=== PATIENT | female | born 1935 | race Caucasian/White ===

== ENCOUNTER 2018-10-10 16:25 | Observation (INO) | payer MEDICARE ==
[~2018-10-10] VITALS: Ht 162.6 cm; Wt 61.7 kg
[~2018-10-10 16:25] MED LIST: ASCO-262 PO; CALC-97 PO; CHLO25TA22 PO; CHOL200035 PO; CITA10TA7 PO; DILT240C PO; DIVA125T2 PO; DONE10TA12 PO; HYDR-3583 PO; LORA-404 PO; LOVA40TA2 PO; MAGN400C PO; MELA1TAB8 PO; OLIV30OI MC; OMG1KC PO; SENN-145 PO; SIMV40TA4 PO; TRAM50TA2 PO; TRAZ-189 PO; VITA1CAP59 PO; VITA200T7 PO
--- OUTSIDE RECORDS SUMMARY | 2018-10-10 16:52 | XMS REPORT | Continuity of Care Document ---
Author Author [facility] Organization [facility] Address Unknown Phone Unavailable Allergies Active Description Code Type Severity Reaction Onset Reported/Identified Relationship to Patient Clinical Status Yes NO KNOWN DRUG ALLERGIES UNKNOWN NO KNOWN DRUG ALLERG Yes No Known Drug Allergies [id number] Drug Allergy Unknown N/A 06/12/2012 Medications Medication Packaging Start Date Stop Date Route Dosage Sig ACETAMINOPHEN ORAL TABLET 325mg(Tylenol) MG 03/15/2017 03/22/2017 PRN EVERY 6 Hour LORAZEPAM TAB 0.5 MG (ATIVAN) MG 04/13/2017 Daily&1400 ALUM/MAG/SIMETH 30CC LIQ (MYLANTA PLUS) cc 03/15/2017 03/25/2017 PRN Q4H ACETAMINOPHEN ORAL TABLET 325mg(Tylenol) MG 03/15/2017 03/22/2017 PRN EVERY 6 Hour POLYETHYLENE GLYCOL POWDER UD PWD (MIRALAX 17GM UNIT DOSE PAKS) gm 03/15/2017 03/25/2017 PRN Q3H CALMOSEPTINE OINT TUBE (RISAMINE OINT) radha 03/15/2017 03/22/2017 PRN QID LOPERAMIDE CAP 2 MG (IMMODIUM) MG 03/15/2017 03/22/2017 PRN QID DIVALPROEX SPRINKLE CAP 125 MG (DEPAKOTE SPRINKLE) MG 03/15/2017 04/14/2017 PRN Q6H ALUM/MAG/SIMETH 30CC LIQ (MYLANTA PLUS) cc 03/15/2017 03/25/2017 PRN Q4H DIVALPROEX SPRINKLE CAP 125 MG (DEPAKOTE SPRINKLE) MG 03/15/2017 04/14/2017 BID&0800,1999 POTASSIUM CHLORIDE TAB 10 MEQ (K-DUR) MEQ 03/15/2017 04/14/2017 BID&0800,2000 SIMVASTATIN TAB 40 MG (ZOCOR) MG 04/13/2017 QPM&2000 LACTULOSE SYRUP LIQ 20 GM/30CC (CHRONULAC SYRUP) GM 03/15/2017 03/25/2017 BID&0800,1999 SENNA CONC/DOCUSATE TAB (SENOKOT S) TAB 03/15/2017 04/14/2017 BID&0800,1999 MILK OF MAGNESIA LIQ ml 03/15/2017 03/22/2017 PRN BID LORAZEPAM TAB 0.5 MG (ATIVAN) MG 04/13/2017 QHS&2100 MELATONIN TAB 3 MG (MELATONIN) MG 03/15/2017 04/13/2017 QHS&2100 TRAZODONE TAB 50 MG (DESYREL) MG 04/14/2017 PRN QHS IPRATROPIUM/ALBUTEROL INH SOLN (DUO-NEB INH SOLN) MLS 03/16/2017 03/25/2017 TID&0600,1400,2200 DIVALPROEX SPRINKLE CAP 125 MG (DEPAKOTE SPRINKLE) MG 03/16/2017 04/14/2017 BID&0800,1999 Diltiazem 240mg XR cap (CARDIZEM) MG 03/16/2017 04/14/2017 QAM&0800 POTASSIUM CHLORIDE TAB 10 MEQ (K-DUR) MEQ 03/16/2017 04/14/2017 QAM&0800 DONEPEZIL TAB 10 MG (ARICEPT) MG 04/14/2017 QAM&0800 CITALOPRAM TAB 10 MG (CELEXA) MG 04/14/2017 QAM&0800 LORAZEPAM TAB 0.5 MG (ATIVAN) MG 04/14/2017 Daily&0900 PHENAZOPYRIDINE TAB 100 MG (PYRIDIUM) MG 03/16/2017 03/23/2017 PRN TID HYDROCHLOROTHIAZIDE CAP 12.5 MG (HYDRODIURIL) MG 03/16/2017 04/14/2017 Daily&0900 CITALOPRAM TAB 10 MG (CELEXA) MG 04/14/2017 Daily&0900 VITAMIN D-3 TAB 1000 UNITS (VITAMIN D-3) UNITS 03/16/2017 04/14/2017 Daily&0900 BISACODYL SUPPOS SUP 10 MG (DULCOLAX SUPPOS) MG 03/16/2017 03/23/2017 PRN Daily Memantine oral tablet 5mg (NAMENDA) MG 03/16/2017 03/16/2017 ONCE&1245 Rivastigmine TD Patch 24 hour 4.6mg (EXELON) MG 03/16/2017 03/16/2017 ONCE&1245 LORAZEPAM TAB 0.5 MG (ATIVAN) MG 04/14/2017 QHS&2100 Memantine oral tablet 5mg (NAMENDA) MG 03/17/2017 03/20/2017 Daily&0900 Rivastigmine TD Patch 24 hour 4.6mg (EXELON) MG 03/17/2017 03/26/2017 Daily&0900 Memantine oral tablet 5mg (NAMENDA) MG 03/21/2017 03/30/2017 BID&0800,1999 PHENAZOPYRIDINE TAB 100 MG (PYRIDIUM) MG 03/26/2017 04/02/2017 PRN TID TRAZODONE TAB 50 MG (DESYREL) MG 04/24/2017 QHS&2100 CITALOPRAM TAB 20 MG (CELEXA) MG 04/25/2017 Daily&0900 Rivastigmine TD Patch 24 hour 4.6mg (EXELON) MG 03/27/2017 04/05/2017 Daily&0900 CHLORTHALIDONE 25 MG TABLET (chlorthalidone) oral tablet TAB 03/29/2017 03/29/2017 ONCE&0800 SIMVASTATIN TAB 40 MG (ZOCOR) MG 10/16/2017 QPM&1999 PHENAZOPYRIDINE TAB 100 MG (PYRIDIUM) MG 09/17/2017 10/17/2017 PRN TID SENNA CONC/DOCUSATE TAB (SENOKOT S) TAB 09/17/2017 10/17/2017 BID&0800,1999 DIVALPROEX SPRINKLE CAP 125 MG (DEPAKOTE SPRINKLE) MG 09/17/2017 09/17/2017 ONCE&2126 Memantine oral tablet 10mg (NAMENDA) MG 09/17/2017 09/17/2017 ONCE&2126 MELATONIN TAB 3 MG (MELATONIN) MG 09/17/2017 09/17/2017 ONCE&2126 LORAZEPAM TAB 0.5 MG (ATIVAN) MG 09/17/2017 PRN ONCE TRAZODONE TAB 50 MG (DESYREL) MG 09/17/2017 PRN ONCE DIVALPROEX SPRINKLE CAP 125 MG (DEPAKOTE SPRINKLE) MG 09/18/2017 10/17/2017 TID&0800,1400,2000 Diltiazem 240mg XR cap (CARDIZEM) MG 09/18/2017 10/17/2017 QAM&0800 Memantine oral tablet 5mg (NAMENDA) MG 09/18/2017 10/17/2017 BID&0800,2000 DONEPEZIL TAB 10 MG (ARICEPT) MG 10/17/2017 QAM&0800 CITALOPRAM TAB 20 MG (CELEXA) MG 10/17/2017 Daily&0900 VITAMIN D-3 TAB 1000 UNITS (VITAMIN D-3) UNITS 09/18/2017 10/17/2017 Daily&0900 Haloperidol 0.25mg (Haldol) oral tablet MG 09/18/2017 09/28/2017 PRN Q6H HALOPERIDOL TAB 0.5 MG (HALDOL) MG 09/18/2017 10/18/2017 PRN Q6H LORAZEPAM TAB 0.5 MG (ATIVAN) MG 10/17/2017 QHS&2100 MELATONIN TAB 3 MG (MELATONIN) MG 09/18/2017 10/17/2017 QHS&2100 TRAZODONE TAB 50 MG (DESYREL) MG 10/17/2017 QHS&2100 DIVALPROEX SPRINKLE CAP 125 MG (DEPAKOTE SPRINKLE) MG 09/19/2017 10/19/2017 TID&0800,1400,2000 CITALOPRAM TAB 20 MG (CELEXA) MG 10/19/2017 Daily&0900 LORAZEPAM TAB 0.5 MG (ATIVAN) MG 10/19/2017 QHS&2100 MELATONIN TAB 3 MG (MELATONIN) MG 09/20/2017 10/20/2017 PRN QHS LORAZEPAM TAB 0.5 MG (ATIVAN) MG 09/22/2017 QHS&2100 DIVALPROEX SPRINKLE CAP 125 MG (DEPAKOTE SPRINKLE) MG 09/23/2017 10/22/2017 QHS&2100 DIVALPROEX SPRINKLE CAP 125 MG (DEPAKOTE SPRINKLE) MG 09/24/2017 10/23/2017 QAM&0800 IPRATROPIUM/ALBUTEROL INH SOLN (DUO-NEB INH SOLN) MLS 09/24/2017 10/08/2017 BID&0800,2000 LORATADINE TAB 10 MG (CLARITIN) MG 09/25/2017 09/25/2017 ONCE&0946 LORATADINE TAB 10 MG (CLARITIN) MG 09/26/2017 10/25/2017 Daily&0900 DIVALPROEX SPRINKLE CAP 125 MG (DEPAKOTE SPRINKLE) MG 09/27/2017 10/27/2017 BID&0800,2000 HYDROXYZINE TAB 25 MG (ATARAX) MG 09/28/2017 09/28/2017 PRN ONCE PHENAZOPYRIDINE TAB 100 MG (PYRIDIUM) MG 09/28/2017 10/05/2017 BID&0800,2000 HYDROXYZINE TAB 25 MG (ATARAX) MG 10/01/2017 10/01/2017 ONCE&1024 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 02/04/2016 Ot V72.63 PRE- PROCEDURAL LABORATORY EXAMINATION 02/04/2016 Ot V72.81 EXAM-PRE- OPERATIVE CARDIOVASCULAR 02/04/2016 Ot V74.8 SCREEN- BACTERIAL DIS NEC 02/04/2016 FAUSTINO GUTIERREZP Ot 272.2 MIXED HYPERLIPIDEMIA 02/04/2016 FAUSTINO GUTIERREZP Ot 401.1 BENIGN HYPERTENSION 02/04/2016 FAUSTINO GUTIERREZP Ot 414.00 CORON ATHEROSCLER NOS TYPE VESSEL, NATIV 02/04/2016 DIAN STEWART MD Ot 305.1 TOBACCO USE DISORDER 02/04/2016 DIAN STEWART MD Ot 397.0 TRICUSPID VALVE DISEASE 02/04/2016 DIAN STEWART MD Ot 401.9 HYPERTENSION NOS 02/04/2016 DIAN STEWART MD Ot 424.0 MITRAL VALVE DISORDER 02/04/2016 DIAN STEWART MD Ot 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-ISCHEM HEART DIS 02/09/2016 KERWIN TRUJILLO, EL Crook Ot C44.722 SQUAMOUS CELL CARCINOMA SKIN/ RIGHT LOWE 02/09/2016 KERWIN TRUJILLO, EL Crook Ot E78.5 HYPERLIPIDEMIA, UNSPECIFIED 02/09/2016 KERWIN TRUJILLO, EL Crook Ot F17.210 NICOTINE DEPENDENCE, CIGARETTES, UNCOMPL 02/09/2016 KERWIN TRUJILLO, EL Crook Ot I10 ESSENTIAL (PRIMARY) HYPERTENSION 02/09/2016 KERWIN TRUJILLO, EL Crook Ot C44.722 SQUAMOUS CELL CARCINOMA SKIN/ RIGHT LOWE 02/09/2016 EL SURESH MD Ot Z01.818 ENCOUNTER FOR OTHER PREPROCEDURAL EXAMIN 02/09/2016 EL SURESH MD Ot Z11.2 ENCOUNTER FOR SCREENING FOR OTHER BACTER 02/11/2016 KERWIN TRUJILLO, EL Crook Ot C44.722 SQUAMOUS CELL CARCINOMA SKIN/ RIGHT LOWE 02/11/2016 EL SURESH MD Ot E78.5 HYPERLIPIDEMIA, UNSPECIFIED 02/11/2016 KERWIN TRUJILLO, EL Crook Ot F17.210 NICOTINE DEPENDENCE, CIGARETTES, UNCOMPL 02/11/2016 KERWIN TRUJILLO, EL Crook Ot I10 ESSENTIAL (PRIMARY) HYPERTENSION 07/17/2016 Ot 496 CHR AIRWAY OBSTRUCT NEC 07/17/2016 Ot 401.9 HYPERTENSION NOS 07/17/2016 Ot 518.81 ACUTE RESPIRATORY FAILURE 07/17/2016 Ot 577.0 ACUTE PANCREATITIS 07/17/2016 Ot 782.3 EDEMA 07/17/2016 Ot 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 07/17/2016 Ot V72.63 PRE- PROCEDURAL LABORATORY EXAMINATION 07/17/2016 Ot V72.81 EXAM-PRE- OPERATIVE CARDIOVASCULAR 07/17/2016 Ot V74.8 SCREEN- BACTERIAL DIS NEC 07/17/2016 FAUSTINO GUTIERREZP Ot 272.2 MIXED HYPERLIPIDEMIA 07/17/2016 FAUSTINO GUTIERREZP Ot 401.1 BENIGN HYPERTENSION 07/17/2016 FAUSTINO GUTIERREZP Ot 414.00 CORON ATHEROSCLER NOS TYPE VESSEL, NATIV 07/17/2016 PAT TRUJILLO, DIAN [place]ar[place] Ot 305.1 TOBACCO USE DISORDER 07/17/2016 DIAN STEWART MD Ot 397.0 TRICUSPID VALVE DISEASE 07/17/2016 DIAN STEWART MD Ot 401.9 HYPERTENSION NOS 07/17/2016 DIAN STEWART MD Ot 424.0 MITRAL VALVE DISORDER 07/17/2016 DIAN STEWART MD Ot 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-ISCHEM HEART DIS 07/17/2016 KERWIN TRUJILLO, EL Crook Ot C44.722 SQUAMOUS CELL CARCINOMA SKIN/ RIGHT LOWE 07/17/2016 KERWIN TRUJILLO, EL Crook Ot Z01.818 ENCOUNTER FOR OTHER PREPROCEDURAL EXAMIN 07/17/2016 EL SURESH MD Ot Z11.2 ENCOUNTER FOR SCREENING FOR OTHER BACTER 07/18/2016 BAILEY ALLISON INTERVENTION NURSE Ot R05 COUGH 08/08/2016 BAILEY ALLISON INTERVENTION NURSE Ot R05 COUGH 08/17/2016 BAILEY ALLISON INTERVENTION NURSE Ot R05 COUGH 03/15/2017 PAOLA CRUZ 297.1 DELUSIONAL DISORDER 03/15/2017 PAOLA CRUZ F22 DELUSIONAL DISORDERS 03/29/2017 PAOLA CRUZ 253.6 03/29/2017 PAOLA CRUZ 272.4 OTHER AND UNSPECIFIED HYPERLIPIDEMIA 03/29/2017 PAOLA CRUZ 276.8 03/29/2017 PAOLA CRUZ 290.41 03/29/2017 PAOLA CRUZ 331.2 03/29/2017 PAOLA CRUZ 368.16 03/29/2017 PAOLA CRUZ 401.0 03/29/2017 PAOLA CRUZ 424.0 03/29/2017 PAOLA CRUZ 491.20 OBSTRUCTIVE CHRONIC BRONCHITIS, WITHOUT EXACERBATION 03/29/2017 PAOLA CRUZ 564.00 CONSTIPATION, UNSPECIFIED 03/29/2017 PAOLA CRUZ 780.1 03/29/2017 PAOLA CRUZ 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 03/29/2017 PAOLA CRUZ E78.5 HYPERLIPIDEMIA, UNSPECIFIED 03/29/2017 PAOLA CRUZ E87.6 HYPOKALEMIA 03/29/2017 PAOLA CRUZ F01.51 03/29/2017 PAOLA CRUZ G31.1 03/29/2017 PAOLA CRUZ I10 ESSENTIAL (PRIMARY) HYPERTENSION 03/29/2017 PAOLA CRUZ I34.1 NONRHEUMATIC MITRAL (VALVE) PROLAPSE 03/29/2017 PAOLA CRUZ J44.9 CHRONIC OBSTRUCTIVE PULMONARY DISEASE, UNSPECIFIED 03/29/2017 PAOLA CRUZ W K59.09 OTHER CONSTIPATION 03/29/2017 PAOLA CRUZ R44.0 03/29/2017 PAOLA CRUZ R44.1 VISUAL HALLUCINATIONS 09/17/2017 Kenneth, Tyler W 290.41 VASCULAR DEMENTIA, WITH DELIRIUM 09/17/2017 Kenneth, Tyler W 297.0 PARANOID STATE, SIMPLE 09/17/2017 Kenneth, Tyler W 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 09/17/2017 Kenneth, Tyler W 401.9 UNSPECIFIED ESSENTIAL HYPERTENSION 09/17/2017 Kenneth, Tyler W F01.51 VASCULAR DEMENTIA WITH BEHAVIORAL DISTURBANCE 09/17/2017 Kenneth, Tyler W F22 DELUSIONAL DISORDERS 09/17/2017 Kenneth, Tyler W 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, NOT ELSEWHERE CLASSIFIED 09/17/2017 Kenneth, Tyler W I10 ESSENTIAL (PRIMARY) HYPERTENSION 09/17/2017 Kenneth, Tyler W 290.41 VASCULAR DEMENTIA, WITH DELIRIUM 09/17/2017 Kenneth, Tyler W 297.0 PARANOID STATE, SIMPLE 09/17/2017 Kenneth, Tyler W 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 09/17/2017 Kenneth, Tyler W 401.9 UNSPECIFIED ESSENTIAL HYPERTENSION 09/17/2017 Kenneth, Tyler W F01.51 VASCULAR DEMENTIA WITH BEHAVIORAL DISTURBANCE 09/17/2017 Kenneth, Tyler W F22 DELUSIONAL DISORDERS 09/17/2017 Kenneth, Tyler W 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, NOT ELSEWHERE CLASSIFIED 09/17/2017 Kenneth, Tyler W I10 ESSENTIAL (PRIMARY) HYPERTENSION 09/26/2017 Kenneth, Tyler W 290.41 VASCULAR DEMENTIA, WITH DELIRIUM 09/26/2017 Kenneth, Tyler W 297.0 PARANOID STATE, SIMPLE 09/26/2017 Kenneth, Tyler W 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 09/26/2017 Kenneth, Tyler W 401.9 UNSPECIFIED ESSENTIAL HYPERTENSION 09/26/2017 Kenneth, Tyler W F01.51 VASCULAR DEMENTIA WITH BEHAVIORAL DISTURBANCE 09/26/2017 Kenneth, Tyler W F22 DELUSIONAL DISORDERS 09/26/2017 Kenneth, Tyler W 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, NOT ELSEWHERE CLASSIFIED 09/26/2017 Kenneth, Tyler W I10 ESSENTIAL (PRIMARY) HYPERTENSION 10/01/2017 Kenneth, Tyler W 290.41 VASCULAR DEMENTIA, WITH DELIRIUM 10/01/2017 Kenneth, Tyler W 297.0 PARANOID STATE, SIMPLE 10/01/2017 Kenneth, Tyler W 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 10/01/2017 Kenneth, Tyler W 401.9 UNSPECIFIED ESSENTIAL HYPERTENSION 10/01/2017 Kenneth, Tyler W F01.51 VASCULAR DEMENTIA WITH BEHAVIORAL DISTURBANCE 10/01/2017 Kenneth, Tyler W F22 DELUSIONAL DISORDERS 10/01/2017 Kenneth, Tyler W 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, NOT ELSEWHERE CLASSIFIED 10/01/2017 Kenneth, Tyler W I10 ESSENTIAL (PRIMARY) HYPERTENSION 10/01/2017 Kenneth, Tyler W 268.9 10/01/2017 Kenneth, Tyler A 272.4 10/01/2017 Kenneth, Tyler W 290.41 VASCULAR DEMENTIA, WITH DELIRIUM 10/01/2017 Kenneth, Tyler W 297.0 PARANOID STATE, SIMPLE 10/01/2017 Kenneth, Tyler W 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 10/01/2017 Kenneth, Tyler W 401.9 UNSPECIFIED ESSENTIAL HYPERTENSION 10/01/2017 Kenneth, Tyler W 424.0 10/01/2017 Kenneth, Tyler W 491.20 10/01/2017 Kenneth, Tyler W 562.12 10/01/2017 Kenneth, Tyler W 564.00 10/01/2017 Kenneth, Tyler W E55.9 VITAMIN D DEFICIENCY, UNSPECIFIED 10/01/2017 Kenneth, Tyler A E78.5 10/01/2017 Kenneth, Tyler W F01.51 VASCULAR DEMENTIA WITH BEHAVIORAL DISTURBANCE 10/01/2017 Sathya Cooperb W F22 DELUSIONAL DISORDERS 10/01/2017 Sathya Cooperb W 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 Results Test Result Range Vitamin D, 25 OH - 03/15/17 11:54 Vitamin D, 25 OH 21.70 ng/mL 25.00-100.00 MRSA Screen - 03/15/17 11:54 FINAL CULTURE RESULTS MRSA Negative Nasal Culture MEDIA PLATED Setup at 12:09 on 03/15/2017 Urine Culture - 03/15/17 11:54 PRELIM CULTURE RESULTS 10,000-20,000 Gram Positive Mixed Kelly Probable Skin Contaminant FINAL CULTURE RESULTS 50,000-100,000 Gram Positive Mixed Kelly Probable Skin Contaminant No Further Workup done MEDIA PLATED Setup at 12:24 on 03/15/2017 CULTURE SOURCE [id number]\ Lipid Panel - 03/16/17 05:00 C/HDL 2.8 3.7-6.7 Cholesterol 122 mg/dL 100-240 HDL 44 mg/dL 30-85 LDL-Calculated 61 mg/dL 0-100 Trig 85 mg/dL 35-160 VLDL 17 mg/dL 0-42 Comprehensive Metabolic Panel - 03/21/17 11:04 Albumin 4.3 g/dL 3.6-5.1 ALP 54 U/L 35-130 ALT 20 U/L 6-45 Anion Gap 15 6-14 AST 24 U/L 2-40 BUN 23 mg/dL 5-25 Calcium 9.6 mg/dL 8.3-10.4 Chloride 86 mmol/L 95-114 CO2 27 mEq/L 22-33 Creat 0.76 mg/dL 0.50-1.50 eGFR 73 mL/min/1.73m2 >59 Globulin 2.5 g/dL 2.3-3.5 Glucose 110 mg/dL 70-110 Osmo 261 280-295 Potassium 4.3 mmol/L 3.5-5.3 Sodium 124 mmol/L 134-148 TBil 0.5 mg/dL 0.2-1.2 TP 6.8 g/dL 6.0-8.3 Urinalysis - 03/21/17 11:04 Icotest N/A Negative Urine Volume Urine Volume Sufficient (10mL) Urine Yeast No Yeast present Urine-Appearance Clear Clear Urine-Bacteria 3+ Urine-Bilirubin Negative Negative Urine-Blood Negative Negative Urine-Color Yellow Colorless-Lt. Yellow Urine-Epithelial Cells 5-10/HPF Urine-Glucose 1+ Negative Urine-Ketones 1+ Negative Urine-Leukocytes Trace Negative Urine-Nitrite Positive Negative Urine-Other Culture to follow Urine-pH 7.5 5-8.5 Urine-Protein Trace Negative Urine-RBC Negative Urine-Specific Platina 1.015 1.000-1.030 Urine-WBC 2-5/HPF Urobilinogen 1.0 E.U./dL 0.2-1.0 Urine Culture - 03/21/17 11:26 PRELIM CULTURE RESULTS <10,000 Gram Negative FINAL CULTURE RESULTS Probable Skin Contaminant No Further Workup done MEDIA PLATED Setup at 11:46 on 03/21/2017 CULTURE SOURCE [id number]\ Hemoglobin A1C - 03/21/17 11:36 % A1C 5.50 % 5.40-6.60 AvGlu 118 mg/dL 70-110 Electrolytes - 03/23/17 05:15 Anion Gap 11 6-14 Chloride 91 mmol/L 95-114 CO2 28 mEq/L 22-33 Potassium 4.3 mmol/L 3.5-5.3 Sodium 126 mmol/L 134-148 BMP - 03/25/17 05:00 Anion Gap 15 6-14 BUN 13 mg/dL 5-25 Calcium 9.2 mg/dL 8.3-10.4 Chloride 97 mmol/L 95-114 CO2 25 mEq/L 22-33 Creat 0.78 mg/dL 0.50-1.50 eGFR 71 mL/min/1.73m2 >59 Glucose 95 mg/dL 70-110 Osmo 275 280-295 Potassium 4.0 mmol/L 3.5-5.3 Sodium 133 mmol/L 134-148 BMP - 03/27/17 05:20 Anion Gap 11 6-14 BUN 17 mg/dL 5-25 Calcium 8.7 mg/dL 8.3-10.4 Chloride 98 mmol/L 95-114 CO2 27 mEq/L 22-33 Creat 0.79 mg/dL 0.50-1.50 eGFR 70 mL/min/1.73m2 >59 Glucose 87 mg/dL 70-110 Osmo 274 280-295 Potassium 4.1 mmol/L 3.5-5.3 Sodium 132 mmol/L 134-148 Sed Rate - 09/17/17 18:04 Sed Rate 3 mm/hr 9-15 MRSA Screen - 09/17/17 18:04 FINAL CULTURE RESULTS MRSA Negative Nasal Culture MEDIA PLATED Setup at 18:49 on 09/17/2017 Urinalysis - 09/17/17 22:40 Icotest N/A Negative Urine Volume Urine Volume Sufficient (10mL) Urine Yeast No Yeast present Urine-Appearance Slightly Cloudy Clear Urine-Bacteria Trace Urine-Bilirubin Negative Negative Urine-Blood Negative Negative Urine-Color Yellow Colorless-Lt. Yellow Urine-Epithelial Cells 10-20/HPF Urine-Glucose Negative Negative Urine-Ketones Negative Negative Urine-Leukocytes 1+ Negative Urine-Nitrite Negative Negative Urine-Other Urine Saved if Culture Needed (48hrs from time of collection) Urine-pH 7.0 5-8.5 Urine-Protein Negative Negative Urine-RBC 0-2/HPF Urine-Specific Platina 1.020 1.000-1.030 Urine-WBC 5-10/HPF Urobilinogen 0.2 0.2-1.0 Lipid Panel - 09/18/17 05:00 C/HDL 3.1 3.7-6.7 Cholesterol 106 mg/dL 100-240 HDL 34 mg/dL 30-85 LDL-Calculated 54 mg/dL 0-100 Trig 88 mg/dL 35-160 VLDL 18 mg/dL 0-42 Valproic Acid - 09/18/17 05:00 Valproic Acid 47.7 ug/mL 55.0-105.0 Valproic Acid - 09/23/17 05:30 Valproic Acid 28.5 ug/mL 55.0-105.0 Valproic Acid - 09/29/17 05:45 Valproic Acid 23.2 ug/mL 55.0-105.0 Encounters ACCT No. Visit Date/Time Discharge Status Pt. Type Provider Facility Loc./Unit Complaint [id number] 07/17/2016 11:22:00 07/17/2016 23:59:59 CLS Outpatient BAILEY ALLISON INTERVENTION NURSE [facility] RAD COUGH [id number] 02/09/2016 08:40:00 02/09/2016 11:45:00 DIS Outpatient EL SURESH MD [facility] SDC SCC RIGHT THIGH [id number] 02/04/2016 10:24:00 02/04/2016 23:59:59 CLS Outpatient EL SURESH MD [facility] PREOP SCC RIGHT THIGH [id number] 05/15/2014 10:26:00 05/15/2014 23:59:59 CLS Outpatient PAT TRUJILLO, DIAN [place] [facility] CARD HTN MR FAMILY HX OF CAD [id number] 07/14/2013 14:01:00 07/14/2013 23:59:59 CLS Outpatient FAUSTINO GUTIERREZ COUPON CLERK [facility] LAB HLP,HTN,CAD, [id number] 10/10/2018 16:26:00 ACT Emergency EDELMIRA TRUJILLO, NOLVIA Hatch [facility] ER HEARING THINGS,HARMFUL THOUGHTS [id number] 06/18/2012 05:55:00 Document Registration [id number] 06/12/2012 11:51:00 Document Registration [id number] 10/20/2011 14:19:00 Document Registration [id number] 10/12/2011 10:15:00 Document Registration [id number] 09/17/2017 15:45:00 10/01/2017 10:37:00 DIS Inpatient Tyler Cooper [facility] PRASANTH [id number] 03/15/2017 11:21:00 03/29/2017 10:40:00 DIS Inpatient NANCY PAOLA [facility] PRASANTH [id number] 03/15/2017 11:39:10 Document Registration
--- NOTE | 2018-10-10 17:20 | NUR ---
PT SON REPORTS CONCERN DUE TO PT CONVERSATING WITH SELF IN SEVERAL DIFFERENCE VOICES. SON REPORTS VOICES WILL PROMPT HIS MOTHER TO PREFORM TASKS SUCH FLEEING SCENE OR STEAL ITEMS. SON REPORTS THROUGHOUT THE EVENING INTO THE EARLY NIGHT OF 10/09/18 PT CONVERSATED WITH SELF FOR APPROX X6 HOURS. PT SON STATES, "I FEEL LIKE IM LIVING IN A HORROR MOVIE THAT NEVER ENDS."
[2018-10-10] MEDS ORDERED: LORazepam INJ 2 MG/ML (ATIVAN) VIAL ONE (17:33)
[2018-10-10] MEDS ORDERED: HALOPERIDOL 5 MG/ML (HALDOL) AMP ONE (17:33)
--- NOTE | 2018-10-10 17:35 | NUR ---
ASSISTED PT TO BEDSIDE COMMODE. WHILE URINATING, DELUSIONS AND AUDIBLE HALLUCINATIONS NOTED. PT SPEAKS IN THREE SEPERATE VOICES AND CARRIES ON CONVERSATION WITH EACH. PT EASILY REDIRECTED.
[2018-10-10 17:52] LABS: BASOPHILS % (AUTO) 0 % (0-10); EOSINOPHILS # (AUTO) 0.2 10^3/uL (0.0-0.3); EOSINOPHILS % (AUTO) 2 % (0-10); HEMATOCRIT 44 % (35-52); HEMOGLOBIN 14.4 G/DL (11.5-16.0); LYMPHOCYTES # (AUTO) 2.9 X 10^3 (1.0-4.0); LYMPHOCYTES % (AUTO) 33 % (12-44); MEAN CORPUSCULAR HEMOGLOBIN 30 PG (25-34); MEAN CORPUSCULAR HGB CONC 33 G/DL (32-36); MEAN CORPUSCULAR VOLUME 93 FL (80-99); MEAN PLATELET VOLUME 9.6 FL (7.4-10.4); MONOCYTES # (AUTO) 0.9 X 10^3 (0.0-1.0); MONOCYTES % (AUTO) 10 % (0-12); NEUTROPHILS # (AUTO) 4.7 X 10^3 (1.8-7.8); NEUTROPHILS % (AUTO) 54 % (42-75); PLATELET COUNT 290 10^3/uL (130-400); RED CELL DISTRIBUTION WIDTH 14.3 % (10.0-14.5); WHITE BLOOD COUNT 8.6 10^3/uL (4.3-11.0)
[2018-10-10 17:54] LABS: BILIRUBIN,URINE NEGATIVE (NEGATIVE); CLARITY,URINE CLEAR; COLOR,URINE YELLOW; GLUCOSE, URINE (UA) NEGATIVE (NEGATIVE); KETONES,URINE NEGATIVE (NEGATIVE); LEUKOCYTE ESTERASE ,URINE 3+ (NEGATIVE); NITRITE,URINE NEGATIVE (NEGATIVE); PH,URINE 6 (5-9); PROTEIN,URINE 1+ (NEGATIVE); UROBILINOGEN,URINE NORMAL (NORMAL)
[2018-10-10 18:00] LABS: BACTERIA,URINE LARGE /HPF; WBC,URINE 25-50 /HPF
[2018-10-10 18:01] LABS: SQUAMOUS EPITHELIAL CELL,UR 25-50 /HPF
[2018-10-10 18:04] LABS: AMPHETAMINE SCREEN, URINE NEGATIVE (NEGATIVE); BARBITURATE SCREEN URINE NEGATIVE (NEGATIVE); BENZODIAZEPINES SCREEN URINE NEGATIVE (NEGATIVE); CANNABINOID SCREEN, URINE NEGATIVE (NEGATIVE); COCAINE SCREEN URINE NEGATIVE (NEGATIVE); METHADONE STAT NEGATIVE (NEGATIVE); METHAMPHETAMINE SCREEN URINE S NEGATIVE (NEGATIVE); OPIATE SCREEN URINE NEGATIVE (NEGATIVE); OXYCODONE STAT NEGATIVE (NEGATIVE); PROPOXYPHENE STAT NEGATIVE (NEGATIVE); TRICYCLIC ANTIDEPRESSANTS SCRE NEGATIVE (NEGATIVE)
[2018-10-10 18:11] LABS: ALBUMIN 4.1 GM/DL (3.2-4.5); BILIRUBIN,TOTAL 0.3 MG/DL (0.1-1.0); CALCIUM 9.8 MG/DL (8.5-10.1); CREATININE SERUM 1.02 MG/DL (0.60-1.30); POTASSIUM 3.9 MMOL/L (3.6-5.0); TOTAL PROTEIN 7.2 GM/DL (6.4-8.2)
--- NOTE | 2018-10-10 18:13 | ED Psychosocial ---
General Chief Complaint: Psych/Social Disorder Stated Complaint: HEARING THINGS,HARMFUL THOUGHTS Nursing Triage Note: PT AMB TO ROOM #7 W/O DIFFICULTY. ALERT TO PERSON. UPON ARRIVAL PT NOTED TO BE ANXIOUS, SUSPICIOUS, AND RESTLESS. PT CONTINUES TO REPEAT STATEMENTS AND QUESTIONS. PT FOLLOWS COMMANDS AFTER SEVERAL PROMPTINGS. CAREGIVER @ SIDE REPORTS PT HAS DEVELOPED CROUPY COUGH AND WAS SEEN @ DR. VANEGAS OFFICE 10/09/18. THIS NURSE ASKS CAREGIVER ABOUT CHIEF C/O REGARDING HARMFUL THOUGHTS AND CAREGIVER DECLINES TO COMMENT STATING, "PLEASE TALK TO ROBI ABOUT THIS." PT NOTED TO BE FLIGHT RISK. PT DENIES PAIN OR DISCOMFORT. Source: patient Exam Limitations: no limitations History of Present Illness Date Seen by Provider: Oct 10, 2018 Time Seen by Provider: 18:10 Initial Comments To ER by family with reports of bizarre behavior. This is apparently been ongoing for a couple of months but significantly worse over the past week. She was at a [facility] in [place], removed from there 2 days ago. She spent last night with her son named Robi. She went to bed at about 9:30 PM and stated in her room arguing with herself in a variety of 4 different voices until 2:30 AM. Patient has been admitted to the senior behavioral health unit at [facility] 3 times in the past and family states that she seems to be worse when she lays there. She does have dementia. Son, Robi, does have power of assistant attorney general. Timing/Duration: constant Severity: moderate Associated Symptoms: anxiety, impaired concentration Allergies and Home Medications Allergies Coded Allergies: No Known Drug Allergies (Unverified , 06/12/12) Home Medications Chlorthalidone 25 Mg Tablet, 12.5 MG PO DAILY, (Reported) Citalopram Hydrobromide 10 Mg Tablet, 10 MG PO DAILY, (Reported) Diltiazem Hcl 240 Mg Cap.sr.24h, 1 EACH PO DAILY, (Reported) Divalproex Sodium 125 Mg Tablet.dr, 125 MG PO BID, (Reported) Donepezil HCl 10 Mg Tablet, 10 MG PO DAILY, (Reported) Lorazepam 0.5 Mg Tablet, 0.5 MG PO DAILY, (Reported) Melatonin 1 Mg Tablet, 1 MG PO HS, (Reported) [place]elford Oil 30 Ml Oil, 30 ML MC WED AND SAT, (Reported) Sennosides/Docusate Sodium 1 Each Tablet, 1 EACH PO BID, (Reported) Simvastatin 40 Mg Tablet, 40 MG PO HS, (Reported) Tramadol HCl 50 Mg Tablet, 50 MG PO Q12H PRN for PAIN Prescribed by: EL SURESH on 02/09/16 1021 Trazodone HCl 50 Mg Tablet, 75 MG PO HS, (Reported) Patient Home Medication List Home Medication List Reviewed: Yes Review of Systems Constitutional: see HPI EENTM: see HPI Respiratory: no symptoms reported Cardiovascular: no symptoms reported Genitourinary: no symptoms reported Musculoskeletal: no symptoms reported Skin: no symptoms reported Psychiatric/Neurological: See HPI, Emotional Problems Past Dhoximv-Dvxveo-Zwckru Hx Patient Social History Former Smoker, Quit: Feb 08, 2015 Recent Foreign Travel: No Contact w/Someone Who Travel: No Recent Infectious Disease Expo: No Physical Abuse: No Sexual Abuse: No Immunizations Up To Date Date of Pneumonia Vaccine: Feb 08, 2014 Past Medical History Reproductive Disorders: No Sexually Transmitted Disease: No HIV/AIDS: No Diverticulosis Loss of Vision: Bilateral Hearing Impairment: Denies Adverse Reaction/Blood Tranf: No Physical Exam Vital Signs - First Documented 10/10/18 17:05 Temp 97.1 Pulse 82 Resp 18 B/P (MAP) 135/76 (95) Pulse Ox 94 O2 Delivery Room Air Capillary Refill : Less Than 3 Seconds Height, Weight, BMI Height: 5'4.00" Weight: 137lbs. 6.0oz. 62.618573da; 24.79 BMI Method:Stated General Appearance: WD/WN, no apparent distress, other (alert upright walking and talking, repetitively asking "are you a nurse?" To anyone in the room and will not allow any intervention unless that person states that they are nurse. She states that she needs to hurry up and get home. She was given 2.5 mg of haloperidol into the left deltoid and 1 mg of IV lorazepam upon arrival. At this time she is resting.) HEENT: PERRL/EOMI, normal ENT inspection Neck: non-tender, full range of motion Respiratory: normal breath sounds, no respiratory distress, no accessory muscle use Cardiovascular: regular rate, rhythm, no murmur Gastrointestinal: normal bowel sounds, non tender, soft Neurologic/Psychiatric: alert, disoriented x 3 Appearance/Memory: denies illness, disheveled, impaired insight, impaired recent memory, impaired remote memory Behavior/Eye Contact: belligerent, uncooperative Thoughts/Hallucinations: auditory hallucinations (apparent auditory hallucinations by history), delusions Skin: normal color, warm/dry Progress/Results/Core Measures Results/Orders Lab Results Laboratory Tests Test 10/10/18 17:35 10/10/18 17:40 Range/Units Urine Color YELLOW Urine Clarity CLEAR Urine pH 6 5-9 Urine Specific [place] 1.020 1.016-1.022 Urine Protein 1+ H NEGATIVE Urine Glucose (UA) NEGATIVE NEGATIVE Urine Ketones NEGATIVE NEGATIVE Urine Nitrite NEGATIVE NEGATIVE Urine Bilirubin NEGATIVE NEGATIVE Urine Urobilinogen NORMAL NORMAL MG/DL Urine Leukocyte Esterase 3+ H NEGATIVE Urine RBC (Auto) NEGATIVE NEGATIVE Urine RBC NONE /HPF Urine WBC 25-50 H /HPF Urine Squamous Epithelial Cells 25-50 H /HPF Urine Crystals NONE /LPF Urine Bacteria LARGE H /HPF Urine Casts NONE /LPF Urine Mucus NEGATIVE /LPF Urine Culture Indicated YES Urine Opiates Screen NEGATIVE NEGATIVE Urine Oxycodone Screen NEGATIVE NEGATIVE Urine Methadone Screen NEGATIVE NEGATIVE Urine Propoxyphene Screen NEGATIVE NEGATIVE Urine Barbiturates Screen NEGATIVE NEGATIVE Ur Tricyclic Antidepressants Screen NEGATIVE NEGATIVE Urine Phencyclidine Screen NEGATIVE NEGATIVE Urine Amphetamines Screen NEGATIVE NEGATIVE Urine Methamphetamines Screen NEGATIVE NEGATIVE Urine Benzodiazepines Screen NEGATIVE NEGATIVE Urine Cocaine Screen NEGATIVE NEGATIVE Urine Cannabinoids Screen NEGATIVE NEGATIVE White Blood Count 8.6 4.3-11.0 10^3/uL Red Blood Count 4.77 4.35-5.85 10^6/uL Hemoglobin 14.4 11.5-16.0 G/DL Hematocrit 44 35-52 % Mean Corpuscular Volume 93 80-99 FL Mean Corpuscular Hemoglobin 30 25-34 PG Mean Corpuscular Hemoglobin Concent 33 32-36 G/DL Red Cell Distribution Width 14.3 10.0-14.5 % Platelet Count 290 130-400 10^3/uL Mean Platelet Volume 9.6 7.4-10.4 FL Neutrophils (%) (Auto) 54 42-75 % Lymphocytes (%) (Auto) 33 12-44 % Monocytes (%) (Auto) 10 0-12 % Eosinophils (%) (Auto) 2 0-10 % Basophils (%) (Auto) 0 0-10 % Neutrophils # (Auto) 4.7 1.8-7.8 X 10^3 Lymphocytes # (Auto) 2.9 1.0-4.0 X 10^3 Monocytes # (Auto) 0.9 0.0-1.0 X 10^3 Eosinophils # (Auto) 0.2 0.0-0.3 10^3/uL Basophils # (Auto) 0.0 0.0-0.1 10^3/uL Sodium Level 140 135-145 MMOL/L Potassium Level 3.9 3.6-5.0 MMOL/L Chloride Level 104 98-107 MMOL/L Carbon Dioxide Level 26 21-32 MMOL/L Anion Gap 10 5-14 MMOL/L Blood Urea Nitrogen 22 H 7-18 MG/DL Creatinine 1.02 0.60-1.30 MG/DL Estimat Glomerular Filtration Rate 52 BUN/Creatinine Ratio 22 Glucose Level 101 70-105 MG/DL Calcium Level 9.8 8.5-10.1 MG/DL Corrected Calcium 9.7 8.5-10.1 MG/DL Total Bilirubin 0.3 0.1-1.0 MG/DL Aspartate Amino Transf (AST/SGOT) 20 5-34 U/L Alanine Aminotransferase (ALT/SGPT) 15 0-55 U/L Alkaline Phosphatase 76 40-136 U/L Total Protein 7.2 6.4-8.2 GM/DL Albumin 4.1 3.2-4.5 GM/DL Thyroid Stimulating Hormone (TSH) 4.75 0.35-4.94 UIU/ML My Orders Orders - MARLENI FOSTER CHARGER OPERATOR Cbc With Automated Diff (10/10/18 16:54) Comprehensive Metabolic Panel (10/10/18 16:54) Ua Culture If Indicated (10/10/18 16:54) Iv Heplock-Insert (Order) (10/10/18 16:54) Thyroid Stimulating Hormone (10/10/18 16:54) Drug Screen Stat (Urine) (10/10/18 16:54) Ct Head Wo (10/10/18 16:54) Haloperidol Injection (Haldol Injectio (10/10/18 17:33) Lorazepam Injection (Ativan Injection) (10/10/18 17:33) Urine Culture (10/10/18 17:35) Ceftriaxone For Iv Use (Rocephin For I (10/10/18 18:15) Haloperidol Injection (Haldol Injectio (10/10/18 18:15) Lorazepam Injection (Ativan Injection) (10/10/18 18:15) Ekg Tracing (10/10/18 18:09) Medications Given in ED Current Medications Medications Dose Ordered Sig/Maxx Route Start Time Stop Time Status Last Admin Dose Admin Ceftriaxone Sodium 1000 mg/ Sodium Chloride 50 ml @ 100 mls/hr ONCE ONCE IV 10/10/18 18:15 10/10/18 18:44 DC 10/10/18 18:40 100 MLS/HR Haloperidol Lactate 2.5 mg ONCE ONCE IM 10/10/18 18:15 10/10/18 18:16 DC 10/10/18 17:43 2.5 MG Lorazepam 1 mg ONCE PRN IVP 10/10/18 18:15 10/10/18 17:40 1 MG Vital Signs/I&O 10/10/18 17:05 Temp 97.1 Pulse 82 Resp 18 B/P (MAP) 135/76 (95) Pulse Ox 94 O2 Delivery Room Air Blood Pressure Mean: 95 Diagnostic Imaging Diagonstic Imaging: CT Comments NAME: SENAIT BEATTY [facility] REC#: [id number] PT STATUS: REG ER : 1935 PHYSICIAN: MARLENI FOSTER APRN ADMIT DATE: 10/10/18/ER Draft Date of Exam:10/10/18 CT HEAD WO PROCEDURE: CT head without contrast. TECHNIQUE: Multiple contiguous axial images were obtained through the brain without the use of intravenous contrast. INDICATION: Altered mental status. FINDINGS: There is a large area of encephalomalacia in the left posterior cerebral artery vascular territory consistent with old vascular injury. There is decreased density in the periventricular white matter of both cerebral hemispheres. There is generalized atrophy. There are no masses or hemorrhages. There is no CT evidence of an acute infarct. 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 No acute abnormality is seen. Dictated on workstation # [id number] Dict: 10/10/181819 Trans: 10/10/181824 PJ [id number] Interpreted by: JAZLYN RODRIGUEZ MD Electronically signed by: Departure Communication (Admissions) Time/Spoke to Admitting Phy: 20:12 1831-I discussed with [facility] in [place], they do not have any available geriatric beds. I spoke with generations at [facility] in [facility]. They will review information and call me back. 2008-[facility] in [facility] has called back to report that the patient is not appropriate at this time and they would prefer she go back to [facility]. I then called [facility] and they do have an [facility] bed but because of staffing they are unable to fill it tonight. They should have discharges tomorrow and anticipate possible placement tomorrow. I then spoke with Dr. Hunt who graciously agrees to accept the patient for observation status as the son is apprehensive about taking the patient home with him. At this point she is sleeping in bed. Impression Primary Impression: Paranoid delusion Additional Impression: Dementia Qualified Codes: F03.91 - Unspecified dementia with behavioral disturbance Disposition: ADMITTED INPATIENT Condition: Stable Admissions Decision to Admit Reason: Admit from ER (General) Decision to Admit/Date: Oct 10, 2018 Time/Decision to Admit Time: 20:09 Departure-Patient Inst. Referrals: AMARILYS HUNT MD (PCP/Family) Primary Care Physician MARLENI FOSTER APRN Oct 10, 2018 18:13
[2018-10-10] MEDS ORDERED: LORazepam INJ 2 MG/ML (ATIVAN) VIAL IVP PRN (18:15)
[2018-10-10] MEDS ORDERED: HALOPERIDOL 5 MG/ML (HALDOL) AMP IM ONE (18:15)
[2018-10-10] MEDS ORDERED: cefTRIAXone FOR IV USE 1,000 MG in NS (IVPB) 50 ML IV ONE (18:15)
--- NOTE | 2018-10-10 18:25 | Diagnostic Imaging Report ---
PROCEDURE: CT head without contrast. TECHNIQUE: Multiple contiguous axial images were obtained through the brain without the use of intravenous contrast. INDICATION: Altered mental status. FINDINGS: There is a large area of encephalomalacia in the left posterior cerebral artery vascular territory consistent with old vascular injury. There is decreased density in the periventricular white matter of both cerebral hemispheres. There is generalized atrophy. There are no masses or hemorrhages. There is no CT evidence of an acute infarct. 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 No acute abnormality is seen. Dictated by: Dictated on workstation # [id number]
--- NOTE | 2018-10-10 21:30 | NUR ---
SENAIT BEATTY admitted to room 428-1, with an admitting diagnosis of UTI, DEMENTIA WITH BEHAVIORAL DISTURBANCE, on 10/10/18 from ED via CART, accompanied by STAFF. SENAIT BEATTY introduced to surroundings, call light, bed controls, phone, TV, temperature control, lights, meal times, smoking policy, visitor policy, side rail policy, bathrooms and showers. Patient Rights given to patient in the handbook.SENAIT BEATTY verbalizes understanding that [facility] is not responsible for the loss or damage to any personal effects or valuables that are kept in the patients posession during their hospitalization.
[2018-10-10 21:43] VITALS: BP 132/72
[2018-10-10] MEDS ORDERED: LORazepam INJ 2 MG/ML (ATIVAN) VIAL IV PRN (21:45)
[2018-10-10] MEDS: NS IV 1000 ML 1,000 ML IV SCH (21:52)
[2018-10-10] MEDS: CATHETER FLUSH 10 ML SYR IV SCH (21:53)
[2018-10-10] MEDS ORDERED: CATHETER FLUSH 10 ML SYR IV PRN (22:00)
[2018-10-10] MEDS ORDERED: HALOPERIDOL 5 MG/ML (HALDOL) AMP IM PRN (22:00)
--- NOTE | 2018-10-10 22:30 | NUR ---
TOOK OVER CARE OF PATIENT FROM PREVIOUS NURSE. AGREE WITH PREVIOUS ASSESSMENT.
[2018-10-11 01:00] VITALS: BP 101/67
[2018-10-11 04:59] VITALS: BP 121/57
[2018-10-11] MEDS: CATHETER FLUSH 10 ML SYR IV SCH ×3 (06:07→20:16)
[2018-10-11 08:00] VITALS: BP 134/77
[2018-10-11] MEDS: NS IV 1000 ML 1,000 ML IV SCH ×2 (09:30→18:58)
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
--- NOTE | 2018-10-11 11:19 | NUR ---
UNABLE TO SPEAK WITH THE PATIENT AT THIS TIME REGARDING MEDICATIONS. I [place] [facility] [place] AND ASKED THEM TO FAX OVER THE MED LIST THE PATIENT WAS TAKING WHEN SHE WAS DISCHARGED FROM THEIR FACILITY RECENTLY. THE NUMBER WE HAD ON FILE FOR THE PATIENTS SON WALKER IS NOT WORKING. I LEFT A MESSAGE WITH THE GRANDSON MAJO AND ASKED THAT HE RETURN MY CALL. [facility] [place] DIFFERENT PHONE NUMBER LISTED FOR WALKER, , HOWEVER WHEN I CALL IT THE CALL RINGS BUT THEN DISCONNECTS STATING USER IS BUSY. I WILL UPDATE THE MED REC WITH THE LIST OF MEDICATIONS FROM [facility] [place]CE THE CHART IS AVAILABLE FOR UPDATE. THE RECORD HAS BEEN LOCKED SINCE 1014. Addendum: 10/11/18 at 1254 by MODESTO WATKINS [facility] UPDATED MED REC WITH MAR AT THIS TIME. STILL NO CALL BACK FROM PATIENTS FAMILY.
[2018-10-11 12:00] VITALS: BP 119/58
[2018-10-11] MEDS ORDERED: DIVA125C10 PO (12:45)
[2018-10-11] MEDS ORDERED: IPRA3AMP31 NEB (12:45)
[2018-10-11] MEDS ORDERED: CHOL10007 PO (12:45)
[2018-10-11] MEDS ORDERED: MIRT15TA6 PO (12:45)
[2018-10-11] MEDS ORDERED: CITA20TA12 PO (12:45)
[2018-10-11] MEDS ORDERED: DILT240C97 PO (12:45)
[2018-10-11] MEDS ORDERED: LORA10TA7 PO (12:45)
[2018-10-11] MEDS ORDERED: RT-ALBUTEROL/IPRATROPIUM 3 ML (DUONEB) VIAL INH PRN (13:45)
--- NOTE | 2018-10-11 14:17 | NUR ---
CM/SS, respond to consult for complex psychosocial situation and equally complex discharge. PLAN: Physician stated that patient is NOT to be discharged into care of her family. Director Nursing Service continues to explore a safe discharge on her behalf. Much time spent on exploring all facets of this case today. Reviewed EMR. Discussions with patient, [facility]/Eugene Sanders, son Robi Garcia, [facility]/Diamante Ballard, DCF/APS Pamela Joiner and Hesham King, Dr. Bowen. Compiling information in summary: Patient has resided at [facility] since October 01, 2017. She has history of dementia and also history of admission(s) at [facility]. Her son Robi Garcia is the current Legal Guardian and Conservator through [facility], Case #[id number] P. [facility] Security And Compliance Analyst office staff indicate Robi has not fulfilled the duties of his appointment and has not responded to their attempts to contact him. They have submitted documentation to the [employer] for termination of appointment; once this is signed they will send a regular-mail letter to Robi to notify him. At this time, he remains legally active, but termination is anticipate within 5 working days. Robi has not paid [facility] since May 2018. He would not respond to their calls or attempts to negotiate, they sent him a letter September 08, 2018 to notify patient would have to discharge for non-payment. Their deadline was 09/21/18 but he did not reply timely. He came to get patient for a Dr. Bowen office appointment 10/09/18 and he then took patient to his home. Robi went to [facility] and picked up her Rx but left her personal possessions there. She was at Robi' home one night and he presented her to ED next day describing psychiatric issues. Progress notes reflect that ED attempted to find a senior behavioral health bed but could not, and left pending status with [facility] for today. EMR reflects dementia with behavioral disturbance. [facility]/Eugenemamie Sanders came this a.m. for the referral and indicated she was not eligible for admission. He had assessed patient at [facility] 10/08/18 and determined that she met no criteria for admission and that she was stable. That referral was in response to multiple contacts from Robi that patient was "combative" and a flight risk and generally psychotic. He has reportedly been contacting both [facility] and [facility] with this concern and, although Diamante at indicates no such behavior, she did ask for Eugene to complete an assessment as noted above. Additionally, Diamante indicates that Robi came to see patient rarely, that he had not been there since when he came in, dropped off a card, and asked staff to give it to his mom. There is an open DCF/APS case assigned Kevil Chintan/Pamela Joiner. She understands that patient does not meet criteria for psychiatric or medical hospitalization. Director Nursing Service updated her about the Court decision and that Robi will soon be removed from appointment, that he is not considered a safe haven for patient to discharge with. Director Nursing Service proposed that patient return to [facility] and Diamante will accept her back if there is a payor source. Patient will be private pay no matter where she goes, she is in observation status and no Medicare benefits to access for SNF. Director Nursing Service talked at length with Robi asking what his plan was when he took patient home with him. He stated he was exploring things, that he had contacted [facility]. When asked if he was prepared to pay privately for her to admit there, he said he was working on that with them. However, he has patient in arrears at [facility] 4 months, and it could be safely assumed he has no money to pay a new facility. He indicated to [facility] staff he was going to contact a ride assembly supervisor because 'they' (the bank?) would not give him any more money. Checks were reportedly from [facility] [facility]; DCF updated. Robi took patient to his home without any firm plan in place and he does not appear able to provide for her health, mental health, well-being. DCF/APS Pamela Joiner and Hesham King have been updated fully. Director Nursing Service has requested a new temporary guardian be appointed for patient kaylah. They will have to do this through [place] [employer], promptness not anticipated. Review Sunday.
[2018-10-11 16:09] VITALS: BP 125/69
[2018-10-11] MEDS ORDERED: cefTRIAXone 1 GM/NS 50 ML IVPB IV SCH ×2 (18:00)
[2018-10-11 19:52] VITALS: BP 133/79
[2018-10-11] MEDS: DIVALPROX SPRINKLE 125 MG (DEPAKOTE) CAP PO SCH (20:15)
[2018-10-11] MEDS: MIRTAZAPINE 15 MG (REMERON) TAB PO SCH (20:15)
[2018-10-11] MEDS: SENNA W/DOCUSATE (SENOKOT S) TABLET PO SCH (20:15)
[2018-10-11] MEDS: DONEPEZIL 10 MG (ARICEPT) TAB PO SCH (20:15)
[2018-10-11] MEDS: SIMvastatin 40 MG (ZOCOR) TAB PO SCH (20:16)
--- NOTE | 2018-10-11 20:38 | NUR ---
Dr. Pk Leong is notified that patient refused all of her PM PO meds.
[2018-10-12] VITALS: BP 125/71
[2018-10-12 04:00] VITALS: BP 118/68
[2018-10-12] MEDS: NS IV 1000 ML 1,000 ML IV SCH (05:49)
[2018-10-12] MEDS: SENNA W/DOCUSATE (SENOKOT S) TABLET PO SCH ×2 (08:18→21:26)
[2018-10-12] MEDS: CATHETER FLUSH 10 ML SYR IV SCH (08:18)
[2018-10-12] MEDS: VITAMIN D3 1,000 UNITS (CHOLECALCIFEROL) TABLET PO SCH (08:19)
[2018-10-12] MEDS: DIVALPROX SPRINKLE 125 MG (DEPAKOTE) CAP PO SCH ×2 (08:19→21:26)
[2018-10-12] MEDS: LORATADINE (CLARITIN) 10 MG TAB PO SCH (08:19)
[2018-10-12] MEDS: DILTIAZEM 240 MG (CARDIZEM CD) CAP PO SCH (08:19)
[2018-10-12 08:35] VITALS: BP 146/86
--- NOTE | 2018-10-12 11:11 | Progress Note-Hospitalist ---
Subjective HPI/CC On Admission Date Seen by Provider: Oct 12, 2018 Time Seen by Provider: 11:30 Subjective/Events-last exam Patient pulled IV out and noted UCx contaminant so will DC abx anyway Changed meds to IM Telesitter in place Patient difficulty to redirect Fall risk Review of Systems Neurological: Confusion Objective Exam Vital Signs Vital Signs Date Time Temp Pulse Resp B/P (MAP) Pulse Ox O2 Delivery O2 Flow Rate FiO2 10/12/18 12:20 98.4 82 20 109/59 (76) 93 Room Air 10/12/18 08:35 2.00 Capillary Refill : Less Than 3 Seconds General Appearance: No Apparent Distress, WD/WN, Chronically ill Respiratory: Chest Non Tender, Lungs Clear, Normal Breath Sounds, No Accessory Muscle Use, No Respiratory Distress Cardiovascular: Regular Rate, Rhythm, No Edema, No Gallop, No JVD, No Murmur, Normal Peripheral Pulses Neurologic/Psychiatric: Alert, No Motor/Sensory Deficits, Normal Mood/Affect, Disoriented Results/Procedures Lab Patient resulted labs reviewed. Assessment/Plan Assessment and Plan Assess & Plan/Chief Complaint Assessment: Abnormal UA placed on Rocephin UCx no growth to date so DC IV since she removed it herself Severe dementia Delusional behavior Plan: Supportive care Diagnosis/Problems Diagnosis/Problems (1) Paranoid delusion Status: Acute (2) Abnormal urinalysis Status: Acute (3) Dementia Status: Acute Qualifiers: Dementia type: unspecified type Dementia behavioral disturbance: with behavioral disturbance Qualified Codes: F03.91 - Unspecified dementia with behavioral disturbance Clinical Quality Measures DVT/VTE Risk/Contraindication: Risk Factor Score Per Nursin RFS Level Per Nursing on Admit: 3=High CONSTANZA LOPES DO Oct 12, 2018 11:11
[2018-10-12 12:20] VITALS: BP 109/59
--- NOTE | 2018-10-12 14:19 | NUR ---
DR LOPES ON FLOOR. NEW ORDER RECEIVED TO DC TELEMETRY
--- NOTE | 2018-10-12 14:34 | NUR ---
THIS RN CALLED [facility] IN REGARDS TO PT FLU VACCINE STATUS. LUZ AT THE FACILITY REQUESTED THAT THE RN IN CHARGE OF PT CARE ON SUNDAY CALL BACK AND SPEAK WITH SHARRI BROWNING OF THE FACILITY, FOR MORE INFORMATION. THIS RN WILL PASS INFORMATION TO NEXT SHIFT.
[2018-10-12 15:35] VITALS: BP 112/59
--- NOTE | 2018-10-12 16:30 | NUR ---
PT SON, WALKER ON FLOOR ASKED TO SPEAK TO THIS RN. THIS RN UPDATED WALKER ON HIS MOTHERS STATUS. WALKER INFORMED THIS RN THAT HIS MOTHER SPEAKS IN 4 DIFFERENT VOICES AT HOME AND WONDERED IF SHE HAD DONE THIS WHILE ADMITTED. HE STATED THAT HE FEELS THOUGH HIS MOTHER IS "TROUBLE BY THINGS FROM THE PAST", BUT WOULD NOT ELABORATE ON IT. THIS RN HAS NOT WITNESSED ANY OF THIS BEHAVIOR. WALKER SETUP A PASSWORD AT THIS TIME SO HE COULD CALL FOR UPDATES ON HIS MOTHER. THIS RN WILL PASS THIS INFORMATION TO NEXT SHIFT.
[2018-10-12] MEDS: LORazepam INJ 2 MG/ML (ATIVAN) VIAL IM PRN (17:25)
[2018-10-12] MEDS: SIMvastatin 40 MG (ZOCOR) TAB PO SCH (21:26)
[2018-10-12] MEDS: MIRTAZAPINE 15 MG (REMERON) TAB PO SCH (21:26)
[2018-10-12] MEDS: DONEPEZIL 10 MG (ARICEPT) TAB PO SCH (21:26)
[2018-10-13] VITALS: BP 108/62
[2018-10-13 08:00] VITALS: BP 127/65
[2018-10-13] MEDS: DILTIAZEM 240 MG (CARDIZEM CD) CAP PO SCH (08:21)
[2018-10-13] MEDS: VITAMIN D3 1,000 UNITS (CHOLECALCIFEROL) TABLET PO SCH (08:21)
[2018-10-13] MEDS: DIVALPROX SPRINKLE 125 MG (DEPAKOTE) CAP PO SCH ×2 (08:21→20:49)
[2018-10-13] MEDS: SENNA W/DOCUSATE (SENOKOT S) TABLET PO SCH ×2 (08:21→20:49)
[2018-10-13] MEDS: LORATADINE (CLARITIN) 10 MG TAB PO SCH (08:21)
--- NOTE | 2018-10-13 12:01 | Progress Note-Hospitalist ---
Subjective HPI/CC On Admission Date Seen by Provider: Oct 13, 2018 Time Seen by Provider: 11:00 Subjective/Events-last exam Patient doing about the same No pain is reported Telesitter is maintained Review of Systems Neurological: Confusion Objective Exam Vital Signs Vital Signs Date Time Temp Pulse Resp B/P (MAP) Pulse Ox O2 Delivery O2 Flow Rate FiO2 10/13/18 08:00 98.9 66 16 127/65 (85) 31 Room Air 10/12/18 08:35 2.00 Capillary Refill : Less Than 3 Seconds General Appearance: No Apparent Distress, WD/WN, Chronically ill Respiratory: Chest Non Tender, Lungs Clear, Normal Breath Sounds, No Accessory Muscle Use, No Respiratory Distress Cardiovascular: Regular Rate, Rhythm, No Edema, No Gallop, No JVD, No Murmur, Normal Peripheral Pulses Neurologic/Psychiatric: Alert, No Motor/Sensory Deficits, Normal Mood/Affect, Disoriented Results/Procedures Lab Patient resulted labs reviewed. Assessment/Plan Assessment and Plan Assess & Plan/Chief Complaint Assessment: Abnormal UA placed on Rocephin UCx no growth to date so DC IV since she removed it herself Severe dementia Delusional behavior Plan: Supportive care Clinical Quality Measures DVT/VTE Risk/Contraindication: Risk Factor Score Per Nursin RFS Level Per Nursing on Admit: 3=High CONSTANZA LOPES DO Oct 13, 2018 12:01
[2018-10-13 15:07] VITALS: BP 121/84
[2018-10-13] MEDS: SIMvastatin 40 MG (ZOCOR) TAB PO SCH (20:49)
[2018-10-13] MEDS: MIRTAZAPINE 15 MG (REMERON) TAB PO SCH (20:49)
[2018-10-13] MEDS: DONEPEZIL 10 MG (ARICEPT) TAB PO SCH (20:49)
[2018-10-13 23:09] VITALS: BP 123/58
[2018-10-14] MEDS: VITAMIN D3 1,000 UNITS (CHOLECALCIFEROL) TABLET PO SCH (06:05)
[2018-10-14 07:56] VITALS: BP 148/82
[2018-10-14] MEDS: DILTIAZEM 240 MG (CARDIZEM CD) CAP PO SCH (08:06)
[2018-10-14] MEDS: SENNA W/DOCUSATE (SENOKOT S) TABLET PO SCH ×2 (08:06→23:16)
[2018-10-14] MEDS: DIVALPROX SPRINKLE 125 MG (DEPAKOTE) CAP PO SCH ×2 (08:06→23:15)
[2018-10-14] MEDS: LORATADINE (CLARITIN) 10 MG TAB PO SCH (08:06)
--- NOTE | 2018-10-14 09:36 | Progress Note ---
Subjective Date Seen by a Provider: Oct 14, 2018 Time Seen by a Provider: 09:20 Subjective/Events-last exam pt reports that she is just fine, staff reports some irregular speech patterns - talking to people not in the room, but she has been pleasant, cooperative, noncombative Review of Systems General: No Fatigue HEENT: No Head Aches Pulmonary: No Dyspnea, No Cough Cardiovascular: No: Chest Pain, Palpitations Gastrointestinal: No: Nausea, Abdominal Pain Genitourinary: No Dysuria Neurological: Weakness, Confusion Objective Exam Last Set of Vital Signs Vital Signs Date Time Temp Pulse Resp B/P (MAP) Pulse Ox O2 Delivery O2 Flow Rate FiO2 10/14/18 07:56 97.0 71 18 148/82 (104) 93 Room Air 10/12/18 08:35 2.00 Capillary Refill : Less Than 3 Seconds I&O Intake and Output 10/14/18 00:00 Intake Total 1170 ml Output Total 0 ml Balance 1170 ml Intake Oral 1170 ml Output Urine Total 0 ml # Voids 9 # Bowel Movements 1 General: Alert, Other (oriented to person, not place or time) HEENT: Atraumatic Neck: Supple Lungs: Clear to Auscultation, Normal Air Movement Heart: Regular Rate Abdomen: Normal Bowel Sounds, Soft, No Tenderness Skin: No Rashes Neuro: Normal Speech Psych/Mental Status: Mood NL Results Lab Microbiology 10/10/18 Urine Culture - Final, Complete See Comments Assessment/Plan Assessment/Plan Assess & Plan/Chief Complaint URINARY TRACT INFECTION DEMENTIA BEHAVIOR DISORDER DIFFICULT SOCIAL SITUATION HYPERTENSION DEPRESSION URINARY TRACT INFECTION - PT TO CONTINUE WITH IV ANTIBIOTIC FOR NOW - WAIT ON CULTURE REPORT. SHE IS ON OBSERVATION. DEMENTIA WITH BEHAVIOR DISORDER - AND DIFFICULT SOCIAL SITUATION - DISCUSSED WITH NURSING STAFF AND SYSTEMS TEST ENGINEER - WE HAVE A TOUGH SITUATION HERE SHE WAS IN THE [place] - THE STAFF REPORTS THAT HER SON HAS NOT BEEN PAYING HER FEES FOR THE FACILITY. HE TOOK HER OUT OF THE FACILITY DESPITE OUR RECOMMENDATIONS. HE HAD HER AT HOME FOR 1 NIGHT AND THEN TOOK HER TO THE ER HE COULD NOT HANDLE HER AT HOME. RESUME HOME REGIMEN AND PATIENT IS TO HAVE LABS DRAWN TO SEE IF HER SON WAS GIVING HER THE APPROPRIATE MEDICATIONS AT HOME. SYSTEMS TEST ENGINEER HAS A CALL OUT TO SEE WHERE HER GUARDIANSHIP STATUS LIES. HYPERTENSION - RESUME HOME REGIMEN DEPRESSION - RESUME CITALOPRAM Clinical Quality Measures Admission Status Admission Dx URINARY TRACT INFECTION DEMENTIA BEHAVIOR DISORDER DIFFICULT SOCIAL SITUATION HYPERTENSION DEPRESSION DVT/VTE Risk/Contraindication: Risk Factor Score Per Nursin RFS Level Per Nursing on Admit: 3=High AMARILYS HUNT MD Oct 14, 2018 09:36
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
[2018-10-14] MEDS: MIRTAZAPINE 15 MG (REMERON) TAB PO SCH (23:15)
[2018-10-14] MEDS: DONEPEZIL 10 MG (ARICEPT) TAB PO SCH (23:15)
[2018-10-14] MEDS: SIMvastatin 40 MG (ZOCOR) TAB PO SCH (23:16)
[2018-10-15] VITALS: BP 134/68
[2018-10-15 04:00] VITALS: BP 134/70
[2018-10-15] MEDS ORDERED: FLU QUADRIvalent (5+ YOA) 2018-2019 (AFLURIA) 0.5 ML IM ONE (07:00)
[2018-10-15 08:43] VITALS: BP 120/67
[2018-10-15] MEDS: DILTIAZEM 240 MG (CARDIZEM CD) CAP PO SCH (09:09)
[2018-10-15] MEDS: LORATADINE (CLARITIN) 10 MG TAB PO SCH (09:09)
[2018-10-15] MEDS: SENNA W/DOCUSATE (SENOKOT S) TABLET PO SCH ×2 (09:09→21:06)
[2018-10-15] MEDS: VITAMIN D3 1,000 UNITS (CHOLECALCIFEROL) TABLET PO SCH (09:09)
[2018-10-15] MEDS: DIVALPROX SPRINKLE 125 MG (DEPAKOTE) CAP PO SCH ×4 (09:09→21:04)
--- NOTE | 2018-10-15 09:47 | Progress Note ---
Subjective Date Seen by a Provider: Oct 15, 2018 Time Seen by a Provider: 09:40 Subjective/Events-last exam PT DENIES ANY COMPLAINTS TODAY - NO CHEST PAIN, NO SHORTNESS OF BREATH, NO DIZZINESS, STAFF REPORTS NO ACUTE CONCERNS TODAY. Review of Systems General: No Fatigue, No Malaise HEENT: No Head Aches Pulmonary: No Dyspnea, No Cough Cardiovascular: No: Chest Pain Gastrointestinal: No: Nausea, Abdominal Pain Neurological: Confusion; No: Weakness Objective Exam Last Set of Vital Signs Vital Signs Date Time Temp Pulse Resp B/P (MAP) Pulse Ox O2 Delivery O2 Flow Rate FiO2 10/15/18 08:43 97.9 66 18 120/67 (84) 93 Room Air 10/12/18 08:35 2.00 Capillary Refill : Less Than 3 Seconds I&O Intake and Output 10/15/18 00:00 Intake Total 1993 ml Balance 1993 ml Intake Oral 1993 ml # Voids 16 # Bowel Movements 1 General: Alert, Other (ORIENTED TO PERSON, NOT PLACE OR TIME) HEENT: Atraumatic, PERRLA Neck: Supple Lungs: Clear to Auscultation Heart: Regular Rate Abdomen: Normal Bowel Sounds, Soft, No Tenderness Skin: No Rashes Neuro: Normal Speech Psych/Mental Status: Other (CONFUSED, PLEASANT) Results Lab Microbiology 10/10/18 Urine Culture - Final, Complete See Comments Assessment/Plan Assessment/Plan Assess & Plan/Chief Complaint URINARY TRACT INFECTION DEMENTIA BEHAVIOR DISORDER DIFFICULT SOCIAL SITUATION HYPERTENSION DEPRESSION URINARY TRACT INFECTION - PT TO CONTINUE WITH IV ANTIBIOTIC FOR NOW DEMENTIA WITH BEHAVIOR DISORDER - AND DIFFICULT SOCIAL SITUATION - DISCUSSED WITH NURSING STAFF AND DRUG REGULATORY AFFAIRS SPECIALIST - WE HAVE A TOUGH SITUATION HERE SHE WAS IN THE JAIL IN [place] - THE STAFF REPORTS THAT HER SON HAS NOT BEEN PAYING HER FEES FOR THE FACILITY. HE TOOK HER OUT OF THE FACILITY DESPITE OUR RECOMMENDATIONS. HE HAD HER AT HOME FOR 1 NIGHT AND THEN TOOK HER TO THE ER HE COULD NOT HANDLE HER AT HOME. INCREASE DEPAKOTE TO TID GUARDIANSHIP HAS BEEN REMOVED FROM HER SON BY THE STATE/DEPUTY JAILER - LETTER HAS BEEN SENT AND PT WAS CALLED BY THE COURT. WE ARE STILL WAITING ON PLACEMENT - WE HAVE CONTACTED VIA [facility] FOR PLACEMENT. HYPERTENSION - RESUMED HOME REGIMEN DEPRESSION - RESUMED CITALOPRAM Clinical Quality Measures Admission Status Admission Dx URINARY TRACT INFECTION DEMENTIA BEHAVIOR DISORDER DIFFICULT SOCIAL SITUATION HYPERTENSION DEPRESSION DVT/VTE Risk/Contraindication: Risk Factor Score Per Nursin RFS Level Per Nursing on Admit: 3=High AMARILYS HUNT MD Oct 15, 2018 09:47
[2018-10-15] MEDS: LORazepam INJ 2 MG/ML (ATIVAN) VIAL IM PRN (10:14)
--- NOTE | 2018-10-15 13:10 | NUR ---
CM/SS. Continued discharge planning and exploration of options. Rigging Loft Repairer Meliton did sign suspension/termination of son's Letters of Guardianship/Conservatorship. He will be notified by regular mail unless DCF has law enforcement deliver in person. Director Case and Dir of Case Management/Paula contacted [facility] this a.m. and spoke to Herminia about considering acceptance of patient without current payor source. Followup call from [facility] Admission Coord/Maria Ines that [facility] will review clinical and psychosocial issues in consideration of possible audrey placement. Referral faxed, await confirmation of decision.
--- NOTE | 2018-10-15 15:21 | NUR ---
Pastoral care visit. pt resting.
[2018-10-15 15:31] VITALS: BP 121/74
--- NOTE | 2018-10-15 15:33 | NUR ---
CM/SS. Provided copy of suspension of Letters to DCF/Pamela and Hesham. Requested Pamela get a copy to patient's bank, done. Requested that DCF have law enforcement deliver copy to Robi, awaiting confirmation. [facility]/Maria Ines came to meet patient and gather additional information, they are still considering taking patient for placement. It could be anticipated that patient would be a permanent placement and that this would be advisable due to dementia and age.
[2018-10-15] MEDS: MIRTAZAPINE 15 MG (REMERON) TAB PO SCH (21:04)
[2018-10-15] MEDS: SIMvastatin 40 MG (ZOCOR) TAB PO SCH (21:04)
[2018-10-15] MEDS: DONEPEZIL 10 MG (ARICEPT) TAB PO SCH (21:04)
[2018-10-16] VITALS: BP 131/61
[2018-10-16] MEDS: DILTIAZEM 240 MG (CARDIZEM CD) CAP PO SCH (08:25)
[2018-10-16] MEDS: SENNA W/DOCUSATE (SENOKOT S) TABLET PO SCH ×2 (08:26→20:27)
[2018-10-16] MEDS: LORATADINE (CLARITIN) 10 MG TAB PO SCH (08:26)
[2018-10-16] MEDS: DIVALPROX SPRINKLE 125 MG (DEPAKOTE) CAP PO SCH ×3 (08:26→20:27)
[2018-10-16] MEDS: VITAMIN D3 1,000 UNITS (CHOLECALCIFEROL) TABLET PO SCH (08:26)
--- NOTE | 2018-10-16 15:11 | NUR ---
CM/SS, updates. [facility] has not yet confirmed acceptance/denial. They indicate they are still reviewing clinical and financial situation. Feedlot Manager has provided all requested information thus far, including that the anticipated time to secure temporary or replacement guardian/conservator is estimated 2 weeks to 2 months. Additionally, confirmed with MICAH/Hesham King that their legal transcriber would manage the Court process and that [facility] would not have any financial responsibility re same. MICAH/Hesham King stated he informed Robi of the suspension of his Court assignment by phone and that Robi was going to talk to his rural electrification engineer about the matter. LYNDA/Pamela Saye indicates the [employer] has been informed regarding protection of accounts. Call from Diamante Ballard at [facility], Robi and Darcy have moved all of patient's possessions out of the facility and vacated the room. Call from Rony Palmer with [employer]: [phone] They are in the process of a condemnation action on a piece of patient's land and she needed to provide the documentation to the responsibility libertarian. She was already aware of Robi' Court removal of authority and reached out to magazine writer to inquire about next steps. Feedlot Manager provided Felisha's information to MICAH/Hesham King, await update. Felisha indicated timeline to be approx 1 week for Petition to Condemn to be filed in [facility], 3 weeks for hearing on Petition, late December for Financial Coach's hearing regarding estimation of value and offer to purchase. Will update [facility] when they respond. Attempted to contact son Robi just to update about the referral to [facility] and status of that. No answer, no message option.
[2018-10-16 17:07] VITALS: BP 124/71
[2018-10-16] MEDS: DONEPEZIL 10 MG (ARICEPT) TAB PO SCH (20:27)
[2018-10-16] MEDS: MIRTAZAPINE 15 MG (REMERON) TAB PO SCH (20:27)
[2018-10-16] MEDS: SIMvastatin 40 MG (ZOCOR) TAB PO SCH (20:27)
[2018-10-16 23:30] VITALS: BP 131/63
[2018-10-17] MEDS: VITAMIN D3 1,000 UNITS (CHOLECALCIFEROL) TABLET PO SCH (07:08)
[2018-10-17 08:00] VITALS: BP 121/72
[2018-10-17] MEDS: DIVALPROX SPRINKLE 125 MG (DEPAKOTE) CAP PO SCH ×3 (09:51→21:02)
[2018-10-17] MEDS: DILTIAZEM 240 MG (CARDIZEM CD) CAP PO SCH (09:51)
[2018-10-17] MEDS: SENNA W/DOCUSATE (SENOKOT S) TABLET PO SCH ×2 (09:51→21:02)
[2018-10-17] MEDS: LORATADINE (CLARITIN) 10 MG TAB PO SCH (09:51)
--- NOTE | 2018-10-17 14:43 | NUR ---
JEWELL/STORM. ADONAY/Maria Ines and [facility] continue to try to do what is necessary to accept patient. Need to be determined who can sign patient into placement there, DCF can do an emergent placement, fiction and nonfiction writer prose will explore if physician can do same. DCF closed today due to weather, unable to followup with them. Otherwise, [facility]
--- NOTE | 2018-10-17 19:33 | Progress Note ---
Subjective Date Seen by a Provider: Oct 17, 2018 Time Seen by a Provider: 19:00 Subjective/Events-last exam PT DENIES CONCERNS, STAFF REPORTS NO ISSUES OVER THE DAY OR EVENING Review of Systems General: Fatigue HEENT: No Head Aches Pulmonary: No Dyspnea, No Cough Cardiovascular: No: Chest Pain Neurological: Confusion; No: Weakness Objective Exam Last Set of Vital Signs Vital Signs Date Time Temp Pulse Resp B/P (MAP) Pulse Ox O2 Delivery O2 Flow Rate FiO2 10/17/18 08:20 Room Air 10/17/18 08:00 96.3 71 20 121/72 (88) 95 10/12/18 08:35 2.00 Capillary Refill : Less Than 3 Seconds I&O Intake and Output 10/17/18 00:00 Intake Total 1780 ml Balance 1780 ml Intake Oral 1780 ml # Voids 14 # Bowel Movements 1 General: Alert, Other (ORIENTED ONLY TO SELF) HEENT: Atraumatic Lungs: Clear to Auscultation Heart: Regular Rate Abdomen: Normal Bowel Sounds, Soft Extremities: No Clubbing, No Cyanosis Skin: No Rashes Neuro: Normal Speech Psych/Mental Status: Other (CONFUSED, FLAT AFFECT, MULTIPLE QUESTIONS ABOUT SAME ISSUE OVER AN GENI) Results Lab Microbiology 10/10/18 Urine Culture - Final, Complete See Comments Assessment/Plan Assessment/Plan Assess & Plan/Chief Complaint URINARY TRACT INFECTION DEMENTIA BEHAVIOR DISORDER DIFFICULT SOCIAL SITUATION HYPERTENSION DEPRESSION URINARY TRACT INFECTION - PT TO CONTINUE WITH IV ANTIBIOTIC FOR NOW DEMENTIA WITH BEHAVIOR DISORDER - AND DIFFICULT SOCIAL SITUATION - DISCUSSED WITH NURSING STAFF AND DAIRY EQUIPMENT SPECIALIST - WE HAVE A TOUGH SITUATION HERE SHE WAS IN THE FDC IN [place] - THE STAFF REPORTS THAT HER SON HAS NOT BEEN PAYING HER FEES FOR THE FACILITY. HE TOOK HER OUT OF THE FACILITY DESPITE OUR RECOMMENDATIONS. HE HAD HER AT HOME FOR 1 NIGHT AND THEN TOOK HER TO THE ER HE COULD NOT HANDLE HER AT HOME. INCREASED DEPAKOTE TO TID GUARDIANSHIP HAS BEEN REMOVED FROM HER SON BY THE STATE/WEB MANAGER - LETTER HAS BEEN SENT AND PT WAS CALLED BY THE COURT. WE ARE STILL WAITING ON PLACEMENT - WE HAVE CONTACTED [facility]IA [facility] FOR PLACEMENT. HYPERTENSION - RESUMED HOME REGIMEN DEPRESSION - RESUMED CITALOPRAM Clinical Quality Measures Admission Status Admission Dx URINARY TRACT INFECTION DEMENTIA BEHAVIOR DISORDER DIFFICULT SOCIAL SITUATION HYPERTENSION DEPRESSION DVT/VTE Risk/Contraindication: Risk Factor Score Per Nursin RFS Level Per Nursing on Admit: 3=High MARILEE,AMARILYS A MD Oct 17, 2018 19:33
[2018-10-17 20:30] VITALS: BP 136/82
[2018-10-17] MEDS: SIMvastatin 40 MG (ZOCOR) TAB PO SCH (21:01)
[2018-10-17] MEDS: DONEPEZIL 10 MG (ARICEPT) TAB PO SCH (21:02)
[2018-10-17] MEDS: MIRTAZAPINE 15 MG (REMERON) TAB PO SCH (21:02)
[2018-10-17 23:24] VITALS: BP 113/69
[2018-10-18] MEDS: VITAMIN D3 1,000 UNITS (CHOLECALCIFEROL) TABLET PO SCH (06:25)
[2018-10-18 08:19] VITALS: BP 142/78
[2018-10-18] MEDS: DILTIAZEM 240 MG (CARDIZEM CD) CAP PO SCH (08:40)
[2018-10-18] MEDS: SENNA W/DOCUSATE (SENOKOT S) TABLET PO SCH (08:40)
[2018-10-18] MEDS: DIVALPROX SPRINKLE 125 MG (DEPAKOTE) CAP PO SCH ×2 (08:40→12:16)
[2018-10-18] MEDS: LORATADINE (CLARITIN) 10 MG TAB PO SCH (08:40)
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
[2018-10-18] MEDS ORDERED: DIVA125C PO (10:50)
--- NOTE | 2018-10-18 10:57 | Discharge Inst-Skilled Nursing ---
Discharge Inst-Skilled NF Patient Instructions Patient Problems: URINARY TRACT INFECTION DEMENTIA BEHAVIOR DISORDER DIFFICULT SOCIAL SITUATION HYPERTENSION DEPRESSION Consult/Follow Up/Orders Follow Up Appt.: 1 wk [facility] Skilled NF Admit to: [facility] Certification (SNF) I certify that SNF services are required to be given on an inpatient basis because of the above named patient's need for alf care on a continuing basis for the conditions(s) for which he/she was receiving inpatient hospital services prior to his/her transfer to the SNF. [facility] Facility Order: Nursing Services, Speech Language-Evaluate & Treat (dementia) Oxygen Delivery Method: Room Air New & Resume Previous Orders New & Resume Previous Orders depakote level in 2 weeks cmp in 2 weeks Amarilys Bowen Oct 18, 2018 10:54 AMARILYS BOWEN MD Oct 18, 2018 10:57
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
--- NOTE | 2018-10-18 11:45 | NUR ---
Attempted to call report to EVANGELISTA Robles at [facility]. She is with a patient at this time. Will try again later.
--- NOTE | 2018-10-18 12:20 | NUR ---
Report given to EVANGELISTA Robles at [facility].
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
== END 2018-10-18 10:51 ==
LOC: EDUNIT# 16:25 → ER 16:26 → 4TH 20:09 → UNDOADMOB 20:09 → 4TH 21:35 → EDPENDDISTM 10-18 11:00
PROVIDERS: ADMIT Family Medicine; ATTEND Family Medicine
DX: N39.0 Urinary tract infection, site not specified (principal); F03.91 Unspecified dementia, unspecified severity, with behavioral disturbance; I10 Essential (primary) hypertension; F32.9 Major depressive disorder, single episode, unspecified; F41.9 Anxiety disorder, unspecified; Z66 Do not resuscitate; Z79.899 Other long term (current) drug therapy; Z87.891 Personal history of nicotine dependence; Z87.19 Personal history of other diseases of the digestive system; Z60.8 Other problems related to social environment
CPT/HCPCS: 36415; 70450; 80053; 80164; 80299; 80306; 80332; 81000; 84443; 85025; 87088; 93005; 94760; 96365; 96372; 96375; G0378

== ENCOUNTER → 2019-02-10 | Outpatient (CLI) | payer MEDICARE ==
[~2019-02-10] MED LIST changes: +CHOL10007 PO; +CITA20TA12 PO; +DILT240C97 PO; +DIVA125C PO; +DIVA125C10 PO; +IPRA3AMP31 NEB; +LORA10TA7 PO; +MIRT15TA6 PO; -TRAZ-189 PO; +TRAZ-222 PO
[2019-02-11 11:46] LABS: BILIRUBIN,URINE NEGATIVE (NEGATIVE); CLARITY,URINE SLIGHTLY CLOUDY; GLUCOSE, URINE (UA) NEGATIVE (NEGATIVE); KETONES,URINE 1+ (NEGATIVE); LEUKOCYTE ESTERASE ,URINE 3+ (NEGATIVE); NITRITE,URINE NEGATIVE (NEGATIVE); PH,URINE 6.5 (5-9); PROTEIN,URINE 1+ (NEGATIVE); UROBILINOGEN,URINE NORMAL (NORMAL)
[2019-02-11 12:09] LABS: BACTERIA,URINE FEW /HPF; COLOR,URINE YELLOW; RBC,URINE RARE /HPF
== END ==
LOC: LABNPT 22:30
PROVIDERS: ATTEND Family Medicine
DX: R82.90 Unspecified abnormal findings in urine (principal)
CPT/HCPCS: 81000; 87088

== ENCOUNTER 2019-02-22 08:16 | Emergency (ER) | payer MEDICARE ==
[~2019-02-22] VITALS: Ht 162.6 cm; Wt 61.7 kg
--- OUTSIDE RECORDS SUMMARY | 2019-02-22 08:23 | XMS REPORT | CCD ---
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 Name Role Phone PP Unavailable CCM Unavailable Summary Purpose Interface Exchange Insurance Providers Payer name Policy type / Coverage type Covered green party ID Effective Begin Date Effective End Date WPS Medicare Part B Medicare Part B [id number] Unknown Unknown [facility] Medicare Part B [id number] Unknown Unknown Family history Runs in the family Diagnosis Age At Onset Dementia Unknown Social History Social History Element Codes Description Effective Dates Living arrangements Unknown House 02/08/2015 Allergies, Adverse Reactions, Alerts Allergies, Adverse Reactions, Alerts data not found Past Medical History Illness Codes Condition Status Onset Date Resolved Date Cough ICD-9: 786.2 ICD-10: R05 Active 07/16/2016 Unknown Essential (primary) hypertension ICD-9: 401.9 ICD-10: I10 Active 07/16/2016 Unknown Hypoxemia ICD-9: 799.02 ICD-10: R09.02 Active 01/11/2017 Unknown Other Alzheimer's disease ICD-9: 294.11 ICD-10: G30.8 Active 04/23/2016 Unknown Dysuria ICD-9: 788.1 ICD-10: R30.0 Active 10/13/2016 Unknown Other hypertrophic disorders of the skin ICD-9: 701.9 ICD-10: L91.8 Active 01/13/2016 Unknown Other secondary hypertension ICD-9: 401.9 ICD-10: I15.8 Active 12/17/2014 Unknown Constipation - functional ICD-9: 564.09 Active 02/02/2015 Unknown ESSENTIAL HYPERTENSION ICD-9: 401.9 Active 12/17/2014 Unknown Anxiety, generalized ICD- 9: 300.02 Active 12/30/2014 Unknown DEMENTIA W BEHAVIOR DIST ICD-9: 294.11 Active 12/30/2014 Unknown Depression Unknown Active 12/17/2014 Unknown Diabetes Unknown Active 12/17/2014 Unknown Hyperlipidemia Unknown Active 12/17/2014 Unknown Hypertension Unknown Active 12/17/2014 Unknown DEPRESSIVE DISORDER NEC ICD-9: 311 Active 12/17/2014 Unknown EDEMA ICD-9: 782.3 Active 12/17/2014 Unknown HYPERLIPIDEMIA ICD-9: 272.4 Active 12/17/2014 Unknown Problems Condition Codes Effective Dates Condition Status Cough ICD-9: 786.2 ICD-10: R05 07/16/2016 Active Essential (primary) hypertension ICD-9: 401.9 ICD-10: I10 07/16/2016 Active Hypoxemia ICD-9: 799.02 ICD-10: R09.02 01/11/2017 Active Other Alzheimer's disease ICD-9: 294.11 ICD-10: G30.8 04/23/2016 Active Dysuria ICD-9: 788.1 ICD-10: R30.0 10/13/2016 Active Other hypertrophic disorders of the skin ICD-9: 701.9 ICD-10: L91.8 01/13/2016 Active Other secondary hypertension ICD-9: 401.9 ICD-10: I15.8 12/17/2014 Active Constipation - functional ICD-9: 564.09 02/02/2015 Active ESSENTIAL HYPERTENSION ICD-9: 401.9 12/17/2014 Active Anxiety, generalized ICD- 9: 300.02 12/30/2014 Active DEMENTIA W BEHAVIOR DIST ICD-9: 294.11 12/30/2014 Active Depression Unknown 12/17/2014 Active Diabetes Unknown 12/17/2014 Active Hyperlipidemia Unknown 12/17/2014 Active Hypertension Unknown 12/17/2014 Active DEPRESSIVE DISORDER NEC ICD-9: 311 12/17/2014 Active EDEMA ICD-9: 782.3 12/17/2014 Active HYPERLIPIDEMIA ICD-9: 272.4 12/17/2014 Active Medications Medication Codes Instructions Start Date Stop Date Status Fill Instructions Aricept 10 mg tablet RxNorm: 604199 1 Tablet(s) PO daily 02/12/2017 07/11/2017 Active Depakote 250 mg tablet,delayed release RxNorm: 3498449 1 Tablet(s) PO BID 02/08/2017 08/06/2017 Active potassium chloride ER 10 mEq tablet,extended release RxNorm: 409071 1 Tablet(s) PO daily 01/24/2017 04/23/2017 Active Depakote 250 mg tablet,delayed release RxNorm: 5668221 1 Tablet(s) PO BID 01/11/2017 02/07/2017 Inactive Ativan 0.5 mg tablet RxNorm: 732773 1 Tablet(s) PO daily and as needed for anxiety 01/09/2017 05/08/2017 Active simvastatin 40 mg tablet RxNorm: 216612 Tablet(s) TAKE 1 TABLET BY MOUTH DAILY AT BEDTIME 01/09/2017 07/07/2017 Active melatonin 3 mg tablet RxNorm: 778577 1 Tablet(s) PO QHS 01/08/2017 01/02/2018 Active chlorthalidone 25 mg tablet RxNorm: 813329 1/2 Tablet(s) PO daily 11/29/2016 03/28/2017 Active [SAVINGS FOR NON-COVERED DRUGS -- BIN:[id number], PCN: ASPROD1, Group: XXXXX, ID# XXXXXXX, Questions: . THIS IS NOT INSURANCE.] Miralax 17 gram oral powder packet RxNorm: 403514 1 Capsule(s) PO daily as needed 11/23/2016 03/22/2017 Active trazodone 50 mg tablet RxNorm: 731360 Tablet(s) TAKE 1 & 1/2 TABLETS (75 MG) BY MOUTH DAILY AT BEDTIME 11/23/2016 03/22/2017 Active Generic For:DESYREL 50 MG TABLET N O T I C E PRESCRIPTION PREVIOUSLY AUTHORIZED BY DOCTOR:CATHY MAZA potassium chloride ER 10 mEq tablet,extended release RxNorm: 747037 1 Tablet(s) PO daily 11/23/2016 01/21/2017 Inactive Depakote 125 mg tablet,delayed release RxNorm: 0468451 1 Tablet(s) PO BID 11/08/2016 01/10/2017 Inactive Aricept 10 mg tablet RxNorm: 675624 1 Tablet(s) PO daily 10/13/2016 02/11/2017 Inactive Namzaric 03/23/21 mg-10 mg capsule,sprinkle,ER 24hr,dose pack RxNorm: 5104108 1 Capsule(s) PO daily 10/12/2016 10/12/2016 Inactive diltiazem CD 240 mg capsule,extended release 24 hr RxNorm: 971685 Capsule(s) TAKE 1 CAPSULE BY MOUTH DAILY 09/18/2016 04/15/2017 Active Generic For:CARDIZEM CD 240 MG CAP SA N O T I C E PRESCRIPTION PREVIOUSLY AUTHORIZED BY DOCTOR:CATHY MAZA Ativan 0.5 mg tablet RxNorm: 226829 1 Tablet(s) PO daily and as needed for anxiety 09/05/2016 01/02/2017 Inactive KCL 10 meq RxNorm: 1 Tablet(s) PO daily 08/21/2016 09/19/2016 Inactive potassium chloride ER 10 mEq tablet,extended release RxNorm: 009326 1 Tablet(s) PO daily 07/17/2016 07/30/2016 Inactive potassium chloride ER 10 mEq tablet,extended release RxNorm: 636606 1 Tablet(s) PO BID x1 week then daily thereafter repeat lab in 3 weeks. 06/23/2016 07/06/2016 Inactive potassium chloride ER 10 mEq tablet,extended release RxNorm: 901663 1 Tablet(s) PO BID x1 week then daily thereafter repeat lab in 3 weeks. 06/23/2016 06/22/2016 Inactive Aricept 10 mg tablet RxNorm: 360703 1/2 Tablet(s) PO daily x 7 days, then Aricept 10mg po daily thereafter 05/22/2016 10/11/2016 Inactive trazodone 50 mg tablet RxNorm: 247547 Tablet(s) TAKE 1 & 1/2 TABLETS (75 MG) BY MOUTH DAILY AT BEDTIME 05/22/2016 09/18/2016 Inactive Generic For:DESYREL 50 MG TABLET N O T I C E PRESCRIPTION PREVIOUSLY AUTHORIZED BY DOCTOR:CATHY MAZA Depakote 125 mg tablet,delayed release RxNorm: 8406600 1 Tablet(s) PO BID 05/17/2016 11/07/2016 Inactive melatonin 3 mg tablet RxNorm: 344087 1 Tablet(s) PO QHS 05/17/2016 11/12/2016 Inactive Ativan 0.5 mg tablet RxNorm: 407470 1 Tablet(s) PO daily and as needed for anxiety 05/08/2016 09/04/2016 Inactive simvastatin 40 mg tablet RxNorm: 951189 Tablet(s) TAKE 1 TABLET BY MOUTH DAILY AT BEDTIME 04/18/2016 10/14/2016 Inactive citalopram 10 mg tablet RxNorm: 714756 TAKE 1 TABLET BY MOUTH DAILY 03/21/2016 04/14/2017 Active Generic For:CELEXA 10 MG TABLET HALF-WAY RE-ORDER N O T I C E PRESCRIPTION PREVIOUSLY AUTHORIZED BY DOCTOR:CATHY MAZA trazodone 50 mg tablet RxNorm: 939665 Tablet(s) TAKE 1 & 1/2 TABLETS (75 MG) BY MOUTH DAILY AT BEDTIME 01/24/2016 05/21/2016 Inactive Generic For:DESYREL 50 MG TABLET N O T I C E PRESCRIPTION PREVIOUSLY AUTHORIZED BY DOCTOR:CATHY MAZA [phone] diltiazem CD 240 mg capsule,extended release 24 hr RxNorm: 141171 Capsule(s) TAKE 1 CAPSULE BY MOUTH DAILY 12/20/2015 07/16/2016 Inactive Generic For:CARDIZEM CD 240 MG CAP SA N O T I C E PRESCRIPTION PREVIOUSLY AUTHORIZED BY DOCTOR:CATHY MAZA Depakote 125 mg tablet,delayed release RxNorm: 9628978 1 Tablet(s) PO BID 12/13/2015 04/10/2016 Inactive [SAVINGS FOR NON-COVERED DRUGS -- BIN:[id number], PCN: ASPROD1, Group: XXXXX, ID# [id number], Questions: . THIS IS NOT INSURANCE.] Ativan 0.5 mg tablet RxNorm: 770663 1 Tablet(s) PO daily and as needed for anxiety 12/13/2015 04/10/2016 Inactive Senokot-S 8.6 mg-50 mg tablet RxNorm: 9123865 1 Tablet(s) PO BID 12/06/2015 11/29/2016 Inactive Senokot-S 8.6 mg-50 mg tablet RxNorm: 5830869 1 Tablet(s) PO BID 12/06/2015 12/05/2015 Inactive chlorthalidone 25 mg tablet RxNorm: 922249 1/2 Tablet(s) PO daily 12/06/2015 04/03/2016 Inactive [SAVINGS FOR NON-COVERED DRUGS -- BIN:981181, PCN: ASPROD1, Group: XXXXX, ID# XXXXXXX, Questions: . THIS IS NOT INSURANCE.] simvastatin 40 mg tablet RxNorm: 812028 Tablet(s) TAKE 1 TABLET BY MOUTH DAILY AT BEDTIME 11/16/2015 02/13/2016 Inactive Generic For:*ZOCOR 40 MG TABLET N O T I C E PRESCRIPTION PREVIOUSLY AUTHORIZED BY DOCTOR:CATHY MAZA Aricept 10 mg tablet RxNorm: 013786 1/2 Tablet(s) PO daily x 7 days, then Aricept 10mg po daily thereafter 09/20/2015 05/21/2016 Inactive melatonin 3 mg tablet RxNorm: 852211 1 Tablet(s) PO QHS 08/06/2015 03/02/2016 Inactive [SAVINGS FOR NON-COVERED DRUGS -- BIN:[id number], PCN: ASPROD1, Group: XXXXX, ID# XXXXXXX, Questions: . THIS IS NOT INSURANCE.] melatonin 3 mg tablet RxNorm: 517499 1 Tablet(s) PO QHS 08/04/2015 08/05/2015 Inactive [SAVINGS FOR NON-COVERED DRUGS -- BIN:837992, PCN: ASPROD1, Group: XXXXX, ID# [id number], Questions: . THIS IS NOT INSURANCE.] chlorthalidone 25 mg tablet RxNorm: 928539 1/2 Tablet(s) PO QA 07/20/2015 12/05/2015 Inactive [SAVINGS FOR NON-COVERED DRUGS -- BIN:199403, PCN: ASPROD1, Group: XXXXX, ID# XXXXXXX, Questions: . THIS IS NOT INSURANCE.] Ativan 0.5 mg tablet RxNorm: 405536 1 Tablet(s) PO daily and as needed for anxiety 07/08/2015 11/04/2015 Inactive trazodone 50 mg tablet RxNorm: 359465 TAKE 1 & 1/2 TABLETS (75 MG) BY MOUTH DAILY AT BEDTIME 05/25/2015 09/21/2015 Inactive Generic For:DESYREL 50 MG TABLET N O T I C E PRESCRIPTION PREVIOUSLY AUTHORIZED BY DOCTOR:CATHY MAZA diltiazem CD 240 mg capsule,extended release 24 hr RxNorm: 434749 TAKE 1 CAPSULE BY MOUTH DAILY 05/18/2015 10/14/2015 Inactive Generic For:CARDIZEM CD 240 MG CAP SA N O T I C E PRESCRIPTION PREVIOUSLY AUTHORIZED BY DOCTOR:CATHY MAZA trazodone 50 mg tablet RxNorm: 659162 TAKE 1 & 1/2 TABLETS (75 MG) BY MOUTH DAILY AT BEDTIME 04/27/2015 05/24/2015 Inactive Generic For:DESYREL 50 MG TABLET N O T I C E PRESCRIPTION PREVIOUSLY AUTHORIZED BY DOCTOR:CATHY MAZA simvastatin 40 mg tablet RxNorm: 280395 Tablet(s) TAKE 1 TABLET BY MOUTH DAILY AT BEDTIME 04/20/2015 07/18/2015 Inactive Generic For:*ZOCOR 40 MG TABLET N O T I C E PRESCRIPTION PREVIOUSLY AUTHORIZED BY DOCTOR:CATHY MAZA citalopram 10 mg tablet RxNorm: 579517 TAKE 1 TABLET BY MOUTH DAILY 03/15/2015 03/08/2016 Inactive Generic For:CELEXA 10 MG TABLET HALF-WAY RE-ORDER N O T I C E PRESCRIPTION PREVIOUSLY AUTHORIZED BY DOCTOR:CATHY MAZA trazodone 50 mg tablet RxNorm: 997887 1 1/2=75mg Tablet(s) PO QHS 01/25/2015 04/24/2015 Inactive [SAVINGS FOR NON-COVERED DRUGS -- BIN:[id number], PCN: ASPROD1, Group: XXXXX, ID# XXXXXXX, Questions: . THIS IS NOT INSURANCE.] nicotine 14 mg/24 hr daily transdermal patch RxNorm: 766927 APPLY 1 PATCH DAILY AND REMOVE OLD PATCH 01/25/2015 02/28/2015 Inactive Generic For:NICODERM CQ 14 MG/24HR PATCH N O T I C E PRESCRIPTION PREVIOUSLY AUTHORIZED BY DOCTOR:CATHY MAZA chlorthalidone 25 mg tablet RxNorm: 320978 1/2 Tablet(s) PO QAM 12/31/2014 07/19/2015 Inactive [SAVINGS FOR NON-COVERED DRUGS -- BIN:210104, PCN: ASPROD1, Group: XXXXX, ID# XXXXXXX, Questions: . THIS IS NOT INSURANCE.] Aricept 10 mg tablet RxNorm: 487519 1/2 Tablet(s) PO daily x 7 days, then Aricept 10mg po daily thereafter 12/29/2014 09/19/2015 Inactive Depakote 125 mg tablet,delayed release RxNorm: 1483389 1 Tablet(s) PO BID 12/28/2014 04/26/2015 Inactive [SAVINGS FOR NON-COVERED DRUGS -- BIN:147348, PCN: ASPROD1, Group: XXXXX, ID# XXXXXXX, Questions: . THIS IS NOT INSURANCE.] diltiazem CD 240 mg capsule,extended release 24 hr RxNorm: 762413 TAKE 1 CAPSULE BY MOUTH DAILY 12/22/2014 04/20/2015 Inactive Generic For:CARDIZEM CD 240 MG CAP SA N O T I C E PRESCRIPTION PREVIOUSLY AUTHORIZED BY DOCTOR:CATHY MAZA nicotine 14 mg/24 hr daily transdermal patch RxNorm: 390067 APPLY 1 PATCH DAILY AND REMOVE OLD PATCH 12/22/2014 01/18/2015 Inactive Generic For:NICODERM CQ 14 MG/24HR PATCH N O T I C E PRESCRIPTION PREVIOUSLY AUTHORIZED BY DOCTOR:CATHY MAZA simvastatin 40 mg tablet RxNorm: 123767 TAKE 1 TABLET BY MOUTH DAILY AT BEDTIME 12/22/2014 03/21/2015 Inactive Generic For:*ZOCOR 40 MG TABLET N O T I C E PRESCRIPTION PREVIOUSLY AUTHORIZED BY DOCTOR:CATHY MAZA melatonin 3 mg tablet RxNorm: 871227 1 Tablet(s) PO QHS 12/22/2014 07/19/2015 Inactive [SAVINGS FOR NON-COVERED DRUGS -- BIN:600338, PCN: ASPROD1, Group: XXXXX, ID# XXXXXXX, Questions: . THIS IS NOT INSURANCE.] Ativan 0.5 mg tablet RxNorm: 611940 1 Tablet(s) PO at 1400 and once daily prn 12/17/2014 06/14/2015 Inactive [SAVINGS FOR NON-COVERED DRUGS -- BIN:106541, PCN: ASPROD1, Group: XXXXX, ID# XXXXXXX, Questions: . THIS IS NOT INSURANCE.] Ativan 0.5 mg tablet RxNorm: 528746 1 Tablet(s) PO daily as needed 12/17/2014 06/14/2015 Inactive trazodone 75 mg RxNorm: 1 Tablet(s) PO QHS No Start Date Active T.E.D. Anti-Embolism Stocking RxNorm: miscellaneous No Start Date Active Sweet Oil with Dropper RxNorm: Miscellaneous BIW on Sun and Sun No Start Date Active trazodone 75 mg RxNorm: 143365 1 Tablet(s) PO QHS No Start Date 01/24/2015 Inactive Exelon Patch 4.6 mg/24 hr transdermal RxNorm: 779158 1 TD daily No Start Date 12/28/2014 Inactive melatonin 3 mg tablet RxNorm: 124401 1 Tablet(s) PO QHS No Start Date 12/21/2014 Inactive Miralax 17 gram oral powder packet RxNorm: 377963 1 Capsule(s) PO daily as needed No Start Date 11/22/2016 Inactive Depakote 125 mg tablet,delayed release RxNorm: 7109537 1 Tablet(s) PO BID No Start Date 12/27/2014 Inactive nicotine 14 mg/24 hr daily transdermal patch RxNorm: 582547 1 TD daily No Start Date 12/21/2014 Inactive Ativan 0.5 mg tablet RxNorm: 594753 1 Tablet(s) PO at 1400 No Start Date 12/16/2014 Inactive simvastatin 40 mg tablet RxNorm: 848917 1 Tablet(s) PO QHS No Start Date 12/21/2014 Inactive diltiazem CD 240 mg capsule,extended release 24 hr RxNorm: 485563 1 Capsule(s) PO daily No Start Date 12/21/2014 Inactive citalopram 10 mg tablet RxNorm: 456941 1 Tablet(s) PO daily No Start Date 03/14/2015 Inactive Medication Administered No Medication Administered data Immunizations Vaccine Codes Date Status Influenza CVX: 141 06/22/2015 completed Assessments Condition Codes Effective Dates Hypoxemia ICD-10: R09.02 ICD-9: 799.02 01/11/2017 Other Alzheimer's disease ICD-10: G30.8 ICD-9: 294.11 01/11/2017 Essential (primary) hypertension ICD-10: I10 ICD-9: 401.9 01/11/2017 Cough ICD-10: R05 ICD-9: 786.2 01/11/2017 Dysuria ICD-10: R30.0 ICD-9: 788.1 10/13/2016 Other hypertrophic disorders of the skin ICD-10: L91.8 ICD-9: 701.9 01/14/2016 Other secondary hypertension ICD-10: I15.8 ICD-9: 401.9 07/07/2015 DEMENTIA W BEHAVIOR DIST ICD-9: 294.11 04/07/2015 ESSENTIAL HYPERTENSION ICD-9: 401.9 04/07/2015 EDEMA ICD-9: 782.3 04/07/2015 Constipation - functional ICD-9: 564.09 02/03/2015 Chronic depression ICD-9: 311 12/31/2014 HYPERLIPIDEMIA ICD-9: 272.4 12/31/2014 Anxiety, generalized ICD-9: 300.02 12/31/2014 Reason For Visit Reason For Visit Effective Dates Notes blood pressure followup 01/11/2017 blood pressure followup 10/12/2016 cough 07/17/2016 blood pressure followup 04/24/2016 new lesion 01/14/2016 blood pressure followup 12/20/2015 blood pressure followup 10/06/2015 blood pressure followup 07/07/2015 edema 04/07/2015 edema 02/03/2015 edema 12/31/2014 edema 12/17/2014 Results Observation Observation Code Item Item Code Result Date Valproic Acid Ttc325 VALPROIC 57.0 ug/ml 02/08/2017 Valproic Acid Kcv602 VALPROIC 28.0 ug/ml 01/11/2017 Urinalysis Ord28 U-Color Yellow 01/11/2017 Urinalysis Ord28 U-Clarity Clear 01/11/2017 Urinalysis Ord28 U-Gluc Negative 01/11/2017 Urinalysis Ord28 U-Bili Negative 01/11/2017 Urinalysis Ord28 U-Ketone Negative 01/11/2017 Urinalysis Ord28 U-SG 1.015 01/11/2017 Urinalysis Ord28 U-Blood Negative 01/11/2017 Urinalysis Ord28 U-pH 8.5 01/11/2017 Urinalysis Ord28 U-Protein Negative 01/11/2017 Urinalysis Ord28 U-Urobilin 0.2 E.U./dL E.U./dL 01/11/2017 Urinalysis Ord28 U-Nitrites Negative 01/11/2017 Urinalysis Ord28 U-Leuk Trace 01/11/2017 Urinalysis Ord28 U-Bact TRACE 01/11/2017 Urinalysis Ord28 U-Squamous Epi 0-5 per/HPF 01/11/2017 Urinalysis Ord28 U-Crystal None per/HPF 01/11/2017 Urinalysis Ord28 U-Mucus None 01/11/2017 Urinalysis Ord28 U-Renal tubular epi None 01/11/2017 Urinalysis Ord28 U-RBC None per/HPF 01/11/2017 Urinalysis Ord28 U-Transitional epi None per/HPF 01/11/2017 Urinalysis Ord28 U-WBC None per/HPF 01/11/2017 Urinalysis Ord28 U-Cast None per/HPF 01/11/2017 Urinalysis Ord28 U-VOL VOLUME SUFFICIENT (10mL) 01/11/2017 Urinalysis Ord28 U-Yeast NEGATIVE 01/11/2017 Urinalysis Ord28 U-Com Urine saved if culture needed (specimen acceptable for 48 hours from collection if refrigerated) 01/11/2017 Comp Metabolic Yjt000 NA 133 mEq/L 10/17/2016 Comp Metabolic Nou215 K 3.5 mEq/L 10/17/2016 Comp Metabolic Wfg369 CL 96 mEq/L 10/17/2016 Comp Metabolic Hwq918 CO2 28.0 mEq/L 10/17/2016 Comp Metabolic Fka665 ANION GAP 13 10/17/2016 Comp Metabolic Hme147 GLUCOSE 106 mg/dL 10/17/2016 Comp Metabolic Tsn143 Creat 0.8 mg/dL 10/17/2016 Comp Metabolic Fzt919 eGFR 70 ml/min/1.73m2 10/17/2016 Comp Metabolic Exo801 BUN 16 mg/dL 10/17/2016 Comp Metabolic Nph899 B/C Ratio 19.3 Ratio 10/17/2016 Comp Metabolic Ren088 CALCIUM 9.5 mg/dL 10/17/2016 Comp Metabolic Jpz757 ALK PHOS 74 U/L 10/17/2016 Comp Metabolic Obi909 AST(SGOT) 19 U/L 10/17/2016 Comp Metabolic Lni776 ALT(SGPT) 14 U/L 10/17/2016 Comp Metabolic Eqn184 BILI T 0.5 mg/dL 10/17/2016 Comp Metabolic Mwq646 ALBUMIN 4.2 g/dL 10/17/2016 Comp Metabolic Srf585 TPRO 6.5 g/dL 10/17/2016 Comp Metabolic Aqi528 GLOB 2.3 g/dL 10/17/2016 Comp Metabolic Nrd106 A/G Ratio 1.8 Ratio 10/17/2016 Comp Metabolic Wnf732 Osmo 268 mOsmo 10/17/2016 Cbc With Differential Ord2 WBC 7.38 K/ul 10/17/2016 Cbc With Differential Ord2 RBC 4.60 M/ul 10/17/2016 Cbc With Differential Ord2 HGB 13.8 g/dl 10/17/2016 Cbc With Differential Ord2 HCT 41.4 % 10/17/2016 Cbc With Differential Ord2 Neut% 63.4 % 10/17/2016 Cbc With Differential Ord2 Lymph% 25.9 % 10/17/2016 Cbc With Differential Ord2 MCV 90.0 fl 10/17/2016 Cbc With Differential Ord2 [place]% 8.8 % 10/17/2016 Cbc With Differential Ord2 MCH 30.0 pg 10/17/2016 Cbc With Differential Ord2 Eos% 1.6 % 10/17/2016 Cbc With Differential Ord2 MCHC 33.3 pg 10/17/2016 Cbc With Differential Ord2 PLT 326 K/ul 10/17/2016 Cbc With Differential Ord2 Baso% 0.3 % 10/17/2016 Cbc With Differential Ord2 RDW 14.3 % 10/17/2016 Cbc With Differential Ord2 Neut ABS# 4.68 K/ul 10/17/2016 Cbc With Differential Ord2 Lymph ABS# 1.91 K/ul 10/17/2016 Cbc With Differential Ord2 [place] ABS# 0.7 K/ul 10/17/2016 Cbc With Differential Ord2 Eos ABS# 0.1 K/ul 10/17/2016 Cbc With Differential Ord2 Baso ABS# 0.0 K/ul 10/17/2016 Tsh Ord6 hTSH II 3.70 uIU/mL 10/17/2016 Lipid Ord30 CHOL 146 mg/dL 10/17/2016 Lipid Ord30 HDL 51.0 mg/dl 10/17/2016 Lipid Ord30 TRIG 120 mg/dL 10/17/2016 Lipid Ord30 LDL 71 mg/dL 10/17/2016 Lipid Ord30 C/HDL 2.9 Ratio 10/17/2016 Urine Culture Ucult Complete Growth of aerobe sent to ref lab 10/14/2016 Urinalysis Ord28 U-Color Yellow 10/13/2016 Urinalysis Ord28 U-Clarity Clear 10/13/2016 Urinalysis Ord28 U-Gluc Negative 10/13/2016 Urinalysis Ord28 U-Bili Negative 10/13/2016 Urinalysis Ord28 U-Ketone Negative 10/13/2016 Urinalysis Ord28 U-SG 1.020 10/13/2016 Urinalysis Ord28 U-Blood Negative 10/13/2016 Urinalysis Ord28 U-pH 8.5 10/13/2016 Urinalysis Ord28 U-Protein Negative 10/13/2016 Urinalysis Ord28 U-Urobilin 0.2 E.U./dL E.U./dL 10/13/2016 Urinalysis Ord28 U-Nitrites Negative 10/13/2016 Urinalysis Ord28 U-Leuk Moderate 10/13/2016 Urinalysis Ord28 U-Bact 1+ 10/13/2016 Urinalysis Ord28 U-Squamous Epi 10-20 per/HPF 10/13/2016 Urinalysis Ord28 U-Crystal None per/HPF 10/13/2016 Urinalysis Ord28 U-Mucus None 10/13/2016 Urinalysis Ord28 U-Renal tubular epi None 10/13/2016 Urinalysis Ord28 U-RBC None per/HPF 10/13/2016 Urinalysis Ord28 U-Transitional epi None per/HPF 10/13/2016 Urinalysis Ord28 U-WBC 10-20 per/HPF 10/13/2016 Urinalysis Ord28 U-Cast None per/HPF 10/13/2016 Urinalysis Ord28 U-VOL VOLUME SUFFICIENT (10mL) 10/13/2016 Urinalysis Ord28 U-Com Urine saved if culture needed (specimen acceptable for 48 hours from collection if refrigerated) 10/13/2016 Urinalysis Ord28 U-Yeast NEGATIVE 10/13/2016 Valproic Acid Tbb966 VALPROIC 23.0 ug/ml 08/18/2016 Comp Metabolic Vgo244 NA 133 mEq/L 08/18/2016 Comp Metabolic Szn871 K 3.4 mEq/L 08/18/2016 Comp Metabolic Niv408 CL 94 mEq/L 08/18/2016 Comp Metabolic Bjl735 CO2 31.0 mEq/L 08/18/2016 Comp Metabolic Tsi729 ANION GAP 11 08/18/2016 Comp Metabolic Eic351 GLUCOSE 101 mg/dL 08/18/2016 Comp Metabolic Byr755 Creat 0.8 mg/dL 08/18/2016 Comp Metabolic Uug490 eGFR 72 ml/min/1.73m2 08/18/2016 Comp Metabolic Ump117 BUN 13 mg/dL 08/18/2016 Comp Metabolic Jqw917 B/C Ratio 16.0 Ratio 08/18/2016 Comp Metabolic Upn247 CALCIUM 9.4 mg/dL 08/18/2016 Comp Metabolic Aon298 ALK PHOS 66 U/L 08/18/2016 Comp Metabolic Mqp873 AST(SGOT) 20 U/L 08/18/2016 Comp Metabolic Byr262 ALT(SGPT) 14 U/L 08/18/2016 Comp Metabolic Iam173 BILI T 0.6 mg/dL 08/18/2016 Comp Metabolic Vhz841 ALBUMIN 4.1 g/dL 08/18/2016 Comp Metabolic Yow958 TPRO 6.5 g/dL 08/18/2016 Comp Metabolic Fvd662 GLOB 2.4 g/dL 08/18/2016 Comp Metabolic Lmy805 A/G Ratio 1.7 Ratio 08/18/2016 Comp Metabolic Sag336 Osmo 267 mOsmo 08/18/2016 Metabolic Ord15 NA 131 mEq/L 07/14/2016 Metabolic Ord15 K 3.7 mEq/L 07/14/2016 Metabolic Ord15 CL 94 mEq/L 07/14/2016 Metabolic Ord15 CO2 31.0 mEq/L 07/14/2016 Metabolic Ord15 GLUCOSE 96 mg/dL 07/14/2016 Metabolic Ord15 BUN 12 mg/dL 07/14/2016 Metabolic Ord15 Creat 0.7 mg/dL 07/14/2016 Metabolic Ord15 B/C Ratio 16.9 Ratio 07/14/2016 Metabolic Ord15 eGFR 84 ml/min/1.73m2 07/14/2016 Metabolic Ord15 Osmo 262 mOsmo 07/14/2016 Metabolic Ord15 ANION GAP 10 07/14/2016 Metabolic Ord15 CALCIUM 9.1 mg/dL 07/14/2016 Metabolic Ord15 NA 133 mEq/L 06/22/2016 Metabolic Ord15 K 3.2 mEq/L 06/22/2016 Metabolic Ord15 CL 93 mEq/L 06/22/2016 Metabolic Ord15 CO2 30.0 mEq/L 06/22/2016 Metabolic Ord15 GLUCOSE 102 mg/dL 06/22/2016 Metabolic Ord15 BUN 14 mg/dL 06/22/2016 Metabolic Ord15 Creat 0.8 mg/dL 06/22/2016 Metabolic Ord15 B/C Ratio 17.7 Ratio 06/22/2016 Metabolic Ord15 eGFR 75 ml/min/1.73m2 06/22/2016 Metabolic Ord15 Osmo 267 mOsmo 06/22/2016 Metabolic Ord15 ANION GAP 13 06/22/2016 Metabolic Ord15 CALCIUM 9.6 mg/dL 06/22/2016 Comp Metabolic Kyu403 NA 133 mEq/L 05/16/2016 Comp Metabolic Mdu204 K 3.4 mEq/L 05/16/2016 Comp Metabolic Qaw951 CL 93 mEq/L 05/16/2016 Comp Metabolic Ghn682 CO2 29.0 mEq/L 05/16/2016 Comp Metabolic Gov890 ANION GAP 14 05/16/2016 Comp Metabolic Zxp877 GLUCOSE 95 mg/dL 05/16/2016 Comp Metabolic Lpj898 Creat 0.7 mg/dL 05/16/2016 Comp Metabolic Xyr658 eGFR 83 ml/min/1.73m2 05/16/2016 Comp Metabolic Poq548 BUN 13 mg/dL 05/16/2016 Comp Metabolic Lyw085 B/C Ratio 18.1 Ratio 05/16/2016 Comp Metabolic Xnk784 CALCIUM 9.7 mg/dL 05/16/2016 Comp Metabolic Cot846 ALK PHOS 59 U/L 05/16/2016 Comp Metabolic Cbd110 AST(SGOT) 20 U/L 05/16/2016 Comp Metabolic Ill212 ALT(SGPT) 15 U/L 05/16/2016 Comp Metabolic Grj720 BILI T 0.5 mg/dL 05/16/2016 Comp Metabolic Dhg328 ALBUMIN 4.3 g/dL 05/16/2016 Comp Metabolic Tem077 TPRO 6.8 g/dL 05/16/2016 Comp Metabolic Xdc320 GLOB 2.5 g/dL 05/16/2016 Comp Metabolic Xwq349 A/G Ratio 1.8 Ratio 05/16/2016 Comp Metabolic Nvq981 Osmo 266 mOsmo 05/16/2016 Valproic Acid Vja865 VALPROIC 34.0 ug/ml 05/16/2016 Valproic Acid Jwr260 VALPROIC 31.0 ug/ml 02/14/2016 Comp Metabolic Ukq453 NA 131 mEq/L 02/14/2016 Comp Metabolic Ypx793 K 3.7 mEq/L 02/14/2016 Comp Metabolic Eev921 CL 95 mEq/L 02/14/2016 Comp Metabolic Rwd669 CO2 25.0 mEq/L 02/14/2016 Comp Metabolic Xxk130 ANION GAP 15 02/14/2016 Comp Metabolic Kwq364 GLUCOSE 97 mg/dL 02/14/2016 Comp Metabolic Fbk388 Creat 0.8 mg/dL 02/14/2016 Comp Metabolic Zug522 eGFR 76 ml/min/1.73m2 02/14/2016 Comp Metabolic Tjb043 BUN 10 mg/dL 02/14/2016 Comp Metabolic Jxc353 B/C Ratio 12.8 Ratio 02/14/2016 Comp Metabolic Srx128 CALCIUM 9.2 mg/dL 02/14/2016 Comp Metabolic Jco489 ALK PHOS 54 U/L 02/14/2016 Comp Metabolic Cij920 AST(SGOT) 20 U/L 02/14/2016 Comp Metabolic Ztu317 ALT(SGPT) 14 U/L 02/14/2016 Comp Metabolic Lkf260 BILI T 0.6 mg/dL 02/14/2016 Comp Metabolic Pjq791 ALBUMIN 4.0 g/dL 02/14/2016 Comp Metabolic Ecu479 TPRO 6.3 g/dL 02/14/2016 Comp Metabolic Njg927 GLOB 2.3 g/dL 02/14/2016 Comp Metabolic Gml564 A/G Ratio 1.8 Ratio 02/14/2016 Comp Metabolic Azc321 Osmo 262 mOsmo 02/14/2016 Valproic Acid Bic612 VALPROIC 28.0 ug/ml 11/09/2015 Comp Metabolic Oou278 NA 134 mEq/L 11/09/2015 Comp Metabolic Wco985 K 3.6 mEq/L 11/09/2015 Comp Metabolic Fuq150 CL 94 mEq/L 11/09/2015 Comp Metabolic Tdw433 CO2 28.0 mEq/L 11/09/2015 Comp Metabolic Fng734 ANION GAP 16 11/09/2015 Comp Metabolic Eke959 GLUCOSE 101 mg/dL 11/09/2015 Comp Metabolic Rgy433 Creat 0.9 mg/dL 11/09/2015 Comp Metabolic Qmn349 eGFR 64 ml/min/1.73m2 11/09/2015 Comp Metabolic Lqf803 BUN 14 mg/dL 11/09/2015 Comp Metabolic Mhx138 B/C Ratio 15.6 Ratio 11/09/2015 Comp Metabolic Tox884 CALCIUM 9.6 mg/dL 11/09/2015 Comp Metabolic Nod950 ALK PHOS 66 U/L 11/09/2015 Comp Metabolic Aaw228 AST(SGOT) 20 U/L 11/09/2015 Comp Metabolic Rkj274 ALT(SGPT) 15 U/L 11/09/2015 Comp Metabolic Pwb418 BILI T 0.7 mg/dL 11/09/2015 Comp Metabolic Uzj950 ALBUMIN 4.3 g/dL 11/09/2015 Comp Metabolic Ugq396 TPRO 6.8 g/dL 11/09/2015 Comp Metabolic Wyk382 GLOB 2.5 g/dL 11/09/2015 Comp Metabolic Ksu530 A/G Ratio 1.7 Ratio 11/09/2015 Comp Metabolic Akf534 Osmo 269 mOsmo 11/09/2015 Valproic Acid Gdz400 VALPROIC 26.0 ug/ml 08/11/2015 Comp Metabolic Elq989 NA 134 mEq/L 08/11/2015 Comp Metabolic Gbc174 K 4.0 mEq/L 08/11/2015 Comp Metabolic Uje845 CL 97 mEq/L 08/11/2015 Comp Metabolic Tgc298 CO2 28.0 mEq/L 08/11/2015 Comp Metabolic Sde923 ANION GAP 13 08/11/2015 Comp Metabolic Hep357 GLUCOSE 89 mg/dL 08/11/2015 Comp Metabolic Tkq395 Creat 0.8 mg/dL 08/11/2015 Comp Metabolic Oip273 eGFR 73 ml/min/1.73m2 08/11/2015 Comp Metabolic Omj003 BUN 13 mg/dL 08/11/2015 Comp Metabolic Yqr900 B/C Ratio 16.0 Ratio 08/11/2015 Comp Metabolic Tjt924 CALCIUM 9.4 mg/dL 08/11/2015 Comp Metabolic Fqg110 ALK PHOS 53 U/L 08/11/2015 Comp Metabolic Mqu149 AST(SGOT) 18 U/L 08/11/2015 Comp Metabolic Uhf908 ALT(SGPT) 12 U/L 08/11/2015 Comp Metabolic Eil972 BILI T 0.5 mg/dL 08/11/2015 Comp Metabolic Fvj320 ALBUMIN 3.8 g/dL 08/11/2015 Comp Metabolic Tza307 TPRO 5.8 g/dL 08/11/2015 Comp Metabolic Gni349 GLOB 2.0 g/dL 08/11/2015 Comp Metabolic Imu640 A/G Ratio 1.9 Ratio 08/11/2015 Comp Metabolic Adb260 Osmo 268 mOsmo 08/11/2015 Valproic Acid Wef110 VALPROIC 32.0 ug/ml 05/11/2015 Comp Metabolic Vta112 NA 143 mEq/L 05/11/2015 Comp Metabolic Toa299 K 3.9 mEq/L 05/11/2015 Comp Metabolic Zkx291 CL 107 mEq/L 05/11/2015 Comp Metabolic Juy266 CO2 27.0 mEq/L 05/11/2015 Comp Metabolic Srj581 ANION GAP 13 05/11/2015 Comp Metabolic Jnj331 GLUCOSE 93 mg/dL 05/11/2015 Comp Metabolic Scm988 Creat 0.8 mg/dL 05/11/2015 Comp Metabolic Ibl746 eGFR 72 ml/min/1.73m2 05/11/2015 Comp Metabolic Twy222 BUN 14 mg/dL 05/11/2015 Comp Metabolic Bbw384 B/C Ratio 17.1 Ratio 05/11/2015 Comp Metabolic Xmp157 CALCIUM 9.5 mg/dL 05/11/2015 Comp Metabolic Xhe906 ALK PHOS 51 U/L 05/11/2015 Comp Metabolic Clt875 AST(SGOT) 19 U/L 05/11/2015 Comp Metabolic Skw588 ALT(SGPT) 13 U/L 05/11/2015 Comp Metabolic Xwb986 BILI T 0.6 mg/dL 05/11/2015 Comp Metabolic Wbc611 ALBUMIN 3.7 g/dL 05/11/2015 Comp Metabolic Mcp802 TPRO 5.8 g/dL 05/11/2015 Comp Metabolic Gca015 GLOB 2.1 g/dL 05/11/2015 Comp Metabolic Oeb367 A/G Ratio 1.8 Ratio 05/11/2015 Comp Metabolic Wxv170 Osmo 285 mOsmo 05/11/2015 Review of Systems System Result Effective Dates Constitutional No recent illness 01/11/2017 Constitutional No anorexia 01/11/2017 Constitutional No night sweats 01/11/2017 Constitutional No chills 01/11/2017 Constitutional No diaphoresis 01/11/2017 Constitutional No fatigue 01/11/2017 Constitutional No fever 01/11/2017 Constitutional No insomnia 01/11/2017 Constitutional No malaise 01/11/2017 Constitutional No weight loss 01/11/2017 Constitutional weight gain 01/11/2017 Eyes No eye discharge 01/11/2017 Eyes No eye erythema 01/11/2017 Ears/Nose/Throat/Neck No dizziness 01/11/2017 Ears/Nose/Throat/Neck No headache 01/11/2017 Cardiovascular No chest pain/pressure 01/11/2017 Respiratory cough 01/11/2017 Gastrointestinal No abdominal pain 01/11/2017 Gastrointestinal No constipation 01/11/2017 Gastrointestinal No diarrhea 01/11/2017 Genitourinary/Nephrology No dysuria 01/11/2017 Musculoskeletal No joint complaint 01/11/2017 Dermatologic No rash 01/11/2017 Neurologic memory loss 01/11/2017 Respiratory cigarette smoking 01/11/2017 Respiratory dyspnea on exertion 01/11/2017 Constitutional No recent illness 10/12/2016 Constitutional No anorexia 10/12/2016 Constitutional No night sweats 10/12/2016 Constitutional No chills 10/12/2016 Constitutional No diaphoresis 10/12/2016 Constitutional No fatigue 10/12/2016 Constitutional No fever 10/12/2016 Constitutional No insomnia 10/12/2016 Constitutional No malaise 10/12/2016 Constitutional No weight loss 10/12/2016 Constitutional weight gain 10/12/2016 Eyes No eye discharge 10/12/2016 Eyes No eye erythema 10/12/2016 Ears/Nose/Throat/Neck No dizziness 10/12/2016 Ears/Nose/Throat/Neck No headache 10/12/2016 Cardiovascular No chest pain/pressure 10/12/2016 Respiratory No cough 10/12/2016 Gastrointestinal No abdominal pain 10/12/2016 Gastrointestinal No constipation 10/12/2016 Gastrointestinal No diarrhea 10/12/2016 Genitourinary/Nephrology No dysuria 10/12/2016 Musculoskeletal No joint complaint 10/12/2016 Dermatologic No rash 10/12/2016 Neurologic memory loss 10/12/2016 Constitutional No recent illness 07/17/2016 Constitutional No anorexia 07/17/2016 Constitutional No night sweats 07/17/2016 Constitutional No chills 07/17/2016 Constitutional No diaphoresis 07/17/2016 Constitutional No fatigue 07/17/2016 Constitutional No fever 07/17/2016 Constitutional No insomnia 07/17/2016 Constitutional No malaise 07/17/2016 Constitutional No weight loss 07/17/2016 Constitutional weight gain 07/17/2016 Eyes No eye discharge 07/17/2016 Eyes No eye erythema 07/17/2016 Ears/Nose/Throat/Neck No dizziness 07/17/2016 Ears/Nose/Throat/Neck No headache 07/17/2016 Cardiovascular No chest pain/pressure 07/17/2016 Respiratory cough 07/17/2016 Gastrointestinal No abdominal pain 07/17/2016 Gastrointestinal No constipation 07/17/2016 Gastrointestinal No diarrhea 07/17/2016 Genitourinary/Nephrology No dysuria 07/17/2016 Musculoskeletal No joint complaint 07/17/2016 Dermatologic No rash 07/17/2016 Neurologic memory loss 07/17/2016 Constitutional No recent illness 04/24/2016 Constitutional No night sweats 04/24/2016 Constitutional No anorexia 04/24/2016 Constitutional No chills 04/24/2016 Constitutional No diaphoresis 04/24/2016 Constitutional No fatigue 04/24/2016 Constitutional No fever 04/24/2016 Constitutional No insomnia 04/24/2016 Constitutional No malaise 04/24/2016 Constitutional No weight loss 04/24/2016 Constitutional weight gain 04/24/2016 Eyes No eye erythema 04/24/2016 Eyes No eye discharge 04/24/2016 Ears/Nose/Throat/Neck No dizziness 04/24/2016 Ears/Nose/Throat/Neck No headache 04/24/2016 Cardiovascular No chest pain/pressure 04/24/2016 Gastrointestinal No abdominal pain 04/24/2016 Gastrointestinal No constipation 04/24/2016 Gastrointestinal No diarrhea 04/24/2016 Respiratory No cough 04/24/2016 Genitourinary/Nephrology No dysuria 04/24/2016 Musculoskeletal No joint complaint 04/24/2016 Dermatologic No rash 04/24/2016 Neurologic memory loss 04/24/2016 Constitutional No recent illness 01/14/2016 Constitutional No anorexia 01/14/2016 Constitutional No night sweats 01/14/2016 Constitutional No chills 01/14/2016 Constitutional No diaphoresis 01/14/2016 Constitutional No fatigue 01/14/2016 Constitutional No fever 01/14/2016 Constitutional No insomnia 01/14/2016 Constitutional No malaise 01/14/2016 Constitutional No weight loss 01/14/2016 Constitutional No weight gain 01/14/2016 Constitutional No recent illness 12/20/2015 Constitutional No chills 12/20/2015 Constitutional No diaphoresis 12/20/2015 Constitutional No fatigue 12/20/2015 Constitutional No fever 12/20/2015 Constitutional No insomnia 12/20/2015 Constitutional No malaise 12/20/2015 Eyes No blindness 12/20/2015 Ears/Nose/Throat/Neck No dizziness 12/20/2015 Ears/Nose/Throat/Neck No nasal discharge 12/20/2015 Ears/Nose/Throat/Neck No sore throat 12/20/2015 Cardiovascular No chest pain/pressure 12/20/2015 Cardiovascular No dyspnea 12/20/2015 Cardiovascular No edema 12/20/2015 Cardiovascular No exercise intolerance 12/20/2015 Cardiovascular No fatigue 12/20/2015 Cardiovascular No palpitations 12/20/2015 Cardiovascular No syncope 12/20/2015 Respiratory No chest congestion 12/20/2015 Respiratory No cough 12/20/2015 Gastrointestinal No abdominal pain 12/20/2015 Gastrointestinal No diarrhea 12/20/2015 Gastrointestinal No nausea 12/20/2015 Gastrointestinal No vomiting 12/20/2015 Genitourinary/Nephrology urinary incontinence 12/20/2015 Musculoskeletal No stiffness 12/20/2015 Musculoskeletal No swelling 12/20/2015 Musculoskeletal No muscle weakness 12/20/2015 Musculoskeletal No myalgias 12/20/2015 Dermatologic No rash 12/20/2015 Neurologic No alteration of consciousness 12/20/2015 Neurologic No mental status change 12/20/2015 Psychiatric anxiety 12/20/2015 Psychiatric depression 12/20/2015 Psychiatric disturbances of emotion 12/20/2015 Psychiatric disturbances of memory 12/20/2015 Gastrointestinal No constipation 12/20/2015 Musculoskeletal No arthralgia(s) 12/20/2015 Constitutional No recent illness 10/06/2015 Constitutional No chills 10/06/2015 Constitutional No diaphoresis 10/06/2015 Constitutional No fatigue 10/06/2015 Constitutional No fever 10/06/2015 Constitutional No insomnia 10/06/2015 Constitutional No malaise 10/06/2015 Eyes No blindness 10/06/2015 Ears/Nose/Throat/Neck No dizziness 10/06/2015 Ears/Nose/Throat/Neck No nasal discharge 10/06/2015 Ears/Nose/Throat/Neck No sore throat 10/06/2015 Cardiovascular No chest pain/pressure 10/06/2015 Cardiovascular No dyspnea 10/06/2015 Cardiovascular No edema 10/06/2015 Cardiovascular No exercise intolerance 10/06/2015 Cardiovascular No fatigue 10/06/2015 Cardiovascular No palpitations 10/06/2015 Cardiovascular No syncope 10/06/2015 Respiratory No chest congestion 10/06/2015 Respiratory No cough 10/06/2015 Gastrointestinal No abdominal pain 10/06/2015 Gastrointestinal constipation 10/06/2015 Gastrointestinal No diarrhea 10/06/2015 Gastrointestinal No nausea 10/06/2015 Gastrointestinal No vomiting 10/06/2015 Genitourinary/Nephrology urinary incontinence 10/06/2015 Musculoskeletal No stiffness 10/06/2015 Musculoskeletal No swelling 10/06/2015 Musculoskeletal arthralgia(s) 10/06/2015 Musculoskeletal No muscle weakness 10/06/2015 Musculoskeletal No myalgias 10/06/2015 Dermatologic No rash 10/06/2015 Neurologic No alteration of consciousness 10/06/2015 Neurologic No mental status change 10/06/2015 Psychiatric anxiety 10/06/2015 Psychiatric depression 10/06/2015 Psychiatric disturbances of emotion 10/06/2015 Psychiatric disturbances of memory 10/06/2015 Constitutional No chills 07/07/2015 Constitutional No fatigue 07/07/2015 Constitutional No fever 07/07/2015 Constitutional No recent illness 07/07/2015 Ears/Nose/Throat/Neck No dizziness 07/07/2015 Ears/Nose/Throat/Neck No headache 07/07/2015 Cardiovascular No chest pain/pressure 07/07/2015 Cardiovascular No near-syncope/dizziness 07/07/2015 Cardiovascular No palpitations 07/07/2015 Respiratory No chest congestion 07/07/2015 Respiratory No cough 07/07/2015 Gastrointestinal No abdominal pain 07/07/2015 Gastrointestinal No constipation 07/07/2015 Gastrointestinal No diarrhea 07/07/2015 Gastrointestinal No nausea 07/07/2015 Gastrointestinal No vomiting 07/07/2015 Genitourinary/Nephrology No dysuria 07/07/2015 Neurologic No alteration of consciousness 07/07/2015 Constitutional No diaphoresis 07/07/2015 Constitutional No insomnia 07/07/2015 Constitutional No malaise 07/07/2015 Ears/Nose/Throat/Neck No sore throat 07/07/2015 Cardiovascular edema 07/07/2015 Cardiovascular No syncope 07/07/2015 Musculoskeletal No stiffness 07/07/2015 Musculoskeletal No swelling 07/07/2015 Musculoskeletal No muscle weakness 07/07/2015 Musculoskeletal No myalgias 07/07/2015 Dermatologic No rash 07/07/2015 Neurologic No mental status change 07/07/2015 Psychiatric No anxiety 07/07/2015 Psychiatric No depression 07/07/2015 Eyes No blindness 07/07/2015 Eyes No vision change 07/07/2015 Constitutional No recent illness 04/07/2015 Constitutional No chills 04/07/2015 Constitutional No diaphoresis 04/07/2015 Constitutional No fatigue 04/07/2015 Constitutional No fever 04/07/2015 Constitutional No insomnia 04/07/2015 Constitutional No malaise 04/07/2015 Eyes No blindness 04/07/2015 Ears/Nose/Throat/Neck No dizziness 04/07/2015 Ears/Nose/Throat/Neck No nasal discharge 04/07/2015 Ears/Nose/Throat/Neck No sore throat 04/07/2015 Cardiovascular No chest pain/pressure 04/07/2015 Cardiovascular No dyspnea 04/07/2015 Cardiovascular No edema 04/07/2015 Cardiovascular No exercise intolerance 04/07/2015 Cardiovascular No fatigue 04/07/2015 Cardiovascular No palpitations 04/07/2015 Cardiovascular No syncope 04/07/2015 Respiratory No chest congestion 04/07/2015 Respiratory No cough 04/07/2015 Gastrointestinal No abdominal pain 04/07/2015 Gastrointestinal constipation 04/07/2015 Gastrointestinal No diarrhea 04/07/2015 Gastrointestinal No nausea 04/07/2015 Gastrointestinal No vomiting 04/07/2015 Genitourinary/Nephrology urinary incontinence 04/07/2015 Musculoskeletal No stiffness 04/07/2015 Musculoskeletal No swelling 04/07/2015 Musculoskeletal arthralgia(s) 04/07/2015 Musculoskeletal No muscle weakness 04/07/2015 Musculoskeletal No myalgias 04/07/2015 Dermatologic No rash 04/07/2015 Neurologic No alteration of consciousness 04/07/2015 Neurologic No mental status change 04/07/2015 Psychiatric anxiety 04/07/2015 Psychiatric depression 04/07/2015 Psychiatric disturbances of emotion 04/07/2015 Psychiatric disturbances of memory 04/07/2015 Constitutional No recent illness 02/03/2015 Constitutional No insomnia 02/03/2015 Ears/Nose/Throat/Neck No nasal discharge 02/03/2015 Cardiovascular No chest pain/pressure 02/03/2015 Cardiovascular No dyspnea 02/03/2015 Respiratory No chest congestion 02/03/2015 Respiratory No cough 02/03/2015 Gastrointestinal No abdominal pain 02/03/2015 Gastrointestinal No diarrhea 02/03/2015 Gastrointestinal constipation 02/03/2015 Gastrointestinal No nausea 02/03/2015 Gastrointestinal No vomiting 02/03/2015 Constitutional No chills 02/03/2015 Constitutional No diaphoresis 02/03/2015 Constitutional No fatigue 02/03/2015 Constitutional No fever 02/03/2015 Constitutional No malaise 02/03/2015 Eyes No blindness 02/03/2015 Ears/Nose/Throat/Neck No dizziness 02/03/2015 Ears/Nose/Throat/Neck No sore throat 02/03/2015 Cardiovascular No edema 02/03/2015 Cardiovascular No exercise intolerance 02/03/2015 Cardiovascular No fatigue 02/03/2015 Cardiovascular No palpitations 02/03/2015 Cardiovascular No syncope 02/03/2015 Genitourinary/Nephrology urinary incontinence 02/03/2015 Musculoskeletal No stiffness 02/03/2015 Musculoskeletal No swelling 02/03/2015 Musculoskeletal arthralgia(s) 02/03/2015 Musculoskeletal No muscle weakness 02/03/2015 Musculoskeletal No myalgias 02/03/2015 Dermatologic No rash 02/03/2015 Neurologic No alteration of consciousness 02/03/2015 Neurologic No mental status change 02/03/2015 Psychiatric anxiety 02/03/2015 Psychiatric depression 02/03/2015 Psychiatric disturbances of emotion 02/03/2015 Psychiatric disturbances of memory 02/03/2015 Constitutional No chills 12/31/2014 Constitutional No diaphoresis 12/31/2014 Constitutional No fatigue 12/31/2014 Constitutional No fever 12/31/2014 Constitutional No insomnia 12/31/2014 Constitutional No malaise 12/31/2014 Constitutional No recent illness 12/31/2014 Ears/Nose/Throat/Neck No dizziness 12/31/2014 Ears/Nose/Throat/Neck No sore throat 12/31/2014 Cardiovascular No chest pain/pressure 12/31/2014 Cardiovascular No edema 12/31/2014 Cardiovascular No exercise intolerance 12/31/2014 Cardiovascular No fatigue 12/31/2014 Cardiovascular No palpitations 12/31/2014 Cardiovascular No syncope 12/31/2014 Respiratory No chest congestion 12/31/2014 Respiratory No cough 12/31/2014 Gastrointestinal No abdominal pain 12/31/2014 Gastrointestinal No constipation 12/31/2014 Gastrointestinal No diarrhea 12/31/2014 Gastrointestinal No nausea 12/31/2014 Gastrointestinal No vomiting 12/31/2014 Dermatologic No rash 12/31/2014 Neurologic No alteration of consciousness 12/31/2014 Neurologic No mental status change 12/31/2014 Musculoskeletal No stiffness 12/31/2014 Musculoskeletal No swelling 12/31/2014 Musculoskeletal No muscle weakness 12/31/2014 Musculoskeletal No myalgias 12/31/2014 Musculoskeletal arthralgia(s) 12/31/2014 Genitourinary/Nephrology urinary incontinence 12/31/2014 Psychiatric anxiety 12/31/2014 Psychiatric disturbances of emotion 12/31/2014 Psychiatric disturbances of memory 12/31/2014 Psychiatric depression 12/31/2014 Hematologic/Lymphatic No abnormal ecchymoses 12/31/2014 Hematologic/Lymphatic No abnormal bleeding and bruising 12/31/2014 Eyes No blindness 12/31/2014 Constitutional No chills 12/17/2014 Constitutional No diaphoresis 12/17/2014 Constitutional No fatigue 12/17/2014 Constitutional No fever 12/17/2014 Constitutional No insomnia 12/17/2014 Constitutional No malaise 12/17/2014 Constitutional No recent illness 12/17/2014 Ears/Nose/Throat/Neck No dizziness 12/17/2014 Ears/Nose/Throat/Neck No sore throat 12/17/2014 Cardiovascular No chest pain/pressure 12/17/2014 Cardiovascular edema 12/17/2014 Cardiovascular fatigue 12/17/2014 Cardiovascular No palpitations 12/17/2014 Cardiovascular No syncope 12/17/2014 Respiratory No chest congestion 12/17/2014 Respiratory No cough 12/17/2014 Gastrointestinal No abdominal pain 12/17/2014 Gastrointestinal No constipation 12/17/2014 Gastrointestinal No diarrhea 12/17/2014 Gastrointestinal No nausea 12/17/2014 Gastrointestinal No vomiting 12/17/2014 Dermatologic No rash 12/17/2014 Neurologic No alteration of consciousness 12/17/2014 Neurologic No mental status change 12/17/2014 Psychiatric No anxiety 12/17/2014 Psychiatric No depression 12/17/2014 Musculoskeletal No stiffness 12/17/2014 Musculoskeletal No swelling 12/17/2014 Musculoskeletal No muscle weakness 12/17/2014 Musculoskeletal No myalgias 12/17/2014 Physical Exam Exam Name System Name Item Name Status Result Effective Dates Notes Full Exam - General 1994 Constitutional general appearance Development: well developed 01/11/2017 None Full Exam - General 1994 Constitutional general appearance Hygiene/Attention to Grooming: good hygiene 01/11/2017 None Full Exam - General 1994 Eyes conjunctiva/eyelids Overall: conjunctiva clear 01/11/2017 None Full Exam - General 1994 Eyes conjunctiva/eyelids Overall: cornea clear 01/11/2017 None Full Exam - General 1994 Eyes conjunctiva/eyelids Overall: eyelids normal 01/11/2017 None Full Exam - General 1994 Eyes pupils and irises Overall: pupils equal, round, reactive to light and accomodation 01/11/2017 None Full Exam - General 1994 Ears/Nose/Throat otoscopic exam Overall: external auditory canals clear 01/11/2017 None Full Exam - General 1994 Ears/Nose/Throat otoscopic exam Overall: tympanic membranes clear 01/11/2017 None Full Exam - General 1994 Ears/Nose/Throat lips/teeth/gingiva Overall: benign lips 01/11/2017 None Full Exam - General 1994 Ears/Nose/Throat lips/teeth/gingiva Overall: normal dentition 01/11/2017 None Full Exam - General 1994 Ears/Nose/Throat oral cavity/pharynx/larynx Overall: oral mucosa clear 01/11/2017 None Full Exam - General 1994 Ears/Nose/Throat oral cavity/pharynx/larynx Overall: oropharyngeal mucosa clear 01/11/2017 None Full Exam - General 1994 Ears/Nose/Throat oral cavity/pharynx/larynx Overall: hypopharynx benign 01/11/2017 None Full Exam - General 1994 Ears/Nose/Throat oral cavity/pharynx/larynx Overall: no masses 01/11/2017 None Full Exam - General 1994 Respiratory respiratory effort/rhythm Overall: no retractions 01/11/2017 None Full Exam - General 1994 Respiratory respiratory effort/rhythm Overall: normal rate 01/11/2017 None Full Exam - General 1994 Cardiovascular extremities Overall: no clubbing 01/11/2017 None Full Exam - General 1994 Cardiovascular auscultation of heart Overall: regular rate 01/11/2017 None Full Exam - General 1994 Cardiovascular auscultation of heart Overall: normal heart sounds 01/11/2017 None Full Exam - General 1994 Abdomen abdominal exam Overall: no tenderness 01/11/2017 None Full Exam - General 1994 Abdomen abdominal exam Overall: normal bowel sounds 01/11/2017 None Full Exam - General 1994 Integument inspection of skin Overall: few scattered moles, no gross abnormalities 01/11/2017 None Full Exam - General 1994 Neurologic deep tendon reflexes Overall: deep tendon reflexes intact 01/11/2017 None Full Exam - General 1994 Neurologic cranial nerves Overall: crainial nerves 2 - 12 grossly intact 01/11/2017 None Full Exam - General 1994 Psychiatric orientation/consciousness Oriented to person: yes 01/11/2017 None Full Exam - General 1994 Psychiatric orientation/consciousness Oriented to place: no 01/11/2017 None Full Exam - General 1994 Psychiatric orientation/consciousness Oriented to time: no 01/11/2017 None Full Exam - General 1994 Psychiatric orientation/consciousness Level of consciousness: alert 01/11/2017 None Full Exam - General 1994 Psychiatric mood and affect Overall: normal mood and affect 01/11/2017 None Full Exam - General 1994 Respiratory auscultation Diffuse: diminished 01/11/2017 None Full Exam - General 1994 Constitutional general appearance Development: well developed 10/12/2016 None Full Exam - General 1994 Constitutional general appearance Development: appears older than stated age 0210/12/2016 None Full Exam - General 1994 Constitutional general appearance Hygiene/Attention to Grooming: good hygiene 10/12/2016 None Full Exam - General 1994 Eyes conjunctiva/eyelids Overall: conjunctiva clear 10/12/2016 None Full Exam - General 1994 Eyes conjunctiva/eyelids Overall: cornea clear 10/12/2016 None Full Exam - General 1994 Eyes conjunctiva/eyelids Overall: eyelids normal 10/12/2016 None Full Exam - General 1994 Eyes pupils and irises Overall: pupils equal, round, reactive to light and accomodation 10/12/2016 None Full Exam - General 1994 Ears/Nose/Throat otoscopic exam Overall: external auditory canals clear 10/12/2016 None Full Exam - General 1994 Ears/Nose/Throat otoscopic exam Overall: tympanic membranes clear 10/12/2016 None Full Exam - General 1994 Ears/Nose/Throat lips/teeth/gingiva Overall: benign lips 10/12/2016 None Full Exam - General 1995 Ears/Nose/Throat lips/teeth/gingiva Overall: normal dentition 10/12/2016 None Full Exam - General 1994 Ears/Nose/Throat oral cavity/pharynx/larynx Overall: oral mucosa clear 10/12/2016 None Full Exam - General 1995 Ears/Nose/Throat oral cavity/pharynx/larynx Overall: oropharyngeal mucosa clear 10/12/2016 None Full Exam - General 1994 Ears/Nose/Throat oral cavity/pharynx/larynx Overall: hypopharynx benign 10/12/2016 None Full Exam - General 1995 Ears/Nose/Throat oral cavity/pharynx/larynx Overall: no masses 10/12/2016 None Full Exam - General 1994 Respiratory auscultation Overall: breath sounds clear bilaterally 10/12/2016 None Full Exam - General 1994 Respiratory respiratory effort/rhythm Overall: no retractions 10/12/2016 None Full Exam - General 1994 Respiratory respiratory effort/rhythm Overall: normal rate 10/12/2016 None Full Exam - General 1994 Cardiovascular extremities Overall: no clubbing 10/12/2016 None Full Exam - General 1994 Cardiovascular auscultation of heart Overall: regular rate 10/12/2016 None Full Exam - General 1994 Cardiovascular auscultation of heart Overall: normal heart sounds 10/12/2016 None Full Exam - General 1994 Abdomen abdominal exam Overall: no tenderness 10/12/2016 None Full Exam - General 1994 Abdomen abdominal exam Overall: normal bowel sounds 10/12/2016 None Full Exam - General 1994 Integument inspection of skin Overall: few scattered moles, no gross abnormalities 10/12/2016 None Full Exam - General 1994 Neurologic deep tendon reflexes Overall: deep tendon reflexes intact 10/12/2016 None Full Exam - General 1994 Neurologic cranial nerves Overall: crainial nerves 2 - 12 grossly intact 10/12/2016 None Full Exam - General 1994 Psychiatric orientation/consciousness Oriented to person: yes 10/12/2016 None Full Exam - General 1994 Psychiatric orientation/consciousness Oriented to place: no 10/12/2016 None Full Exam - General 1994 Psychiatric orientation/consciousness Oriented to time: no 10/12/2016 None Full Exam - General 1994 Psychiatric orientation/consciousness Level of consciousness: alert 10/12/2016 None Full Exam - General 1994 Psychiatric mood and affect Overall: normal mood and affect 10/12/2016 None Full Exam - General 1994 Constitutional general appearance Development: well developed 07/17/2016 None Full Exam - General 1994 Constitutional general appearance Development: appears older than stated age 1107/17/2016 None Full Exam - General 1994 Constitutional general appearance Hygiene/Attention to Grooming: good hygiene 07/17/2016 None Full Exam - General 1994 Eyes conjunctiva/eyelids Overall: conjunctiva clear 07/17/2016 None Full Exam - General 1994 Eyes conjunctiva/eyelids Overall: cornea clear 07/17/2016 None Full Exam - General 1994 Eyes conjunctiva/eyelids Overall: eyelids normal 07/17/2016 None Full Exam - General 1994 Eyes pupils and irises Overall: pupils equal, round, reactive to light and accomodation 07/17/2016 None Full Exam - General 1994 Ears/Nose/Throat otoscopic exam Overall: external auditory canals clear 07/17/2016 None Full Exam - General 1994 Ears/Nose/Throat otoscopic exam Overall: tympanic membranes clear 07/17/2016 None Full Exam - General 1994 Ears/Nose/Throat lips/teeth/gingiva Overall: benign lips 07/17/2016 None Full Exam - General 1994 Ears/Nose/Throat lips/teeth/gingiva Overall: normal dentition 07/17/2016 None Full Exam - General 1994 Ears/Nose/Throat oral cavity/pharynx/larynx Overall: oral mucosa clear 07/17/2016 None Full Exam - General 1994 Ears/Nose/Throat oral cavity/pharynx/larynx Overall: oropharyngeal mucosa clear 07/17/2016 None Full Exam - General 1994 Ears/Nose/Throat oral cavity/pharynx/larynx Overall: hypopharynx benign 07/17/2016 None Full Exam - General 1994 Ears/Nose/Throat oral cavity/pharynx/larynx Overall: no masses 07/17/2016 None Full Exam - General 1994 Respiratory respiratory effort/rhythm Overall: no retractions 07/17/2016 None Full Exam - General 1994 Respiratory respiratory effort/rhythm Overall: normal rate 07/17/2016 None Full Exam - General 1994 Cardiovascular extremities Overall: no clubbing 07/17/2016 None Full Exam - General 1994 Cardiovascular auscultation of heart Overall: regular rate 07/17/2016 None Full Exam - General 1994 Cardiovascular auscultation of heart Overall: normal heart sounds 07/17/2016 None Full Exam - General 1994 Abdomen abdominal exam Overall: no tenderness 07/17/2016 None Full Exam - General 1994 Abdomen abdominal exam Overall: normal bowel sounds 07/17/2016 None Full Exam - General 1994 Integument inspection of skin Overall: few scattered moles, no gross abnormalities 07/17/2016 None Full Exam - General 1994 Neurologic deep tendon reflexes Overall: deep tendon reflexes intact 07/17/2016 None Full Exam - General 1994 Neurologic cranial nerves Overall: crainial nerves 2 - 12 grossly intact 07/17/2016 None Full Exam - General 1994 Psychiatric orientation/consciousness Oriented to person: yes 07/17/2016 None Full Exam - General 1994 Psychiatric orientation/consciousness Oriented to place: no 07/17/2016 None Full Exam - General 1994 Psychiatric orientation/consciousness Oriented to time: no 07/17/2016 None Full Exam - General 1994 Psychiatric orientation/consciousness Level of consciousness: alert 07/17/2016 None Full Exam - General 1994 Psychiatric mood and affect Overall: normal mood and affect 07/17/2016 None Full Exam - General 1994 Respiratory auscultation Diffuse: diminished 07/17/2016 None Full Exam - General 1994 Constitutional general appearance Development: well developed 04/24/2016 None Full Exam - General 1994 Constitutional general appearance Development: appears older than stated age 0804/24/2016 None Full Exam - General 1994 Constitutional general appearance Hygiene/Attention to Grooming: good hygiene 04/24/2016 None Full Exam - General 1994 Eyes conjunctiva/eyelids Overall: conjunctiva clear 04/24/2016 None Full Exam - General 1994 Eyes conjunctiva/eyelids Overall: cornea clear 04/24/2016 None Full Exam - General 1994 Eyes conjunctiva/eyelids Overall: eyelids normal 04/24/2016 None Full Exam - General 1994 Eyes pupils and irises Overall: pupils equal, round, reactive to light and accomodation 04/24/2016 None Full Exam - General 1994 Ears/Nose/Throat otoscopic exam Overall: external auditory canals clear 04/24/2016 None Full Exam - General 1994 Ears/Nose/Throat otoscopic exam Overall: tympanic membranes clear 04/24/2016 None Full Exam - General 1994 Ears/Nose/Throat lips/teeth/gingiva Overall: benign lips 04/24/2016 None Full Exam - General 1994 Ears/Nose/Throat lips/teeth/gingiva Overall: normal dentition 04/24/2016 None Full Exam - General 1994 Ears/Nose/Throat oral cavity/pharynx/larynx Overall: oral mucosa clear 04/24/2016 None Full Exam - General 1994 Ears/Nose/Throat oral cavity/pharynx/larynx Overall: oropharyngeal mucosa clear 04/24/2016 None Full Exam - General 1994 Ears/Nose/Throat oral cavity/pharynx/larynx Overall: hypopharynx benign 04/24/2016 None Full Exam - General 1994 Ears/Nose/Throat oral cavity/pharynx/larynx Overall: no masses 04/24/2016 None Full Exam - General 1994 Respiratory auscultation Overall: breath sounds clear bilaterally 04/24/2016 None Full Exam - General 1994 Respiratory respiratory effort/rhythm Overall: no retractions 04/24/2016 None Full Exam - General 1994 Respiratory respiratory effort/rhythm Overall: normal rate 04/24/2016 None Full Exam - General 1994 Cardiovascular extremities Overall: no clubbing 04/24/2016 None Full Exam - General 1994 Cardiovascular auscultation of heart Overall: regular rate 04/24/2016 None Full Exam - General 1994 Cardiovascular auscultation of heart Overall: normal heart sounds 04/24/2016 None Full Exam - General 1994 Abdomen abdominal exam Overall: no tenderness 04/24/2016 None Full Exam - General 1994 Abdomen abdominal exam Overall: normal bowel sounds 04/24/2016 None Full Exam - General 1994 Integument inspection of skin Overall: few scattered moles, no gross abnormalities 04/24/2016 None Full Exam - General 1994 Neurologic deep tendon reflexes Overall: deep tendon reflexes intact 04/24/2016 None Full Exam - General 1994 Neurologic cranial nerves Overall: crainial nerves 2 - 12 grossly intact 04/24/2016 None Full Exam - General 1994 Psychiatric orientation/consciousness Oriented to person: yes 04/24/2016 None Full Exam - General 1994 Psychiatric orientation/consciousness Oriented to place: no 04/24/2016 None Full Exam - General 1994 Psychiatric orientation/consciousness Oriented to time: no 04/24/2016 None Full Exam - General 1994 Psychiatric orientation/consciousness Level of consciousness: alert 04/24/2016 None Full Exam - General 1994 Psychiatric mood and affect Overall: normal mood and affect 04/24/2016 None Full Exam - Dermatology Constitutional general appearance Overall: well nourished 01/14/2016 None Full Exam - Dermatology Constitutional general appearance Overall: well developed 01/14/2016 None Full Exam - Dermatology Constitutional general appearance Overall: in no acute distress 01/14/2016 None Full Exam - Dermatology Psychiatric orientation Oriented to person: present 01/14/2016 None Full Exam - Dermatology Psychiatric orientation Oriented to place: present 01/14/2016 None Full Exam - Dermatology Integument insp & palp - right lower extremity Lesion: nodule 01/14/2016 None Full Exam - Dermatology Integument insp & palp - right lower extremity Location: on the thigh 01/14/2016 None Full Exam - Dermatology Integument insp & palp - right lower extremity Color: erythematous 01/14/2016 None Full Exam - Dermatology Integument insp & palp - right lower extremity Number: one 01/14/2016 None Full Exam - General 1994 Constitutional general appearance Development: well developed 12/20/2015 None Full Exam - General 1994 Constitutional general appearance Development: appears older than stated age 0412/20/2015 None Full Exam - General 1994 Constitutional general appearance Hygiene/Attention to Grooming: good hygiene 12/20/2015 None Full Exam - General 1994 Eyes conjunctiva/eyelids Overall: conjunctiva clear 12/20/2015 None Full Exam - General 1994 Eyes conjunctiva/eyelids Overall: cornea clear 12/20/2015 None Full Exam - General 1994 Eyes conjunctiva/eyelids Overall: eyelids normal 12/20/2015 None Full Exam - General 1994 Eyes pupils and irises Overall: pupils equal, round, reactive to light and accomodation 12/20/2015 None Full Exam - General 1994 Ears/Nose/Throat otoscopic exam Overall: external auditory canals clear 12/20/2015 None Full Exam - General 1994 Ears/Nose/Throat otoscopic exam Overall: tympanic membranes clear 12/20/2015 None Full Exam - General 1994 Ears/Nose/Throat lips/teeth/gingiva Overall: benign lips 12/20/2015 None Full Exam - General 1994 Ears/Nose/Throat lips/teeth/gingiva Overall: normal dentition 12/20/2015 None Full Exam - General 1994 Ears/Nose/Throat oral cavity/pharynx/larynx Overall: oral mucosa clear 12/20/2015 None Full Exam - General 1994 Ears/Nose/Throat oral cavity/pharynx/larynx Overall: oropharyngeal mucosa clear 12/20/2015 None Full Exam - General 1994 Ears/Nose/Throat oral cavity/pharynx/larynx Overall: hypopharynx benign 12/20/2015 None Full Exam - General 1994 Ears/Nose/Throat oral cavity/pharynx/larynx Overall: no masses 12/20/2015 None Full Exam - General 1994 Respiratory auscultation Overall: breath sounds clear bilaterally 12/20/2015 None Full Exam - General 1994 Respiratory respiratory effort/rhythm Overall: no retractions 12/20/2015 None Full Exam - General 1994 Respiratory respiratory effort/rhythm Overall: normal rate 12/20/2015 None Full Exam - General 1994 Cardiovascular extremities Overall: no clubbing 12/20/2015 None Full Exam - General 1994 Cardiovascular auscultation of heart Overall: regular rate 12/20/2015 None Full Exam - General 1994 Cardiovascular auscultation of heart Overall: normal heart sounds 12/20/2015 None Full Exam - General 1994 Abdomen abdominal exam Overall: no tenderness 12/20/2015 None Full Exam - General 1994 Abdomen abdominal exam Overall: normal bowel sounds 12/20/2015 None Full Exam - General 1994 Integument inspection of skin Overall: few scattered moles, no gross abnormalities 12/20/2015 None Full Exam - General 1994 Neurologic deep tendon reflexes Overall: deep tendon reflexes intact 12/20/2015 None Full Exam - General 1994 Neurologic cranial nerves Overall: crainial nerves 2 - 12 grossly intact 12/20/2015 None Full Exam - General 1994 Psychiatric orientation/consciousness Oriented to person: yes 12/20/2015 None Full Exam - General 1994 Psychiatric orientation/consciousness Oriented to place: no 12/20/2015 None Full Exam - General 1994 Psychiatric orientation/consciousness Oriented to time: no 12/20/2015 None Full Exam - General 1994 Psychiatric orientation/consciousness Level of consciousness: alert 12/20/2015 None Full Exam - General 1994 Psychiatric mood and affect Overall: normal mood and affect 12/20/2015 None Full Exam - General 1994 Constitutional general appearance Development: well developed 10/06/2015 None Full Exam - General 1994 Constitutional general appearance Development: appears older than stated age 0110/06/2015 None Full Exam - General 1994 Constitutional general appearance Hygiene/Attention to Grooming: good hygiene 10/06/2015 None Full Exam - General 1994 Eyes conjunctiva/eyelids Overall: conjunctiva clear 10/06/2015 None Full Exam - General 1994 Eyes conjunctiva/eyelids Overall: cornea clear 10/06/2015 None Full Exam - General 1994 Eyes conjunctiva/eyelids Overall: eyelids normal 10/06/2015 None Full Exam - General 1994 Eyes pupils and irises Overall: pupils equal, round, reactive to light and accomodation 10/06/2015 None Full Exam - General 1994 Ears/Nose/Throat otoscopic exam Overall: external auditory canals clear 10/06/2015 None Full Exam - General 1994 Ears/Nose/Throat otoscopic exam Overall: tympanic membranes clear 10/06/2015 None Full Exam - General 1994 Ears/Nose/Throat lips/teeth/gingiva Overall: benign lips 10/06/2015 None Full Exam - General 1994 Ears/Nose/Throat lips/teeth/gingiva Overall: normal dentition 10/06/2015 None Full Exam - General 1994 Ears/Nose/Throat oral cavity/pharynx/larynx Overall: oral mucosa clear 10/06/2015 None Full Exam - General 1994 Ears/Nose/Throat oral cavity/pharynx/larynx Overall: oropharyngeal mucosa clear 10/06/2015 None Full Exam - General 1994 Ears/Nose/Throat oral cavity/pharynx/larynx Overall: hypopharynx benign 10/06/2015 None Full Exam - General 1994 Ears/Nose/Throat oral cavity/pharynx/larynx Overall: no masses 10/06/2015 None Full Exam - General 1994 Respiratory auscultation Overall: breath sounds clear bilaterally 10/06/2015 None Full Exam - General 1994 Respiratory respiratory effort/rhythm Overall: no retractions 10/06/2015 None Full Exam - General 1994 Respiratory respiratory effort/rhythm Overall: normal rate 10/06/2015 None Full Exam - General 1994 Cardiovascular extremities Overall: no clubbing 10/06/2015 None Full Exam - General 1994 Cardiovascular auscultation of heart Overall: regular rate 10/06/2015 None Full Exam - General 1994 Cardiovascular auscultation of heart Overall: normal heart sounds 10/06/2015 None Full Exam - General 1994 Abdomen abdominal exam Overall: no tenderness 10/06/2015 None Full Exam - General 1994 Abdomen abdominal exam Overall: normal bowel sounds 10/06/2015 None Full Exam - General 1994 Integument inspection of skin Overall: few scattered moles, no gross abnormalities 10/06/2015 None Full Exam - General 1994 Neurologic deep tendon reflexes Overall: deep tendon reflexes intact 10/06/2015 None Full Exam - General 1994 Neurologic cranial nerves Overall: crainial nerves 2 - 12 grossly intact 10/06/2015 None Full Exam - General 1994 Psychiatric orientation/consciousness Oriented to person: yes 10/06/2015 None Full Exam - General 1994 Psychiatric orientation/consciousness Oriented to place: no 10/06/2015 None Full Exam - General 1994 Psychiatric orientation/consciousness Oriented to time: no 10/06/2015 None Full Exam - General 1994 Psychiatric orientation/consciousness Level of consciousness: alert 10/06/2015 None Full Exam - General 1994 Psychiatric mood and affect Overall: normal mood and affect 10/06/2015 None Full Exam - General 1994 Constitutional general appearance Development: well developed 07/07/2015 None Full Exam - General 1994 Constitutional general appearance Development: appears stated age 1007/07/2015 None Full Exam - General 1994 Constitutional general appearance Hygiene/Attention to Grooming: good hygiene 07/07/2015 None Full Exam - General 1994 Eyes conjunctiva/eyelids Overall: conjunctiva clear 07/07/2015 None Full Exam - General 1994 Eyes conjunctiva/eyelids Overall: cornea clear 07/07/2015 None Full Exam - General 1994 Eyes conjunctiva/eyelids Overall: eyelids normal 07/07/2015 None Full Exam - General 1994 Eyes pupils and irises Overall: pupils equal, round, reactive to light and accomodation 07/07/2015 None Full Exam - General 1994 Ears/Nose/Throat otoscopic exam Overall: external auditory canals clear 07/07/2015 None Full Exam - General 1994 Ears/Nose/Throat otoscopic exam Overall: tympanic membranes clear 07/07/2015 None Full Exam - General 1994 Ears/Nose/Throat lips/teeth/gingiva Overall: benign lips 07/07/2015 None Full Exam - General 1994 Ears/Nose/Throat lips/teeth/gingiva Overall: normal dentition 07/07/2015 None Full Exam - General 1994 Ears/Nose/Throat oral cavity/pharynx/larynx Overall: oral mucosa clear 07/07/2015 None Full Exam - General 1994 Ears/Nose/Throat oral cavity/pharynx/larynx Overall: oropharyngeal mucosa clear 07/07/2015 None Full Exam - General 1994 Ears/Nose/Throat oral cavity/pharynx/larynx Overall: hypopharynx benign 07/07/2015 None Full Exam - General 1994 Ears/Nose/Throat oral cavity/pharynx/larynx Overall: no masses 07/07/2015 None Full Exam - General 1994 Respiratory auscultation Overall: breath sounds clear bilaterally 07/07/2015 None Full Exam - General 1994 Respiratory respiratory effort/rhythm Overall: no retractions 07/07/2015 None Full Exam - General 1994 Respiratory respiratory effort/rhythm Overall: normal rate 07/07/2015 None Full Exam - General 1994 Cardiovascular extremities Overall: no clubbing 07/07/2015 None Full Exam - General 1994 Cardiovascular extremities Edema present: pitting 07/07/2015 None Full Exam - General 1994 Cardiovascular extremities Edema present: severity 1+ - 4+: 2 07/07/2015 None Full Exam - General 1994 Cardiovascular auscultation of heart Overall: regular rate 07/07/2015 None Full Exam - General 1994 Cardiovascular auscultation of heart Overall: normal heart sounds 07/07/2015 None Full Exam - General 1994 Abdomen abdominal exam Overall: no tenderness 07/07/2015 None Full Exam - General 1994 Abdomen abdominal exam Overall: normal bowel sounds 07/07/2015 None Full Exam - General 1994 Integument inspection of skin Overall: few scattered moles, no gross abnormalities 07/07/2015 None Full Exam - General 1994 Neurologic deep tendon reflexes Overall: deep tendon reflexes intact 07/07/2015 None Full Exam - General 1994 Neurologic cranial nerves Overall: crainial nerves 2 - 12 grossly intact 07/07/2015 None Full Exam - General 1994 Psychiatric orientation/consciousness Oriented to person: yes 07/07/2015 None Full Exam - General 1994 Psychiatric orientation/consciousness Oriented to place: no 07/07/2015 None Full Exam - General 1994 Psychiatric orientation/consciousness Oriented to time: no 07/07/2015 None Full Exam - General 1994 Psychiatric mood and affect Overall: normal mood and affect 07/07/2015 None Full Exam - General 1994 Constitutional general appearance Development: well developed 04/07/2015 None Full Exam - General 1994 Constitutional general appearance Development: appears older than stated age 0704/07/2015 None Full Exam - General 1994 Constitutional general appearance Hygiene/Attention to Grooming: good hygiene 04/07/2015 None Full Exam - General 1994 Eyes conjunctiva/eyelids Overall: conjunctiva clear 04/07/2015 None Full Exam - General 1994 Eyes conjunctiva/eyelids Overall: cornea clear 04/07/2015 None Full Exam - General 1994 Eyes conjunctiva/eyelids Overall: eyelids normal 04/07/2015 None Full Exam - General 1994 Eyes pupils and irises Overall: pupils equal, round, reactive to light and accomodation 04/07/2015 None Full Exam - General 1994 Ears/Nose/Throat otoscopic exam Overall: external auditory canals clear 04/07/2015 None Full Exam - General 1994 Ears/Nose/Throat otoscopic exam Overall: tympanic membranes clear 04/07/2015 None Full Exam - General 1994 Ears/Nose/Throat lips/teeth/gingiva Overall: benign lips 04/07/2015 None Full Exam - General 1994 Ears/Nose/Throat lips/teeth/gingiva Overall: normal dentition 04/07/2015 None Full Exam - General 1994 Ears/Nose/Throat oral cavity/pharynx/larynx Overall: oral mucosa clear 04/07/2015 None Full Exam - General 1994 Ears/Nose/Throat oral cavity/pharynx/larynx Overall: oropharyngeal mucosa clear 04/07/2015 None Full Exam - General 1994 Ears/Nose/Throat oral cavity/pharynx/larynx Overall: hypopharynx benign 04/07/2015 None Full Exam - General 1994 Ears/Nose/Throat oral cavity/pharynx/larynx Overall: no masses 04/07/2015 None Full Exam - General 1994 Respiratory auscultation Overall: breath sounds clear bilaterally 04/07/2015 None Full Exam - General 1994 Respiratory respiratory effort/rhythm Overall: no retractions 04/07/2015 None Full Exam - General 1994 Respiratory respiratory effort/rhythm Overall: normal rate 04/07/2015 None Full Exam - General 1994 Cardiovascular extremities Overall: no clubbing 04/07/2015 None Full Exam - General 1994 Cardiovascular auscultation of heart Overall: regular rate 04/07/2015 None Full Exam - General 1994 Cardiovascular auscultation of heart Overall: normal heart sounds 04/07/2015 None Full Exam - General 1994 Abdomen abdominal exam Overall: no tenderness 04/07/2015 None Full Exam - General 1994 Abdomen abdominal exam Overall: normal bowel sounds 04/07/2015 None Full Exam - General 1994 Integument inspection of skin Overall: few scattered moles, no gross abnormalities 04/07/2015 None Full Exam - General 1994 Neurologic deep tendon reflexes Overall: deep tendon reflexes intact 04/07/2015 None Full Exam - General 1994 Neurologic cranial nerves Overall: crainial nerves 2 - 12 grossly intact 04/07/2015 None Full Exam - General 1994 Psychiatric orientation/consciousness Oriented to person: yes 04/07/2015 None Full Exam - General 1994 Psychiatric orientation/consciousness Oriented to place: no 04/07/2015 None Full Exam - General 1994 Psychiatric orientation/consciousness Oriented to time: no 04/07/2015 None Full Exam - General 1994 Psychiatric orientation/consciousness Level of consciousness: alert 04/07/2015 None Full Exam - General 1994 Psychiatric mood and affect Overall: normal mood and affect 04/07/2015 None Full Exam - General 1994 Constitutional general appearance Development: well developed 02/03/2015 None Full Exam - General 1994 Constitutional general appearance Development: appears older than stated age 0502/03/2015 None Full Exam - General 1994 Constitutional general appearance Hygiene/Attention to Grooming: good hygiene 02/03/2015 None Full Exam - General 1994 Eyes conjunctiva/eyelids Overall: conjunctiva clear 02/03/2015 None Full Exam - General 1994 Eyes conjunctiva/eyelids Overall: cornea clear 02/03/2015 None Full Exam - General 1994 Eyes conjunctiva/eyelids Overall: eyelids normal 02/03/2015 None Full Exam - General 1994 Eyes pupils and irises Overall: pupils equal, round, reactive to light and accomodation 02/03/2015 None Full Exam - General 1994 Ears/Nose/Throat otoscopic exam Overall: external auditory canals clear 02/03/2015 None Full Exam - General 1994 Ears/Nose/Throat otoscopic exam Overall: tympanic membranes clear 02/03/2015 None Full Exam - General 1994 Ears/Nose/Throat lips/teeth/gingiva Overall: benign lips 02/03/2015 None Full Exam - General 1994 Ears/Nose/Throat lips/teeth/gingiva Overall: normal dentition 02/03/2015 None Full Exam - General 1994 Ears/Nose/Throat oral cavity/pharynx/larynx Overall: oral mucosa clear 02/03/2015 None Full Exam - General 1994 Ears/Nose/Throat oral cavity/pharynx/larynx Overall: oropharyngeal mucosa clear 02/03/2015 None Full Exam - General 1994 Ears/Nose/Throat oral cavity/pharynx/larynx Overall: hypopharynx benign 02/03/2015 None Full Exam - General 1994 Ears/Nose/Throat oral cavity/pharynx/larynx Overall: no masses 02/03/2015 None Full Exam - General 1994 Respiratory auscultation Overall: breath sounds clear bilaterally 02/03/2015 None Full Exam - General 1994 Respiratory respiratory effort/rhythm Overall: no retractions 02/03/2015 None Full Exam - General 1994 Respiratory respiratory effort/rhythm Overall: normal rate 02/03/2015 None Full Exam - General 1994 Cardiovascular extremities Overall: no clubbing 02/03/2015 None Full Exam - General 1994 Cardiovascular auscultation of heart Overall: regular rate 02/03/2015 None Full Exam - General 1994 Cardiovascular auscultation of heart Overall: normal heart sounds 02/03/2015 None Full Exam - General 1994 Abdomen abdominal exam Overall: no tenderness 02/03/2015 None Full Exam - General 1994 Abdomen abdominal exam Overall: normal bowel sounds 02/03/2015 None Full Exam - General 1994 Integument inspection of skin Overall: few scattered moles, no gross abnormalities 02/03/2015 None Full Exam - General 1994 Neurologic deep tendon reflexes Overall: deep tendon reflexes intact 02/03/2015 None Full Exam - General 1994 Neurologic cranial nerves Overall: crainial nerves 2 - 12 grossly intact 02/03/2015 None Full Exam - General 1994 Psychiatric orientation/consciousness Oriented to person: yes 02/03/2015 None Full Exam - General 1994 Psychiatric orientation/consciousness Oriented to place: no 02/03/2015 None Full Exam - General 1994 Psychiatric orientation/consciousness Oriented to time: no 02/03/2015 None Full Exam - General 1994 Psychiatric orientation/consciousness Level of consciousness: alert 02/03/2015 None Full Exam - General 1994 Psychiatric mood and affect Overall: normal mood and affect 02/03/2015 None Full Exam - General 1994 Constitutional general appearance Development: well developed 12/31/2014 None Full Exam - General 1994 Constitutional general appearance Hygiene/Attention to Grooming: good hygiene 12/31/2014 None Full Exam - General 1994 Eyes conjunctiva/eyelids Overall: conjunctiva clear 12/31/2014 None Full Exam - General 1994 Eyes conjunctiva/eyelids Overall: cornea clear 12/31/2014 None Full Exam - General 1994 Eyes conjunctiva/eyelids Overall: eyelids normal 12/31/2014 None Full Exam - General 1994 Eyes pupils and irises Overall: pupils equal, round, reactive to light and accomodation 12/31/2014 None Full Exam - General 1994 Ears/Nose/Throat otoscopic exam Overall: external auditory canals clear 12/31/2014 None Full Exam - General 1994 Ears/Nose/Throat otoscopic exam Overall: tympanic membranes clear 12/31/2014 None Full Exam - General 1994 Ears/Nose/Throat lips/teeth/gingiva Overall: benign lips 12/31/2014 None Full Exam - General 1994 Ears/Nose/Throat lips/teeth/gingiva Overall: normal dentition 12/31/2014 None Full Exam - General 1994 Ears/Nose/Throat oral cavity/pharynx/larynx Overall: hypopharynx benign 12/31/2014 None Full Exam - General 1994 Ears/Nose/Throat oral cavity/pharynx/larynx Overall: no masses 12/31/2014 None Full Exam - General 1994 Ears/Nose/Throat oral cavity/pharynx/larynx Overall: oral mucosa clear 12/31/2014 None Full Exam - General 1994 Ears/Nose/Throat oral cavity/pharynx/larynx Overall: oropharyngeal mucosa clear 12/31/2014 None Full Exam - General 1994 Respiratory auscultation Overall: breath sounds clear bilaterally 12/31/2014 None Full Exam - General 1994 Respiratory respiratory effort/rhythm Overall: no retractions 12/31/2014 None Full Exam - General 1994 Respiratory respiratory effort/rhythm Overall: normal rate 12/31/2014 None Full Exam - General 1994 Cardiovascular extremities Overall: no clubbing 12/31/2014 None Full Exam - General 1994 Cardiovascular auscultation of heart Overall: normal heart sounds 12/31/2014 None Full Exam - General 1994 Cardiovascular auscultation of heart Overall: regular rate 12/31/2014 None Full Exam - General 1994 Abdomen abdominal exam Overall: no tenderness 12/31/2014 None Full Exam - General 1994 Abdomen abdominal exam Overall: normal bowel sounds 12/31/2014 None Full Exam - General 1994 Integument inspection of skin Overall: few scattered moles, no gross abnormalities 12/31/2014 None Full Exam - General 1994 Neurologic deep tendon reflexes Overall: deep tendon reflexes intact 12/31/2014 None Full Exam - General 1994 Neurologic cranial nerves Overall: crainial nerves 2 - 12 grossly intact 12/31/2014 None Full Exam - General 1994 Psychiatric mood and affect Overall: normal mood and affect 12/31/2014 None Full Exam - General 1994 Constitutional general appearance Development: appears older than stated age 0412/31/2014 None Full Exam - General 1994 Psychiatric orientation/consciousness Oriented to person: yes 12/31/2014 None Full Exam - General 1994 Psychiatric orientation/consciousness Oriented to place: no 12/31/2014 None Full Exam - General 1994 Psychiatric orientation/consciousness Oriented to time: no 12/31/2014 None Full Exam - General 1994 Psychiatric orientation/consciousness Level of consciousness: alert 12/31/2014 None Full Exam - General 1994 Constitutional general appearance Development: appears stated age 0412/17/2014 None Full Exam - General 1994 Constitutional general appearance Development: well developed 12/17/2014 None Full Exam - General 1994 Constitutional general appearance Hygiene/Attention to Grooming: good hygiene 12/17/2014 None Full Exam - General 1994 Eyes conjunctiva/eyelids Overall: conjunctiva clear 12/17/2014 None Full Exam - General 1994 Eyes conjunctiva/eyelids Overall: cornea clear 12/17/2014 None Full Exam - General 1994 Eyes conjunctiva/eyelids Overall: eyelids normal 12/17/2014 None Full Exam - General 1994 Eyes pupils and irises Overall: pupils equal, round, reactive to light and accomodation 12/17/2014 None Full Exam - General 1994 Ears/Nose/Throat otoscopic exam Overall: external auditory canals clear 12/17/2014 None Full Exam - General 1994 Ears/Nose/Throat otoscopic exam Overall: tympanic membranes clear 12/17/2014 None Full Exam - General 1994 Ears/Nose/Throat lips/teeth/gingiva Overall: benign lips 12/17/2014 None Full Exam - General 1994 Ears/Nose/Throat lips/teeth/gingiva Overall: normal dentition 12/17/2014 None Full Exam - General 1994 Ears/Nose/Throat oral cavity/pharynx/larynx Overall: hypopharynx benign 12/17/2014 None Full Exam - General 1994 Ears/Nose/Throat oral cavity/pharynx/larynx Overall: no masses 12/17/2014 None Full Exam - General 1994 Ears/Nose/Throat oral cavity/pharynx/larynx Overall: oral mucosa clear 12/17/2014 None Full Exam - General 1994 Ears/Nose/Throat oral cavity/pharynx/larynx Overall: oropharyngeal mucosa clear 12/17/2014 None Full Exam - General 1994 Respiratory auscultation Overall: breath sounds clear bilaterally 12/17/2014 None Full Exam - General 1994 Respiratory respiratory effort/rhythm Overall: no retractions 12/17/2014 None Full Exam - General 1994 Respiratory respiratory effort/rhythm Overall: normal rate 12/17/2014 None Full Exam - General 1994 Cardiovascular extremities Overall: no clubbing 12/17/2014 None Full Exam - General 1994 Cardiovascular auscultation of heart Overall: normal heart sounds 12/17/2014 None Full Exam - General 1994 Cardiovascular auscultation of heart Overall: regular rate 12/17/2014 None Full Exam - General 1994 Abdomen abdominal exam Overall: no tenderness 12/17/2014 None Full Exam - General 1994 Abdomen abdominal exam Overall: normal bowel sounds 12/17/2014 None Full Exam - General 1994 Integument inspection of skin Overall: few scattered moles, no gross abnormalities 12/17/2014 None Full Exam - General 1994 Neurologic deep tendon reflexes Overall: deep tendon reflexes intact 12/17/2014 None Full Exam - General 1994 Neurologic cranial nerves Overall: crainial nerves 2 - 12 grossly intact 12/17/2014 None Full Exam - General 1994 Psychiatric mood and affect Overall: normal mood and affect 12/17/2014 None Full Exam - General 1994 Cardiovascular extremities Edema present: pitting 12/17/2014 None Full Exam - General 1994 Cardiovascular extremities Edema present: severity 1+ - 4+: 2 12/17/2014 None Full Exam - General 1994 Psychiatric orientation/consciousness Oriented to person: yes 12/17/2014 None Full Exam - General 1994 Psychiatric orientation/consciousness Oriented to place: no 12/17/2014 None Full Exam - General 1994 Psychiatric orientation/consciousness Oriented to time: no 12/17/2014 None Procedures Procedure Codes Date BIOPSY SKIN LESION CPT-4: [id number] 01/14/2016 Vital Signs Date Vital 01/11/2017 Blood Pressure 1: 146/84 Code: 8480-6 BMI: 28.3 Code: 10644-7 Heart Rate 1: 82 bpm Height: 5'4" SpO2: 92% Weight: 165 lbs 10/12/2016 Blood Pressure 1: 134/72 Code: 8480-6 BMI: 27.8 Code: 75054-3 Heart Rate 1: 86 bpm Height: 5'4" SpO2: 93% Weight: 162 lbs 07/17/2016 Blood Pressure 1: 128/80 Code: 8480-6 BMI: 27.5 Code: 40369-4 Heart Rate 1: 86 bpm Height: 5'4" SpO2: 91% Weight: 160 lbs 04/24/2016 Blood Pressure 1: 130/82 Code: 8480-6 BMI: 26.4 Code: 42178-3 Heart Rate 1: 97 bpm Height: 5'4" SpO2: 97% Weight: 154 lbs 01/14/2016 Blood Pressure 1: 140/66 Code: 8480-6 BMI: 25.6 Code: 09655-9 Heart Rate 1: 77 bpm Height: 5'4" SpO2: 96% Weight: 149 lbs 12/20/2015 Blood Pressure 1: 136/64 Code: 8480-6 BMI: 24.9 Code: 30954-9 Heart Rate 1: 70 bpm Height: 5'4" SpO2: 74% Weight: 145 lbs 10/06/2015 Blood Pressure 1: 124/62 Code: 8480-6 BMI: 24.7 Code: 12087-9 Heart Rate 1: 72 bpm Height: 5'4" SpO2: 90% Weight: 144 lbs 07/07/2015 Blood Pressure 1: 130/78 Code: 8480-6 BMI: 23.9 Code: 23958-6 Heart Rate 1: 70 bpm Height: 5'4" SpO2: 94% Weight: 139 lbs 04/07/2015 Blood Pressure 1: 120/58 Code: 8480-6 BMI: 22.1 Code: 25131-6 Heart Rate 1: 66 bpm Height: 5'4" SpO2: 97% Weight: 129 lbs 02/03/2015 Blood Pressure 1: 134/68 Code: 8480-6 BMI: 22.3 Code: 58487-1 Heart Rate 1: 71 bpm Height: 5'4" SpO2: 95% Weight: 130 lbs 12/31/2014 Blood Pressure 1: 138/82 Code: 8480-6 BMI: 22.7 Code: 91115-4 Heart Rate 1: 74 bpm Height: 5'4" SpO2: 95% Weight: 132 lbs 12/17/2014 Blood Pressure 1: 142/88 Code: 8480-6 BMI: 22.5 Code: 47358-5 Heart Rate 1: 64 bpm Height: 5'4" Weight: 131 lbs Functional Status No Functional Status data History of Present Illness Symptom Name Status Result Effective Date Notes blood pressure followup Quality chronic 01/11/2017 None blood pressure followup Onset and Resolution ongoing 01/11/2017 None blood pressure followup Onset of Symptom during adulthood 01/11/2017 None blood pressure followup Blood Pressure Values pt checking blood pressure - see scanned document 01/11/2017 None blood pressure followup Frequency of Episodes unchanged 01/11/2017 None blood pressure followup Triggers stress 01/11/2017 None blood pressure followup Alleviating Factors medication 01/11/2017 None blood pressure followup Pertinent Findings Denies dizziness 01/11/2017 None blood pressure followup Pertinent Findings Denies dyspnea 01/11/2017 None blood pressure followup Pertinent Findings Denies edema 01/11/2017 None hyperlipidemia Onset of Symptom during adulthood 01/11/2017 None hyperlipidemia Severity mild 01/11/2017 None hyperlipidemia Significant Medications statin 01/11/2017 None hyperlipidemia Alleviating Factors medication 01/11/2017 None hyperlipidemia Pertinent Findings Denies edema 01/11/2017 None hyperlipidemia Pertinent Findings Denies fever 01/11/2017 None hyperlipidemia Pertinent Findings Denies polyphagia 01/11/2017 None hyperlipidemia Pertinent Findings Denies polyuria 01/11/2017 None hyperlipidemia Pertinent Findings Denies weight loss 01/11/2017 None hyperlipidemia Quality chronic 01/11/2017 None hyperlipidemia Onset and Resolution ongoing 01/11/2017 None blood pressure followup Quality chronic 10/12/2016 None blood pressure followup Onset and Resolution ongoing 10/12/2016 None blood pressure followup Onset of Symptom during adulthood 10/12/2016 None blood pressure followup Frequency of Episodes unchanged 10/12/2016 None blood pressure followup Triggers stress 10/12/2016 None blood pressure followup Alleviating Factors medication 10/12/2016 None blood pressure followup Pertinent Findings Denies dizziness 10/12/2016 None blood pressure followup Pertinent Findings Denies dyspnea 10/12/2016 None blood pressure followup Blood Pressure Values pt checking blood pressure - see scanned document 10/12/2016 None blood pressure followup Pertinent Findings Denies edema 10/12/2016 None hyperlipidemia Onset of Symptom during adulthood 10/12/2016 None hyperlipidemia Severity mild 10/12/2016 None hyperlipidemia Onset and Resolution ongoing 10/12/2016 None hyperlipidemia Quality chronic 10/12/2016 None hyperlipidemia Pertinent Findings Denies edema 10/12/2016 None hyperlipidemia Pertinent Findings Denies fever 10/12/2016 None hyperlipidemia Pertinent Findings Denies weight loss 10/12/2016 None hyperlipidemia Pertinent Findings Denies polyuria 10/12/2016 None hyperlipidemia Pertinent Findings Denies polyphagia 10/12/2016 None hyperlipidemia Alleviating Factors medication 10/12/2016 None hyperlipidemia Significant Medications statin 10/12/2016 None cough Location in the throat 07/17/2016 None cough Quality productive 07/17/2016 None cough Onset and Resolution ongoing 07/17/2016 None cough Onset of Symptom _ days ago 07/17/2016 None cough Frequency of Episodes daily 07/17/2016 None cough Pertinent Findings Denies chest discomfort 07/17/2016 None cough Pertinent Findings Denies dyspnea 07/17/2016 None cough Pertinent Findings Denies fever 07/17/2016 None blood pressure followup Quality chronic 07/17/2016 None blood pressure followup Onset and Resolution ongoing 07/17/2016 None blood pressure followup Onset of Symptom during adulthood 07/17/2016 None blood pressure followup Blood Pressure Values not checking blood pressure at home 07/17/2016 None blood pressure followup Frequency of Episodes unchanged 07/17/2016 None blood pressure followup Triggers stress 07/17/2016 None blood pressure followup Alleviating Factors medication 07/17/2016 None blood pressure followup Pertinent Findings Denies dizziness 07/17/2016 None blood pressure followup Pertinent Findings Denies dyspnea 07/17/2016 None cough Limitation on Activities does not limit activities 07/17/2016 None cough Triggers no known associated factors 07/17/2016 None blood pressure followup Quality chronic 04/24/2016 None blood pressure followup Onset and Resolution ongoing 04/24/2016 None blood pressure followup Onset of Symptom during adulthood 04/24/2016 None blood pressure followup Blood Pressure Values not checking blood pressure at home 04/24/2016 None blood pressure followup Frequency of Episodes unchanged 04/24/2016 None blood pressure followup Triggers stress 04/24/2016 None blood pressure followup Alleviating Factors medication 04/24/2016 None blood pressure followup Pertinent Findings Denies dizziness 04/24/2016 None blood pressure followup Pertinent Findings Denies dyspnea 04/24/2016 None memory loss Pertinent Findings Denies difficulty reading 04/24/2016 None memory loss Pertinent Findings Denies difficulty writing 04/24/2016 does have some hand tremors memory loss Onset and Resolution ongoing 04/24/2016 None new lesion Location-Extremities on the right leg 01/14/2016 None new lesion Quality new 01/14/2016 None new lesion Color red 01/14/2016 None new lesion Onset and Resolution sudden in onset 01/14/2016 None new lesion Limitation on Activities does not limit activities 01/14/2016 None new lesion Severity mild 01/14/2016 None new lesion Prior Treatments previously untreated 01/14/2016 None new lesion Triggers no known triggers 01/14/2016 None blood pressure followup Quality chronic 12/20/2015 None blood pressure followup Onset and Resolution ongoing 12/20/2015 None blood pressure followup Onset of Symptom during adulthood 12/20/2015 None blood pressure followup Blood Pressure Values not checking blood pressure at home 12/20/2015 None blood pressure followup Frequency of Episodes unchanged 12/20/2015 None blood pressure followup Triggers stress 12/20/2015 None blood pressure followup Alleviating Factors medication 12/20/2015 None blood pressure followup Pertinent Findings Denies dizziness 12/20/2015 None blood pressure followup Pertinent Findings Denies dyspnea 12/20/2015 None memory loss Onset and Resolution ongoing 12/20/2015 None memory loss Pertinent Findings Denies difficulty reading 12/20/2015 None memory loss Pertinent Findings Denies difficulty writing 12/20/2015 does have some hand tremors blood pressure followup Quality chronic 10/06/2015 None blood pressure followup Onset and Resolution ongoing 10/06/2015 None blood pressure followup Onset of Symptom during adulthood 10/06/2015 None blood pressure followup Blood Pressure Values not checking blood pressure at home 10/06/2015 None blood pressure followup Frequency of Episodes unchanged 10/06/2015 None blood pressure followup Triggers stress 10/06/2015 None blood pressure followup Alleviating Factors medication 10/06/2015 None memory loss Onset and Resolution ongoing 10/06/2015 None memory loss Pertinent Findings Denies difficulty reading 10/06/2015 None memory loss Pertinent Findings Denies difficulty writing 10/06/2015 does have some hand tremors blood pressure followup Pertinent Findings Denies dizziness 10/06/2015 None blood pressure followup Pertinent Findings Denies dyspnea 10/06/2015 None blood pressure followup Alleviating Factors medication 07/07/2015 None blood pressure followup Blood Pressure Values not checking blood pressure at home 07/07/2015 None blood pressure followup Frequency of Episodes unchanged 07/07/2015 None blood pressure followup Onset and Resolution ongoing 07/07/2015 None blood pressure followup Onset of Symptom during adulthood 07/07/2015 None blood pressure followup Quality chronic 07/07/2015 None blood pressure followup Triggers stress 07/07/2015 None edema Quality chronic 04/07/2015 None edema Quality intermittent 04/07/2015 None edema Quality pitting 04/07/2015 None edema Onset and Resolution ongoing 04/07/2015 None edema Onset of Symptom 1 months ago 04/07/2015 swelling better, left has some swelling edema Triggers no known associated factors 04/07/2015 None edema Exacerbating Factors salty foods 04/07/2015 None edema Pertinent Findings Denies dyspnea 04/07/2015 None memory loss Onset and Resolution ongoing 04/07/2015 None edema Quality chronic 02/03/2015 None edema Quality intermittent 02/03/2015 None edema Quality pitting 02/03/2015 None edema Onset and Resolution ongoing 02/03/2015 None edema Onset of Symptom 1 months ago 02/03/2015 swelling better, left has some swelling edema Triggers no known associated factors 02/03/2015 None edema Exacerbating Factors salty foods 02/03/2015 None edema Pertinent Findings Denies dyspnea 02/03/2015 None memory loss Onset and Resolution ongoing 02/03/2015 None edema Quality chronic 12/31/2014 None edema Quality intermittent 12/31/2014 None edema Quality pitting 12/31/2014 None edema Onset and Resolution ongoing 12/31/2014 None edema Onset of Symptom 1 months ago 12/31/2014 bilateral ankles and feet- reports when she pushes in on them it hurts. edema Triggers no known associated factors 12/31/2014 None edema Exacerbating Factors salty foods 12/31/2014 None edema Pertinent Findings Denies dyspnea 12/31/2014 None blisters Location-Major on the legs 12/31/2014 left leg x 1 week blisters Onset of Symptom 1 week ago 12/31/2014 None blisters Pertinent Findings Denies pain 12/31/2014 unless you touch it. edema Onset of Symptom 1 months ago 12/17/2014 bilateral ankles and feet- reports when she pushes in on them it hurts. edema Pertinent Findings Denies dyspnea 12/17/2014 None edema Quality chronic 12/17/2014 None edema Quality intermittent 12/17/2014 None edema Quality pitting 12/17/2014 None edema Onset and Resolution ongoing 12/17/2014 None edema Triggers no known associated factors 12/17/2014 None edema Exacerbating Factors salty foods 12/17/2014 None Advance Directives No Advance Directive data Encounters Encounter Performer Location Codes Date ([id number]) [id number] EST. PATIENT, LEVEL IV Diagnosis: Essential (primary) hypertension[ICD10: I10] Diagnosis: Other Alzheimer's disease[ICD10: G30.8] Diagnosis: Cough[ICD10: R05] Diagnosis: Hypoxemia[ICD10: R09.02] Cherise Bowen MD, [facility] CPT-4: 47448 01/11/2017 ([id number]) 01914 EST. PATIENT, LEVEL III Diagnosis: Essential (primary) hypertension[ICD10: I10] Diagnosis: Other Alzheimer's disease[ICD10: G30.8] Cherise Bowen MD, [facility] CPT-4: 62928 10/12/2016 ([id number]) 86806 EST. PATIENT, LEVEL III Diagnosis: Cough[ICD10: R05] Diagnosis: Essential (primary) hypertension[ICD10: I10] Cherise Bowen MD, [facility] CPT-4: 39397 07/17/2016 ([id number]) 15339 EST. PATIENT, LEVEL III Diagnosis: Essential (primary) hypertension[ICD10: I10] Diagnosis: Other Alzheimer's disease[ICD10: G30.8] Cherise Bowen MD, [facility] CPT-4: 61006 04/24/2016 ([id number]) 76729 EST. PATIENT, LEVEL III Diagnosis: Essential (primary) hypertension[ICD10: I10] Diagnosis: Other Alzheimer's disease[ICD10: G30.8] Cherise Bowen MD, [facility] CPT-4: 09213 12/20/2015 ([id number]) 47819 EST. PATIENT, LEVEL III Diagnosis: Essential (primary) hypertension[ICD10: I10] Diagnosis: Other Alzheimer's disease[ICD10: G30.8] Hermila Bowen MD, [facility] CPT-4: 06904 10/06/2015 ([id number]) 24783 EST. PATIENT, LEVEL IV Diagnosis: Other secondary hypertension[ICD10: I15.8] Diagnosis: Other Alzheimer's disease[ICD10: G30.8] Hermila Bowen MD, [facility] CPT-4: 54618 07/07/2015 ([id number]) 03404 EST. PATIENT, LEVEL IV Diagnosis: ESSENTIAL HYPERTENSION[ICD9: 401.9] Diagnosis: EDEMA[ICD9: 782.3] Diagnosis: DEMENTIA W BEHAVIOR DIST[ICD9: 294.11] [facility] CPT-4: 06912 04/07/2015 ([id number]) 29266 EST. PATIENT, LEVEL IV Diagnosis: ESSENTIAL HYPERTENSION[ICD9: 401.9] Diagnosis: DEMENTIA W BEHAVIOR DIST[ICD9: 294.11] Diagnosis: Constipation - functional[ICD9: 564.09] [facility] CPT-4: 03840 02/03/2015 ([id number]) 66580 EST. PATIENT, LEVEL IV Diagnosis: ESSENTIAL HYPERTENSION[ICD9: 401.9] Diagnosis: HYPERLIPIDEMIA[ICD9: 272.4] Diagnosis: DEMENTIA W BEHAVIOR DIST[ICD9: 294.11] Diagnosis: Chronic depression[ICD9: 311] Diagnosis: Anxiety, generalized[ICD9: 300.02] [facility] CPT- 4: 67190 12/31/2014 ([id number]) OFFICE VISIT, NEW - LEVEL 4 Diagnosis: EDEMA[ICD9: 782.3] Diagnosis: HYPERLIPIDEMIA[ICD9: 272.4] Diagnosis: ESSENTIAL HYPERTENSION[ICD9: 401.9] Diagnosis: DEPRESSIVE DISORDER NEC[ICD9: 311] [facility] CPT- 4: 61071 12/17/2014 Plan of Care Planned Activity Notes Codes Status Date Visit Plan: Hypertension - well controlled - continue with current medications, continue with no added salt diet. Pt has been encouraged to exercise daily.The pt has been advised to call the office if there are any acute concerns about change in blood pressure readings at home.Alzheimer's Dementia - Pt with slowly progressive pattern. I have discussed with pt and family the prognosis of this disease state and the need for the family to anticipate further decline with behavior changes. Continue with current plan of treatment. Patient having more behaviors-increase depakote and recheck level in 1 month. Chronic cough-history rgockce-[id number]-[id number]-patient's oxygen saturation dropped to 89% in the office on room air-unable to further obtain ambulatory levels due to patient's zbl-dieyrzbrjef-hizz test overnight oxygen levels. 01/11/2017 Appointment: Cherise Ventura WPtel: [address] [place], [place] [phone] [place] (15 min) Moderate 01/11/2017 Patient Education: Patient Medication Summary Completed 01/11/2017 Patient Education: Patient Medication Summary Completed 10/13/2016 Visit Plan: Hypertension - well controlled - continue with current medications, continue with no added salt diet. Pt has been encouraged to exercise daily.The pt has been advised to call the office if there are any acute concerns about change in blood pressure readings at home.Alzheimer's Dementia - Pt with slowly progressive pattern. I have discussed with pt and family the prognosis of this disease state and the need for the family to anticipate further decline with behavior changes. Continue with current plan of treatment. 10/12/2016 Appointment: Cherise Ventura WPtel: [phone] [facility] [phone] (30 min) Complex 10/12/2016 Patient Education: Patient Medication Summary Completed 10/12/2016 Patient Education: Hypertension Completed 10/12/2016 Visit Plan: Hypertension - well controlled - continue with current medications, continue with no added salt diet. Pt has been encouraged to exercise daily.The pt has been advised to call the office if there are any acute concerns about change in blood pressure readings at home.Cough-history of smoking-obtain chest xray today 07/17/2016 Appointment: Cherise Ventura WPtel: [facility] [phone] (15 min) Moderate 07/17/2016 Patient Education: Patient Medication Summary Completed 07/17/2016 Patient Education: Hypertension Completed 07/17/2016 Visit Plan: Hypertension - well controlled - continue with current medications, continue with no added salt diet. Pt has been encouraged to exercise daily.The pt has been advised to call the office if there are any acute concerns about change in blood pressure readings at home.Alzheimer's Dementia - Pt with slowly progressive pattern. I have discussed with pt and family the prognosis of this disease state and the need for the family to anticipate further decline with behavior changes. Continue with current plan of treatment. 04/24/2016 Appointment: Cherise Ventura WPtel: [phone] [facility] [id number] (15 min) Moderate 04/24/2016 Patient Education: Patient Medication Summary Completed 04/24/2016 Visit Plan: Changing lesion right thigh-shave biopsy performed today in the office- wound instructions provided and instructed patient and step daugther to call with any s/s of infection or other concerns. Patient and family verbalized understanding of plan. 01/14/2016 Visit Plan: Changing lesion right thigh-shave biopsy performed today in the office- wound instructions provided and instructed patient and step daugther to call with any s/s of infection or other concerns. Patient and family verbalized understanding of plan. 01/14/2016 Patient Education: Patient Medication Summary Completed 01/14/2016 Visit Plan: Hypertension - well controlled - continue with current medications, continue with no added salt diet. Pt has been encouraged to exercise daily.The pt has been advised to call the office if there are any acute concerns about change in blood pressure readings at home.Alzheimer's Dementia - Pt with slowly progressive pattern. I have discussed with pt and family the prognosis of this disease state and the need for the family to anticipate further decline with behavior changes. Continue with current plan of treatment. 12/20/2015 Appointment: (15 min) Moderate 12/20/2015 Patient Education: Patient Medication Summary Completed 12/20/2015 Patient Education: Hypertension Completed 12/20/2015 Visit Plan: Hypertension - well controlled - continue with current medications, continue with no added salt diet. Pt has been encouraged to exercise daily.The pt has been advised to call the office if there are any acute concerns about change in blood pressure readings at home.Alzheimer's Dementia - Pt with slowly progressive pattern. I have discussed with pt and family the prognosis of this disease state and the need for the family to anticipate further decline with behavior changes. Continue with current plan of treatment. 10/06/2015 Appointment: Hermila Bowen WPtel: [id number] (15 min) Moderate 10/06/2015 Patient Education: Patient Medication Summary Completed 10/06/2015 Patient Education: Hypertension Completed 10/06/2015 Visit Plan: Hypertension - well controlled - continue with current medications, continue with no added salt diet. Pt has been encouraged to exercise daily.The pt has been advised to call the office if there are any acute concerns about change in blood pressure readings at home.Alzheimer's Dementia - Pt with slowly progressive pattern. I have discussed with pt and family the prognosis of this disease state and the need for the family to anticipate further decline with behavior changes. Continue with current plan of treatment. 07/07/2015 Appointment: Hermila Bowen WPtel: [facility] (15 min) Moderate 07/07/2015 Patient Education: Patient Medication Summary Completed 07/07/2015 Patient Education: Hypertension Completed 07/07/2015 Visit Plan: Hypertension - well controlled - continue with current medications, continue with no added salt diet. Pt has been encouraged to exercise daily.The pt has been advised to call the office if there are any acute concerns about change in blood pressure readings at home.Edema - has improved - no change in treatment at this time other than recommendation for increase in protein in diet.Dementia - continue with aricept, monitor behaviors, monitor mood, and treat symptoms as needed. 04/07/2015 Appointment: Hermila Bowen WPtel: [id number] (15 min) Moderate 04/07/2015 Patient Education: Patient Medication Summary Completed 04/07/2015 Patient Education: Hypertension Completed 04/07/2015 Visit Plan: Hypertension - well controlled - continue with current medications, continue with no added salt diet. Pt has been encouraged to exercise daily.The pt has been advised to call the office if there are any acute concerns about change in blood pressure readings at home.Alzheimer's Dementia - Pt with slowly progressive pattern. I have discussed with pt and family the prognosis of this disease state and the need for the family to anticipate further decline with behavior changes. Continue with current plan of treatment.Constipation - uncontrolled - I have discussed with the patient the need for adequate fiber and water intake to facilitate soft, easily passed stools. The pt noted understanding of our conversation. I have given the patient a recipe for "power pudding" - equal parts, bran flakes, prune juice, and apple sauce. The pt is to call if symptoms not improved on this regimen. 02/03/2015 Appointment: Hermila Bowen [facility]Ptel[facility] [phone] [id number] Follow up 02/03/2015 Patient Education: Patient Medication Summary Completed 02/03/2015 Patient Education: Hypertension Completed 02/03/2015 Visit Plan: Hypertension - well controlled - continue with current medications, continue with no added salt diet. Pt has been encouraged to exercise daily.The pt has been advised to call the office if there are any acute concerns about change in blood pressure readings at home.Hyperlipidemia - pt has been counseled about appropriate diet, exercise, and need for low fat food choices. I have discussed the need for the patient to take medications as prescribed. If the patient has negative side effects from the medication, they are to CALL the office and not abruptly discontinue the medication without discussion with a practitioner in the office. 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 The patient is on medication which appears to be controlling the worst of the symptoms. I have not recommended a change to the regimen at this time, but will continue to closely monitor the medications for effectiveness.Anxiety and Depression - adjust medications - will contact and work with [facility] for medication adjustment for control of behaviors. 12/31/2014 Appointment: Hermila Bowen WPtel: [address] [place], [place] [id number] Follow up 12/31/2014 Patient Education: Patient Medication Summary Completed 12/31/2014 Patient Education: Hypertension Completed 12/31/2014 Visit Plan: Hypertension - well controlled - continue with current medications, continue with no added salt diet. Pt has been encouraged to exercise daily.The pt has been advised to call the office if there are any acute concerns about change in blood pressure readings at home.Hyperlipidemia - pt has been counseled about appropriate diet, exercise, and need for low fat food choices. I have discussed the need for the patient to take medications as prescribed. If the patient has negative side effects from the medication, they are to CALL the office and not abruptly discontinue the medication without discussion with a practitioner in the office. We will check labs in 3-6 months for follow up on the patient's chronic medical problem and to assure normal liver response to medications.Edema - pt has been advised to elevate legs to prevent dependent edema, compression has been recommended to help to naturally decrease peripheral edema. Diuretic use has been discussed and pt has been instructed in appropriate use of such medication as necessary to further attempt to reduce peripheral edema.Chronic Depression and anxiety - the pt has symptoms of chronic anxiety and depression that have been fairly well controlled since the last office visit. The pt has expected periods of exacerbation with abatement of the symptoms with change in situational exposure. No change in current medications. 12/17/2014 Appointment: Hermila Bowen [facility]Ptel[facility] [phone] [id number] [place] New Patient 12/17/2014 Patient Education: Patient Medication Summary Completed 12/17/2014 Patient Education: Hypertension Completed 12/17/2014 Instructions Comment . Hypertension - well controlled - continue with current medications, continue with no added salt diet. Pt has been encouraged to exercise daily. The pt has been advised to call the office if there are any acute concerns about change in blood pressure readings at home. Alzheimer's Dementia - Pt with slowly progressive pattern. I have discussed with pt and family the prognosis of this disease state and the need for the family to anticipate further decline with behavior changes. Continue with current plan of treatment. Constipation - uncontrolled - I have discussed with the patient the need for adequate fiber and water intake to facilitate soft, easily passed stools. The pt noted understanding of our conversation. I have given the patient a recipe for "power pudding" - equal parts, bran flakes, prune juice, and apple sauce. The pt is to call if symptoms not improved on this regimen. CHEST XRAY . Hypertension - well controlled - continue with current medications, continue with no added salt diet. Pt has been encouraged to exercise daily. The pt has been advised to call the office if there are any acute concerns about change in blood pressure readings at home. Cough-history of smoking-obtain chest xray today . Hypertension - well controlled - continue with current medications, continue with no added salt diet. Pt has been encouraged to exercise daily. The pt has been advised to call the office if there are any acute concerns about change in blood pressure readings at home. Alzheimer's Dementia - Pt with slowly progressive pattern. I have discussed with pt and family the prognosis of this disease state and the need for the family to anticipate further decline with behavior changes. Continue with current plan of treatment. . Hypertension - well controlled - continue with current medications, continue with no added salt diet. Pt has been encouraged to exercise daily. The pt has been advised to call the office if there are any acute concerns about change in blood pressure readings at home. Hyperlipidemia - pt has been counseled about appropriate diet, exercise, and need for low fat food choices. I have discussed the need for the patient to take medications as prescribed. If the patient has negative side effects from the medication, they are to CALL the office and not abruptly discontinue the medication without discussion with a practitioner in the office. We will check labs in 3-6 months for follow up on the patient's chronic medical problem and to assure normal liver response to medications. Edema - pt has been advised to elevate legs to prevent dependent edema, compression has been recommended to help to naturally decrease peripheral edema. Diuretic use has been discussed and pt has been instructed in appropriate use of such medication as necessary to further attempt to reduce peripheral edema. Chronic Depression and anxiety - the pt has symptoms of chronic anxiety and depression that have been fairly well controlled since the last office visit. The pt has expected periods of exacerbation with abatement of the symptoms with change in situational exposure. No change in current medications. . Changing lesion right thigh-shave biopsy performed today in the office-wound instructions provided and instructed patient and step daugther to call with any s/s of infection or other concerns. Patient and family verbalized understanding of plan. . Changing lesion right thigh-shave biopsy performed today in the office-wound instructions provided and instructed patient and step daugther to call with any s/s of infection or other concerns. Patient and family verbalized understanding of plan. . Hypertension - well controlled - continue with current medications, continue with no added salt diet. Pt has been encouraged to exercise daily. The pt has been advised to call the office if there are any acute concerns about change in blood pressure readings at home. Alzheimer's Dementia - Pt with slowly progressive pattern. I have discussed with pt and family the prognosis of this disease state and the need for the family to anticipate further decline with behavior changes. Continue with current plan of treatment. . Hypertension - well controlled - continue with current medications, continue with no added salt diet. Pt has been encouraged to exercise daily. The pt has been advised to call the office if there are any acute concerns about change in blood pressure readings at home. Alzheimer's Dementia - Pt with slowly progressive pattern. I have discussed with pt and family the prognosis of this disease state and the need for the family to anticipate further decline with behavior changes. Continue with current plan of treatment. . Hypertension - well controlled - continue with current medications, continue with no added salt diet. Pt has been encouraged to exercise daily. The pt has been advised to call the office if there are any acute concerns about change in blood pressure readings at home. Edema - has improved - no change in treatment at this time other than recommendation for increase in protein in diet. Dementia - continue with aricept, monitor behaviors, monitor mood, and treat symptoms as needed. . Hypertension - well controlled - continue with current medications, continue with no added salt diet. Pt has been encouraged to exercise daily. The pt has been advised to call the office if there are any acute concerns about change in blood pressure readings at home. Hyperlipidemia - pt has been counseled about appropriate diet, exercise, and need for low fat food choices. I have discussed the need for the patient to take medications as prescribed. If the patient has negative side effects from the medication, they are to CALL the office and not abruptly discontinue the medication without discussion with a practitioner in the office. We will check labs in 3-6 months for follow up on the patient's chronic medical problem and to assure normal liver response to medications. 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 The patient is on medication which appears to be controlling the worst of the symptoms. I have not recommended a change to the regimen at this time, but will continue to closely monitor the medications for effectiveness. Anxiety and Depression - adjust medications - will contact and work with [facility] for medication adjustment for control of behaviors. Monitor your blood pressure at home and record. Bring in your readings to your next appointment, or as directed. Call for chest pain, shortness of breath, headaches, or other concerns. . Hypertension - well controlled - continue with current medications, continue with no added salt diet. Pt has been encouraged to exercise daily. The pt has been advised to call the office if there are any acute concerns about change in blood pressure readings at home. Alzheimer's Dementia - Pt with slowly progressive pattern. I have discussed with pt and family the prognosis of this disease state and the need for the family to anticipate further decline with behavior changes. Continue with current plan of treatment. . Hypertension - well controlled - continue with current medications, continue with no added salt diet. Pt has been encouraged to exercise daily. The pt has been advised to call the office if there are any acute concerns about change in blood pressure readings at home. Alzheimer's Dementia - Pt with slowly progressive pattern. I have discussed with pt and family the prognosis of this disease state and the need for the family to anticipate further decline with behavior changes. Continue with current plan of treatment. Patient having more behaviors-increase depakote and recheck level in 1 month. Chronic cough-history [id number]-patient's oxygen saturation dropped to 89% in the office on room air-unable to further obtain ambulatory levels due to patient's fyg-qgubragjqys-nxmy test overnight oxygen levels. . Hypertension - well controlled - continue with current medications, continue with no added salt diet. Pt has been encouraged to exercise daily. The pt has been advised to call the office if there are any acute concerns about change in blood pressure readings at home. Alzheimer's Dementia - Pt with slowly progressive pattern. I have discussed with pt and family the prognosis of this disease state and the need for the family to anticipate further decline with behavior changes. Continue with current plan of treatment.
--- OUTSIDE RECORDS SUMMARY | 2019-02-22 08:25 | XMS REPORT | CCD ---
Author Author [facility] Organization [facility] Address [address] [place] [id number] Phone Care Team Providers Care Operator Automated Process Name Role Phone PP Unavailable CCM Unavailable Summary Purpose Interface Exchange Insurance Providers Payer name Policy type / Coverage type Covered alliance party ID Effective Begin Date Effective End Date WPS Medicare Part B Medicare Part B [id number] Unknown Unknown [facility] Medicare Part B [id number] Unknown Unknown Family history Runs in the [...] Start Date Stop Date Status Fill Instructions Depakote 250 mg tablet,delayed release RxNorm: 1955143 1 Tablet(s) PO BID 02/08/2017 08/06/2017 Active potassium chloride ER 10 mEq tablet,extended release RxNorm: 806187 1 Tablet(s) PO daily 01/24/2017 04/23/2017 Active Depakote 250 mg tablet,delayed release RxNorm: 6078459 1 Tablet(s) PO BID 01/11/2017 02/07/2017 Inactive Ativan 0.5 mg tablet RxNorm: 758004 1 Tablet(s) PO daily and as needed for anxiety 01/09/2017 05/08/2017 Active simvastatin 40 mg tablet RxNorm: 362304 Tablet(s) TAKE 1 TABLET BY MOUTH DAILY AT BEDTIME 01/09/2017 07/07/2017 Active melatonin 3 mg tablet RxNorm: 185331 1 Tablet(s) PO QHS 01/08/2017 01/02/2018 Active chlorthalidone 25 mg tablet RxNorm: 085020 1/2 Tablet(s) PO daily 11/29/2016 03/28/2017 Active [SAVINGS FOR NON-COVERED DRUGS -- BIN:[id number], PCN: ASPROD1, Group: XXXXX, ID# XXXXXXX, Questions: . THIS IS NOT INSURANCE.] Miralax 17 gram oral powder packet RxNorm: 038211 1 Capsule(s) PO daily as needed 11/23/2016 03/22/2017 Active trazodone 50 mg tablet RxNorm: 768794 Tablet(s) TAKE 1 & 1/2 TABLETS (75 MG) BY MOUTH DAILY AT BEDTIME 11/23/2016 03/22/2017 Active Generic For:DESYREL 50 MG TABLET N O T I C E PRESCRIPTION PREVIOUSLY AUTHORIZED BY DOCTOR:CATHY MAZA [phone] potassium chloride ER 10 mEq tablet,extended release RxNorm: 341981 1 Tablet(s) PO daily 11/23/2016 01/21/2017 Inactive Depakote 125 mg tablet,delayed release RxNorm: 3002938 1 Tablet(s) PO BID 11/08/2016 01/10/2017 Inactive Aricept 10 mg tablet RxNorm: 193139 1 Tablet(s) PO daily 10/13/2016 No Stop Date Active Namzaric 03/23/21 mg-10 mg capsule,sprinkle,ER 24hr,dose pack RxNorm: 7649832 1 Capsule(s) PO daily 10/12/2016 10/12/2016 Inactive diltiazem CD 240 mg capsule,extended release 24 hr RxNorm: 511753 Capsule(s) TAKE 1 CAPSULE BY MOUTH DAILY 09/18/2016 04/15/2017 Active Generic For:CARDIZEM CD 240 MG CAP SA N O T I C E PRESCRIPTION PREVIOUSLY AUTHORIZED BY DOCTOR:CATHY MAZA Ativan 0.5 mg tablet RxNorm: 538488 1 Tablet(s) PO daily and as needed for anxiety 09/05/2016 01/02/2017 Inactive KCL 10 meq RxNorm: 1 Tablet(s) PO daily 08/21/2016 09/19/2016 Inactive potassium chloride ER 10 mEq tablet,extended release RxNorm: 251197 1 Tablet(s) PO daily 07/17/2016 07/30/2016 Inactive potassium chloride ER 10 mEq tablet,extended release RxNorm: 618278 1 Tablet(s) PO BID x1 week then daily thereafter repeat lab in 3 weeks. 06/23/2016 07/06/2016 Inactive potassium chloride ER 10 mEq tablet,extended release RxNorm: 493431 1 Tablet(s) PO BID x1 week then daily thereafter repeat lab in 3 weeks. 06/23/2016 06/22/2016 Inactive Aricept 10 mg tablet RxNorm: 571794 1/2 Tablet(s) PO daily x 7 days, then Aricept 10mg po daily thereafter 05/22/2016 10/11/2016 Inactive trazodone 50 mg tablet RxNorm: 917754 Tablet(s) TAKE 1 & 1/2 TABLETS (75 MG) BY MOUTH DAILY AT BEDTIME 05/22/2016 09/18/2016 Inactive Generic For:DESYREL 50 MG TABLET N O T I C E PRESCRIPTION PREVIOUSLY AUTHORIZED BY DOCTOR:CATHY MAZA [phone] Depakote 125 mg tablet,delayed release RxNorm: 1836652 1 Tablet(s) PO BID 05/17/2016 11/07/2016 Inactive melatonin 3 mg tablet RxNorm: 039457 1 Tablet(s) PO QHS 05/17/2016 11/12/2016 Inactive Ativan 0.5 mg tablet RxNorm: 396696 1 Tablet(s) PO daily and as needed for anxiety 05/08/2016 09/04/2016 Inactive simvastatin 40 mg tablet RxNorm: 057228 Tablet(s) TAKE 1 TABLET BY MOUTH DAILY AT BEDTIME 04/18/2016 10/14/2016 Inactive citalopram 10 mg tablet RxNorm: 039257 TAKE 1 TABLET BY MOUTH DAILY 03/21/2016 04/14/2017 Active Generic For:CELEXA 10 MG TABLET [facility] RE-ORDER N O T I C E PRESCRIPTION PREVIOUSLY AUTHORIZED BY DOCTOR:CATHY MAZA trazodone 50 mg tablet RxNorm: 772645 Tablet(s) TAKE 1 & 1/2 TABLETS (75 MG) BY MOUTH DAILY AT BEDTIME 01/24/2016 05/21/2016 Inactive Generic For:DESYREL 50 MG TABLET N O T I C E PRESCRIPTION PREVIOUSLY AUTHORIZED BY DOCTOR:CATHY MAZA diltiazem CD 240 mg capsule,extended release 24 hr RxNorm: 231204 Capsule(s) TAKE 1 CAPSULE BY MOUTH DAILY 12/20/2015 07/16/2016 Inactive Generic For:CARDIZEM CD 240 MG CAP SA N O T I C E PRESCRIPTION PREVIOUSLY AUTHORIZED BY DOCTOR:CATHY MAZA Depakote 125 mg tablet,delayed release RxNorm: 9280751 1 Tablet(s) PO BID 12/13/2015 04/10/2016 Inactive [SAVINGS FOR NON-COVERED DRUGS -- BIN:986719, PCN: ASPROD1, Group: XXXXX, ID# XXXXXXX, Questions: . THIS IS NOT INSURANCE.] Ativan 0.5 mg tablet RxNorm: 726594 1 Tablet(s) PO daily and as needed for anxiety 12/13/2015 04/10/2016 Inactive Senokot-S 8.6 mg-50 mg tablet RxNorm: 3039703 1 Tablet(s) PO BID 12/06/2015 11/29/2016 Inactive Senokot-S 8.6 mg-50 mg tablet RxNorm: 6399334 1 Tablet(s) PO BID 12/06/2015 12/05/2015 Inactive chlorthalidone 25 mg tablet RxNorm: 384477 1/2 Tablet(s) PO daily 12/06/2015 04/03/2016 Inactive [SAVINGS FOR NON-COVERED DRUGS -- BIN:272845, PCN: ASPROD1, Group: XXXXX, ID# XXXXXXX, Questions: . THIS IS NOT INSURANCE.] simvastatin 40 mg tablet RxNorm: 131017 Tablet(s) TAKE 1 TABLET BY MOUTH DAILY AT BEDTIME 11/16/2015 02/13/2016 Inactive Generic For:*ZOCOR 40 MG TABLET N O T I C E PRESCRIPTION PREVIOUSLY AUTHORIZED BY DOCTOR:CATHY MAZA Aricept 10 mg tablet RxNorm: 982715 1/2 Tablet(s) PO daily x 7 days, then Aricept 10mg po daily thereafter 09/20/2015 05/21/2016 Inactive melatonin 3 mg tablet RxNorm: 187191 1 Tablet(s) PO QHS 08/06/2015 03/02/2016 Inactive [SAVINGS FOR NON-COVERED DRUGS -- BIN:181008, PCN: ASPROD1, Group: XXXXX, ID# XXXXXXX, Questions: . THIS IS NOT INSURANCE.] melatonin 3 mg tablet RxNorm: 237461 1 Tablet(s) PO QHS 08/04/2015 08/05/2015 Inactive [SAVINGS FOR NON-COVERED DRUGS -- BIN:080212, PCN: ASPROD1, Group: XXXXX, ID# XXXXXXX, Questions: . THIS IS NOT INSURANCE.] chlorthalidone 25 mg tablet RxNorm: 386075 1/2 Tablet(s) PO [facility] 07/20/2015 12/05/2015 Inactive [SAVINGS FOR NON-COVERED DRUGS -- BIN:537988, PCN: ASPROD1, Group: XXXXX, ID# XXXXXXX, Questions: . THIS IS NOT INSURANCE.] Ativan 0.5 mg tablet RxNorm: 494563 1 Tablet(s) PO daily and as needed for anxiety 07/08/2015 11/04/2015 Inactive trazodone 50 mg tablet RxNorm: 886176 TAKE 1 & 1/2 TABLETS (75 MG) BY MOUTH DAILY AT BEDTIME 05/25/2015 09/21/2015 Inactive Generic For:DESYREL 50 MG TABLET N O T I C E PRESCRIPTION PREVIOUSLY AUTHORIZED BY DOCTOR:CATHY MAZA diltiazem CD 240 mg capsule,extended release 24 hr RxNorm: 938085 TAKE 1 CAPSULE BY MOUTH DAILY 05/18/2015 10/14/2015 Inactive Generic For:CARDIZEM CD 240 MG CAP SA N O T I C E PRESCRIPTION PREVIOUSLY AUTHORIZED BY DOCTOR:CATHY MAZA trazodone 50 mg tablet RxNorm: 670076 TAKE 1 & 1/2 TABLETS (75 MG) BY MOUTH DAILY AT BEDTIME 04/27/2015 05/24/2015 Inactive Generic For:DESYREL 50 MG TABLET N O T I C E PRESCRIPTION PREVIOUSLY AUTHORIZED BY DOCTOR:CATHY MAZA simvastatin 40 mg tablet RxNorm: 317353 Tablet(s) TAKE 1 TABLET BY MOUTH DAILY AT BEDTIME 04/20/2015 07/18/2015 Inactive Generic For:*ZOCOR 40 MG TABLET N O T I C E PRESCRIPTION PREVIOUSLY AUTHORIZED BY DOCTOR:CATHY MAZA citalopram 10 mg tablet RxNorm: 427193 TAKE 1 TABLET BY MOUTH DAILY 03/15/2015 03/08/2016 Inactive Generic For:CELEXA 10 MG TABLET [facility]IVING RE-ORDER N O T I C E PRESCRIPTION PREVIOUSLY AUTHORIZED BY DOCTOR:CATHY MAZA trazodone 50 mg tablet RxNorm: 177095 1 1/2=75mg Tablet(s) PO QHS 01/25/2015 04/24/2015 Inactive [SAVINGS FOR NON-COVERED DRUGS -- BIN:161043, PCN: ASPROD1, Group: XXXXX, ID# XXXXXXX, Questions: . THIS IS NOT INSURANCE.] nicotine 14 mg/24 hr daily transdermal patch RxNorm: 623509 APPLY 1 PATCH DAILY AND REMOVE OLD PATCH 01/25/2015 02/28/2015 Inactive Generic For:NICODERM CQ 14 MG/24HR PATCH N O T I C E PRESCRIPTION PREVIOUSLY AUTHORIZED BY DOCTOR:CATHY MAZA chlorthalidone 25 mg tablet RxNorm: 888411 1/2 Tablet(s) PO QAM 12/31/2014 07/19/2015 Inactive [SAVINGS FOR NON-COVERED DRUGS -- BIN:878755, PCN: ASPROD1, Group: XXXXX, ID# XXXXXXX, Questions: . THIS IS NOT INSURANCE.] Aricept 10 mg tablet RxNorm: 584532 1/2 Tablet(s) PO daily x 7 days, then Aricept 10mg po daily thereafter 12/29/2014 09/19/2015 Inactive Depakote 125 mg tablet,delayed release RxNorm: 4264820 1 Tablet(s) PO BID 12/28/2014 04/26/2015 Inactive [SAVINGS FOR NON-COVERED DRUGS -- BIN:275568, PCN: ASPROD1, Group: XXXXX, ID# XXXXXXX, Questions: . THIS IS NOT INSURANCE.] diltiazem CD 240 mg capsule,extended release 24 hr RxNorm: 696063 TAKE 1 CAPSULE BY MOUTH DAILY 12/22/2014 04/20/2015 Inactive Generic For:CARDIZEM CD 240 MG CAP SA N O T I C E PRESCRIPTION PREVIOUSLY AUTHORIZED BY DOCTOR:CATHY MAZA nicotine 14 mg/24 hr daily transdermal patch RxNorm: 147144 APPLY 1 PATCH DAILY AND REMOVE OLD PATCH 12/22/2014 01/18/2015 Inactive Generic For:NICODERM CQ 14 MG/24HR PATCH N O T I C E PRESCRIPTION PREVIOUSLY AUTHORIZED BY DOCTOR:CATHY MAZA simvastatin 40 mg tablet RxNorm: 340457 TAKE 1 TABLET BY MOUTH DAILY AT BEDTIME 12/22/2014 03/21/2015 Inactive Generic For:*ZOCOR 40 MG TABLET N O T I C E PRESCRIPTION PREVIOUSLY AUTHORIZED BY DOCTOR:CATHY MAZA melatonin 3 mg tablet RxNorm: 924284 1 Tablet(s) PO QHS 12/22/2014 07/19/2015 Inactive [SAVINGS FOR NON-COVERED DRUGS -- BIN:483998, PCN: ASPROD1, Group: XXXXX, ID# XXXXXXX, Questions: . THIS IS NOT INSURANCE.] Ativan 0.5 mg tablet RxNorm: 337704 1 Tablet(s) PO at 1400 and once daily prn 12/17/2014 06/14/2015 Inactive [SAVINGS FOR NON-COVERED DRUGS -- BIN:226583, PCN: ASPROD1, Group: XXXXX, ID# XXXXXXX, Questions: . THIS IS NOT INSURANCE.] Ativan 0.5 mg tablet RxNorm: 937639 1 Tablet(s) PO daily as needed 12/17/2014 06/14/2015 Inactive trazodone 75 mg RxNorm: 1 Tablet(s) PO QHS No Start Date Active T.E.D. Anti-Embolism Stocking RxNorm: miscellaneous No Start Date Active Sweet Oil with Dropper RxNorm: Miscellaneous BIW on Sun and Sun No Start Date Active trazodone 75 mg RxNorm: 880485 1 Tablet(s) PO QHS No Start Date 01/24/2015 Inactive Exelon Patch 4.6 mg/24 hr transdermal RxNorm: 526496 1 TD daily No Start Date 12/28/2014 Inactive melatonin 3 mg tablet RxNorm: 609986 1 Tablet(s) PO QHS No Start Date 12/21/2014 Inactive Miralax 17 gram oral powder packet RxNorm: 658693 1 Capsule(s) PO daily as needed No Start Date 11/22/2016 Inactive Depakote 125 mg tablet,delayed release RxNorm: 6015787 1 Tablet(s) PO BID No Start Date 12/27/2014 Inactive nicotine 14 mg/24 hr daily transdermal patch RxNorm: 628044 1 TD daily No Start Date 12/21/2014 Inactive Ativan 0.5 mg tablet RxNorm: 497228 1 Tablet(s) PO at 1400 No Start Date 12/16/2014 Inactive simvastatin 40 mg tablet RxNorm: 032207 1 Tablet(s) PO QHS No Start Date 12/21/2014 Inactive diltiazem CD 240 mg capsule,extended release 24 hr RxNorm: 543915 1 Capsule(s) PO daily No Start Date 12/21/2014 Inactive citalopram 10 mg tablet RxNorm: 050769 1 Tablet(s) PO daily No Start Date [...] Item Item Code Result Date Valproic Acid Egv849 VALPROIC 57.0 ug/ml 02/08/2017 Valproic Acid Ini102 VALPROIC 28.0 ug/ml 01/11/2017 Urinalysis Ord28 U-Color [...] from collection if refrigerated) 01/11/2017 Comp Metabolic Drl810 NA 133 mEq/L 10/17/2016 Comp Metabolic Ikf371 K 3.5 mEq/L 10/17/2016 Comp Metabolic Kkt214 CL 96 mEq/L 10/17/2016 Comp Metabolic Mjx483 CO2 28.0 mEq/L 10/17/2016 Comp Metabolic Vaa423 ANION GAP 13 10/17/2016 Comp Metabolic Sqc958 GLUCOSE 106 mg/dL 10/17/2016 Comp Metabolic Kll939 Creat 0.8 mg/dL 10/17/2016 Comp Metabolic Qey290 eGFR 70 ml/min/1.73m2 10/17/2016 Comp Metabolic Jjv896 BUN 16 mg/dL 10/17/2016 Comp Metabolic Joy231 B/C Ratio 19.3 Ratio 10/17/2016 Comp Metabolic Mda820 CALCIUM 9.5 mg/dL 10/17/2016 Comp Metabolic Ntd732 ALK PHOS 74 U/L 10/17/2016 Comp Metabolic Kpj448 AST(SGOT) 19 U/L 10/17/2016 Comp Metabolic Isu157 ALT(SGPT) 14 U/L 10/17/2016 Comp Metabolic Zea738 BILI T 0.5 mg/dL 10/17/2016 Comp Metabolic Lld737 ALBUMIN 4.2 g/dL 10/17/2016 Comp Metabolic Vsl833 TPRO 6.5 g/dL 10/17/2016 Comp Metabolic Ylg082 GLOB 2.3 g/dL 10/17/2016 Comp Metabolic Jva888 A/G Ratio 1.8 Ratio 10/17/2016 Comp Metabolic Vzw339 Osmo 268 mOsmo 10/17/2016 Cbc With Differential Ord2 WBC 7.38 K/ul 10/17/2016 Cbc With Differential Ord2 RBC 4.60 M/ul 10/17/2016 Cbc With Differential Ord2 HGB 13.8 g/dl 10/17/2016 Cbc With Differential Ord2 Neut% 63.4 % 10/17/2016 Cbc With Differential Ord2 HCT 41.4 % 10/17/2016 Cbc With Differential Ord2 MCV 90.0 fl 10/17/2016 Cbc With Differential Ord2 Lymph% 25.9 % 10/17/2016 Cbc With Differential Ord2 MCH 30.0 pg 10/17/2016 Cbc With Differential Ord2 [place]% 8.8 % 10/17/2016 Cbc With Differential Ord2 MCHC 33.3 pg 10/17/2016 Cbc With Differential Ord2 Eos% 1.6 % 10/17/2016 Cbc With Differential Ord2 PLT 326 K/ul 10/17/2016 Cbc With Differential Ord2 Baso% 0.3 % 10/17/2016 Cbc With Differential Ord2 RDW 14.3 % 10/17/2016 Cbc With Differential Ord2 Neut ABS# 4.68 K/ul 10/17/2016 Cbc With Differential Ord2 Lymph ABS# 1.91 K/ul 10/17/2016 Cbc With Differential Ord2 [place] ABS# 0.7 K/ul 10/17/2016 Cbc With Differential [...] Urinalysis Ord28 U-Yeast NEGATIVE 10/13/2016 Valproic Acid Kww838 VALPROIC 23.0 ug/ml 08/18/2016 Comp Metabolic Vzd094 NA 133 mEq/L 08/18/2016 Comp Metabolic Gqh350 K 3.4 mEq/L 08/18/2016 Comp Metabolic Jnz203 CL 94 mEq/L 08/18/2016 Comp Metabolic Xwg094 CO2 31.0 mEq/L 08/18/2016 Comp Metabolic Hqq636 ANION GAP 11 08/18/2016 Comp Metabolic Etu216 GLUCOSE 101 mg/dL 08/18/2016 Comp Metabolic Tsl349 Creat 0.8 mg/dL 08/18/2016 Comp Metabolic Jcu413 eGFR 72 ml/min/1.73m2 08/18/2016 Comp Metabolic Uuc739 BUN 13 mg/dL 08/18/2016 Comp Metabolic Yvb013 B/C Ratio 16.0 Ratio 08/18/2016 Comp Metabolic Onk109 CALCIUM 9.4 mg/dL 08/18/2016 Comp Metabolic Bzr327 ALK PHOS 66 U/L 08/18/2016 Comp Metabolic Qwm267 AST(SGOT) 20 U/L 08/18/2016 Comp Metabolic Qnl667 ALT(SGPT) 14 U/L 08/18/2016 Comp Metabolic Mac792 BILI T 0.6 mg/dL 08/18/2016 Comp Metabolic Ebi803 ALBUMIN 4.1 g/dL 08/18/2016 Comp Metabolic Lyh056 TPRO 6.5 g/dL 08/18/2016 Comp Metabolic Jqr434 GLOB 2.4 g/dL 08/18/2016 Comp Metabolic Oyj971 A/G Ratio 1.7 Ratio 08/18/2016 Comp Metabolic Skn272 Osmo 267 mOsmo 08/18/2016 Metabolic Ord15 NA [...] Ord15 CALCIUM 9.6 mg/dL 06/22/2016 Comp Metabolic Fql268 NA 133 mEq/L 05/16/2016 Comp Metabolic Ofx269 K 3.4 mEq/L 05/16/2016 Comp Metabolic Luj619 CL 93 mEq/L 05/16/2016 Comp Metabolic Ovj332 CO2 29.0 mEq/L 05/16/2016 Comp Metabolic Txs638 ANION GAP 14 05/16/2016 Comp Metabolic Gnp250 GLUCOSE 95 mg/dL 05/16/2016 Comp Metabolic Foh800 Creat 0.7 mg/dL 05/16/2016 Comp Metabolic Fgq939 eGFR 83 ml/min/1.73m2 05/16/2016 Comp Metabolic Fzn019 BUN 13 mg/dL 05/16/2016 Comp Metabolic Vvj874 B/C Ratio 18.1 Ratio 05/16/2016 Comp Metabolic Ega603 CALCIUM 9.7 mg/dL 05/16/2016 Comp Metabolic Luo454 ALK PHOS 59 U/L 05/16/2016 Comp Metabolic Yet432 AST(SGOT) 20 U/L 05/16/2016 Comp Metabolic Ugv126 ALT(SGPT) 15 U/L 05/16/2016 Comp Metabolic Qik414 BILI T 0.5 mg/dL 05/16/2016 Comp Metabolic Cpt297 ALBUMIN 4.3 g/dL 05/16/2016 Comp Metabolic Dlr710 TPRO 6.8 g/dL 05/16/2016 Comp Metabolic Zpk431 GLOB 2.5 g/dL 05/16/2016 Comp Metabolic Yji332 A/G Ratio 1.8 Ratio 05/16/2016 Comp Metabolic Pjl328 Osmo 266 mOsmo 05/16/2016 Valproic Acid Jte846 VALPROIC 34.0 ug/ml 05/16/2016 Valproic Acid Prg752 VALPROIC 31.0 ug/ml 02/14/2016 Comp Metabolic Kzn144 NA 131 mEq/L 02/14/2016 Comp Metabolic Sgm972 K 3.7 mEq/L 02/14/2016 Comp Metabolic Zxi256 CL 95 mEq/L 02/14/2016 Comp Metabolic Pzw141 CO2 25.0 mEq/L 02/14/2016 Comp Metabolic Bcb464 ANION GAP 15 02/14/2016 Comp Metabolic Yof765 GLUCOSE 97 mg/dL 02/14/2016 Comp Metabolic Psx434 Creat 0.8 mg/dL 02/14/2016 Comp Metabolic Ddc861 eGFR 76 ml/min/1.73m2 02/14/2016 Comp Metabolic Ece639 BUN 10 mg/dL 02/14/2016 Comp Metabolic Zle976 B/C Ratio 12.8 Ratio 02/14/2016 Comp Metabolic Gqx882 CALCIUM 9.2 mg/dL 02/14/2016 Comp Metabolic Hay316 ALK PHOS 54 U/L 02/14/2016 Comp Metabolic Yhf673 AST(SGOT) 20 U/L 02/14/2016 Comp Metabolic Acg175 ALT(SGPT) 14 U/L 02/14/2016 Comp Metabolic Lse820 BILI T 0.6 mg/dL 02/14/2016 Comp Metabolic Zbj457 ALBUMIN 4.0 g/dL 02/14/2016 Comp Metabolic Sxt573 TPRO 6.3 g/dL 02/14/2016 Comp Metabolic Wmo913 GLOB 2.3 g/dL 02/14/2016 Comp Metabolic Wmk231 A/G Ratio 1.8 Ratio 02/14/2016 Comp Metabolic Esa457 Osmo 262 mOsmo 02/14/2016 Valproic Acid Gfn268 VALPROIC 28.0 ug/ml 11/09/2015 Comp Metabolic Tod527 NA 134 mEq/L 11/09/2015 Comp Metabolic Ojx229 K 3.6 mEq/L 11/09/2015 Comp Metabolic Glf071 CL 94 mEq/L 11/09/2015 Comp Metabolic Gsa888 CO2 28.0 mEq/L 11/09/2015 Comp Metabolic Heh387 ANION GAP 16 11/09/2015 Comp Metabolic Yxy540 GLUCOSE 101 mg/dL 11/09/2015 Comp Metabolic Jgs068 Creat 0.9 mg/dL 11/09/2015 Comp Metabolic Gwk360 eGFR 64 ml/min/1.73m2 11/09/2015 Comp Metabolic Doq445 BUN 14 mg/dL 11/09/2015 Comp Metabolic Ona694 B/C Ratio 15.6 Ratio 11/09/2015 Comp Metabolic Aww562 CALCIUM 9.6 mg/dL 11/09/2015 Comp Metabolic Qor031 ALK PHOS 66 U/L 11/09/2015 Comp Metabolic Qkd301 AST(SGOT) 20 U/L 11/09/2015 Comp Metabolic Zkb844 ALT(SGPT) 15 U/L 11/09/2015 Comp Metabolic Mtt437 BILI T 0.7 mg/dL 11/09/2015 Comp Metabolic Rkn775 ALBUMIN 4.3 g/dL 11/09/2015 Comp Metabolic Ltr156 TPRO 6.8 g/dL 11/09/2015 Comp Metabolic Reo633 GLOB 2.5 g/dL 11/09/2015 Comp Metabolic Age048 A/G Ratio 1.7 Ratio 11/09/2015 Comp Metabolic Ipn617 Osmo 269 mOsmo 11/09/2015 Valproic Acid Ynp902 VALPROIC 26.0 ug/ml 08/11/2015 Comp Metabolic Kyl915 NA 134 mEq/L 08/11/2015 Comp Metabolic Par171 K 4.0 mEq/L 08/11/2015 Comp Metabolic Uvk392 CL 97 mEq/L 08/11/2015 Comp Metabolic Pkz406 CO2 28.0 mEq/L 08/11/2015 Comp Metabolic Fxs159 ANION GAP 13 08/11/2015 Comp Metabolic Wep772 GLUCOSE 89 mg/dL 08/11/2015 Comp Metabolic Yey911 Creat 0.8 mg/dL 08/11/2015 Comp Metabolic Vll496 eGFR 73 ml/min/1.73m2 08/11/2015 Comp Metabolic Ybc104 BUN 13 mg/dL 08/11/2015 Comp Metabolic Shj273 B/C Ratio 16.0 Ratio 08/11/2015 Comp Metabolic Fkg820 CALCIUM 9.4 mg/dL 08/11/2015 Comp Metabolic Blr184 ALK PHOS 53 U/L 08/11/2015 Comp Metabolic Qew862 AST(SGOT) 18 U/L 08/11/2015 Comp Metabolic Rpn583 ALT(SGPT) 12 U/L 08/11/2015 Comp Metabolic Kog582 BILI T 0.5 mg/dL 08/11/2015 Comp Metabolic Lys960 ALBUMIN 3.8 g/dL 08/11/2015 Comp Metabolic Pyt156 TPRO 5.8 g/dL 08/11/2015 Comp Metabolic Yhl415 GLOB 2.0 g/dL 08/11/2015 Comp Metabolic Pym383 A/G Ratio 1.9 Ratio 08/11/2015 Comp Metabolic Cgk854 Osmo 268 mOsmo 08/11/2015 Valproic Acid Ulz758 VALPROIC 32.0 ug/ml 05/11/2015 Comp Metabolic Mjv154 NA 143 mEq/L 05/11/2015 Comp Metabolic Tsw192 K 3.9 mEq/L 05/11/2015 Comp Metabolic Omt904 CL 107 mEq/L 05/11/2015 Comp Metabolic Myi263 CO2 27.0 mEq/L 05/11/2015 Comp Metabolic Vgv641 ANION GAP 13 05/11/2015 Comp Metabolic Hnz292 GLUCOSE 93 mg/dL 05/11/2015 Comp Metabolic Wql319 Creat 0.8 mg/dL 05/11/2015 Comp Metabolic Quw907 eGFR 72 ml/min/1.73m2 05/11/2015 Comp Metabolic Qqq606 BUN 14 mg/dL 05/11/2015 Comp Metabolic Ipc045 B/C Ratio 17.1 Ratio 05/11/2015 Comp Metabolic Xbk036 CALCIUM 9.5 mg/dL 05/11/2015 Comp Metabolic Mfp267 ALK PHOS 51 U/L 05/11/2015 Comp Metabolic Hpt016 AST(SGOT) 19 U/L 05/11/2015 Comp Metabolic Zzv223 ALT(SGPT) 13 U/L 05/11/2015 Comp Metabolic Bfe463 BILI T 0.6 mg/dL 05/11/2015 Comp Metabolic Kfm524 ALBUMIN 3.7 g/dL 05/11/2015 Comp Metabolic Rqg625 TPRO 5.8 g/dL 05/11/2015 Comp Metabolic Egy509 GLOB 2.1 g/dL 05/11/2015 Comp Metabolic Vsx699 A/G Ratio 1.8 Ratio 05/11/2015 Comp Metabolic Ijt565 Osmo 285 mOsmo 05/11/2015 Review of Systems [...] lips 10/12/2016 None Full Exam - General 1994 Ears/Nose/Throat lips/teeth/gingiva Overall: normal dentition 10/12/2016 None Full Exam - General 1994 Ears/Nose/Throat oral cavity/pharynx/larynx Overall: oral mucosa clear 10/12/2016 None Full Exam - General 1995 Ears/Nose/Throat oral cavity/pharynx/larynx Overall: oropharyngeal mucosa clear 10/12/2016 None Full Exam - General 1994 Ears/Nose/Throat oral cavity/pharynx/larynx Overall: hypopharynx benign 10/12/2016 None Full Exam - General 1994 Ears/Nose/Throat oral cavity/pharynx/larynx Overall: no masses 10/12/2016 [...] Procedure Codes Date BIOPSY SKIN LESION CPT-4: 97526Eenaohs 01/14/2016 Vital Signs Date Vital 01/11/2017 Blood Pressure 1: 146/84 Code: 8480-6 BMI: 28.3 Code: 44836-9 Heart Rate 1: 82 bpm Height: 5'4" SpO2: 92% Weight: 165 lbs 10/12/2016 Blood Pressure 1: 134/72 Code: 8480-6 BMI: 27.8 Code: 57314-0 Heart Rate 1: 86 bpm Height: 5'4" SpO2: 93% Weight: 162 lbs 07/17/2016 Blood Pressure 1: 128/80 Code: 8480-6 BMI: 27.5 Code: 24398-2 Heart Rate 1: 86 bpm Height: 5'4" SpO2: 91% Weight: 160 lbs 04/24/2016 Blood Pressure 1: 130/82 Code: 8480-6 BMI: 26.4 Code: 50369-5 Heart Rate 1: 97 bpm Height: 5'4" SpO2: 97% Weight: 154 lbs 01/14/2016 Blood Pressure 1: 140/66 Code: 8480-6 BMI: 25.6 Code: 81651-4 Heart Rate 1: 77 bpm Height: 5'4" SpO2: 96% Weight: 149 lbs 12/20/2015 Blood Pressure 1: 136/64 Code: 8480-6 BMI: 24.9 Code: 26284-0 Heart Rate 1: 70 bpm Height: 5'4" SpO2: 74% Weight: 145 lbs 10/06/2015 Blood Pressure 1: 124/62 Code: 8480-6 BMI: 24.7 Code: 71938-8 Heart Rate 1: 72 bpm Height: 5'4" SpO2: 90% Weight: 144 lbs 07/07/2015 Blood Pressure 1: 130/78 Code: 8480-6 BMI: 23.9 Code: 63813-4 Heart Rate 1: 70 bpm Height: 5'4" SpO2: 94% Weight: 139 lbs 04/07/2015 Blood Pressure 1: 120/58 Code: 8480-6 BMI: 22.1 Code: 16557-8 Heart Rate 1: 66 bpm Height: 5'4" SpO2: 97% Weight: 129 lbs 02/03/2015 Blood Pressure 1: 134/68 Code: 8480-6 BMI: 22.3 Code: 49172-3 Heart Rate 1: 71 bpm Height: 5'4" SpO2: 95% Weight: 130 lbs 12/31/2014 Blood Pressure 1: 138/82 Code: 8480-6 BMI: 22.7 Code: 21212-0 Heart Rate 1: 74 bpm Height: 5'4" SpO2: 95% Weight: 132 lbs 12/17/2014 Blood Pressure 1: 142/88 Code: 8480-6 BMI: 22.5 Code: 11609-6 Heart Rate 1: 64 bpm Height: 5'4" [...] data Encounters Encounter Performer Location Codes Date ([id number]) [id number] EST. PATIENT, LEVEL IV Diagnosis: Essential (primary) hypertension[ICD10: I10] Diagnosis: Other Alzheimer's disease[ICD10: G30.8] Diagnosis: Cough[ICD10: R05] Diagnosis: Hypoxemia[ICD10: R09.02] Cherise Bowen MD, [facility] CPT-4: 75892 01/11/2017 ([id number]) [id number] EST. PATIENT, LEVEL III Diagnosis: Essential (primary) hypertension[ICD10: I10] Diagnosis: Other Alzheimer's disease[ICD10: G30.8] Cherise Bowen MD, [facility] CPT-4: 99575 10/12/2016 ([id number]) 58792 EST. PATIENT, LEVEL III Diagnosis: Cough[ICD10: R05] Diagnosis: Essential (primary) hypertension[ICD10: I10] Cherise Bowen MD, [facility] CPT-4: 12151 07/17/2016 ([id number]) 67154 EST. PATIENT, LEVEL III Diagnosis: Essential (primary) hypertension[ICD10: I10] Diagnosis: Other Alzheimer's disease[ICD10: G30.8] Cherise Bowen MD, [facility] CPT-4: 00037 04/24/2016 ([id number]) 58939 EST. PATIENT, LEVEL III Diagnosis: Essential (primary) hypertension[ICD10: I10] Diagnosis: Other Alzheimer's disease[ICD10: G30.8] Cherise Bowen MD, [facility] CPT-4: 25665 12/20/2015 ([id number]) 46674 EST. PATIENT, LEVEL III Diagnosis: Essential (primary) hypertension[ICD10: I10] Diagnosis: Other Alzheimer's disease[ICD10: G30.8] Hermila Bowen MD, [facility] CPT-4: 15514 10/06/2015 ([id number]) 36688 EST. PATIENT, LEVEL IV Diagnosis: Other secondary hypertension[ICD10: I15.8] Diagnosis: Other Alzheimer's disease[ICD10: G30.8] Hermila Bowen MD, [facility] CPT-4: 35481 07/07/2015 ([id number]) 56691 EST. PATIENT, LEVEL IV Diagnosis: ESSENTIAL HYPERTENSION[ICD9: 401.9] Diagnosis: EDEMA[ICD9: 782.3] Diagnosis: DEMENTIA W BEHAVIOR DIST[ICD9: 294.11] Hermila Bowen MD, [facility] CPT-4: 50107 04/07/2015 ([id number]) 97297 EST. PATIENT, LEVEL IV Diagnosis: ESSENTIAL HYPERTENSION[ICD9: 401.9] Diagnosis: DEMENTIA W BEHAVIOR DIST[ICD9: 294.11] Diagnosis: Constipation - functional[ICD9: 564.09] Hermila Bowen MD, [facility] CPT-4: 43118 02/03/2015 ([id number] [phone] EST. PATIENT, LEVEL IV Diagnosis: ESSENTIAL HYPERTENSION[ICD9: 401.9] Diagnosis: HYPERLIPIDEMIA[ICD9: 272.4] Diagnosis: DEMENTIA W BEHAVIOR DIST[ICD9: 294.11] Diagnosis: Chronic depression[ICD9: 311] Diagnosis: Anxiety, generalized[ICD9: 300.02] [facility] CPT- 4: 29791 12/31/2014 ([id number]) OFFICE VISIT, NEW - LEVEL 4 Diagnosis: EDEMA[ICD9: 782.3] Diagnosis: HYPERLIPIDEMIA[ICD9: 272.4] Diagnosis: ESSENTIAL HYPERTENSION[ICD9: 401.9] Diagnosis: DEPRESSIVE DISORDER NEC[ICD9: 311] Hermila Bowen MD, [facility] CPT- 4: 47544 12/17/2014 Plan of Care Planned Activity Notes [...] recheck level in 1 month. Chronic cough-history hqmbnuj-XVQU-jdqtjtnuk-patient's oxygen saturation dropped to 89% in the office on room air-unable to further obtain ambulatory levels due to patient's pvq-ezoitpoowgq-ermp test overnight oxygen levels. 01/11/2017 Appointment: Cherise Ventura WPtel: [address] [place], [place] [phone] (15 min) Moderate 01/11/2017 Patient Education: Patient [...] of treatment. 10/12/2016 Appointment: Cherise Ventura WPtel: [phone] [phone] (30 min) Complex 10/12/2016 Patient Education: Patient [...] xray today 07/17/2016 Appointment: Cherise Ventura WPtel: [phone] (15 min) Moderate 07/17/2016 Patient Education: Patient [...] of treatment. 04/24/2016 Appointment: Cherise Ventura WPtel: [phone] (15 min) Moderate 04/24/2016 Patient Education: Patient [...] of treatment. 10/06/2015 [phone] ([facility] min) Moderate 10/06/2015 Patient Education: Patient [...] of treatment. 07/07/2015 Appointment: Hermila Bowen WPtel: [phone] [facility] (15 min) Moderate 07/07/2015 Patient Education: Patient [...] as needed. 04/07/2015 Appointment: Hermila Bowen WPtel: [facility]9 [facility] (15 min) Moderate 04/07/2015 Patient Education: Patient [...] this regimen. 02/03/2015 Appointment: Hermila Bowen WPtel: [facility] Follow up 02/03/2015 Patient Education: Patient Medication [...] medications - will contact and work with intermediate for medication adjustment for control of behaviors. 12/31/2014 Appointment: Hermila Bowen WPtel: [address] [place], [place] [id number] Follow up 12/31/2014 Patient Education: Patient Medication [...] current medications. 12/17/2014 Appointment: Hermila Bowen WPtel[facility] [facility] 12/17/2014 Patient Education: Patient Medication Summary Completed 12/17/2014 Patient Education: Hypertension Completed 12/17/2014 Instructions Comment . Changing lesion right thigh-shave biopsy performed [...] exposure. No change in current medications. . Hypertension - well controlled - continue [...] if symptoms not improved on this regimen. . Hypertension - well controlled - continue [...] recheck level in 1 month. Chronic cough-history tkktpdo-TTEY-dpqpvgakp-patient's oxygen saturation dropped to 89% in the office on room air-unable to further obtain ambulatory levels due to patient's ees-cqxnygkkiey-pccg test overnight oxygen levels. Monitor your blood pressure at home and [...] medications - will contact and work with intermediate for medication adjustment for control of behaviors. CHEST XRAY . Hypertension - well controlled [...]
--- OUTSIDE RECORDS SUMMARY | 2019-02-22 08:27 | XMS REPORT | CCD ---
Author Author [facility]en Organization [facility] Address [address] [place] [id number] Phone Care Team Providers Care Mosaic Layer Name Role Phone PP Unavailable CCM Unavailable Summary Purpose Interface Exchange Insurance Providers Payer name Policy type / Coverage type Covered democrat ID Effective Begin Date Effective End Date WPS Medicare Part B Medicare Part B [id number] Unknown Unknown [facility] Medicare Part B [id number] Unknown Unknown Family history Runs in the [...] Instructions Depakote 250 mg tablet,delayed release RxNorm: 5407407 1 Tablet(s) PO BID 02/08/2017 08/06/2017 Active potassium chloride ER 10 mEq tablet,extended release RxNorm: 338463 1 Tablet(s) PO daily 01/24/2017 04/23/2017 Active Depakote 250 mg tablet,delayed release RxNorm: 7748605 1 Tablet(s) PO BID 01/11/2017 02/07/2017 Inactive Ativan 0.5 mg tablet RxNorm: 930696 1 Tablet(s) PO daily and as needed for anxiety 01/09/2017 05/08/2017 Active simvastatin 40 mg tablet RxNorm: 233999 Tablet(s) TAKE 1 TABLET BY MOUTH DAILY AT BEDTIME 01/09/2017 07/07/2017 Active melatonin 3 mg tablet RxNorm: 244494 1 Tablet(s) PO QHS 01/08/2017 01/02/2018 Active chlorthalidone 25 mg tablet RxNorm: 124152 1/2 Tablet(s) PO daily 11/29/2016 03/28/2017 Active [SAVINGS FOR NON-COVERED DRUGS -- BIN:[id number], PCN: ASPROD1, Group: XXXXX, ID# [id number], Questions: . THIS IS NOT INSURANCE.] Miralax 17 gram oral powder packet RxNorm: 394097 1 Capsule(s) PO daily as needed 11/23/2016 03/22/2017 Active trazodone 50 mg tablet RxNorm: 074908 Tablet(s) TAKE 1 & 1/2 TABLETS (75 MG) BY MOUTH DAILY AT BEDTIME 11/23/2016 03/22/2017 Active Generic For:DESYREL 50 MG TABLET N O T I C E PRESCRIPTION PREVIOUSLY AUTHORIZED BY DOCTOR:CATHY MAZA [phone] potassium chloride ER 10 mEq tablet,extended release RxNorm: 466791 1 Tablet(s) PO daily 11/23/2016 01/21/2017 Inactive Depakote 125 mg tablet,delayed release RxNorm: 6810058 1 Tablet(s) PO BID 11/08/2016 01/10/2017 Inactive Aricept 10 mg tablet RxNorm: 641679 1 Tablet(s) PO daily 10/13/2016 No Stop Date Active Namzaric 03/23/21 mg-10 mg capsule,sprinkle,ER 24hr,dose pack RxNorm: 4350056 1 Capsule(s) PO daily 10/12/2016 10/12/2016 Inactive diltiazem CD 240 mg capsule,extended release 24 hr RxNorm: 299315 Capsule(s) TAKE 1 CAPSULE BY MOUTH DAILY 09/18/2016 04/15/2017 Active Generic For:CARDIZEM CD 240 MG CAP SA N O T I C E PRESCRIPTION PREVIOUSLY AUTHORIZED BY DOCTOR:CATHY MAZA Ativan 0.5 mg tablet RxNorm: 210632 1 Tablet(s) PO daily and as needed for anxiety 09/05/2016 01/02/2017 Inactive KCL 10 meq RxNorm: 1 Tablet(s) PO daily 08/21/2016 09/19/2016 Inactive potassium chloride ER 10 mEq tablet,extended release RxNorm: 932466 1 Tablet(s) PO daily 07/17/2016 07/30/2016 Inactive potassium chloride ER 10 mEq tablet,extended release RxNorm: 988451 1 Tablet(s) PO BID x1 week then daily thereafter repeat lab in 3 weeks. 06/23/2016 07/06/2016 Inactive potassium chloride ER 10 mEq tablet,extended release RxNorm: 330134 1 Tablet(s) PO BID x1 week then daily thereafter repeat lab in 3 weeks. 06/23/2016 06/22/2016 Inactive Aricept 10 mg tablet RxNorm: 577138 1/2 Tablet(s) PO daily x 7 days, then Aricept 10mg po daily thereafter 05/22/2016 10/11/2016 Inactive trazodone 50 mg tablet RxNorm: 207255 Tablet(s) TAKE 1 & 1/2 TABLETS (75 MG) BY MOUTH DAILY AT BEDTIME 05/22/2016 09/18/2016 Inactive Generic For:DESYREL 50 MG TABLET N O T I C E PRESCRIPTION PREVIOUSLY AUTHORIZED BY DOCTOR:CATHY MAZA Depakote 125 mg tablet,delayed release RxNorm: 5261275 1 Tablet(s) PO BID 05/17/2016 11/07/2016 Inactive melatonin 3 mg tablet RxNorm: 279984 1 Tablet(s) PO QHS 05/17/2016 11/12/2016 Inactive Ativan 0.5 mg tablet RxNorm: 480839 1 Tablet(s) PO daily and as needed for anxiety 05/08/2016 09/04/2016 Inactive simvastatin 40 mg tablet RxNorm: 353699 Tablet(s) TAKE 1 TABLET BY MOUTH DAILY AT BEDTIME 04/18/2016 10/14/2016 Inactive citalopram 10 mg tablet RxNorm: 505433 TAKE 1 TABLET BY MOUTH DAILY 03/21/2016 04/14/2017 Active Generic For:CELEXA 10 MG TABLET SENIOR CARE RE-ORDER N O T I C E PRESCRIPTION PREVIOUSLY AUTHORIZED BY DOCTOR:CATHY MAZA trazodone 50 mg tablet RxNorm: 579891 Tablet(s) TAKE 1 & 1/2 TABLETS (75 MG) BY MOUTH DAILY AT BEDTIME 01/24/2016 05/21/2016 Inactive Generic For:DESYREL 50 MG TABLET N O T I C E PRESCRIPTION PREVIOUSLY AUTHORIZED BY DOCTOR:CATHY MAZA diltiazem CD 240 mg capsule,extended release 24 hr RxNorm: 001733 Capsule(s) TAKE 1 CAPSULE BY MOUTH DAILY 12/20/2015 07/16/2016 Inactive Generic For:CARDIZEM CD 240 MG CAP SA N O T I C E PRESCRIPTION PREVIOUSLY AUTHORIZED BY DOCTOR:CATHY MAZA Depakote 125 mg tablet,delayed release RxNorm: 2783125 1 Tablet(s) PO BID 12/13/2015 04/10/2016 Inactive [SAVINGS FOR NON-COVERED DRUGS -- BIN:[id number], PCN: ASPROD1, Group: XXXXX, ID# XXXXXXX, Questions: . THIS IS NOT INSURANCE.] Ativan 0.5 mg tablet RxNorm: 962360 1 Tablet(s) PO daily and as needed for anxiety 12/13/2015 04/10/2016 Inactive Senokot-S 8.6 mg-50 mg tablet RxNorm: 8149446 1 Tablet(s) PO BID 12/06/2015 11/29/2016 Inactive Senokot-S 8.6 mg-50 mg tablet RxNorm: 7899484 1 Tablet(s) PO BID 12/06/2015 12/05/2015 Inactive chlorthalidone 25 mg tablet RxNorm: 295967 1/2 Tablet(s) PO daily 12/06/2015 04/03/2016 Inactive [SAVINGS FOR NON-COVERED DRUGS -- BIN:786926, PCN: ASPROD1, Group: XXXXX, ID# XXXXXXX, Questions: . THIS IS NOT INSURANCE.] simvastatin 40 mg tablet RxNorm: 880139 Tablet(s) TAKE 1 TABLET BY MOUTH DAILY AT BEDTIME 11/16/2015 02/13/2016 Inactive Generic For:*ZOCOR 40 MG TABLET N O T I C E PRESCRIPTION PREVIOUSLY AUTHORIZED BY DOCTOR:CATHY MAZA Aricept 10 mg tablet RxNorm: 099914 1/2 Tablet(s) PO daily x 7 days, then Aricept 10mg po daily thereafter 09/20/2015 05/21/2016 Inactive melatonin 3 mg tablet RxNorm: 924406 1 Tablet(s) PO QHS 08/06/2015 03/02/2016 Inactive [SAVINGS FOR NON-COVERED DRUGS -- BIN:[id number], PCN: ASPROD1, Group: XXXXX, ID# XXXXXXX, Questions: . THIS IS NOT INSURANCE.] melatonin 3 mg tablet RxNorm: 669713 1 Tablet(s) PO QHS 08/04/2015 08/05/2015 Inactive [SAVINGS FOR NON-COVERED DRUGS -- BIN:622961, PCN: ASPROD1, Group: XXXXX, ID# XXXXXXX, Questions: . THIS IS NOT INSURANCE.] chlorthalidone 25 mg tablet RxNorm: 710690 1/2 Tablet(s) PO [facility] 07/20/2015 12/05/2015 Inactive [SAVINGS FOR NON-COVERED DRUGS -- BIN:556395, PCN: ASPROD1, Group: XXXXX, ID# XXXXXXX, Questions: . THIS IS NOT INSURANCE.] Ativan 0.5 mg tablet RxNorm: 913701 1 Tablet(s) PO daily and as needed for anxiety 07/08/2015 11/04/2015 Inactive trazodone 50 mg tablet RxNorm: 750585 TAKE 1 & 1/2 TABLETS (75 MG) BY MOUTH DAILY AT BEDTIME 05/25/2015 09/21/2015 Inactive Generic For:DESYREL 50 MG TABLET N O T I C E PRESCRIPTION PREVIOUSLY AUTHORIZED BY DOCTOR:CATHY MAZA diltiazem CD 240 mg capsule,extended release 24 hr RxNorm: 091141 TAKE 1 CAPSULE BY MOUTH DAILY 05/18/2015 10/14/2015 Inactive Generic For:CARDIZEM CD 240 MG CAP SA N O T I C E PRESCRIPTION PREVIOUSLY AUTHORIZED BY DOCTOR:CATHY MAZA trazodone 50 mg tablet RxNorm: 806358 TAKE 1 & 1/2 TABLETS (75 MG) BY MOUTH DAILY AT BEDTIME 04/27/2015 05/24/2015 Inactive Generic For:DESYREL 50 MG TABLET N O T I C E PRESCRIPTION PREVIOUSLY AUTHORIZED BY DOCTOR:CATHY MAZA simvastatin 40 mg tablet RxNorm: 598567 Tablet(s) TAKE 1 TABLET BY MOUTH DAILY AT BEDTIME 04/20/2015 07/18/2015 Inactive Generic For:*ZOCOR 40 MG TABLET N O T I C E PRESCRIPTION PREVIOUSLY AUTHORIZED BY DOCTOR:CATHY MAZA citalopram 10 mg tablet RxNorm: 106128 TAKE 1 TABLET BY MOUTH DAILY 03/15/2015 03/08/2016 Inactive Generic For:CELEXA 10 MG TABLET SENIOR CARE RE-ORDER N O T I C E PRESCRIPTION PREVIOUSLY AUTHORIZED BY DOCTOR:CATHY MAZA trazodone 50 mg tablet RxNorm: 504447 1 1/2=75mg Tablet(s) PO QHS 01/25/2015 04/24/2015 Inactive [SAVINGS FOR NON-COVERED DRUGS -- BIN:386846, PCN: ASPROD1, Group: XXXXX, ID# XXXXXXX, Questions: . THIS IS NOT INSURANCE.] nicotine 14 mg/24 hr daily transdermal patch RxNorm: 302529 APPLY 1 PATCH DAILY AND REMOVE OLD PATCH 01/25/2015 02/28/2015 Inactive Generic For:NICODERM CQ 14 MG/24HR PATCH N O T I C E PRESCRIPTION PREVIOUSLY AUTHORIZED BY DOCTOR:CATHY MAZA chlorthalidone 25 mg tablet RxNorm: 377006 1/2 Tablet(s) PO QAM 12/31/2014 07/19/2015 Inactive [SAVINGS FOR NON-COVERED DRUGS -- BIN:289534, PCN: ASPROD1, Group: XXXXX, ID# XXXXXXX, Questions: . THIS IS NOT INSURANCE.] Aricept 10 mg tablet RxNorm: 662427 1/2 Tablet(s) PO daily x 7 days, then Aricept 10mg po daily thereafter 12/29/2014 09/19/2015 Inactive Depakote 125 mg tablet,delayed release RxNorm: 9477996 1 Tablet(s) PO BID 12/28/2014 04/26/2015 Inactive [SAVINGS FOR NON-COVERED DRUGS -- BIN:749404, PCN: ASPROD1, Group: XXXXX, ID# XXXXXXX, Questions: . THIS IS NOT INSURANCE.] diltiazem CD 240 mg capsule,extended release 24 hr RxNorm: 647651 TAKE 1 CAPSULE BY MOUTH DAILY 12/22/2014 04/20/2015 Inactive Generic For:CARDIZEM CD 240 MG CAP SA N O T I C E PRESCRIPTION PREVIOUSLY AUTHORIZED BY DOCTOR:CATHY MAZA nicotine 14 mg/24 hr daily transdermal patch RxNorm: 974542 APPLY 1 PATCH DAILY AND REMOVE OLD PATCH 12/22/2014 01/18/2015 Inactive Generic For:NICODERM CQ 14 MG/24HR PATCH N O T I C E PRESCRIPTION PREVIOUSLY AUTHORIZED BY DOCTOR:CATHY MAZA simvastatin 40 mg tablet RxNorm: 509658 TAKE 1 TABLET BY MOUTH DAILY AT BEDTIME 12/22/2014 03/21/2015 Inactive Generic For:*ZOCOR 40 MG TABLET N O T I C E PRESCRIPTION PREVIOUSLY AUTHORIZED BY DOCTOR:CATHY MAZA melatonin 3 mg tablet RxNorm: 555005 1 Tablet(s) PO QHS 12/22/2014 07/19/2015 Inactive [SAVINGS FOR NON-COVERED DRUGS -- BIN:710749, PCN: ASPROD1, Group: XXXXX, ID# XXXXXXX, Questions: . THIS IS NOT INSURANCE.] Ativan 0.5 mg tablet RxNorm: 673112 1 Tablet(s) PO at 1400 and once daily prn 12/17/2014 06/14/2015 Inactive [SAVINGS FOR NON-COVERED DRUGS -- BIN:314687, PCN: ASPROD1, Group: XXXXX, ID# XXXXXXX, Questions: . THIS IS NOT INSURANCE.] Ativan 0.5 mg tablet RxNorm: 651849 1 Tablet(s) PO daily as needed 12/17/2014 06/14/2015 Inactive trazodone 75 mg RxNorm: 1 Tablet(s) PO QHS No Start Date Active T.E.D. Anti-Embolism Stocking RxNorm: miscellaneous No Start Date Active Sweet Oil with Dropper RxNorm: Miscellaneous BIW on Sun and Sun No Start Date Active trazodone 75 mg RxNorm: 933443 1 Tablet(s) PO QHS No Start Date 01/24/2015 Inactive Exelon Patch 4.6 mg/24 hr transdermal RxNorm: 656906 1 TD daily No Start Date 12/28/2014 Inactive melatonin 3 mg tablet RxNorm: 391434 1 Tablet(s) PO QHS No Start Date 12/21/2014 Inactive Miralax 17 gram oral powder packet RxNorm: 769479 1 Capsule(s) PO daily as needed No Start Date 11/22/2016 Inactive Depakote 125 mg tablet,delayed release RxNorm: 0142627 1 Tablet(s) PO BID No Start Date 12/27/2014 Inactive nicotine 14 mg/24 hr daily transdermal patch RxNorm: 902540 1 TD daily No Start Date 12/21/2014 Inactive Ativan 0.5 mg tablet RxNorm: 044578 1 Tablet(s) PO at 1400 No Start Date 12/16/2014 Inactive simvastatin 40 mg tablet RxNorm: 516565 1 Tablet(s) PO QHS No Start Date 12/21/2014 Inactive diltiazem CD 240 mg capsule,extended release 24 hr RxNorm: 000719 1 Capsule(s) PO daily No Start Date 12/21/2014 Inactive citalopram 10 mg tablet RxNorm: 299490 1 Tablet(s) PO daily No Start Date [...] Item Item Code Result Date Valproic Acid Ife651 VALPROIC 28.0 ug/ml 01/11/2017 Urinalysis Ord28 U-Color [...] from collection if refrigerated) 01/11/2017 Comp Metabolic Swc233 NA 133 mEq/L 10/17/2016 Comp Metabolic Ksj958 K 3.5 mEq/L 10/17/2016 Comp Metabolic Bsk341 CL 96 mEq/L 10/17/2016 Comp Metabolic Fax521 CO2 28.0 mEq/L 10/17/2016 Comp Metabolic Bdi654 ANION GAP 13 10/17/2016 Comp Metabolic Eaw352 GLUCOSE 106 mg/dL 10/17/2016 Comp Metabolic Dth920 Creat 0.8 mg/dL 10/17/2016 Comp Metabolic Zzp414 eGFR 70 ml/min/1.73m2 10/17/2016 Comp Metabolic Ldb159 BUN 16 mg/dL 10/17/2016 Comp Metabolic Dga646 B/C Ratio 19.3 Ratio 10/17/2016 Comp Metabolic Aqp327 CALCIUM 9.5 mg/dL 10/17/2016 Comp Metabolic Tav205 ALK PHOS 74 U/L 10/17/2016 Comp Metabolic Fnb882 AST(SGOT) 19 U/L 10/17/2016 Comp Metabolic Snv988 ALT(SGPT) 14 U/L 10/17/2016 Comp Metabolic Vjj144 BILI T 0.5 mg/dL 10/17/2016 Comp Metabolic Olw540 ALBUMIN 4.2 g/dL 10/17/2016 Comp Metabolic Axd770 TPRO 6.5 g/dL 10/17/2016 Comp Metabolic Ddj494 GLOB 2.3 g/dL 10/17/2016 Comp Metabolic Zwu984 A/G Ratio 1.8 Ratio 10/17/2016 Comp Metabolic Oqo391 Osmo 268 mOsmo 10/17/2016 Cbc With Differential [...] 30.0 pg 10/17/2016 Cbc With Differential Ord2 Juncos% 8.8 % 10/17/2016 Cbc With Differential Ord2 [...] 1.91 K/ul 10/17/2016 Cbc With Differential Ord2 Juncos ABS# 0.7 K/ul 10/17/2016 Cbc With Differential [...] Urinalysis Ord28 U-Yeast NEGATIVE 10/13/2016 Valproic Acid Rfk702 VALPROIC 23.0 ug/ml 08/18/2016 Comp Metabolic Yiw544 NA 133 mEq/L 08/18/2016 Comp Metabolic Anv655 K 3.4 mEq/L 08/18/2016 Comp Metabolic Nct063 CL 94 mEq/L 08/18/2016 Comp Metabolic Kwp574 CO2 31.0 mEq/L 08/18/2016 Comp Metabolic Lsb468 ANION GAP 11 08/18/2016 Comp Metabolic Oln841 GLUCOSE 101 mg/dL 08/18/2016 Comp Metabolic Ihu538 Creat 0.8 mg/dL 08/18/2016 Comp Metabolic Byc822 eGFR 72 ml/min/1.73m2 08/18/2016 Comp Metabolic Qjq543 BUN 13 mg/dL 08/18/2016 Comp Metabolic Gqg458 B/C Ratio 16.0 Ratio 08/18/2016 Comp Metabolic Egm343 CALCIUM 9.4 mg/dL 08/18/2016 Comp Metabolic Uki638 ALK PHOS 66 U/L 08/18/2016 Comp Metabolic Ajx317 AST(SGOT) 20 U/L 08/18/2016 Comp Metabolic Yfp193 ALT(SGPT) 14 U/L 08/18/2016 Comp Metabolic Jhn680 BILI T 0.6 mg/dL 08/18/2016 Comp Metabolic Ufv533 ALBUMIN 4.1 g/dL 08/18/2016 Comp Metabolic Sub210 TPRO 6.5 g/dL 08/18/2016 Comp Metabolic Jiz551 GLOB 2.4 g/dL 08/18/2016 Comp Metabolic Fbr012 A/G Ratio 1.7 Ratio 08/18/2016 Comp Metabolic Zvl394 Osmo 267 mOsmo 08/18/2016 Metabolic Ord15 NA [...] Ord15 CALCIUM 9.6 mg/dL 06/22/2016 Comp Metabolic Poa427 NA 133 mEq/L 05/16/2016 Comp Metabolic Rrq103 K 3.4 mEq/L 05/16/2016 Comp Metabolic Eyr296 CL 93 mEq/L 05/16/2016 Comp Metabolic Reu725 CO2 29.0 mEq/L 05/16/2016 Comp Metabolic Xvr375 ANION GAP 14 05/16/2016 Comp Metabolic Sfq302 GLUCOSE 95 mg/dL 05/16/2016 Comp Metabolic Vzj357 Creat 0.7 mg/dL 05/16/2016 Comp Metabolic Jur595 eGFR 83 ml/min/1.73m2 05/16/2016 Comp Metabolic Szs421 BUN 13 mg/dL 05/16/2016 Comp Metabolic Nuy166 B/C Ratio 18.1 Ratio 05/16/2016 Comp Metabolic Ggs968 CALCIUM 9.7 mg/dL 05/16/2016 Comp Metabolic Lce946 ALK PHOS 59 U/L 05/16/2016 Comp Metabolic Hbp248 AST(SGOT) 20 U/L 05/16/2016 Comp Metabolic Wbo163 ALT(SGPT) 15 U/L 05/16/2016 Comp Metabolic Oma044 BILI T 0.5 mg/dL 05/16/2016 Comp Metabolic Mgs267 ALBUMIN 4.3 g/dL 05/16/2016 Comp Metabolic Imv367 TPRO 6.8 g/dL 05/16/2016 Comp Metabolic Ute537 GLOB 2.5 g/dL 05/16/2016 Comp Metabolic Owe684 A/G Ratio 1.8 Ratio 05/16/2016 Comp Metabolic Bvt320 Osmo 266 mOsmo 05/16/2016 Valproic Acid Sjm286 VALPROIC 34.0 ug/ml 05/16/2016 Valproic Acid Xcf567 VALPROIC 31.0 ug/ml 02/14/2016 Comp Metabolic Lkg281 NA 131 mEq/L 02/14/2016 Comp Metabolic Yet125 K 3.7 mEq/L 02/14/2016 Comp Metabolic Oiz602 CL 95 mEq/L 02/14/2016 Comp Metabolic Sni049 CO2 25.0 mEq/L 02/14/2016 Comp Metabolic Bfh148 ANION GAP 15 02/14/2016 Comp Metabolic Ntx113 GLUCOSE 97 mg/dL 02/14/2016 Comp Metabolic Ucn248 Creat 0.8 mg/dL 02/14/2016 Comp Metabolic Zun691 eGFR 76 ml/min/1.73m2 02/14/2016 Comp Metabolic Fnl645 BUN 10 mg/dL 02/14/2016 Comp Metabolic Ici624 B/C Ratio 12.8 Ratio 02/14/2016 Comp Metabolic Aqh915 CALCIUM 9.2 mg/dL 02/14/2016 Comp Metabolic Hzn679 ALK PHOS 54 U/L 02/14/2016 Comp Metabolic Uxi928 AST(SGOT) 20 U/L 02/14/2016 Comp Metabolic Abi964 ALT(SGPT) 14 U/L 02/14/2016 Comp Metabolic Pla956 BILI T 0.6 mg/dL 02/14/2016 Comp Metabolic Jky162 ALBUMIN 4.0 g/dL 02/14/2016 Comp Metabolic Lqk484 TPRO 6.3 g/dL 02/14/2016 Comp Metabolic Dwl136 GLOB 2.3 g/dL 02/14/2016 Comp Metabolic Aea536 A/G Ratio 1.8 Ratio 02/14/2016 Comp Metabolic Rwb019 Osmo 262 mOsmo 02/14/2016 Valproic Acid Vda677 VALPROIC 28.0 ug/ml 11/09/2015 Comp Metabolic Paf701 NA 134 mEq/L 11/09/2015 Comp Metabolic Ewp061 K 3.6 mEq/L 11/09/2015 Comp Metabolic Lco963 CL 94 mEq/L 11/09/2015 Comp Metabolic Mya222 CO2 28.0 mEq/L 11/09/2015 Comp Metabolic Bry728 ANION GAP 16 11/09/2015 Comp Metabolic Ric984 GLUCOSE 101 mg/dL 11/09/2015 Comp Metabolic Tno882 Creat 0.9 mg/dL 11/09/2015 Comp Metabolic Fpc240 eGFR 64 ml/min/1.73m2 11/09/2015 Comp Metabolic Pcf260 BUN 14 mg/dL 11/09/2015 Comp Metabolic Usb846 B/C Ratio 15.6 Ratio 11/09/2015 Comp Metabolic Ixg380 CALCIUM 9.6 mg/dL 11/09/2015 Comp Metabolic Ort779 ALK PHOS 66 U/L 11/09/2015 Comp Metabolic Sul560 AST(SGOT) 20 U/L 11/09/2015 Comp Metabolic Ekr634 ALT(SGPT) 15 U/L 11/09/2015 Comp Metabolic Yjs793 BILI T 0.7 mg/dL 11/09/2015 Comp Metabolic Cxj642 ALBUMIN 4.3 g/dL 11/09/2015 Comp Metabolic Btw731 TPRO 6.8 g/dL 11/09/2015 Comp Metabolic Aji777 GLOB 2.5 g/dL 11/09/2015 Comp Metabolic Hck883 A/G Ratio 1.7 Ratio 11/09/2015 Comp Metabolic Kph565 Osmo 269 mOsmo 11/09/2015 Valproic Acid Jwn226 VALPROIC 26.0 ug/ml 08/11/2015 Comp Metabolic Xoz183 NA 134 mEq/L 08/11/2015 Comp Metabolic Llc161 K 4.0 mEq/L 08/11/2015 Comp Metabolic Cut258 CL 97 mEq/L 08/11/2015 Comp Metabolic Hxb442 CO2 28.0 mEq/L 08/11/2015 Comp Metabolic Wbd507 ANION GAP 13 08/11/2015 Comp Metabolic Wvr531 GLUCOSE 89 mg/dL 08/11/2015 Comp Metabolic Lgz247 Creat 0.8 mg/dL 08/11/2015 Comp Metabolic Rln753 eGFR 73 ml/min/1.73m2 08/11/2015 Comp Metabolic Ydo201 BUN 13 mg/dL 08/11/2015 Comp Metabolic Mza292 B/C Ratio 16.0 Ratio 08/11/2015 Comp Metabolic Idi542 CALCIUM 9.4 mg/dL 08/11/2015 Comp Metabolic Quo766 ALK PHOS 53 U/L 08/11/2015 Comp Metabolic Gfc916 AST(SGOT) 18 U/L 08/11/2015 Comp Metabolic Qog797 ALT(SGPT) 12 U/L 08/11/2015 Comp Metabolic Hpa337 BILI T 0.5 mg/dL 08/11/2015 Comp Metabolic Acu402 ALBUMIN 3.8 g/dL 08/11/2015 Comp Metabolic Clh550 TPRO 5.8 g/dL 08/11/2015 Comp Metabolic Gfh692 GLOB 2.0 g/dL 08/11/2015 Comp Metabolic Nfd567 A/G Ratio 1.9 Ratio 08/11/2015 Comp Metabolic Oci367 Osmo 268 mOsmo 08/11/2015 Valproic Acid Qii382 VALPROIC 32.0 ug/ml 05/11/2015 Comp Metabolic Umh631 NA 143 mEq/L 05/11/2015 Comp Metabolic Njr712 K 3.9 mEq/L 05/11/2015 Comp Metabolic Fzw311 CL 107 mEq/L 05/11/2015 Comp Metabolic Uvk714 CO2 27.0 mEq/L 05/11/2015 Comp Metabolic Ees605 ANION GAP 13 05/11/2015 Comp Metabolic Mvx523 GLUCOSE 93 mg/dL 05/11/2015 Comp Metabolic Ysl094 Creat 0.8 mg/dL 05/11/2015 Comp Metabolic Sqd503 eGFR 72 ml/min/1.73m2 05/11/2015 Comp Metabolic Hhj297 BUN 14 mg/dL 05/11/2015 Comp Metabolic Ckg268 B/C Ratio 17.1 Ratio 05/11/2015 Comp Metabolic Jua437 CALCIUM 9.5 mg/dL 05/11/2015 Comp Metabolic Rug469 ALK PHOS 51 U/L 05/11/2015 Comp Metabolic Wuk281 AST(SGOT) 19 U/L 05/11/2015 Comp Metabolic Xug736 ALT(SGPT) 13 U/L 05/11/2015 Comp Metabolic Qzs396 BILI T 0.6 mg/dL 05/11/2015 Comp Metabolic Bka499 ALBUMIN 3.7 g/dL 05/11/2015 Comp Metabolic Vcz246 TPRO 5.8 g/dL 05/11/2015 Comp Metabolic Tph700 GLOB 2.1 g/dL 05/11/2015 Comp Metabolic Lju966 A/G Ratio 1.8 Ratio 05/11/2015 Comp Metabolic Vpm643 Osmo 285 mOsmo 05/11/2015 Review of Systems [...] Procedure Codes Date BIOPSY SKIN LESION CPT-4: 50565Ulrluet 01/14/2016 Vital Signs Date Vital 01/11/2017 Blood Pressure 1: 146/84 Code: 8480-6 BMI: 28.3 Code: 28189-7 Heart Rate 1: 82 bpm Height: 5'4" SpO2: 92% Weight: 165 lbs 10/12/2016 Blood Pressure 1: 134/72 Code: 8480-6 BMI: 27.8 Code: 28565-5 Heart Rate 1: 86 bpm Height: 5'4" SpO2: 93% Weight: 162 lbs 07/17/2016 Blood Pressure 1: 128/80 Code: 8480-6 BMI: 27.5 Code: 88096-7 Heart Rate 1: 86 bpm Height: 5'4" SpO2: 91% Weight: 160 lbs 04/24/2016 Blood Pressure 1: 130/82 Code: 8480-6 BMI: 26.4 Code: 60753-3 Heart Rate 1: 97 bpm Height: 5'4" SpO2: 97% Weight: 154 lbs 01/14/2016 Blood Pressure 1: 140/66 Code: 8480-6 BMI: 25.6 Code: 52907-0 Heart Rate 1: 77 bpm Height: 5'4" SpO2: 96% Weight: 149 lbs 12/20/2015 Blood Pressure 1: 136/64 Code: 8480-6 BMI: 24.9 Code: 06059-9 Heart Rate 1: 70 bpm Height: 5'4" SpO2: 74% Weight: 145 lbs 10/06/2015 Blood Pressure 1: 124/62 Code: 8480-6 BMI: 24.7 Code: 34599-4 Heart Rate 1: 72 bpm Height: 5'4" SpO2: 90% Weight: 144 lbs 07/07/2015 Blood Pressure 1: 130/78 Code: 8480-6 BMI: 23.9 Code: 66934-9 Heart Rate 1: 70 bpm Height: 5'4" SpO2: 94% Weight: 139 lbs 04/07/2015 Blood Pressure 1: 120/58 Code: 8480-6 BMI: 22.1 Code: 58846-6 Heart Rate 1: 66 bpm Height: 5'4" SpO2: 97% Weight: 129 lbs 02/03/2015 Blood Pressure 1: 134/68 Code: 8480-6 BMI: 22.3 Code: 17894-4 Heart Rate 1: 71 bpm Height: 5'4" SpO2: 95% Weight: 130 lbs 12/31/2014 Blood Pressure 1: 138/82 Code: 8480-6 BMI: 22.7 Code: 73648-0 Heart Rate 1: 74 bpm Height: 5'4" SpO2: 95% Weight: 132 lbs 12/17/2014 Blood Pressure 1: 142/88 Code: 8480-6 BMI: 22.5 Code: 10443-0 Heart Rate 1: 64 bpm Height: 5'4" [...] data Encounters Encounter Performer Location Codes Date ([id number]) [id number] EST. PATIENT, LEVEL IV Diagnosis: Essential (primary) hypertension[ICD10: I10] Diagnosis: Other Alzheimer's disease[ICD10: G30.8] Diagnosis: Cough[ICD10: R05] Diagnosis: Hypoxemia[ICD10: R09.02] Cherise Bowen MD, [facility] CPT-4: 65774 01/11/2017 ([id number]) 94852 EST. PATIENT, LEVEL III Diagnosis: Essential (primary) hypertension[ICD10: I10] Diagnosis: Other Alzheimer's disease[ICD10: G30.8] Cherise Bowen MD, [facility] CPT-4: 91967 10/12/2016 ([id number]) 12898 EST. PATIENT, LEVEL III Diagnosis: Cough[ICD10: R05] Diagnosis: Essential (primary) hypertension[ICD10: I10] Cherise Bowen MD, [facility] CPT-4: 38092 07/17/2016 ([id number]) 58577 EST. PATIENT, LEVEL III Diagnosis: Essential (primary) hypertension[ICD10: I10] Diagnosis: Other Alzheimer's disease[ICD10: G30.8] Cherise Bowen MD, [facility] CPT-4: 11397 04/24/2016 ([id number]) 58714 EST. PATIENT, LEVEL III Diagnosis: Essential (primary) hypertension[ICD10: I10] Diagnosis: Other Alzheimer's disease[ICD10: G30.8] Cherise Bowen MD, [facility] CPT-4: 19385 12/20/2015 ([id number]) 80428 EST. PATIENT, LEVEL III Diagnosis: Essential (primary) hypertension[ICD10: I10] Diagnosis: Other Alzheimer's disease[ICD10: G30.8] Hermila Bowen MD, [facility] CPT-4: 62165 10/06/2015 ([id number]) 27171 EST. PATIENT, LEVEL IV Diagnosis: Other secondary hypertension[ICD10: I15.8] Diagnosis: Other Alzheimer's disease[ICD10: G30.8] Hermila Bowen MD, [facility] CPT-4: 33622 07/07/2015 ([id number]) 27272 EST. PATIENT, LEVEL IV Diagnosis: ESSENTIAL HYPERTENSION[ICD9: 401.9] Diagnosis: EDEMA[ICD9: 782.3] Diagnosis: DEMENTIA W BEHAVIOR DIST[ICD9: 294.11] Hermila Bowen MD, [facility] CPT-4: 15696 04/07/2015 ([id number]) 73733 EST. PATIENT, LEVEL IV Diagnosis: ESSENTIAL HYPERTENSION[ICD9: 401.9] Diagnosis: DEMENTIA W BEHAVIOR DIST[ICD9: 294.11] Diagnosis: Constipation - functional[ICD9: 564.09] Hermlia Bowen MD, [facility] CPT-4: 77227 02/03/2015 ([id number]) 66104 EST. PATIENT, LEVEL IV Diagnosis: ESSENTIAL HYPERTENSION[ICD9: 401.9] Diagnosis: HYPERLIPIDEMIA[ICD9: 272.4] Diagnosis: DEMENTIA W BEHAVIOR DIST[ICD9: 294.11] Diagnosis: Chronic depression[ICD9: 311] Diagnosis: Anxiety, generalized[ICD9: 300.02] [facility] CPT- 4: 43487 12/31/2014 ([id number]) OFFICE VISIT, NEW - LEVEL 4 Diagnosis: EDEMA[ICD9: 782.3] Diagnosis: HYPERLIPIDEMIA[ICD9: 272.4] Diagnosis: ESSENTIAL HYPERTENSION[ICD9: 401.9] Diagnosis: DEPRESSIVE DISORDER NEC[ICD9: 311] Hermila Bowen MD, [facility] CPT- 4: 31581 12/17/2014 Plan of Care Planned Activity Notes [...] recheck level in 1 month. Chronic cough-history iootgyb-YQXH-islftdhdk-patient's oxygen saturation dropped to 89% in the office on room air-unable to further obtain ambulatory levels due to patient's obc-dueqvowqbmh-pegb test overnight oxygen levels. 01/11/2017 Appointment: Cherise Ventura WPtel: [address] [place], [place] [phone] (15 min) Moderate 01/11/2017 Patient Education: Patient [...] treatment. 10/12/2016 Appointment: Cherise Ventura WPtel: [phone] [phone] (30 min) Complex 10/12/2016 Patient Education: [...] xray today 07/17/2016 Appointment: Cherise Ventura WPtel: [phone] (15 min) Moderate 07/17/2016 Patient Education: [...] of treatment. 04/24/2016 Appointment: Cherise Ventura WPtel: [phone] [phone] (15 min) Moderate 04/24/2016 Patient Education: [...] treatment. 10/06/2015 [phone] ([facility]) Moderate 10/06/2015 Patient Education: Patient [...] of treatment. 07/07/2015 Appointment: Hermila Bowen WPtel: [id number] (15 min) Moderate 07/07/2015 Patient Education: Patient [...] as needed. 04/07/2015 Appointment: Hermila Bowen WPtel: [phone] [facility] (15 min) Moderate 04/07/2015 Patient Education: Patient [...] this regimen. 02/03/2015 App[facility]ment: [phone] [facility] 02/03/2015 Patient Education: Patient Medication [...] medications - will contact and work with [facility]dc for medication adjustment for control of behaviors. 12/31/2014 Appointment: Hermila Bowen WPtel[id number] [facility] 12/31/2014 Patient Education: Patient Medication [...] current medications. 12/17/2014 Appointment: Hermila Bowen [facility]Ptel[id number] [facility] 12/17/2014 Patient Education: Patient Medication [...] recheck level in 1 month. Chronic cough-history pwbsmrm-DYSE-zyjfkixvq-patient's oxygen saturation dropped to 89% in the office on room air-unable to further obtain ambulatory levels due to patient's hcn-gtkvyzcgxya-bbik test overnight oxygen levels. Monitor your blood [...] medications - will contact and work with [facility]dc for medication adjustment for control of behaviors. [...]
--- OUTSIDE RECORDS SUMMARY | 2019-02-22 08:30 | XMS REPORT | CCD ---
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 Name Role Phone PP Unavailable CCM Unavailable Summary Purpose Interface Exchange Insurance Providers Payer name Policy type / Coverage type Covered democrat ID Effective Begin Date Effective End Date WPS Medicare Part B Medicare Part B [id number] Unknown Unknown [facility] Medicare Part B [id number] Unknown Unknown Family history Runs in the family Diagnosis Age At Onset Dementia Unknown Social History Social History Element Codes Description Effective Dates Living arrangements Unknown Assisted Living [place] 07/02/2017 Allergies, Adverse Reactions, Alerts Substance Reaction Codes Entered Date Inactivated Date Status * NO KNOWN DRUG ALLERGIES Unknown 12/11/2014 No Inactive Date Active Past Medical History Illness Codes Condition Status Onset Date Resolved Date Chronic obstructive pulmonary disease, unspecified ICD-9: 496 ICD-10: J44.9 Active 05/21/2017 Unknown Dementia in other diseases classified elsewhere with behavioral disturbance ICD-9: 294.8 ICD-10: F02.81 Active 04/12/2017 Unknown Essential (primary) hypertension ICD-9: 401.9 ICD-10: I10 Active 07/16/2016 Unknown Generalized anxiety disorder ICD-9: 300.00 ICD-10: F41.1 Active 07/02/2017 Unknown Hypoxemia ICD-9: 799.02 ICD-10: R09.02 Active 01/11/2017 Unknown Other senior living (current) drug therapy ICD-9: V58.69 ICD-10: Z79.899 Active 10/09/2018 Unknown Major depressive disorder, recurrent, moderate ICD-9: 296.32 ICD-10: F33.1 Active 07/02/2017 Unknown Other Alzheimer's disease ICD-9: 294.11 ICD-10: G30.8 Active 04/23/2016 Unknown Cough ICD-9: 786.2 ICD-10: R05 Active 07/16/2016 Unknown Dysuria ICD-9: 788.1 ICD-10: R30.0 Active [...] Problems Condition Codes Effective Dates Condition Status Chronic obstructive pulmonary disease, unspecified ICD-9: 496 ICD-10: J44.9 05/21/2017 Active Dementia in other diseases classified elsewhere with behavioral disturbance ICD-9: 294.8 ICD-10: F02.81 04/12/2017 Active Essential (primary) hypertension ICD-9: 401.9 ICD-10: I10 07/16/2016 Active Generalized anxiety disorder ICD-9: 300.00 ICD-10: F41.1 07/02/2017 Active Hypoxemia ICD-9: 799.02 ICD-10: R09.02 01/11/2017 Active Other senior living (current) drug therapy ICD-9: V58.69 ICD-10: Z79.899 10/09/2018 Active Major depressive disorder, recurrent, moderate ICD-9: 296.32 ICD-10: F33.1 07/02/2017 Active Other Alzheimer's disease ICD-9: 294.11 ICD-10: G30.8 04/23/2016 Active Cough ICD-9: 786.2 ICD-10: R05 07/16/2016 Active Dysuria ICD-9: 788.1 ICD-10: R30.0 10/13/2016 [...] Start Date Stop Date Status Fill Instructions lorazepam 0.5 mg tablet RxNorm: 667210 1 Tablet(s) PO QHS 09/18/2017 11/16/2017 Inactive citalopram 40 mg tablet RxNorm: 149084 1 Tablet(s) PO daily 09/17/2017 09/11/2018 Inactive Aricept 10 mg tablet RxNorm: 184628 1 Tablet(s) PO daily 08/28/2017 08/22/2018 Inactive diltiazem CD 240 mg capsule,extended release 24 hr RxNorm: 277887 Capsule(s) TAKE 1 CAPSULE BY MOUTH DAILY 05/30/2017 12/25/2017 Inactive Generic For:CARDIZEM CD 240 MG CAP SA N O T I C E PRESCRIPTION PREVIOUSLY AUTHORIZED BY DOCTOR:CATHY MAZA Depakote 125 mg tablet,delayed release RxNorm: 3972770 2 Tablet(s) PO TID 05/22/2017 11/17/2017 Inactive citalopram 40 mg tablet RxNorm: 222841 1 Tablet(s) PO daily 05/22/2017 09/16/2017 Inactive Namenda 10 mg tablet RxNorm: 942554 1 Tablet(s) PO BID 05/16/2017 08/13/2017 Inactive trazodone 50 mg tablet RxNorm: 440085 1 Tablet(s) QHS 04/25/2017 08/22/2017 Inactive Generic For:DESYREL 50 MG TABLET N O T I C E PRESCRIPTION PREVIOUSLY AUTHORIZED BY DOCTOR:CATHY MAZA Vitamin D3 1,000 unit tablet RxNorm: 19930209 1 Tablet(s) PO daily 04/25/2017 08/22/2017 Inactive citalopram 20 mg tablet RxNorm: 607614 1 Tablet(s) PO daily 04/25/2017 05/21/2017 Inactive Vitamin D3 1,000 unit tablet RxNorm: 19930209 1 Tablet(s) PO daily 04/25/2017 04/24/2017 Inactive Namenda 10 mg tablet RxNorm: 768506 1 Tablet(s) PO BID 04/12/2017 05/15/2017 Inactive Aricept 10 mg tablet RxNorm: 590534 1 Tablet(s) PO daily 02/12/2017 07/11/2017 Inactive Depakote 250 mg tablet,delayed release RxNorm: 5054627 1 Tablet(s) PO BID 02/08/2017 05/21/2017 Inactive potassium chloride ER 10 mEq tablet,extended release RxNorm: 619684 1 Tablet(s) PO daily 01/24/2017 07/01/2017 Inactive Depakote 250 mg tablet,delayed release RxNorm: 1681704 1 Tablet(s) PO BID 01/11/2017 02/07/2017 Inactive Ativan 0.5 mg tablet RxNorm: 023375 1 Tablet(s) PO daily and as needed for anxiety 01/09/2017 05/07/2017 Inactive simvastatin 40 mg tablet RxNorm: 442403 Tablet(s) TAKE 1 TABLET BY MOUTH DAILY AT BEDTIME 01/09/2017 07/07/2017 Inactive melatonin 3 mg tablet RxNorm: 785854 1 Tablet(s) PO QHS 01/08/2017 01/02/2018 Inactive chlorthalidone 25 mg tablet RxNorm: 795619 1/2 Tablet(s) PO daily 11/29/2016 07/01/2017 Inactive [SAVINGS FOR NON-COVERED DRUGS -- BIN:[id number], PCN: ASPROD1, Group: XXXXX, ID# [id number], Questions: . THIS IS NOT INSURANCE.] Miralax 17 gram oral powder packet RxNorm: 049654 1 Capsule(s) PO daily as needed 11/23/2016 03/22/2017 Inactive potassium chloride ER 10 mEq tablet,extended release RxNorm: 556748 1 Tablet(s) PO daily 11/23/2016 01/21/2017 Inactive trazodone 50 mg tablet RxNorm: 589857 Tablet(s) TAKE 1 & 1/2 TABLETS (75 MG) BY MOUTH DAILY AT BEDTIME 11/23/2016 03/22/2017 Inactive Generic For:DESYREL 50 MG TABLET N O T I C E PRESCRIPTION PREVIOUSLY AUTHORIZED BY DOCTOR:CATHY MAZA Depakote 125 mg tablet,delayed release RxNorm: 9871593 1 Tablet(s) PO BID 11/08/2016 01/10/2017 Inactive Aricept 10 mg tablet RxNorm: 321006 1 Tablet(s) PO daily 10/13/2016 02/11/2017 Inactive Namzaric 03/23/ mg-10 mg capsule,sprinkle,ER 24hr,dose pack RxNorm: 0572827 1 Capsule(s) PO daily 10/12/2016 10/12/2016 Inactive diltiazem CD 240 mg capsule,extended release 24 hr RxNorm: 146600 Capsule(s) TAKE 1 CAPSULE BY MOUTH DAILY 09/18/2016 04/15/2017 Inactive Generic For:CARDIZEM CD 240 MG CAP SA N O T I C E PRESCRIPTION PREVIOUSLY AUTHORIZED BY DOCTOR:CATHY MAZA Ativan 0.5 mg tablet RxNorm: 055944 1 Tablet(s) PO daily and as needed for anxiety 09/05/2016 01/02/2017 Inactive KCL 10 meq RxNorm: 1 Tablet(s) PO daily 08/21/2016 09/19/2016 Inactive potassium chloride ER 10 mEq tablet,extended release RxNorm: 889064 1 Tablet(s) PO daily 07/17/2016 07/30/2016 Inactive potassium chloride ER 10 mEq tablet,extended release RxNorm: 179689 1 Tablet(s) PO BID x1 week then daily thereafter repeat lab in 3 weeks. 06/23/2016 07/06/2016 Inactive potassium chloride ER 10 mEq tablet,extended release RxNorm: 995021 1 Tablet(s) PO BID x1 week then daily thereafter repeat lab in 3 weeks. 06/23/2016 06/22/2016 Inactive Aricept 10 mg tablet RxNorm: 585462 1/2 Tablet(s) PO daily x 7 days, then Aricept 10mg po daily thereafter 05/22/2016 10/11/2016 Inactive trazodone 50 mg tablet RxNorm: 159708 Tablet(s) TAKE 1 & 1/2 TABLETS (75 MG) BY MOUTH DAILY AT BEDTIME 05/22/2016 09/18/2016 Inactive Generic For:DESYREL 50 MG TABLET N O T I C E PRESCRIPTION PREVIOUSLY AUTHORIZED BY DOCTOR:CATHY MAZA Depakote 125 mg tablet,delayed release RxNorm: 7578851 1 Tablet(s) PO BID 05/17/2016 11/07/2016 Inactive melatonin 3 mg tablet RxNorm: 132595 1 Tablet(s) PO QHS 05/17/2016 11/12/2016 Inactive Ativan 0.5 mg tablet RxNorm: 206870 1 Tablet(s) PO daily and as needed for anxiety 05/08/2016 09/04/2016 Inactive simvastatin 40 mg tablet RxNorm: 202561 Tablet(s) TAKE 1 TABLET BY MOUTH DAILY AT BEDTIME 04/18/2016 10/14/2016 Inactive citalopram 10 mg tablet RxNorm: 482684 TAKE 1 TABLET BY MOUTH DAILY 03/21/2016 04/11/2017 Inactive Generic For:CELEXA 10 MG TABLET LONGTERM RE-ORDER N O T I C E PRESCRIPTION PREVIOUSLY AUTHORIZED BY DOCTOR:CATHY MAZA trazodone 50 mg tablet RxNorm: 538455 Tablet(s) TAKE 1 & 1/2 TABLETS (75 MG) BY MOUTH DAILY AT BEDTIME 01/24/2016 05/21/2016 Inactive Generic For:DESYREL 50 MG TABLET N O T I C E PRESCRIPTION PREVIOUSLY AUTHORIZED BY DOCTOR:CATHY MAZA diltiazem CD 240 mg capsule,extended release 24 hr RxNorm: 153054 Capsule(s) TAKE 1 CAPSULE BY MOUTH DAILY 12/20/2015 07/16/2016 Inactive Generic For:CARDIZEM CD 240 MG CAP SA N O T I C E PRESCRIPTION PREVIOUSLY AUTHORIZED BY DOCTOR:CATHY MAZA Depakote 125 mg tablet,delayed release RxNorm: 2048882 1 Tablet(s) PO BID 12/13/2015 04/10/2016 Inactive [SAVINGS FOR NON-COVERED DRUGS -- BIN:120948, PCN: ASPROD1, Group: XXXXX, ID# [id number], Questions: . THIS IS NOT INSURANCE.] Ativan 0.5 mg tablet RxNorm: 534581 1 Tablet(s) PO daily and as needed for anxiety 12/13/2015 04/10/2016 Inactive Senokot-S 8.6 mg-50 mg tablet RxNorm: 0903918 1 Tablet(s) PO BID 12/06/2015 11/29/2016 Inactive Senokot-S 8.6 mg-50 mg tablet RxNorm: 8464768 1 Tablet(s) PO BID 12/06/2015 12/05/2015 Inactive chlorthalidone 25 mg tablet RxNorm: 022767 1/2 Tablet(s) PO daily 12/06/2015 04/03/2016 Inactive [SAVINGS FOR NON-COVERED DRUGS -- BIN:[id number], PCN: ASPROD1, Group: XXXXX, ID# [id number], Questions: . THIS IS NOT INSURANCE.] simvastatin 40 mg tablet RxNorm: 774519 Tablet(s) TAKE 1 TABLET BY MOUTH DAILY AT BEDTIME 11/16/2015 02/13/2016 Inactive Generic For:*ZOCOR 40 MG TABLET N O T I C E PRESCRIPTION PREVIOUSLY AUTHORIZED BY DOCTOR:CATHY MAZA Aricept 10 mg tablet RxNorm: 533511 1/2 Tablet(s) PO daily x 7 days, then Aricept 10mg po daily thereafter 09/20/2015 05/21/2016 Inactive melatonin 3 mg tablet RxNorm: 670140 1 Tablet(s) PO QHS 08/06/2015 03/02/2016 Inactive [SAVINGS FOR NON-COVERED DRUGS -- BIN:[id number], PCN: ASPROD1, Group: XXXXX, ID# XXXXXXX, Questions: . THIS IS NOT INSURANCE.] melatonin 3 mg tablet RxNorm: 089878 1 Tablet(s) PO QHS 08/04/2015 08/05/2015 Inactive [SAVINGS FOR NON-COVERED DRUGS -- BIN:127119, PCN: ASPROD1, Group: XXXXX, ID# [id number], Questions: . THIS IS NOT INSURANCE.] chlorthalidone 25 mg tablet RxNorm: 504284 1/2 Tablet(s) PO QAM 07/20/2015 12/05/2015 Inactive [SAVINGS FOR NON-COVERED DRUGS -- BIN:114907, PCN: ASPROD1, Group: XXXXX, ID# [id number], Questions: . THIS IS NOT INSURANCE.] Ativan 0.5 mg tablet RxNorm: 551319 1 Tablet(s) PO daily and as needed for anxiety 07/08/2015 11/04/2015 Inactive trazodone 50 mg tablet RxNorm: 840525 TAKE 1 & 1/2 TABLETS (75 MG) BY MOUTH DAILY AT BEDTIME 05/25/2015 09/21/2015 Inactive Generic For:DESYREL 50 MG TABLET N O T I C E PRESCRIPTION PREVIOUSLY AUTHORIZED BY DOCTOR:CATHY MAZA diltiazem CD 240 mg capsule,extended release 24 hr RxNorm: 107008 TAKE 1 CAPSULE BY MOUTH DAILY 05/18/2015 10/14/2015 Inactive Generic For:CARDIZEM CD 240 MG CAP SA N O T I C E PRESCRIPTION PREVIOUSLY AUTHORIZED BY DOCTOR:CATHY MAZA trazodone 50 mg tablet RxNorm: 821402 TAKE 1 & 1/2 TABLETS (75 MG) BY MOUTH DAILY AT BEDTIME 04/27/2015 05/24/2015 Inactive Generic For:DESYREL 50 MG TABLET N O T I C E PRESCRIPTION PREVIOUSLY AUTHORIZED BY DOCTOR:CATHY MAZA simvastatin 40 mg tablet RxNorm: 992946 Tablet(s) TAKE 1 TABLET BY MOUTH DAILY AT BEDTIME 04/20/2015 07/18/2015 Inactive Generic For:*ZOCOR 40 MG TABLET N O T I C E PRESCRIPTION PREVIOUSLY AUTHORIZED BY DOCTOR:CATHY MAZA citalopram 10 mg tablet RxNorm: 596019 TAKE 1 TABLET BY MOUTH DAILY 03/15/2015 03/08/2016 Inactive Generic For:CELEXA 10 MG TABLET LONGTERM RE-ORDER N O T I C E PRESCRIPTION PREVIOUSLY AUTHORIZED BY DOCTOR:CAHTY MAZA trazodone 50 mg tablet RxNorm: 573880 1 1/2=75mg Tablet(s) PO QHS 01/25/2015 04/24/2015 Inactive [SAVINGS FOR NON-COVERED DRUGS -- BIN:210094, PCN: ASPROD1, Group: XXXXX, ID# XXXXXXX, Questions: . THIS IS NOT INSURANCE.] nicotine 14 mg/24 hr daily transdermal patch RxNorm: 002186 APPLY 1 PATCH DAILY AND REMOVE OLD PATCH 01/25/2015 02/28/2015 Inactive Generic For:NICODERM CQ 14 MG/24HR PATCH N O T I C E PRESCRIPTION PREVIOUSLY AUTHORIZED BY DOCTOR:CATHY MAZA chlorthalidone 25 mg tablet RxNorm: 720110 /2 Tablet(s) PO QAM 12/31/2014 07/19/2015 Inactive [SAVINGS FOR NON-COVERED DRUGS -- BIN:[id number], PCN: ASPROD1, Group: XXXXX, ID# [id number], Questions: . THIS IS NOT INSURANCE.] Aricept 10 mg tablet RxNorm: 705485 1/2 Tablet(s) PO daily x 7 days, then Aricept 10mg po daily thereafter 12/29/2014 09/19/2015 Inactive Depakote 125 mg tablet,delayed release RxNorm: 1734216 1 Tablet(s) PO BID 12/28/2014 04/26/2015 Inactive [SAVINGS FOR NON-COVERED DRUGS -- BIN:853656, PCN: ASPROD1, Group: XXXXX, ID# XXXXXXX, Questions: . THIS IS NOT INSURANCE.] diltiazem CD 240 mg capsule,extended release 24 hr RxNorm: 987228 TAKE 1 CAPSULE BY MOUTH DAILY 12/22/2014 04/20/2015 Inactive Generic For:CARDIZEM CD 240 MG CAP SA N O T I C E PRESCRIPTION PREVIOUSLY AUTHORIZED BY DOCTOR:CATHY MAZA nicotine 14 mg/24 hr daily transdermal patch RxNorm: 146448 APPLY 1 PATCH DAILY AND REMOVE OLD PATCH 12/22/2014 01/18/2015 Inactive Generic For:NICODERM CQ 14 MG/24HR PATCH N O T I C E PRESCRIPTION PREVIOUSLY AUTHORIZED BY DOCTOR:CATHY MAZA simvastatin 40 mg tablet RxNorm: 671262 TAKE 1 TABLET BY MOUTH DAILY AT BEDTIME 12/22/2014 03/21/2015 Inactive Generic For:*ZOCOR 40 MG TABLET N O T I C E PRESCRIPTION PREVIOUSLY AUTHORIZED BY DOCTOR:CATHY MAZA melatonin 3 mg tablet RxNorm: 003322 1 Tablet(s) PO QHS 12/22/2014 07/19/2015 Inactive [SAVINGS FOR NON-COVERED DRUGS -- BIN:[id number], PCN: ASPROD1, Group: XXXXX, ID# XXXXXXX, Questions: . THIS IS NOT INSURANCE.] Ativan 0.5 mg tablet RxNorm: 901782 1 Tablet(s) PO at 1400 and once daily prn 12/17/2014 06/14/2015 Inactive [SAVINGS FOR NON-COVERED DRUGS -- BIN:077053, PCN: ASPROD1, Group: XXXXX, ID# XXXXXXX, Questions: . THIS IS NOT INSURANCE.] Ativan 0.5 mg tablet RxNorm: 513979 1 Tablet(s) PO daily as needed 12/17/2014 06/14/2015 Inactive Pyridium 200 mg tablet RxNorm: 3147952 1 Tablet(s) PO TID as needed No Start Date Active Remeron 15 mg tablet RxNorm: 444984 1 Tablet(s) PO QHS No Start Date Active T.E.D. Anti-Embolism Stocking RxNorm: miscellaneous No Start Date Active Sweet Oil with Dropper RxNorm: Miscellaneous BIW on Sun and Sun No Start Date Active trazodone 75 mg RxNorm: 908111 1 Tablet(s) PO QHS No Start Date 01/24/2015 Inactive Exelon Patch 4.6 mg/24 hr transdermal RxNorm: 035309 1 TD daily No Start Date 12/28/2014 Inactive melatonin 3 mg tablet RxNorm: 159069 1 Tablet(s) PO QHS No Start Date 12/21/2014 Inactive Namenda 5 mg tablet RxNorm: 234650 1 Tablet(s) PO daily No Start Date 04/11/2017 Inactive Miralax 17 gram oral powder packet RxNorm: 429923 1 Capsule(s) PO daily as needed No Start Date 11/22/2016 Inactive Depakote 125 mg tablet,delayed release RxNorm: 9266440 1 Tablet(s) PO BID No Start Date 12/27/2014 Inactive nicotine 14 mg/24 hr daily transdermal patch RxNorm: 956260 1 TD daily No Start Date 12/21/2014 Inactive Ativan 0.5 mg tablet RxNorm: 118267 1 Tablet(s) PO at 1400 No Start Date 12/16/2014 Inactive trazodone 75 mg RxNorm: 1 Tablet(s) PO QHS No Start Date 07/01/2017 Inactive simvastatin 40 mg tablet RxNorm: 617648 1 Tablet(s) PO QHS No Start Date 12/21/2014 Inactive diltiazem CD 240 mg capsule,extended release 24 hr RxNorm: 245072 1 Capsule(s) PO daily No Start Date 12/21/2014 Inactive citalopram 10 mg tablet RxNorm: 741905 1 Tablet(s) PO daily No Start Date 03/14/2015 Inactive citalopram 20 mg tablet RxNorm: 030224 1 Tablet(s) PO daily No Start Date 04/24/2017 Inactive Medication Administered No Medication Administered data Immunizations Vaccine Codes Date Status Influenza CVX: 141 06/26/2017 completed Influenza CVX: 141 06/22/2015 completed Assessments Condition Codes Effective Dates Other senior living (current) drug therapy ICD-10: Z79.899 ICD-9: V58.69 10/09/2018 Dementia in other diseases classified elsewhere with behavioral disturbance ICD-10: F02.81 ICD-9: 294.8 10/09/2018 Major depressive disorder, recurrent, moderate ICD-10: F33.1 ICD-9: 296.32 07/02/2017 Generalized anxiety disorder ICD-10: F41.1 ICD-9: 300.00 07/02/2017 Essential (primary) hypertension ICD-10: I10 ICD-9: 401.9 07/02/2017 Other Alzheimer's disease ICD-10: G30.8 ICD-9: 294.11 07/02/2017 Hypoxemia ICD-10: R09.02 ICD-9: 799.02 05/21/2017 Chronic obstructive pulmonary disease, unspecified ICD-10: J44.9 ICD-9: 496 05/21/2017 Cough ICD-10: R05 ICD-9: 786.2 01/11/2017 Dysuria [...] Visit Reason For Visit Effective Dates Notes anxiety 10/09/2018 memory loss 07/02/2017 anxiety 05/21/2017 Hospital Follow Up 04/12/2017 Behavioral health admit blood pressure followup 01/11/2017 blood pressure followup 10/12/2016 cough 07/17/2016 blood pressure followup 04/24/2016 new lesion 01/14/2016 blood pressure followup 12/20/2015 blood pressure followup 10/06/2015 blood pressure followup 07/07/2015 edema 04/07/2015 edema 02/03/2015 edema 12/31/2014 edema 12/17/2014 Results Observation Observation Code Item Item Code Result Date Comp Metabolic Jee940 NA 136 mEq/L 11/04/2018 Comp Metabolic Nzp651 K 3.8 mEq/L 11/04/[address] CL 100 mEq/L 11/04/2018 Comp Metabolic Sng565 CO2 29.0 mEq/L 11/04/2018 Comp Metabolic Ymh739 ANION GAP 11 11/04/2018 Comp Metabolic Ral899 GLUCOSE 99 mg/dL 11/04/2018 Comp Metabolic Grr773 Creat 0.8 mg/dL 11/04/2018 Comp Metabolic Lsa775 eGFR 69 ml/min/1.73m2 11/04/2018 Comp Metabolic Svi748 BUN 18 mg/dL 11/04/2018 Comp Metabolic Ftp064 B/C Ratio 21.4 Ratio 11/04/2018 Comp Metabolic Ssh466 CALCIUM 9.6 mg/dL 11/04/2018 Comp Metabolic Vvb779 ALK PHOS 73 U/L 11/04/2018 Comp Metabolic Jkp160 AST(SGOT) 13 U/L 11/04/2018 Comp Metabolic Lvv722 ALT(SGPT) 9 U/L 11/04/2018 Comp Metabolic Drb218 BILI T 0.3 mg/dL 11/04/2018 Comp Metabolic Rwp270 ALBUMIN 4.0 g/dL 11/04/2018 Comp Metabolic Vdl063 TPRO 6.5 g/dL 11/04/2018 Comp Metabolic Vvu687 GLOB 2.5 g/dL 11/04/2018 Comp Metabolic Iuw954 A/G Ratio 1.6 Ratio 11/04/2018 Comp Metabolic Fci430 Osmo 274 mOsmo 11/04/2018 Valproic Acid Huc566 VALPROIC 43.0 ug/ml 11/04/2018 Valproic Acid Gfj566 VALPROIC 27.0 ug/ml 10/09/2018 Cbc With Differential Ord2 WBC 8.12 K/ul 10/09/2018 Cbc With Differential Ord2 RBC 4.42 M/ul 10/09/2018 Cbc With Differential Ord2 HGB 13.6 g/dl 10/09/2018 Cbc With Differential Ord2 HCT 41.7 % 10/09/2018 Cbc With Differential Ord2 Neut% 57.7 % 10/09/2018 Cbc With Differential Ord2 MCV 94.3 fl 10/09/2018 Cbc With Differential Ord2 Lymph% 30.9 % 10/09/2018 Cbc With Differential Ord2 Adair% 9.2 % 10/09/2018 Cbc With Differential Ord2 MCH 30.8 pg 10/09/2018 Cbc With Differential Ord2 Eos% 2.1 % 10/09/2018 Cbc With Differential Ord2 MCHC 32.6 pg 10/09/2018 Cbc With Differential Ord2 PLT 291 K/ul 10/09/2018 Cbc With Differential Ord2 Baso% 0.1 % 10/09/2018 Cbc With Differential Ord2 RDW 14.6 % 10/09/2018 Cbc With Differential Ord2 Neut ABS# 4.68 K/ul 10/09/2018 Cbc With Differential Ord2 Lymph ABS# 2.51 K/ul 10/09/2018 Cbc With Differential Ord2 Adair ABS# 0.8 K/ul 10/09/2018 Cbc With Differential Ord2 Eos ABS# 0.2 K/ul 10/09/2018 Cbc With Differential Ord2 Baso ABS# 0.0 K/ul 10/09/2018 Comp Metabolic Ysp899 NA 141 mEq/L 10/09/2018 Comp Metabolic Mok733 K 3.6 mEq/L 10/09/2018 Comp Metabolic Bjv597 CL 102 mEq/L 10/09/2018 Comp Metabolic Qxq047 CO2 31.0 mEq/L 10/09/2018 Comp Metabolic Kaf282 ANION GAP 12 10/09/2018 Comp Metabolic Sfl662 GLUCOSE 94 mg/dL 10/09/2018 Comp Metabolic Ocf414 Creat 0.9 mg/dL 10/09/2018 Comp Metabolic Hfs387 eGFR 61 ml/min/1.73m2 10/09/2018 Comp Metabolic Zdq520 BUN 22 mg/dL 10/09/2018 Comp Metabolic Vkh194 B/C Ratio 23.7 Ratio 10/09/2018 Comp Metabolic Msw000 CALCIUM 9.2 mg/dL 10/09/2018 Comp Metabolic Tzw737 ALK PHOS 63 U/L 10/09/2018 Comp Metabolic Ykk856 AST(SGOT) 14 U/L 10/09/2018 Comp Metabolic Njx557 ALT(SGPT) 8 U/L 10/09/2018 Comp Metabolic Jkx338 BILI T 0.3 mg/dL 10/09/2018 Comp Metabolic Zgd302 ALBUMIN 3.7 g/dL 10/09/2018 Comp Metabolic Fnc455 TPRO 6.1 g/dL 10/09/2018 Comp Metabolic Iew736 GLOB 2.4 g/dL 10/09/2018 Comp Metabolic Xmo175 A/G Ratio 1.6 Ratio 10/09/2018 Comp Metabolic Iaq480 Osmo 284 mOsmo 10/09/2018 Tsh Ord6 TSH (3rd IS) 3.15 uIU/mL 10/09/2018 Culture Urine [id number] URINE CULTURE SEE NOTES 08/24/2017 Culture Urine [id number] Continued Results 08/24/2017 Urine Culture Ucult Complete >100,000 col/ml aerobic growth sent to ref lab 08/22/2017 Urinalysis Ord28 U-Color Yellow 08/21/2017 Urinalysis Ord28 U-Clarity Slightly Cloudy 08/21/2017 Urinalysis Ord28 U-Gluc Negative 08/21/2017 Urinalysis Ord28 U-Bili Negative 08/21/2017 Urinalysis Ord28 U-Ketone Trace 08/21/2017 Urinalysis Ord28 U-SG >=1.030 08/21/2017 Urinalysis Ord28 U-Blood Small 08/21/2017 Urinalysis Ord28 U-pH 5.5 08/21/2017 Urinalysis Ord28 U-Protein Negative 08/21/2017 Urinalysis Ord28 U-Urobilin 0.2 E.U./dL E.U./dL 08/21/2017 Urinalysis Ord28 U-Nitrites Negative 08/21/2017 Urinalysis Ord28 U-Leuk Moderate 08/21/2017 Urinalysis Ord28 U-Bact 2+ 08/21/2017 Urinalysis Ord28 U-Squamous Epi 5-10 per/HPF 08/21/2017 Urinalysis Ord28 U-Crystal CALCIUM OXALATE per/HPF 08/21/2017 Urinalysis Ord28 U-Mucus None 08/21/2017 Urinalysis Ord28 U-Renal tubular epi None 08/21/2017 Urinalysis Ord28 U-RBC 3-5 per/HPF 08/21/2017 Urinalysis Ord28 U-Transitional epi None per/HPF 08/21/2017 Urinalysis Ord28 U-WBC 10-20 per/HPF 08/21/2017 Urinalysis Ord28 U-Cast None per/HPF 08/21/2017 Urinalysis Ord28 U-VOL VOLUME SUFFICIENT (10mL) 08/21/2017 Urinalysis Ord28 U-Yeast NEGATIVE 08/21/2017 Urinalysis Ord28 U-Com Culture to follow 08/21/2017 Comp Metabolic Fzc201 NA 135 mEq/L 06/06/2017 Comp Metabolic Fcf353 K 3.6 mEq/L 06/06/2017 Comp Metabolic Lvk774 CL 97 mEq/L 06/06/2017 Comp Metabolic Jev087 CO2 29.0 mEq/L 06/06/2017 Comp Metabolic Wcp789 ANION GAP 13 06/06/2017 Comp Metabolic Efb087 GLUCOSE 92 mg/dL 06/06/2017 Comp Metabolic Bzv106 Creat 0.7 mg/dL 06/06/2017 Comp Metabolic Mlh828 eGFR 90 ml/min/1.73m2 06/06/2017 Comp Metabolic Urf654 BUN 13 mg/dL 06/06/2017 Comp Metabolic Xdi714 B/C Ratio 19.4 Ratio 06/06/2017 Comp Metabolic Cdz514 CALCIUM 9.1 mg/dL 06/06/2017 Comp Metabolic Evx300 ALK PHOS 79 U/L 06/06/2017 Comp Metabolic Pkm106 AST(SGOT) 20 U/L 06/06/2017 Comp Metabolic Stu274 ALT(SGPT) 15 U/L 06/06/2017 Comp Metabolic Kvg964 BILI T 0.4 mg/dL 06/06/2017 Comp Metabolic Iui261 ALBUMIN 3.8 g/dL 06/06/2017 Comp Metabolic Aoy890 TPRO 6.2 g/dL 06/06/2017 Comp Metabolic Hkt557 GLOB 2.4 g/dL 06/06/2017 Comp Metabolic Axb299 A/G Ratio 1.5 Ratio 06/06/2017 Comp Metabolic Vqo407 Osmo 270 mOsmo 06/06/2017 Valproic Acid Omi887 VALPROIC 65.0 ug/ml 06/06/2017 Cbc With Differential Ord2 WBC 8.44 K/ul 05/21/2017 Cbc With Differential Ord2 RBC 4.43 M/ul 05/21/2017 Cbc With Differential Ord2 HGB 13.5 g/dl 05/21/2017 Cbc With Differential Ord2 HCT 42.4 % 05/21/2017 Cbc With Differential Ord2 Neut% 61.7 % 05/21/2017 Cbc With Differential Ord2 MCV 95.7 fl 05/21/2017 Cbc With Differential Ord2 Lymph% 25.0 % 05/21/2017 Cbc With Differential Ord2 MCH 30.5 pg 05/21/2017 Cbc With Differential Ord2 Adair% 12.3 % 05/21/2017 Cbc With Differential Ord2 MCHC 31.8 pg 05/21/2017 Cbc With Differential Ord2 Eos% 0.9 % 05/21/2017 Cbc With Differential Ord2 PLT 259 K/ul 05/21/2017 Cbc With Differential Ord2 Baso% 0.1 % 05/21/2017 Cbc With Differential Ord2 RDW 14.1 % 05/21/2017 Cbc With Differential Ord2 Neut ABS# 5.20 K/ul 05/21/2017 Cbc With Differential Ord2 Lymph ABS# 2.11 K/ul 05/21/2017 Cbc With Differential Ord2 Adair ABS# 1.0 K/ul 05/21/2017 Cbc With Differential Ord2 Eos ABS# 0.1 K/ul 05/21/2017 Cbc With Differential Ord2 Baso ABS# 0.0 K/ul 05/21/2017 Comp Metabolic Lym788 NA 140 mEq/L 05/21/2017 Comp Metabolic Dru535 K 3.9 mEq/L 05/21/2017 Comp Metabolic Vsl750 CL 100 mEq/L 05/21/2017 Comp Metabolic Uzg545 CO2 31.0 mEq/L 05/21/2017 Comp Metabolic Lgb583 ANION GAP 13 05/21/2017 Comp Metabolic Ufp475 GLUCOSE 100 mg/dL 05/21/2017 Comp Metabolic Ovu920 Creat 0.8 mg/dL 05/21/2017 Comp Metabolic Mtc041 eGFR 74 ml/min/1.73m2 05/21/2017 Comp Metabolic Fgr857 BUN 15 mg/dL 05/21/2017 Comp Metabolic Gck467 B/C Ratio 19.0 Ratio 05/21/2017 Comp Metabolic Ljj694 CALCIUM 8.9 mg/dL 05/21/2017 Comp Metabolic Opx939 ALK PHOS 74 U/L 05/21/2017 Comp Metabolic Iaj589 AST(SGOT) 14 U/L 05/21/2017 Comp Metabolic Lgh540 ALT(SGPT) 12 U/L 05/21/2017 Comp Metabolic Rid647 BILI T 0.3 mg/dL 05/21/2017 Comp Metabolic Nex196 ALBUMIN 3.6 g/dL 05/21/2017 Comp Metabolic Mid383 TPRO 5.8 g/dL 05/21/2017 Comp Metabolic Nex884 GLOB 2.2 g/dL 05/21/2017 Comp Metabolic Oic450 A/G Ratio 1.6 Ratio 05/21/2017 Comp Metabolic Hoj765 Osmo 280 mOsmo 05/21/2017 Valproic Acid Kpe033 VALPROIC 69.0 ug/ml 05/21/2017 Valproic Acid Mgf477 VALPROIC 57.0 ug/ml 02/08/2017 Valproic Acid Ilv254 VALPROIC 28.0 ug/ml 01/11/2017 Urinalysis Ord28 U-Color [...] from collection if refrigerated) 01/11/2017 Comp Metabolic Hat039 NA 133 mEq/L 10/17/2016 Comp Metabolic Ftm512 K 3.5 mEq/L 10/17/2016 Comp Metabolic Vep806 CL 96 mEq/L 10/17/2016 Comp Metabolic Uly358 CO2 28.0 mEq/L 10/17/2016 Comp Metabolic Iou749 ANION GAP 13 10/17/2016 Comp Metabolic Umw940 GLUCOSE 106 mg/dL 10/17/2016 Comp Metabolic Qsk517 Creat 0.8 mg/dL 10/17/2016 Comp Metabolic Juc756 eGFR 70 ml/min/1.73m2 10/17/2016 Comp Metabolic Mpm482 BUN 16 mg/dL 10/17/2016 Comp Metabolic Qvy410 B/C Ratio 19.3 Ratio 10/17/2016 Comp Metabolic Rct532 CALCIUM 9.5 mg/dL 10/17/2016 Comp Metabolic Adg247 ALK PHOS 74 U/L 10/17/2016 Comp Metabolic Bsj433 AST(SGOT) 19 U/L 10/17/2016 Comp Metabolic Kiw582 ALT(SGPT) 14 U/L 10/17/2016 Comp Metabolic Ddw769 BILI T 0.5 mg/dL 10/17/2016 Comp Metabolic Fiv694 ALBUMIN 4.2 g/dL 10/17/2016 Comp Metabolic Efw474 TPRO 6.5 g/dL 10/17/2016 Comp Metabolic Wfb433 GLOB 2.3 g/dL 10/17/2016 Comp Metabolic Ipl210 A/G Ratio 1.8 Ratio 10/17/2016 Comp Metabolic Rrq188 Osmo 268 mOsmo 10/17/2016 Cbc With Differential [...] 90.0 fl 10/17/2016 Cbc With Differential Ord2 Adair% 8.8 % 10/17/2016 Cbc With Differential Ord2 [...] 1.91 K/ul 10/17/2016 Cbc With Differential Ord2 Adair ABS# 0.7 K/ul 10/17/2016 Cbc With Differential [...] Urinalysis Ord28 U-Yeast NEGATIVE 10/13/2016 Valproic Acid Czi058 VALPROIC 23.0 ug/ml 08/18/2016 Comp Metabolic Ydq548 NA 133 mEq/L 08/18/2016 Comp Metabolic Kdr442 K 3.4 mEq/L 08/18/2016 Comp Metabolic Sfr336 CL 94 mEq/L 08/18/2016 Comp Metabolic Qpz409 CO2 31.0 mEq/L 08/18/2016 Comp Metabolic Bcl580 ANION GAP 11 08/18/2016 Comp Metabolic Lvs691 GLUCOSE 101 mg/dL 08/18/2016 Comp Metabolic Aut627 Creat 0.8 mg/dL 08/18/2016 Comp Metabolic Zxr326 eGFR 72 ml/min/1.73m2 08/18/2016 Comp Metabolic Dzr440 BUN 13 mg/dL 08/18/2016 Comp Metabolic Unl296 B/C Ratio 16.0 Ratio 08/18/2016 Comp Metabolic Fsg660 CALCIUM 9.4 mg/dL 08/18/2016 Comp Metabolic Gkh409 ALK PHOS 66 U/L 08/18/2016 Comp Metabolic Vet662 AST(SGOT) 20 U/L 08/18/2016 Comp Metabolic Vwk549 ALT(SGPT) 14 U/L 08/18/2016 Comp Metabolic Ljn858 BILI T 0.6 mg/dL 08/18/2016 Comp Metabolic Mqk728 ALBUMIN 4.1 g/dL 08/18/2016 Comp Metabolic Wsi174 TPRO 6.5 g/dL 08/18/2016 Comp Metabolic Vgt511 GLOB 2.4 g/dL 08/18/2016 Comp Metabolic Ihk164 A/G Ratio 1.7 Ratio 08/18/2016 Comp Metabolic Qyy982 Osmo 267 mOsmo 08/18/2016 Metabolic Ord15 NA [...] Ord15 CALCIUM 9.6 mg/dL 06/22/2016 Comp Metabolic Sbw988 NA 133 mEq/L 05/16/2016 Comp Metabolic Jwd735 K 3.4 mEq/L 05/16/2016 Comp Metabolic Mvb997 CL 93 mEq/L 05/16/2016 Comp Metabolic Dku222 CO2 29.0 mEq/L 05/16/2016 Comp Metabolic Lvu584 ANION GAP 14 05/16/2016 Comp Metabolic Axg454 GLUCOSE 95 mg/dL 05/16/2016 Comp Metabolic Nze896 Creat 0.7 mg/dL 05/16/2016 Comp Metabolic Vbd703 eGFR 83 ml/min/1.73m2 05/16/2016 Comp Metabolic Zus366 BUN 13 mg/dL 05/16/2016 Comp Metabolic Hbc786 B/C Ratio 18.1 Ratio 05/16/2016 Comp Metabolic Fhi296 CALCIUM 9.7 mg/dL 05/16/2016 Comp Metabolic Gip146 ALK PHOS 59 U/L 05/16/2016 Comp Metabolic Bfb257 AST(SGOT) 20 U/L 05/16/2016 Comp Metabolic Eky139 ALT(SGPT) 15 U/L 05/16/2016 Comp Metabolic Frj341 BILI T 0.5 mg/dL 05/16/2016 Comp Metabolic Gni720 ALBUMIN 4.3 g/dL 05/16/2016 Comp Metabolic Qru679 TPRO 6.8 g/dL 05/16/2016 Comp Metabolic Tos909 GLOB 2.5 g/dL 05/16/2016 Comp Metabolic Cnw431 A/G Ratio 1.8 Ratio 05/16/2016 Comp Metabolic Kzf776 Osmo 266 mOsmo 05/16/2016 Valproic Acid Sqs364 VALPROIC 34.0 ug/ml 05/16/2016 Valproic Acid Xts255 VALPROIC 31.0 ug/ml 02/14/2016 Comp Metabolic Gls335 NA 131 mEq/L 02/14/2016 Comp Metabolic Bkl750 K 3.7 mEq/L 02/14/2016 Comp Metabolic Iqf397 CL 95 mEq/L 02/14/2016 Comp Metabolic Fst823 CO2 25.0 mEq/L 02/14/2016 Comp Metabolic Okr922 ANION GAP 15 02/14/2016 Comp Metabolic Uno891 GLUCOSE 97 mg/dL 02/14/2016 Comp Metabolic Sko210 Creat 0.8 mg/dL 02/14/2016 Comp Metabolic Vgw630 eGFR 76 ml/min/1.73m2 02/14/2016 Comp Metabolic Bvh940 BUN 10 mg/dL 02/14/2016 Comp Metabolic Wgp627 B/C Ratio 12.8 Ratio 02/14/2016 Comp Metabolic Woi877 CALCIUM 9.2 mg/dL 02/14/2016 Comp Metabolic Kyf544 ALK PHOS 54 U/L 02/14/2016 Comp Metabolic Fqz874 AST(SGOT) 20 U/L 02/14/2016 Comp Metabolic Rzx816 ALT(SGPT) 14 U/L 02/14/2016 Comp Metabolic Vub094 BILI T 0.6 mg/dL 02/14/2016 Comp Metabolic Apg905 ALBUMIN 4.0 g/dL 02/14/2016 Comp Metabolic Iqo816 TPRO 6.3 g/dL 02/14/2016 Comp Metabolic Vex239 GLOB 2.3 g/dL 02/14/2016 Comp Metabolic Wof144 A/G Ratio 1.8 Ratio 02/14/2016 Comp Metabolic Mni098 Osmo 262 mOsmo 02/14/2016 Valproic Acid Ixr283 VALPROIC 28.0 ug/ml 11/09/2015 Comp Metabolic Bia420 NA 134 mEq/L 11/09/2015 Comp Metabolic Sbs209 K 3.6 mEq/L 11/09/2015 Comp Metabolic Mdv595 CL 94 mEq/L 11/09/2015 Comp Metabolic Xzk070 CO2 28.0 mEq/L 11/09/2015 Comp Metabolic Umj802 ANION GAP 16 11/09/2015 Comp Metabolic Iuu363 GLUCOSE 101 mg/dL 11/09/2015 Comp Metabolic Vvz894 Creat 0.9 mg/dL 11/09/2015 Comp Metabolic Das451 eGFR 64 ml/min/1.73m2 11/09/2015 Comp Metabolic Gpc854 BUN 14 mg/dL 11/09/2015 Comp Metabolic Jys354 B/C Ratio 15.6 Ratio 11/09/2015 Comp Metabolic Hpy855 CALCIUM 9.6 mg/dL 11/09/2015 Comp Metabolic Fku738 ALK PHOS 66 U/L 11/09/2015 Comp Metabolic Aps119 AST(SGOT) 20 U/L 11/09/2015 Comp Metabolic Zzd142 ALT(SGPT) 15 U/L 11/09/2015 Comp Metabolic Liv720 BILI T 0.7 mg/dL 11/09/2015 Comp Metabolic Uiy824 ALBUMIN 4.3 g/dL 11/09/2015 Comp Metabolic Peg931 TPRO 6.8 g/dL 11/09/2015 Comp Metabolic Xgf347 GLOB 2.5 g/dL 11/09/2015 Comp Metabolic Onv426 A/G Ratio 1.7 Ratio 11/09/2015 Comp Metabolic Zuj905 Osmo 269 mOsmo 11/09/2015 Valproic Acid Hzc512 VALPROIC 26.0 ug/ml 08/11/2015 Comp Metabolic Rhg953 NA 134 mEq/L 08/11/2015 Comp Metabolic Irm943 K 4.0 mEq/L 08/11/2015 Comp Metabolic Zpt873 CL 97 mEq/L 08/11/2015 Comp Metabolic Hsl130 CO2 28.0 mEq/L 08/11/2015 Comp Metabolic Zhg856 ANION GAP 13 08/11/2015 Comp Metabolic Gws795 GLUCOSE 89 mg/dL 08/11/2015 Comp Metabolic Fof567 Creat 0.8 mg/dL 08/11/2015 Comp Metabolic Ieh934 eGFR 73 ml/min/1.73m2 08/11/2015 Comp Metabolic Csq599 BUN 13 mg/dL 08/11/2015 Comp Metabolic Kud304 B/C Ratio 16.0 Ratio 08/11/2015 Comp Metabolic Iea677 CALCIUM 9.4 mg/dL 08/11/2015 Comp Metabolic Qnj363 ALK PHOS 53 U/L 08/11/2015 Comp Metabolic Hdq266 AST(SGOT) 18 U/L 08/11/2015 Comp Metabolic Xkv224 ALT(SGPT) 12 U/L 08/11/2015 Comp Metabolic Ysc326 BILI T 0.5 mg/dL 08/11/2015 Comp Metabolic Cyn461 ALBUMIN 3.8 g/dL 08/11/2015 Comp Metabolic Pcu711 TPRO 5.8 g/dL 08/11/2015 Comp Metabolic Jru804 GLOB 2.0 g/dL 08/11/2015 Comp Metabolic Xln822 A/G Ratio 1.9 Ratio 08/11/2015 Comp Metabolic Yli742 Osmo 268 mOsmo 08/11/2015 Valproic Acid Xtr101 VALPROIC 32.0 ug/ml 05/11/2015 Comp Metabolic Gsf487 NA 143 mEq/L 05/11/2015 Comp Metabolic Dut601 K 3.9 mEq/L 05/11/2015 Comp Metabolic Uzn424 CL 107 mEq/L 05/11/2015 Comp Metabolic Rgq679 CO2 27.0 mEq/L 05/11/2015 Comp Metabolic Ahr940 ANION GAP 13 05/11/2015 Comp Metabolic Ntv920 GLUCOSE 93 mg/dL 05/11/2015 Comp Metabolic Gev598 Creat 0.8 mg/dL 05/11/2015 Comp Metabolic Drl830 eGFR 72 ml/min/1.73m2 05/11/2015 Comp Metabolic Lzx560 BUN 14 mg/dL 05/11/2015 Comp Metabolic Gov594 B/C Ratio 17.1 Ratio 05/11/2015 Comp Metabolic Plx452 CALCIUM 9.5 mg/dL 05/11/2015 Comp Metabolic Dfs295 ALK PHOS 51 U/L 05/11/2015 Comp Metabolic Kmp337 AST(SGOT) 19 U/L 05/11/2015 Comp Metabolic Rfp752 ALT(SGPT) 13 U/L 05/11/2015 Comp Metabolic Ovt427 BILI T 0.6 mg/dL 05/11/2015 Comp Metabolic Evn533 ALBUMIN 3.7 g/dL 05/11/2015 Comp Metabolic Eny420 TPRO 5.8 g/dL 05/11/2015 Comp Metabolic Ley410 GLOB 2.1 g/dL 05/11/2015 Comp Metabolic Plc512 A/G Ratio 1.8 Ratio 05/11/2015 Comp Metabolic Yos693 Osmo 285 mOsmo 05/11/2015 Review of Systems System Result Effective Dates Eyes No eye discharge 10/09/2018 Eyes No eye erythema 10/09/2018 Cardiovascular No chest pain/pressure 10/09/2018 Gastrointestinal No abdominal pain 10/09/2018 Gastrointestinal No constipation 10/09/2018 Gastrointestinal No diarrhea 10/09/2018 Genitourinary/Nephrology No dysuria 10/09/2018 Musculoskeletal No joint complaint 10/09/2018 Dermatologic No rash 10/09/2018 Neurologic memory loss 10/09/2018 Psychiatric anxiety 10/09/2018 Psychiatric disturbances of memory 10/09/2018 Constitutional No recent illness 10/09/2018 Constitutional No chills 10/09/2018 Constitutional No diaphoresis 10/09/2018 Constitutional No fever 10/09/2018 Ears/Nose/Throat/Neck No nasal discharge 10/09/2018 Ears/Nose/Throat/Neck No nasal allergies 10/09/2018 Respiratory cough 10/09/2018 Respiratory No dyspnea 10/09/2018 Constitutional No recent illness 07/02/2017 Constitutional No anorexia 07/02/2017 Constitutional No night sweats 07/02/2017 Constitutional No chills 07/02/2017 Constitutional No fatigue 07/02/2017 Constitutional No insomnia 07/02/2017 Constitutional No malaise 07/02/2017 Constitutional No weight loss 07/02/2017 Constitutional weight gain 07/02/2017 Eyes No eye discharge 07/02/2017 Eyes No eye erythema 07/02/2017 Ears/Nose/Throat/Neck No dizziness 07/02/2017 Ears/Nose/Throat/Neck No headache 07/02/2017 Cardiovascular No chest pain/pressure 07/02/2017 Respiratory cough 07/02/2017 Respiratory dyspnea on exertion 07/02/2017 Gastrointestinal No abdominal pain 07/02/2017 Gastrointestinal No constipation 07/02/2017 Gastrointestinal No diarrhea 07/02/2017 Genitourinary/Nephrology No dysuria 07/02/2017 Musculoskeletal No joint complaint 07/02/2017 Dermatologic No rash 07/02/2017 Neurologic memory loss 07/02/2017 Psychiatric anxiety 07/02/2017 Psychiatric disturbances of memory 07/02/2017 Dermatologic No sores 07/02/2017 Constitutional No recent illness 05/21/2017 Constitutional No anorexia 05/21/2017 Constitutional No night sweats 05/21/2017 Constitutional No chills 05/21/2017 Constitutional No diaphoresis 05/21/2017 Constitutional No fatigue 05/21/2017 Constitutional No fever 05/21/2017 Constitutional No insomnia 05/21/2017 Constitutional No malaise 05/21/2017 Constitutional No weight loss 05/21/2017 Constitutional weight gain 05/21/2017 Eyes No eye discharge 05/21/2017 Eyes No eye erythema 05/21/2017 Ears/Nose/Throat/Neck No dizziness 05/21/2017 Ears/Nose/Throat/Neck No headache 05/21/2017 Cardiovascular No chest pain/pressure 05/21/2017 Respiratory cough 05/21/2017 Respiratory dyspnea on exertion 05/21/2017 Gastrointestinal No abdominal pain 05/21/2017 Gastrointestinal No constipation 05/21/2017 Gastrointestinal No diarrhea 05/21/2017 Genitourinary/Nephrology No dysuria 05/21/2017 Musculoskeletal No joint complaint 05/21/2017 Dermatologic No rash 05/21/2017 Neurologic memory loss 05/21/2017 Psychiatric anxiety 05/21/2017 Psychiatric disturbances of memory 05/21/2017 Constitutional No recent illness 04/12/2017 Constitutional No anorexia 04/12/2017 Constitutional No night sweats 04/12/2017 Constitutional No chills 04/12/2017 Constitutional No diaphoresis 04/12/2017 Constitutional No fatigue 04/12/2017 Constitutional No fever 04/12/2017 Constitutional No insomnia 04/12/2017 Constitutional No malaise 04/12/2017 Constitutional No weight loss 04/12/2017 Constitutional weight gain 04/12/2017 Eyes No eye discharge 04/12/2017 Eyes No eye erythema 04/12/2017 Ears/Nose/Throat/Neck No dizziness 04/12/2017 Ears/Nose/Throat/Neck No headache 04/12/2017 Cardiovascular No chest pain/pressure 04/12/2017 Respiratory cough 04/12/2017 Respiratory dyspnea on exertion 04/12/2017 Gastrointestinal No abdominal pain 04/12/2017 Gastrointestinal No constipation 04/12/2017 Gastrointestinal No diarrhea 04/12/2017 Genitourinary/Nephrology No dysuria 04/12/2017 Musculoskeletal No joint complaint 04/12/2017 Dermatologic No rash 04/12/2017 Neurologic memory loss 04/12/2017 Constitutional No recent illness 01/11/2017 Constitutional No [...] 1994 Constitutional general appearance Development: well developed 10/09/2018 None Full Exam - General 1994 Constitutional general appearance Hygiene/Attention to Grooming: good hygiene 10/09/2018 None Full Exam - General 1994 Eyes conjunctiva/eyelids Overall: conjunctiva clear 10/09/2018 None Full Exam - General 1994 Eyes conjunctiva/eyelids Overall: cornea clear 10/09/2018 None Full Exam - General 1994 Eyes conjunctiva/eyelids Overall: eyelids normal 10/09/2018 None Full Exam - General 1994 Eyes pupils and irises Overall: pupils equal, round, reactive to light and accomodation 10/09/2018 None Full Exam - General 1994 Ears/Nose/Throat otoscopic exam Overall: external auditory canals clear 10/09/2018 None Full Exam - General 1994 Ears/Nose/Throat otoscopic exam Overall: tympanic membranes clear 10/09/2018 None Full Exam - General 1994 Ears/Nose/Throat lips/teeth/gingiva Overall: benign lips 10/09/2018 None Full Exam - General 1994 Ears/Nose/Throat oral cavity/pharynx/larynx Overall: oral mucosa clear 10/09/2018 None Full Exam - General 1994 Ears/Nose/Throat oral cavity/pharynx/larynx Overall: oropharyngeal mucosa clear 10/09/2018 None Full Exam - General 1994 Respiratory auscultation Diffuse: diminished 10/09/2018 None Full Exam - General 1994 Respiratory respiratory effort/rhythm Overall: no retractions 10/09/2018 None Full Exam - General 1994 Respiratory respiratory effort/rhythm Overall: normal rate 10/09/2018 None Full Exam - General 1994 Cardiovascular extremities Overall: no clubbing 10/09/2018 None Full Exam - General 1994 Cardiovascular auscultation of heart Overall: regular rate 10/09/2018 None Full Exam - General 1994 Cardiovascular auscultation of heart Overall: normal heart sounds 10/09/2018 None Full Exam - General 1994 Abdomen abdominal exam Overall: no tenderness 10/09/2018 None Full Exam - General 1994 Abdomen abdominal exam Overall: normal bowel sounds 10/09/2018 None Full Exam - General 1994 Neurologic cranial nerves Overall: crainial nerves 2 - 12 grossly intact 10/09/2018 None Full Exam - General 1994 Psychiatric orientation/consciousness Oriented to person: yes 10/09/2018 self only Full Exam - General 1994 Psychiatric orientation/consciousness Oriented to place: no 10/09/2018 None Full Exam - General 1994 Psychiatric orientation/consciousness Oriented to time: no 10/09/2018 None Full Exam - General 1994 Psychiatric orientation/consciousness Level of consciousness: alert 10/09/2018 None Full Exam - General 1994 Psychiatric behavior/psychomotor activity Behavior: agitation/restlessness 10/09/2018 None Full Exam - General 1994 Psychiatric mood and affect Overall: normal mood and affect 10/09/2018 None Full Exam - General 1994 Psychiatric appearance Overall: well-groomed, good eye contact 10/09/2018 None Full Exam - General 1994 Psychiatric cognition/memory Remote memory: poor recollection of past events 10/09/2018 None Full Exam - General 1994 Psychiatric cognition/memory Recent past memory: unable to recall recent news events 10/09/2018 None Full Exam - General 1994 Psychiatric cognition/memory Recent memory* unable to recall last meals 10/09/2018 None Full Exam - General 1994 Psychiatric cognition/memory Immediate memory: unable to repeat 6 digits 10/09/2018 None Full Exam - General 1994 Psychiatric cognition/memory Concentration: unable to accurately complete serial 7's 10/09/2018 None Full Exam - General 1994 Musculoskeletal head and neck Overall: head atraumatic 10/09/2018 None Full Exam - General 1994 Constitutional general appearance Development: well developed 07/02/2017 None Full Exam - General 1994 Constitutional general appearance Hygiene/Attention to Grooming: good hygiene 07/02/2017 None Full Exam - General 1994 Eyes conjunctiva/eyelids Overall: conjunctiva clear 07/02/2017 None Full Exam - General 1994 Eyes conjunctiva/eyelids Overall: cornea clear 07/02/2017 None Full Exam - General 1994 Eyes conjunctiva/eyelids Overall: eyelids normal 07/02/2017 None Full Exam - General 1994 Eyes pupils and irises Overall: pupils equal, round, reactive to light and accomodation 07/02/2017 None Full Exam - General 1994 Ears/Nose/Throat otoscopic exam Overall: external auditory canals clear 07/02/2017 None Full Exam - General 1994 Ears/Nose/Throat otoscopic exam Overall: tympanic membranes clear 07/02/2017 None Full Exam - General 1994 Ears/Nose/Throat lips/teeth/gingiva Overall: benign lips 07/02/2017 None Full Exam - General 1994 Ears/Nose/Throat lips/teeth/gingiva Overall: normal dentition 07/02/2017 None Full Exam - General 1994 Ears/Nose/Throat oral cavity/pharynx/larynx Overall: oral mucosa clear 07/02/2017 None Full Exam - General 1994 Ears/Nose/Throat oral cavity/pharynx/larynx Overall: oropharyngeal mucosa clear 07/02/2017 None Full Exam - General 1994 Ears/Nose/Throat oral cavity/pharynx/larynx Overall: hypopharynx benign 07/02/2017 None Full Exam - General 1994 Ears/Nose/Throat oral cavity/pharynx/larynx Overall: no masses 07/02/2017 None Full Exam - General 1994 Respiratory auscultation Diffuse: diminished 07/02/2017 None Full Exam - General 1994 Respiratory respiratory effort/rhythm Overall: no retractions 07/02/2017 None Full Exam - General 1994 Respiratory respiratory effort/rhythm Overall: normal rate 07/02/2017 None Full Exam - General 1994 Cardiovascular extremities Overall: no clubbing 07/02/2017 None Full Exam - General 1994 Cardiovascular auscultation of heart Overall: regular rate 07/02/2017 None Full Exam - General 1994 Cardiovascular auscultation of heart Overall: normal heart sounds 07/02/2017 None Full Exam - General 1994 Abdomen abdominal exam Overall: no tenderness 07/02/2017 None Full Exam - General 1994 Abdomen abdominal exam Overall: normal bowel sounds 07/02/2017 None Full Exam - General 1994 Integument inspection of skin Overall: few scattered moles, no gross abnormalities 07/02/2017 None Full Exam - General 1994 Neurologic deep tendon reflexes Overall: deep tendon reflexes intact 07/02/2017 None Full Exam - General 1994 Neurologic cranial nerves Overall: crainial nerves 2 - 12 grossly intact 07/02/2017 None Full Exam - General 1994 Psychiatric orientation/consciousness Oriented to person: yes 07/02/2017 self only Full Exam - General 1994 Psychiatric orientation/consciousness Oriented to place: no 07/02/2017 None Full Exam - General 1994 Psychiatric orientation/consciousness Oriented to time: no 07/02/2017 None Full Exam - General 1994 Psychiatric orientation/consciousness Level of consciousness: alert 07/02/2017 None Full Exam - General 1994 Psychiatric behavior/psychomotor activity Behavior: agitation/restlessness 07/02/2017 None Full Exam - General 1994 Psychiatric mood and affect Overall: normal mood and affect 07/02/2017 None Full Exam - General 1994 Psychiatric appearance Overall: well-groomed, good eye contact 07/02/2017 None Full Exam - General 1994 Psychiatric cognition/memory Remote memory: poor recollection of past events 07/02/2017 None Full Exam - General 1994 Psychiatric cognition/memory Recent past memory: unable to recall recent news events 07/02/2017 None Full Exam - General 1994 Psychiatric cognition/memory Recent memory* unable to recall last meals 07/02/2017 None Full Exam - General 1994 Psychiatric cognition/memory Immediate memory: unable to repeat 6 digits 07/02/2017 None Full Exam - General 1994 Psychiatric cognition/memory Concentration: unable to accurately complete serial 7's 07/02/2017 None Full Exam - General 1994 Lymphatic neck nodes Overall: anterior cervical chain benign 07/02/2017 None Full Exam - General 1994 Lymphatic neck nodes Overall: posterior cervical chain benign 07/02/2017 None Full Exam - General 1994 Constitutional general appearance Development: well developed 05/21/2017 None Full Exam - General 1994 Constitutional general appearance Hygiene/Attention to Grooming: good hygiene 05/21/2017 None Full Exam - General 1994 Eyes conjunctiva/eyelids Overall: conjunctiva clear 05/21/2017 None Full Exam - General 1994 Eyes conjunctiva/eyelids Overall: cornea clear 05/21/2017 None Full Exam - General 1994 Eyes conjunctiva/eyelids Overall: eyelids normal 05/21/2017 None Full Exam - General 1994 Eyes pupils and irises Overall: pupils equal, round, reactive to light and accomodation 05/21/2017 None Full Exam - General 1994 Ears/Nose/Throat otoscopic exam Overall: external auditory canals clear 05/21/2017 None Full Exam - General 1994 Ears/Nose/Throat otoscopic exam Overall: tympanic membranes clear 05/21/2017 None Full Exam - General 1994 Ears/Nose/Throat lips/teeth/gingiva Overall: benign lips 05/21/2017 None Full Exam - General 1994 Ears/Nose/Throat lips/teeth/gingiva Overall: normal dentition 05/21/2017 None Full Exam - General 1994 Ears/Nose/Throat oral cavity/pharynx/larynx Overall: oral mucosa clear 05/21/2017 None Full Exam - General 1994 Ears/Nose/Throat oral cavity/pharynx/larynx Overall: oropharyngeal mucosa clear 05/21/2017 None Full Exam - General 1994 Ears/Nose/Throat oral cavity/pharynx/larynx Overall: hypopharynx benign 05/21/2017 None Full Exam - General 1994 Ears/Nose/Throat oral cavity/pharynx/larynx Overall: no masses 05/21/2017 None Full Exam - General 1994 Respiratory auscultation Diffuse: diminished 05/21/2017 None Full Exam - General 1994 Respiratory respiratory effort/rhythm Overall: no retractions 05/21/2017 None Full Exam - General 1994 Respiratory respiratory effort/rhythm Overall: normal rate 05/21/2017 None Full Exam - General 1994 Cardiovascular extremities Overall: no clubbing 05/21/2017 None Full Exam - General 1994 Cardiovascular auscultation of heart Overall: regular rate 05/21/2017 None Full Exam - General 1994 Cardiovascular auscultation of heart Overall: normal heart sounds 05/21/2017 None Full Exam - General 1994 Abdomen abdominal exam Overall: no tenderness 05/21/2017 None Full Exam - General 1994 Abdomen abdominal exam Overall: normal bowel sounds 05/21/2017 None Full Exam - General 1994 Integument inspection of skin Overall: few scattered moles, no gross abnormalities 05/21/2017 None Full Exam - General 1994 Neurologic deep tendon reflexes Overall: deep tendon reflexes intact 05/21/2017 None Full Exam - General 1994 Neurologic cranial nerves Overall: crainial nerves 2 - 12 grossly intact 05/21/2017 None Full Exam - General 1994 Psychiatric orientation/consciousness Oriented to place: no 05/21/2017 None Full Exam - General 1994 Psychiatric orientation/consciousness Oriented to time: no 05/21/2017 None Full Exam - General 1994 Psychiatric orientation/consciousness Level of consciousness: alert 05/21/2017 None Full Exam - General 1994 Psychiatric mood and affect Overall: normal mood and affect 05/21/2017 None Full Exam - General 1994 Psychiatric orientation/consciousness Oriented to person: yes 05/21/2017 self only Full Exam - General 1994 Psychiatric behavior/psychomotor activity Behavior: agitation/restlessness 05/21/2017 None Full Exam - General 1994 Psychiatric appearance Overall: well-groomed, good eye contact 05/21/2017 None Full Exam - General 1994 Psychiatric cognition/memory Remote memory: poor recollection of past events 05/21/2017 None Full Exam - General 1994 Psychiatric cognition/memory Recent past memory: unable to recall recent news events 05/21/2017 None Full Exam - General 1994 Psychiatric cognition/memory Recent memory* unable to recall last meals 05/21/2017 None Full Exam - General 1994 Psychiatric cognition/memory Immediate memory: unable to repeat 6 digits 05/21/2017 None Full Exam - General 1994 Psychiatric cognition/memory Concentration: unable to accurately complete serial 7's 05/21/2017 None Full Exam - General 1994 Constitutional general appearance Development: well developed 04/12/2017 None Full Exam - General 1994 Constitutional general appearance Hygiene/Attention to Grooming: good hygiene 04/12/2017 None Full Exam - General 1994 Eyes conjunctiva/eyelids Overall: conjunctiva clear 04/12/2017 None Full Exam - General 1994 Eyes conjunctiva/eyelids Overall: cornea clear 04/12/2017 None Full Exam - General 1994 Eyes conjunctiva/eyelids Overall: eyelids normal 04/12/2017 None Full Exam - General 1994 Eyes pupils and irises Overall: pupils equal, round, reactive to light and accomodation 04/12/2017 None Full Exam - General 1994 Ears/Nose/Throat otoscopic exam Overall: external auditory canals clear 04/12/2017 None Full Exam - General 1994 Ears/Nose/Throat otoscopic exam Overall: tympanic membranes clear 04/12/2017 None Full Exam - General 1994 Ears/Nose/Throat lips/teeth/gingiva Overall: benign lips 04/12/2017 None Full Exam - General 1994 Ears/Nose/Throat lips/teeth/gingiva Overall: normal dentition 04/12/2017 None Full Exam - General 1994 Ears/Nose/Throat oral cavity/pharynx/larynx Overall: oral mucosa clear 04/12/2017 None Full Exam - General 1994 Ears/Nose/Throat oral cavity/pharynx/larynx Overall: oropharyngeal mucosa clear 04/12/2017 None Full Exam - General 1994 Ears/Nose/Throat oral cavity/pharynx/larynx Overall: hypopharynx benign 04/12/2017 None Full Exam - General 1994 Ears/Nose/Throat oral cavity/pharynx/larynx Overall: no masses 04/12/2017 None Full Exam - General 1994 Respiratory auscultation Diffuse: diminished 04/12/2017 None Full Exam - General 1994 Respiratory respiratory effort/rhythm Overall: no retractions 04/12/2017 None Full Exam - General 1994 Respiratory respiratory effort/rhythm Overall: normal rate 04/12/2017 None Full Exam - General 1994 Cardiovascular extremities Overall: no clubbing 04/12/2017 None Full Exam - General 1994 Cardiovascular auscultation of heart Overall: regular rate 04/12/2017 None Full Exam - General 1994 Cardiovascular auscultation of heart Overall: normal heart sounds 04/12/2017 None Full Exam - General 1994 Abdomen abdominal exam Overall: no tenderness 04/12/2017 None Full Exam - General 1994 Abdomen abdominal exam Overall: normal bowel sounds 04/12/2017 None Full Exam - General 1994 Integument inspection of skin Overall: few scattered moles, no gross abnormalities 04/12/2017 None Full Exam - General 1994 Neurologic deep tendon reflexes Overall: deep tendon reflexes intact 04/12/2017 None Full Exam - General 1994 Neurologic cranial nerves Overall: crainial nerves 2 - 12 grossly intact 04/12/2017 None Full Exam - General 1994 Psychiatric orientation/consciousness Oriented to person: yes 04/12/2017 None Full Exam - General 1994 Psychiatric orientation/consciousness Oriented to place: no 04/12/2017 None Full Exam - General 1994 Psychiatric orientation/consciousness Oriented to time: no 04/12/2017 None Full Exam - General 1994 Psychiatric orientation/consciousness Level of consciousness: alert 04/12/2017 None Full Exam - General 1994 Psychiatric mood and affect Overall: normal mood and affect 04/12/2017 None Full Exam - General 1994 Constitutional [...] Procedures Procedure Codes Date BIOPSY SKIN LESION CPT- 4: 35214 01/14/2016 Vital Signs Date Vital 10/09/2018 Blood Pressure 1: 132/68 Code: 8480-6 BMI: 23.5 Code: 09804-3 Heart Rate 1: 80 bpm Height: 5'4" SpO2: 95% Weight: 137 lbs 07/02/2017 Blood Pressure 1: 138/82 Code: 8480-6 BMI: 28.1 Code: 06950-3 Heart Rate 1: 71 bpm Height: 5'4" SpO2: 93% Weight: 163 lbs 8 oz 05/21/2017 Blood Pressure 1: 144/88 Code: 8480-6 BMI: 28.6 Code: 76323-5 Heart Rate 1: 84 bpm Height: 5'4" SpO2: 90% Weight: 166 lbs 8 oz 04/12/2017 Blood Pressure 1: 154/82 Code: 8480-6 Heart Rate 1: 72 bpm Height: 5'4" SpO2: 93% 01/11/2017 Blood Pressure 1: 146/84 Code: 8480-6 BMI: 28.3 Code: 67611-6 Heart Rate 1: 82 bpm Height: 5'4" SpO2: 92% Weight: 165 lbs 10/12/2016 Blood Pressure 1: 134/72 Code: 8480-6 BMI: 27.8 Code: 36070-8 Heart Rate 1: 86 bpm Height: 5'4" SpO2: 93% Weight: 162 lbs 07/17/2016 Blood Pressure 1: 128/80 Code: 8480-6 BMI: 27.5 Code: 46374-9 Heart Rate 1: 86 bpm Height: 5'4" SpO2: 91% Weight: 160 lbs 04/24/2016 Blood Pressure 1: 130/82 Code: 8480-6 BMI: 26.4 Code: 43034-1 Heart Rate 1: 97 bpm Height: 5'4" SpO2: 97% Weight: 154 lbs 01/14/2016 Blood Pressure 1: 140/66 Code: 8480-6 BMI: 25.6 Code: 66042-9 Heart Rate 1: 77 bpm Height: 5'4" SpO2: 96% Weight: 149 lbs 12/20/2015 Blood Pressure 1: 136/64 Code: 8480-6 BMI: 24.9 Code: 14272-8 Heart Rate 1: 70 bpm Height: 5'4" SpO2: 74% Weight: 145 lbs 10/06/2015 Blood Pressure 1: 124/62 Code: 8480-6 BMI: 24.7 Code: 48993-0 Heart Rate 1: 72 bpm Height: 5'4" SpO2: 90% Weight: 144 lbs 07/07/2015 Blood Pressure 1: 130/78 Code: 8480-6 BMI: 23.9 Code: 69452-5 Heart Rate 1: 70 bpm Height: 5'4" SpO2: 94% Weight: 139 lbs 04/07/2015 Blood Pressure 1: 120/58 Code: 8480-6 BMI: 22.1 Code: 81336-9 Heart Rate 1: 66 bpm Height: 5'4" SpO2: 97% Weight: 129 lbs 02/03/2015 Blood Pressure 1: 134/68 Code: 8480-6 BMI: 22.3 Code: 10152-4 Heart Rate 1: 71 bpm Height: 5'4" SpO2: 95% Weight: 130 lbs 12/31/2014 Blood Pressure 1: 138/82 Code: 8480-6 BMI: 22.7 Code: 00755-4 Heart Rate 1: 74 bpm Height: 5'4" SpO2: 95% Weight: 132 lbs 12/17/2014 Blood Pressure 1: 142/88 Code: 8480-6 BMI: 22.5 Code: 42563-9 Heart Rate 1: 64 bpm Height: 5'4" Weight: 131 lbs Functional Status No Functional Status data History of Present Illness Symptom Name Status Result Effective Date Notes Quality chronic 10/09/2018 None Onset and Resolution ongoing 10/09/2018 None Onset of Symptom during adulthood 10/09/2018 None Limitation on Activities moderately limits activities 10/09/2018 None Frequency of Episodes unchanged 10/09/2018 None Triggers no known associated factors 10/09/2018 None Alleviating Factors medication 10/09/2018 None Pertinent Findings Denies dizziness 10/09/2018 None Pertinent Findings Denies insomnia 10/09/2018 None Pertinent Findings restlessness 10/09/2018 None hypertension Quality primary hypertension 07/02/2017 None hypertension Onset and Resolution ongoing 07/02/2017 None hypertension Onset of Symptom during adulthood 07/02/2017 None hypertension Blood Pressure Values pt checking blood pressure - see scanned document 07/02/2017 None hypertension Alleviating Factors medication 07/02/2017 None hypertension Pertinent Findings Denies dizziness 07/02/2017 None hypertension Pertinent Findings Denies dyspnea 07/02/2017 None hypertension Pertinent Findings Denies edema 07/02/2017 None hypertension Pertinent Findings anxiety 07/02/2017 None hypertension Pertinent Findings confusion 07/02/2017 None memory loss Onset and Resolution gradual in onset 07/02/2017 None memory loss Onset and Resolution ongoing 07/02/2017 None memory loss Onset of Symptom during adulthood 07/02/2017 None memory loss Limitation on Activities moderately limits activities 07/02/2017 None memory loss Frequency of Episodes daily 07/02/2017 None anxiety Quality chronic 05/21/2017 None anxiety Onset and Resolution ongoing 05/21/2017 None anxiety Onset of Symptom during adulthood 05/21/2017 None anxiety Limitation on Activities moderately limits activities 05/21/2017 None anxiety Frequency of Episodes unchanged 05/21/2017 None anxiety Triggers no known associated factors 05/21/2017 None anxiety Alleviating Factors medication 05/21/2017 None anxiety Pertinent Findings Denies dizziness 05/21/2017 None anxiety Pertinent Findings Denies insomnia 05/21/2017 None anxiety Pertinent Findings restlessness 05/21/2017 None Hospital Follow Up _ Other: behavioral health 04/12/2017 None Hospital Follow Up Location diffusely 04/12/2017 None Hospital Follow Up Pertinent Findings other neurologic symptoms 04/12/2017 None Hospital Follow Up Onset of Symptom _ years ago 04/12/2017 None Hospital Follow Up Onset and Resolution ongoing 04/12/2017 None Hospital Follow Up Severity moderate 04/12/2017 None Hospital Follow Up Significant Medical Conditions dementia with behaviors 04/12/2017 None Hospital Follow Up Alleviating Factors medication 04/12/2017 None Hospital Follow Up Exacerbating Factors activity 04/12/2017 None blood pressure followup Quality chronic 01/11/2017 None [...] data Encounters Encounter Performer Location Codes Date EST. 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 PATIENT, LEVEL IV Diagnosis: Essential (primary) hypertension[ICD10: I10] Diagnosis: Other Alzheimer's disease[ICD10: G30.8] Diagnosis: Major depressive disorder, recurrent, moderate[ICD10: F33.1] Diagnosis: Generalized anxiety disorder[ICD10: F41.1] [facility] CPT-4: 30384 07/02/2017 [id number]) [id number] EST. 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 CPT-4: 33021 05/21/2017 ([id number]) 10246 EST. 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 CPT-4: 59289 04/12/2017 ([id number]) 82147 EST. PATIENT, LEVEL IV Diagnosis: Essential (primary) hypertension[ICD10: I10] Diagnosis: Other Alzheimer's disease[ICD10: G30.8] Diagnosis: Cough[ICD10: R05] Diagnosis: Hypoxemia[ICD10: R09.02] Cherise Bowen MD, [facility] CPT-4: 02266 01/11/2017 ([id number]) 27376 EST. PATIENT, LEVEL III Diagnosis: Essential (primary) hypertension[ICD10: I10] Diagnosis: Other Alzheimer's disease[ICD10: G30.8] Cherise Bowen MD, [facility] CPT-4: 17494 10/12/2016 ([id number]) 48619 EST. PATIENT, LEVEL III Diagnosis: Cough[ICD10: R05] Diagnosis: Essential (primary) hypertension[ICD10: I10] Cherise Bowen MD, [facility] CPT-4: 20969 07/17/2016 ([id number]) 72551 EST. PATIENT, LEVEL III Diagnosis: Essential (primary) hypertension[ICD10: I10] Diagnosis: Other Alzheimer's disease[ICD10: G30.8] Cherise Bowen MD, [facility] CPT-4: 98050 04/24/2016 ([id number]) 61779 EST. PATIENT, LEVEL III Diagnosis: Essential (primary) hypertension[ICD10: I10] Diagnosis: Other Alzheimer's disease[ICD10: G30.8] Cherise Bowen MD, [facility] CPT-4: 81607 12/20/2015 ([id number]) 52505 EST. PATIENT, LEVEL III Diagnosis: Essential (primary) hypertension[ICD10: I10] Diagnosis: Other Alzheimer's disease[ICD10: G30.8] Hermila Bowen MD, [facility] CPT-4: 31138 10/06/2015 ([id number]) 66510 EST. PATIENT, LEVEL IV Diagnosis: Other secondary hypertension[ICD10: I15.8] Diagnosis: Other Alzheimer's disease[ICD10: G30.8] Hermila Bowen MD, [facility] CPT-4: 98894 07/07/2015 ([id number]) 24609 EST. PATIENT, LEVEL IV Diagnosis: ESSENTIAL HYPERTENSION[ICD9: 401.9] Diagnosis: EDEMA[ICD9: 782.3] Diagnosis: DEMENTIA W BEHAVIOR DIST[ICD9: 294.11] Hermila Bowen MD, [facility] CPT-4: 92399 04/07/2015 ([id number]) 00340 EST. PATIENT, LEVEL IV Diagnosis: ESSENTIAL HYPERTENSION[ICD9: 401.9] Diagnosis: DEMENTIA W BEHAVIOR DIST[ICD9: 294.11] Diagnosis: Constipation - functional[ICD9: 564.09] Hermila Bowen MD, [facility] CPT-4: 49951 02/03/2015 ([id number]) 76884 EST. PATIENT, LEVEL IV Diagnosis: ESSENTIAL HYPERTENSION[ICD9: 401.9] Diagnosis: HYPERLIPIDEMIA[ICD9: 272.4] Diagnosis: DEMENTIA W BEHAVIOR DIST[ICD9: 294.11] Diagnosis: Chronic depression[ICD9: 311] Diagnosis: Anxiety, generalized[ICD9: 300.02] Hermila Bowen MD, [facility] CPT- 4: 62652 12/31/2014 ([id number]) OFFICE VISIT, NEW - LEVEL 4 Diagnosis: EDEMA[ICD9: 782.3] Diagnosis: HYPERLIPIDEMIA[ICD9: 272.4] Diagnosis: ESSENTIAL HYPERTENSION[ICD9: 401.9] Diagnosis: DEPRESSIVE DISORDER NEC[ICD9: 311] Hermila Bowen MD, [facility] CPT- 4: 84140 12/17/2014 Plan of Care Planned Activity Notes Codes Status Date Appointment: [phone] ([facility] 10/25/2018 Visit Plan: Dementia - Pt's son, who is the current DPOA did come back to discuss Ondina after her appointment - He states that he will not be taking her back to [place] because he feels that they are not caring for her, He states that he will get her medications to continue and he is working on getting her placed at [facility] in [place], He wanted to know about hospital admission to help assist her with placement at [facility], discussed with son that she does not have a medical reason for hospital admission - Discussed with Dr. Bowen - they are to continue all the current medications and contact the [place] [facility] for a care assessment to see about placement of [facility] in [place] - they are to notify clinic with any acute changes, questions or concerns. Chronic depakote use - will check level 10/09/2018 Appointment: Sun Gar [facility] ([facility] Complex 10/09/2018 Patient Education: Patient Medication Summary Completed 10/09/2018 Care Plan: Valproic Acid (Depakote) S Pending 10/09/2018 Appointment: [facility] ([facility]) Moderate 10/10/2017 Appointment: Hermila Bowen WPtel: [address] [place], [place] [address] (15 min) Moderate 10/01/2017 Visit Plan: Hypertension - well controlled - continue with current medications, continue with no added salt diet. Pt has been encouraged to exercise daily. The pt has been advised to call the office if there are any acute concerns about change in blood pressure readings at home. 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 I have not recommended a change to the regimen at this time, but will continue to closely monitor the medications for effectiveness. Chronic Depression and anxiety - the pt has symptoms of chronic anxiety and depression that have been fairly well controlled since the last office visit. The pt has expected periods of exacerbation with abatement of the symptoms with change in situational exposure. No change in current medications. 07/02/2017 Appointment: [phone] [facility] (15 min) Moderate 07/02/2017 Patient Education: Patient Medication Summary Completed 07/02/2017 Patient Education: Hypertension Completed 07/02/2017 Appointment: [phone] [place] (15 min) Moderate 06/20/2017 Appointment: [phone] [place] (30 min) Complex 06/19/2017 Visit Plan: Hypertension - well controlled - continue with current medications, continue with no added salt diet. Pt has been encouraged to exercise daily. The pt has been advised to call the office if there are any acute concerns about change in blood pressure readings at home. 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 The patient is on medication which does not appear to be controlling behaviors-discussed with Dr Bowen-plan to increase her depakote and celexa and repeat labs in 2 weeks. Will continue to closely monitor the medications for effectiveness. KXVN-pgfakmkuh-pefwtwb's oxygen level 90% on room air at rest, dropped to 87% on room air with exercise and increased to 95% on 2L nasal cannula with exercise. Will send orders for oxygen at 2L. 05/21/2017 Appointment: [phone] [phone] [place] (30 min) Complex 05/21/2017 Patient Education: Patient Medication Summary Completed 05/21/2017 Care Plan: Valproic Acid (Depakote) S Pending 05/21/2017 Appointment: [phone] [phone] [place] (30 min) Complex 05/17/2017 Appointment: [phone] [place] (30 min) Complex 05/15/2017 Visit Plan: Hypertension - well controlled - continue with current medications, continue with no added salt diet. Pt has been encouraged to exercise daily. The pt has been advised to call the office if there are any acute concerns about change in blood pressure readings at home. 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 The patient is on medication which appears to be controlling the worst of the symptoms. I have not recommended a change to the regimen at this time, but will continue to closely monitor the medications for effectiveness. 04/12/2017 Appointment: Cherise Ventura WPtel: [phone] (30 min) Complex 04/12/2017 Patient Education: Patient Medication Summary Completed 04/12/2017 Patient Education: Hypertension Completed 04/12/2017 Visit Plan: Hypertension - well controlled - [...] recheck level in 1 month. Chronic cough-history wuonkxb-XXDJ-kdonkepmx-patient's oxygen saturation dropped to 89% in the office on room air-unable to further obtain ambulatory levels due to patient's sxd-dbuaswfztvr-kugm test overnight oxygen levels. 01/11/2017 Appointment: [phone] (15 min) Moderate 01/11/2017 Patient Education: Patient [...] treatment. 10/12/2016 Appointment: Cherise Ventura WPtel: [phone] [phone] (30 min) Complex 10/12/2016 Patient Education: Patient [...] home. Cough-history of smoking-obtain chest xray today 07/17/2016 Appointment: Cherise Ventura WPtel: [phone] [phone] (15 min) Moderate 07/17/2016 Patient Education: Patient [...] of treatment. 04/24/2016 Appointment: Cherise Ventura WPtel: [facility]5 [phone] (15 min) Moderate 04/24/2016 Patient Education: Patient [...] of treatment. 10/06/2015 Appointment: Hermila Bowen WPtel: [facility] (15 min) Moderate 10/06/2015 Patient Education: Patient [...] of treatment. 07/07/2015 Appointment: Hermila Bowen WPtel: [phone] [phone] (15 min) Moderate 07/07/2015 Patient Education: Patient [...] as needed. 04/07/2015 Appointment: [phone] (15 min) Moderate 04/07/2015 Patient Education: Patient [...] regimen. 02/03/2015 Appointment: [phone] Follow up 02/03/2015 Patient Education: Patient [...] medications - will contact and work with jail for medication adjustment for control of behaviors. 12/31/2014 Appointment: Hermila Bowen WPtel: [phone] [phone] Follow up 12/31/2014 Patient Education: Patient Medication [...] current medications. 12/17/2014 Appointment: [phone] New Patient 12/17/2014 Patient Education: Patient [...] change in blood pressure readings at home. 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 I have not recommended a change to the regimen at this time, but will continue to closely monitor the medications for effectiveness. Chronic Depression and anxiety - the pt [...] changes. Continue with current plan of treatment. D/C EXELON-CONTINUE ARICEPT INCREASE NAMENDA TO 10MG Q AM, 5MG Q PM X 1 WEEK THEN INCREASE TO 10MG BID . Hypertension - well controlled - continue with current medications, continue with no added salt diet. Pt has been encouraged to exercise daily. The pt has been advised to call the office if there are any acute concerns about change in blood pressure readings at home. 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 The patient is on medication which appears to be controlling the worst of the symptoms. I have not recommended a change to the regimen at this time, but will continue to closely monitor the medications for effectiveness. CHECK DEPAKOTE LEVEL OXYGEN AT 2LITERS . Hypertension - well controlled - continue with current medications, continue with no added salt diet. Pt has been encouraged to exercise daily. The pt has been advised to call the office if there are any acute concerns about change in blood pressure readings at home. 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 The patient is on medication which does not appear to be controlling behaviors-discussed with Dr Bowen-plan to increase her depakote and celexa and repeat labs in 2 weeks. Will continue to closely monitor the medications for effectiveness. OFRB-kwfdsbrxt-zbdhsvs's oxygen level 90% on room air at rest, dropped to 87% on room air with exercise and increased to 95% on 2L nasal cannula with exercise. Will send orders for oxygen at 2L. . Hypertension - well controlled - continue [...] symptoms not improved on this regimen. . Dementia - Pt's son, who is the current DPOA did come back to discuss Ondina after her appointment - He states that he will not be taking her back to [facility] because he feels that they are not caring for her, He states that he will get her medications to continue and he is working on getting her placed at [facility] in [place], He wanted to know about hospital admission to help assist her with placement at [facility], discussed with son that she does not have a medical reason for hospital admission - Discussed with Dr. Bowen - they are to continue all the current medications and contact the [place] [facility] for a care assessment to see about placement of [facility] in [place] - they are to notify clinic with any acute changes, questions or concerns. Chronic depakote use - will check level . Hypertension - well controlled - continue [...] recheck level in 1 month. Chronic cough-history aomxfyi-QKWY-xrnwxqgiw-patient's oxygen saturation dropped to 89% in the office on room air-unable to further obtain ambulatory levels due to patient's szn-qiarynhtzin-arhs test overnight oxygen levels. Monitor your blood [...] medications - will contact and work with jail for medication adjustment for control of behaviors. [...]
--- OUTSIDE RECORDS SUMMARY | 2019-02-22 08:34 | XMS REPORT | CCD ---
Author Author [facility]ila Bowen Organization [facility] Address [facility] [place] [address] Phone Care Team Providers Care Laboratory Coordinator Name Role Phone PP Unavailable CCM Unavailable Summary Purpose Interface Exchange Insurance Providers Payer name Policy type / Coverage type Covered libertarian ID Effective Begin Date Effective End Date WPS Medicare Part B Medicare Part B [id number] Unknown Unknown [facility] Medicare Part B [id number] Unknown Unknown Family history Runs in the family Diagnosis Age At Onset Dementia Unknown Social History Social History Element Codes Description Effective Dates Living arrangements Unknown Assisted Living [place] 07/02/2017 Allergies, Adverse Reactions, Alerts Substance Reaction [...] 799.02 ICD-10: R09.02 Active 01/11/2017 Unknown Other fci (current) drug therapy ICD-9: V58.69 ICD-10: Z79.899 [...] ICD-9: 799.02 ICD-10: R09.02 01/11/2017 Active Other fci (current) drug therapy ICD-9: V58.69 ICD-10: Z79.899 [...] Fill Instructions lorazepam 0.5 mg tablet RxNorm: 217297 1 Tablet(s) PO QHS 09/18/2017 11/16/2017 Inactive citalopram 40 mg tablet RxNorm: 291600 1 Tablet(s) PO daily 09/17/2017 09/11/2018 Inactive Aricept 10 mg tablet RxNorm: 373809 1 Tablet(s) PO daily 08/28/2017 08/22/2018 Inactive diltiazem CD 240 mg capsule,extended release 24 hr RxNorm: 987372 Capsule(s) TAKE 1 CAPSULE BY MOUTH DAILY 05/30/2017 12/25/2017 Inactive Generic For:CARDIZEM CD 240 MG CAP SA N O T I C E PRESCRIPTION PREVIOUSLY AUTHORIZED BY DOCTOR:CATHY MAZA Depakote 125 mg tablet,delayed release RxNorm: 5722663 2 Tablet(s) PO TID 05/22/2017 11/17/2017 Inactive citalopram 40 mg tablet RxNorm: 758463 1 Tablet(s) PO daily 05/22/2017 09/16/2017 Inactive Namenda 10 mg tablet RxNorm: 694013 1 Tablet(s) PO BID 05/16/2017 08/13/2017 Inactive trazodone 50 mg tablet RxNorm: 185440 1 Tablet(s) QHS 04/25/2017 08/22/2017 Inactive Generic For:DESYREL 50 MG TABLET N O T I C E PRESCRIPTION PREVIOUSLY AUTHORIZED BY DOCTOR:CATHY MAZA Vitamin D3 1,000 unit tablet RxNorm: 19930209 1 Tablet(s) PO daily 04/25/2017 08/22/2017 Inactive citalopram 20 mg tablet RxNorm: 956403 1 Tablet(s) PO daily 04/25/2017 05/21/2017 Inactive Vitamin D3 1,000 unit tablet RxNorm: 19930209 1 Tablet(s) PO daily 04/25/2017 04/24/2017 Inactive Namenda 10 mg tablet RxNorm: 611914 1 Tablet(s) PO BID 04/12/2017 05/15/2017 Inactive Aricept 10 mg tablet RxNorm: 265805 1 Tablet(s) PO daily 02/12/2017 07/11/2017 Inactive Depakote 250 mg tablet,delayed release RxNorm: 8085543 1 Tablet(s) PO BID 02/08/2017 05/21/2017 Inactive potassium chloride ER 10 mEq tablet,extended release RxNorm: 268602 1 Tablet(s) PO daily 01/24/2017 07/01/2017 Inactive Depakote 250 mg tablet,delayed release RxNorm: 3527200 1 Tablet(s) PO BID 01/11/2017 02/07/2017 Inactive Ativan 0.5 mg tablet RxNorm: 606794 1 Tablet(s) PO daily and as needed for anxiety 01/09/2017 05/07/2017 Inactive simvastatin 40 mg tablet RxNorm: 798163 Tablet(s) TAKE 1 TABLET BY MOUTH DAILY AT BEDTIME 01/09/2017 07/07/2017 Inactive melatonin 3 mg tablet RxNorm: 202706 1 Tablet(s) PO QHS 01/08/2017 01/02/2018 Inactive chlorthalidone 25 mg tablet RxNorm: 564202 1/2 Tablet(s) PO daily 11/29/2016 07/01/2017 Inactive [SAVINGS FOR NON-COVERED DRUGS -- BIN:[id number], PCN: ASPROD1, Group: XXXXX, ID# XXXXXXX, Questions: . THIS IS NOT INSURANCE.] Miralax 17 gram oral powder packet RxNorm: 177641 1 Capsule(s) PO daily as needed 11/23/2016 03/22/2017 Inactive potassium chloride ER 10 mEq tablet,extended release RxNorm: 595179 1 Tablet(s) PO daily 11/23/2016 01/21/2017 Inactive trazodone 50 mg tablet RxNorm: 381395 Tablet(s) TAKE 1 & 1/2 TABLETS (75 MG) BY MOUTH DAILY AT BEDTIME 11/23/2016 03/22/2017 Inactive Generic For:DESYREL 50 MG TABLET N O T I C E PRESCRIPTION PREVIOUSLY AUTHORIZED BY DOCTOR:CATHY MAZA Depakote 125 mg tablet,delayed release RxNorm: 1868522 1 Tablet(s) PO BID 11/08/2016 01/10/2017 Inactive Aricept 10 mg tablet RxNorm: 257486 1 Tablet(s) PO daily 10/13/2016 02/11/2017 Inactive Namzaric 03/23/ mg-10 mg capsule,sprinkle,ER 24hr,dose pack RxNorm: 2872479 1 Capsule(s) PO daily 10/12/2016 10/12/2016 Inactive diltiazem CD 240 mg capsule,extended release 24 hr RxNorm: 647290 Capsule(s) TAKE 1 CAPSULE BY MOUTH DAILY 09/18/2016 04/15/2017 Inactive Generic For:CARDIZEM CD 240 MG CAP SA N O T I C E PRESCRIPTION PREVIOUSLY AUTHORIZED BY DOCTOR:CATHY MAZA Ativan 0.5 mg tablet RxNorm: 941429 1 Tablet(s) PO daily and as needed for anxiety 09/05/2016 01/02/2017 Inactive KCL 10 meq RxNorm: 1 Tablet(s) PO daily 08/21/2016 09/19/2016 Inactive potassium chloride ER 10 mEq tablet,extended release RxNorm: 492296 1 Tablet(s) PO daily 07/17/2016 07/30/2016 Inactive potassium chloride ER 10 mEq tablet,extended release RxNorm: 068456 1 Tablet(s) PO BID x1 week then daily thereafter repeat lab in 3 weeks. 06/23/2016 07/06/2016 Inactive potassium chloride ER 10 mEq tablet,extended release RxNorm: 336453 1 Tablet(s) PO BID x1 week then daily thereafter repeat lab in 3 weeks. 06/23/2016 06/22/2016 Inactive Aricept 10 mg tablet RxNorm: 220986 1/2 Tablet(s) PO daily x 7 days, then Aricept 10mg po daily thereafter 05/22/2016 10/11/2016 Inactive trazodone 50 mg tablet RxNorm: 696587 Tablet(s) TAKE 1 & 1/2 TABLETS (75 MG) BY MOUTH DAILY AT BEDTIME 05/22/2016 09/18/2016 Inactive Generic For:DESYREL 50 MG TABLET N O T I C E PRESCRIPTION PREVIOUSLY AUTHORIZED BY DOCTOR:CATHY MAZA Depakote 125 mg tablet,delayed release RxNorm: 4620275 1 Tablet(s) PO BID 05/17/2016 11/07/2016 Inactive melatonin 3 mg tablet RxNorm: 899142 1 Tablet(s) PO QHS 05/17/2016 11/12/2016 Inactive Ativan 0.5 mg tablet RxNorm: 969212 1 Tablet(s) PO daily and as needed for anxiety 05/08/2016 09/04/2016 Inactive simvastatin 40 mg tablet RxNorm: 307742 Tablet(s) TAKE 1 TABLET BY MOUTH DAILY AT BEDTIME 04/18/2016 10/14/2016 Inactive citalopram 10 mg tablet RxNorm: 194281 TAKE 1 TABLET BY MOUTH DAILY 03/21/2016 04/11/2017 Inactive Generic For:CELEXA 10 MG TABLET LONG-TERM RE-ORDER N O T I C E PRESCRIPTION PREVIOUSLY AUTHORIZED BY DOCTOR:CATHY MAZA trazodone 50 mg tablet RxNorm: 469512 Tablet(s) TAKE 1 & 1/2 TABLETS (75 MG) BY MOUTH DAILY AT BEDTIME 01/24/2016 05/21/2016 Inactive Generic For:DESYREL 50 MG TABLET N O T I C E PRESCRIPTION PREVIOUSLY AUTHORIZED BY DOCTOR:CATHY MAZA [phone] diltiazem CD 240 mg capsule,extended release 24 hr RxNorm: 210155 Capsule(s) TAKE 1 CAPSULE BY MOUTH DAILY 12/20/2015 07/16/2016 Inactive Generic For:CARDIZEM CD 240 MG CAP SA N O T I C E PRESCRIPTION PREVIOUSLY AUTHORIZED BY DOCTOR:CATHY MAZA Depakote 125 mg tablet,delayed release RxNorm: 1269289 1 Tablet(s) PO BID 12/13/2015 04/10/2016 Inactive [SAVINGS FOR NON-COVERED DRUGS -- BIN:[id number], PCN: ASPROD1, Group: XXXXX, ID# XXXXXXX, Questions: . THIS IS NOT INSURANCE.] Ativan 0.5 mg tablet RxNorm: 604949 1 Tablet(s) PO daily and as needed for anxiety 12/13/2015 04/10/2016 Inactive Senokot-S 8.6 mg-50 mg tablet RxNorm: 1627176 1 Tablet(s) PO BID 12/06/2015 11/29/2016 Inactive Senokot-S 8.6 mg-50 mg tablet RxNorm: 6746345 1 Tablet(s) PO BID 12/06/2015 12/05/2015 Inactive chlorthalidone 25 mg tablet RxNorm: 543478 1/2 Tablet(s) PO daily 12/06/2015 04/03/2016 Inactive [SAVINGS FOR NON-COVERED DRUGS -- BIN:292738, PCN: ASPROD1, Group: XXXXX, ID# XXXXXXX, Questions: . THIS IS NOT INSURANCE.] simvastatin 40 mg tablet RxNorm: 437751 Tablet(s) TAKE 1 TABLET BY MOUTH DAILY AT BEDTIME 11/16/2015 02/13/2016 Inactive Generic For:*ZOCOR 40 MG TABLET N O T I C E PRESCRIPTION PREVIOUSLY AUTHORIZED BY DOCTOR:CATHY MAZA Aricept 10 mg tablet RxNorm: 748900 1/2 Tablet(s) PO daily x 7 days, then Aricept 10mg po daily thereafter 09/20/2015 05/21/2016 Inactive melatonin 3 mg tablet RxNorm: 148766 1 Tablet(s) PO QHS 08/06/2015 03/02/2016 Inactive [SAVINGS FOR NON-COVERED DRUGS -- BIN:[id number], PCN: ASPROD1, Group: XXXXX, ID# XXXXXXX, Questions: . THIS IS NOT INSURANCE.] melatonin 3 mg tablet RxNorm: 178270 1 Tablet(s) PO QHS 08/04/2015 08/05/2015 Inactive [SAVINGS FOR NON-COVERED DRUGS -- BIN:414879, PCN: ASPROD1, Group: XXXXX, ID# XXXXXXX, Questions: . THIS IS NOT INSURANCE.] chlorthalidone 25 mg tablet RxNorm: 540783 1/2 Tablet(s) PO QAM 07/20/2015 12/05/2015 Inactive [SAVINGS FOR NON-COVERED DRUGS -- BIN:500622, PCN: ASPROD1, Group: XXXXX, ID# XXXXXXX, Questions: . THIS IS NOT INSURANCE.] Ativan 0.5 mg tablet RxNorm: 175495 1 Tablet(s) PO daily and as needed for anxiety 07/08/2015 11/04/2015 Inactive trazodone 50 mg tablet RxNorm: 395962 TAKE 1 & 1/2 TABLETS (75 MG) BY MOUTH DAILY AT BEDTIME 05/25/2015 09/21/2015 Inactive Generic For:DESYREL 50 MG TABLET N O T I C E PRESCRIPTION PREVIOUSLY AUTHORIZED BY DOCTOR:CATHY MAZA diltiazem CD 240 mg capsule,extended release 24 hr RxNorm: 837546 TAKE 1 CAPSULE BY MOUTH DAILY 05/18/2015 10/14/2015 Inactive Generic For:CARDIZEM CD 240 MG CAP SA N O T I C E PRESCRIPTION PREVIOUSLY AUTHORIZED BY DOCTOR:CATHY MAZA trazodone 50 mg tablet RxNorm: 577904 TAKE 1 & 1/2 TABLETS (75 MG) BY MOUTH DAILY AT BEDTIME 04/27/2015 05/24/2015 Inactive Generic For:DESYREL 50 MG TABLET N O T I C E PRESCRIPTION PREVIOUSLY AUTHORIZED BY DOCTOR:CATHY MAZA simvastatin 40 mg tablet RxNorm: 802013 Tablet(s) TAKE 1 TABLET BY MOUTH DAILY AT BEDTIME 04/20/2015 07/18/2015 Inactive Generic For:*ZOCOR 40 MG TABLET N O T I C E PRESCRIPTION PREVIOUSLY AUTHORIZED BY DOCTOR:CATHY MAZA citalopram 10 mg tablet RxNorm: 709656 TAKE 1 TABLET BY MOUTH DAILY 03/15/2015 03/08/2016 Inactive Generic For:CELEXA 10 MG TABLET LONG-TERM RE-ORDER N O T I C E PRESCRIPTION PREVIOUSLY AUTHORIZED BY DOCTOR:CATHY MAZA trazodone 50 mg tablet RxNorm: 838176 1 1/2=75mg Tablet(s) PO QHS 01/25/2015 04/24/2015 Inactive [SAVINGS FOR NON-COVERED DRUGS -- BIN:[id number], PCN: ASPROD1, Group: XXXXX, ID# XXXXXXX, Questions: . THIS IS NOT INSURANCE.] nicotine 14 mg/24 hr daily transdermal patch RxNorm: 545453 APPLY 1 PATCH DAILY AND REMOVE OLD PATCH 01/25/2015 02/28/2015 Inactive Generic For:NICODERM CQ 14 MG/24HR PATCH N O T I C E PRESCRIPTION PREVIOUSLY AUTHORIZED BY DOCTOR:CATHY MAZA chlorthalidone 25 mg tablet RxNorm: 506014 /2 Tablet(s) PO QAM 12/31/2014 07/19/2015 Inactive [SAVINGS FOR NON-COVERED DRUGS -- BIN:294998, PCN: ASPROD1, Group: XXXXX, ID# XXXXXXX, Questions: . THIS IS NOT INSURANCE.] Aricept 10 mg tablet RxNorm: 166543 1/2 Tablet(s) PO daily x 7 days, then Aricept 10mg po daily thereafter 12/29/2014 09/19/2015 Inactive Depakote 125 mg tablet,delayed release RxNorm: 0797107 1 Tablet(s) PO BID 12/28/2014 04/26/2015 Inactive [SAVINGS FOR NON-COVERED DRUGS -- BIN:926071, PCN: ASPROD1, Group: XXXXX, ID# XXXXXXX, Questions: . THIS IS NOT INSURANCE.] diltiazem CD 240 mg capsule,extended release 24 hr RxNorm: 427834 TAKE 1 CAPSULE BY MOUTH DAILY 12/22/2014 04/20/2015 Inactive Generic For:CARDIZEM CD 240 MG CAP SA N O T I C E PRESCRIPTION PREVIOUSLY AUTHORIZED BY DOCTOR:CATHY MAZA nicotine 14 mg/24 hr daily transdermal patch RxNorm: 936173 APPLY 1 PATCH DAILY AND REMOVE OLD PATCH 12/22/2014 01/18/2015 Inactive Generic For:NICODERM CQ 14 MG/24HR PATCH N O T I C E PRESCRIPTION PREVIOUSLY AUTHORIZED BY DOCTOR:CATHY MAZA simvastatin 40 mg tablet RxNorm: 354498 TAKE 1 TABLET BY MOUTH DAILY AT BEDTIME 12/22/2014 03/21/2015 Inactive Generic For:*ZOCOR 40 MG TABLET N O T I C E PRESCRIPTION PREVIOUSLY AUTHORIZED BY DOCTOR:CATHY MAZA melatonin 3 mg tablet RxNorm: 171510 1 Tablet(s) PO QHS 12/22/2014 07/19/2015 Inactive [SAVINGS FOR NON-COVERED DRUGS -- BIN:[id number], PCN: ASPROD1, Group: XXXXX, ID# XXXXXXX, Questions: . THIS IS NOT INSURANCE.] Ativan 0.5 mg tablet RxNorm: 186349 1 Tablet(s) PO at 1400 and once daily prn 12/17/2014 06/14/2015 Inactive [SAVINGS FOR NON-COVERED DRUGS -- BIN:802300, PCN: ASPROD1, Group: XXXXX, ID# XXXXXXX, Questions: . THIS IS NOT INSURANCE.] Ativan 0.5 mg tablet RxNorm: 176401 1 Tablet(s) PO daily as needed 12/17/2014 06/14/2015 Inactive Pyridium 200 mg tablet RxNorm: 4107902 1 Tablet(s) PO TID as needed No Start Date Active Remeron 15 mg tablet RxNorm: 785875 1 Tablet(s) PO QHS No Start Date Active T.E.D. Anti-Embolism Stocking RxNorm: miscellaneous No Start Date Active Sweet Oil with Dropper RxNorm: Miscellaneous BIW on Sun and Sun No Start Date Active trazodone 75 mg RxNorm: 680414 1 Tablet(s) PO QHS No Start Date 01/24/2015 Inactive Exelon Patch 4.6 mg/24 hr transdermal RxNorm: 740607 1 TD daily No Start Date 12/28/2014 Inactive melatonin 3 mg tablet RxNorm: 159137 1 Tablet(s) PO QHS No Start Date 12/21/2014 Inactive Namenda 5 mg tablet RxNorm: 518037 1 Tablet(s) PO daily No Start Date 04/11/2017 Inactive Miralax 17 gram oral powder packet RxNorm: 338079 1 Capsule(s) PO daily as needed No Start Date 11/22/2016 Inactive Depakote 125 mg tablet,delayed release RxNorm: 1584748 1 Tablet(s) PO BID No Start Date 12/27/2014 Inactive nicotine 14 mg/24 hr daily transdermal patch RxNorm: 639688 1 TD daily No Start Date 12/21/2014 Inactive Ativan 0.5 mg tablet RxNorm: 606841 1 Tablet(s) PO at 1400 No Start Date 12/16/2014 Inactive trazodone 75 mg RxNorm: 1 Tablet(s) PO QHS No Start Date 07/01/2017 Inactive simvastatin 40 mg tablet RxNorm: 495335 1 Tablet(s) PO QHS No Start Date 12/21/2014 Inactive diltiazem CD 240 mg capsule,extended release 24 hr RxNorm: 209208 1 Capsule(s) PO daily No Start Date 12/21/2014 Inactive citalopram 10 mg tablet RxNorm: 135554 1 Tablet(s) PO daily No Start Date 03/14/2015 Inactive citalopram 20 mg tablet RxNorm: 626011 1 Tablet(s) PO daily No Start Date 04/24/2017 Inactive Medication Administered No Medication Administered data Immunizations Vaccine Codes Date Status Influenza CVX: 141 06/26/2017 completed Influenza CVX: 141 06/22/2015 completed Assessments Condition Codes Effective Dates Other fci (current) drug therapy ICD-10: Z79.899 ICD-9: V58.69 [...] Item Item Code Result Date Valproic Acid Poy690 VALPROIC 27.0 ug/ml 10/09/2018 Cbc With Differential [...] 30.9 % 10/09/2018 Cbc With Differential Ord2 MCH 30.8 pg 10/09/2018 Cbc With Differential Ord2 [place]% 9.2 % 10/09/2018 Cbc With Differential Ord2 MCHC 32.6 pg 10/09/2018 Cbc With Differential Ord2 Eos% 2.1 % 10/09/2018 Cbc With Differential Ord2 PLT 291 K/ul 10/09/2018 Cbc With Differential Ord2 Baso% 0.1 % 10/09/2018 Cbc With Differential Ord2 RDW 14.6 % 10/09/2018 Cbc With Differential Ord2 Neut ABS# 4.68 K/ul 10/09/2018 Cbc With Differential Ord2 Lymph ABS# 2.51 K/ul 10/09/2018 Cbc With Differential Ord2 [place] ABS# 0.8 K/ul 10/09/2018 Cbc With Differential Ord2 Eos ABS# 0.2 K/ul 10/09/2018 Cbc With Differential Ord2 Baso ABS# 0.0 K/ul 10/09/2018 Comp Metabolic Rwl737 NA 141 mEq/L 10/09/2018 Comp Metabolic Uzm547 K 3.6 mEq/L 10/09/2018 Comp Metabolic Goe801 CL 102 mEq/L 10/09/2018 Comp Metabolic Qil036 CO2 31.0 mEq/L 10/09/2018 Comp Metabolic Dfx106 ANION GAP 12 10/09/2018 Comp Metabolic Ikm995 GLUCOSE 94 mg/dL 10/09/2018 Comp Metabolic Lff965 Creat 0.9 mg/dL 10/09/2018 Comp Metabolic Vub878 eGFR 61 ml/min/1.73m2 10/09/2018 Comp Metabolic Ohj170 BUN 22 mg/dL 10/09/2018 Comp Metabolic Hpf417 B/C Ratio 23.7 Ratio 10/09/2018 Comp Metabolic Moy081 CALCIUM 9.2 mg/dL 10/09/2018 Comp Metabolic Hkl541 ALK PHOS 63 U/L 10/09/2018 Comp Metabolic Uew557 AST(SGOT) 14 U/L 10/09/2018 Comp Metabolic Sfn864 ALT(SGPT) 8 U/L 10/09/2018 Comp Metabolic Qhp443 BILI T 0.3 mg/dL 10/09/2018 Comp Metabolic Nao416 ALBUMIN 3.7 g/dL 10/09/2018 Comp Metabolic Sqb805 TPRO 6.1 g/dL 10/09/2018 Comp Metabolic Apm198 GLOB 2.4 g/dL 10/09/2018 Comp Metabolic Ilk261 A/G Ratio 1.6 Ratio 10/09/2018 Comp Metabolic Pnl176 Osmo 284 mOsmo 10/09/2018 Tsh Ord6 TSH (3rd IS) 3.15 uIU/mL 10/09/2018 Culture Urine [id number] URINE CULTURE SEE NOTES 08/24/2017 Culture Urine [id number] Continued Results 08/24/2017 Urine Culture Ucult Complete [...] U-Com Culture to follow 08/21/2017 Comp Metabolic Cjc468 NA 135 mEq/L 06/06/2017 Comp Metabolic Gan841 K 3.6 mEq/L 06/06/2017 Comp Metabolic Hql934 CL 97 mEq/L 06/06/2017 Comp Metabolic Fsl047 CO2 29.0 mEq/L 06/06/2017 Comp Metabolic Nen539 ANION GAP 13 06/06/2017 Comp Metabolic Rqj002 GLUCOSE 92 mg/dL 06/06/2017 Comp Metabolic Imu680 Creat 0.7 mg/dL 06/06/2017 Comp Metabolic Duo716 eGFR 90 ml/min/1.73m2 06/06/2017 Comp Metabolic Tkv514 BUN 13 mg/dL 06/06/2017 Comp Metabolic Kaw285 B/C Ratio 19.4 Ratio 06/06/2017 Comp Metabolic Qzd405 CALCIUM 9.1 mg/dL 06/06/2017 Comp Metabolic Vwo934 ALK PHOS 79 U/L 06/06/2017 Comp Metabolic Fcy630 AST(SGOT) 20 U/L 06/06/2017 Comp Metabolic Uac656 ALT(SGPT) 15 U/L 06/06/2017 Comp Metabolic Jlu475 BILI T 0.4 mg/dL 06/06/2017 Comp Metabolic Lze857 ALBUMIN 3.8 g/dL 06/06/2017 Comp Metabolic Esp437 TPRO 6.2 g/dL 06/06/2017 Comp Metabolic Qeo898 GLOB 2.4 g/dL 06/06/2017 Comp Metabolic Ugb274 A/G Ratio 1.5 Ratio 06/06/2017 Comp Metabolic Vwz123 Osmo 270 mOsmo 06/06/2017 Valproic Acid Kjr042 VALPROIC 65.0 ug/ml 06/06/2017 Cbc With Differential [...] 30.5 pg 05/21/2017 Cbc With Differential Ord2 [place]% 12.3 % 05/21/2017 Cbc With Differential Ord2 [...] 2.11 K/ul 05/21/2017 Cbc With Differential Ord2 [place] ABS# 1.0 K/ul 05/21/2017 Cbc With Differential Ord2 Eos ABS# 0.1 K/ul 05/21/2017 Cbc With Differential Ord2 Baso ABS# 0.0 K/ul 05/21/2017 Comp Metabolic Gqz975 NA 140 mEq/L 05/21/2017 Comp Metabolic Trt293 K 3.9 mEq/L 05/21/2017 Comp Metabolic Lkk672 CL 100 mEq/L 05/21/2017 Comp Metabolic Uyv468 CO2 31.0 mEq/L 05/21/2017 Comp Metabolic Bgx359 ANION GAP 13 05/21/2017 Comp Metabolic Upb911 GLUCOSE 100 mg/dL 05/21/2017 Comp Metabolic Ynl448 Creat 0.8 mg/dL 05/21/2017 Comp Metabolic Zfc350 eGFR 74 ml/min/1.73m2 05/21/2017 Comp Metabolic Qqr757 BUN 15 mg/dL 05/21/2017 Comp Metabolic Apm583 B/C Ratio 19.0 Ratio 05/21/2017 Comp Metabolic Ihl038 CALCIUM 8.9 mg/dL 05/21/2017 Comp Metabolic Yxy185 ALK PHOS 74 U/L 05/21/2017 Comp Metabolic Ocm735 AST(SGOT) 14 U/L 05/21/2017 Comp Metabolic Irn341 ALT(SGPT) 12 U/L 05/21/2017 Comp Metabolic Bvo360 BILI T 0.3 mg/dL 05/21/2017 Comp Metabolic Hnj445 ALBUMIN 3.6 g/dL 05/21/2017 Comp Metabolic Tyb160 TPRO 5.8 g/dL 05/21/2017 Comp Metabolic Zpq237 GLOB 2.2 g/dL 05/21/2017 Comp Metabolic Qkk175 A/G Ratio 1.6 Ratio 05/21/2017 Comp Metabolic Jsb395 Osmo 280 mOsmo 05/21/2017 Valproic Acid Tsz028 VALPROIC 69.0 ug/ml 05/21/2017 Valproic Acid Ydk413 VALPROIC 57.0 ug/ml 02/08/2017 Valproic Acid Sks521 VALPROIC 28.0 ug/ml 01/11/2017 Urinalysis Ord28 U-Color [...] from collection if refrigerated) 01/11/2017 Comp Metabolic Yfj747 NA 133 mEq/L 10/17/2016 Comp Metabolic Dic054 K 3.5 mEq/L 10/17/2016 Comp Metabolic Erg360 CL 96 mEq/L 10/17/2016 Comp Metabolic Dah872 CO2 28.0 mEq/L 10/17/2016 Comp Metabolic Tys033 ANION GAP 13 10/17/2016 Comp Metabolic Ahp413 GLUCOSE 106 mg/dL 10/17/2016 Comp Metabolic Wid367 Creat 0.8 mg/dL 10/17/2016 Comp Metabolic Oae083 eGFR 70 ml/min/1.73m2 10/17/2016 Comp Metabolic Bat063 BUN 16 mg/dL 10/17/2016 Comp Metabolic Oox363 B/C Ratio 19.3 Ratio 10/17/2016 Comp Metabolic Hxd072 CALCIUM 9.5 mg/dL 10/17/2016 Comp Metabolic Gbs923 ALK PHOS 74 U/L 10/17/2016 Comp Metabolic Cql448 AST(SGOT) 19 U/L 10/17/2016 Comp Metabolic Sfg577 ALT(SGPT) 14 U/L 10/17/2016 Comp Metabolic Pwd501 BILI T 0.5 mg/dL 10/17/2016 Comp Metabolic Ilv483 ALBUMIN 4.2 g/dL 10/17/2016 Comp Metabolic Dvk927 TPRO 6.5 g/dL 10/17/2016 Comp Metabolic Kix903 GLOB 2.3 g/dL 10/17/2016 Comp Metabolic Atn439 A/G Ratio 1.8 Ratio 10/17/2016 Comp Metabolic Epp614 Osmo 268 mOsmo 10/17/2016 Cbc With Differential Ord2 WBC 7.38 K/ul 10/17/2016 Cbc With Differential Ord2 RBC 4.60 M/ul 10/17/2016 Cbc With Differential Ord2 HGB 13.8 g/dl 10/17/2016 Cbc With Differential Ord2 HCT 41.4 % 10/17/2016 Cbc With Differential Ord2 Neut% 63.4 % 10/17/2016 Cbc With Differential Ord2 MCV 90.0 fl 10/17/2016 Cbc With Differential Ord2 Lymph% 25.9 % 10/17/2016 Cbc With Differential Ord2 MCH 30.0 pg 10/17/2016 Cbc With Differential Ord2 [place]% 8.8 % 10/17/2016 Cbc With Differential Ord2 [...] 1.91 K/ul 10/17/2016 Cbc With Differential Ord2 [place] ABS# 0.7 K/ul 10/17/2016 Cbc With Differential [...] Urinalysis Ord28 U-Yeast NEGATIVE 10/13/2016 Valproic Acid Puv633 VALPROIC 23.0 ug/ml 08/18/2016 Comp Metabolic Ilt003 NA 133 mEq/L 08/18/2016 Comp Metabolic Hww877 K 3.4 mEq/L 08/18/2016 Comp Metabolic Wbw972 CL 94 mEq/L 08/18/2016 Comp Metabolic Rhr412 CO2 31.0 mEq/L 08/18/2016 Comp Metabolic Thf870 ANION GAP 11 08/18/2016 Comp Metabolic Mtq713 GLUCOSE 101 mg/dL 08/18/2016 Comp Metabolic Yzw194 Creat 0.8 mg/dL 08/18/2016 Comp Metabolic Xqf168 eGFR 72 ml/min/1.73m2 08/18/2016 Comp Metabolic Kty356 BUN 13 mg/dL 08/18/2016 Comp Metabolic Dut651 B/C Ratio 16.0 Ratio 08/18/2016 Comp Metabolic Rjq984 CALCIUM 9.4 mg/dL 08/18/2016 Comp Metabolic Hpv727 ALK PHOS 66 U/L 08/18/2016 Comp Metabolic Dtb361 AST(SGOT) 20 U/L 08/18/2016 Comp Metabolic Tko076 ALT(SGPT) 14 U/L 08/18/2016 Comp Metabolic Hus778 BILI T 0.6 mg/dL 08/18/2016 Comp Metabolic Pcj580 ALBUMIN 4.1 g/dL 08/18/2016 Comp Metabolic Fjp871 TPRO 6.5 g/dL 08/18/2016 Comp Metabolic Avh197 GLOB 2.4 g/dL 08/18/2016 Comp Metabolic Sdm074 A/G Ratio 1.7 Ratio 08/18/2016 Comp Metabolic Wun926 Osmo 267 mOsmo 08/18/2016 Metabolic Ord15 NA [...] Ord15 CALCIUM 9.6 mg/dL 06/22/2016 Comp Metabolic Dco378 NA 133 mEq/L 05/16/2016 Comp Metabolic Lrc100 K 3.4 mEq/L 05/16/2016 Comp Metabolic Kpm690 CL 93 mEq/L 05/16/2016 Comp Metabolic Xww177 CO2 29.0 mEq/L 05/16/2016 Comp Metabolic Tqg210 ANION GAP 14 05/16/2016 Comp Metabolic Qpw325 GLUCOSE 95 mg/dL 05/16/2016 Comp Metabolic Taw165 Creat 0.7 mg/dL 05/16/2016 Comp Metabolic Kbu760 eGFR 83 ml/min/1.73m2 05/16/2016 Comp Metabolic Mot611 BUN 13 mg/dL 05/16/2016 Comp Metabolic Sdv236 B/C Ratio 18.1 Ratio 05/16/2016 Comp Metabolic Ydy932 CALCIUM 9.7 mg/dL 05/16/2016 Comp Metabolic Imd994 ALK PHOS 59 U/L 05/16/2016 Comp Metabolic Pfh299 AST(SGOT) 20 U/L 05/16/2016 Comp Metabolic Fwn662 ALT(SGPT) 15 U/L 05/16/2016 Comp Metabolic Krp129 BILI T 0.5 mg/dL 05/16/2016 Comp Metabolic Yvz964 ALBUMIN 4.3 g/dL 05/16/2016 Comp Metabolic Kyk244 TPRO 6.8 g/dL 05/16/2016 Comp Metabolic Dvn341 GLOB 2.5 g/dL 05/16/2016 Comp Metabolic Csw477 A/G Ratio 1.8 Ratio 05/16/2016 Comp Metabolic Tih641 Osmo 266 mOsmo 05/16/2016 Valproic Acid Uwh978 VALPROIC 34.0 ug/ml 05/16/2016 Valproic Acid Jfa974 VALPROIC 31.0 ug/ml 02/14/2016 Comp Metabolic Dge416 NA 131 mEq/L 02/14/2016 Comp Metabolic Bkw819 K 3.7 mEq/L 02/14/2016 Comp Metabolic Vnm015 CL 95 mEq/L 02/14/2016 Comp Metabolic Zeq631 CO2 25.0 mEq/L 02/14/2016 Comp Metabolic Nqp011 ANION GAP 15 02/14/2016 Comp Metabolic Ljo467 GLUCOSE 97 mg/dL 02/14/2016 Comp Metabolic Pjy555 Creat 0.8 mg/dL 02/14/2016 Comp Metabolic Fpe204 eGFR 76 ml/min/1.73m2 02/14/2016 Comp Metabolic Gzb622 BUN 10 mg/dL 02/14/2016 Comp Metabolic Pdy708 B/C Ratio 12.8 Ratio 02/14/2016 Comp Metabolic Ymx674 CALCIUM 9.2 mg/dL 02/14/2016 Comp Metabolic Ngf917 ALK PHOS 54 U/L 02/14/2016 Comp Metabolic Hif939 AST(SGOT) 20 U/L 02/14/2016 Comp Metabolic Did615 ALT(SGPT) 14 U/L 02/14/2016 Comp Metabolic Nse093 BILI T 0.6 mg/dL 02/14/2016 Comp Metabolic Kyw463 ALBUMIN 4.0 g/dL 02/14/2016 Comp Metabolic Bug882 TPRO 6.3 g/dL 02/14/2016 Comp Metabolic Bqv088 GLOB 2.3 g/dL 02/14/2016 Comp Metabolic Oti534 A/G Ratio 1.8 Ratio 02/14/2016 Comp Metabolic Otn809 Osmo 262 mOsmo 02/14/2016 Valproic Acid Nrr938 VALPROIC 28.0 ug/ml 11/09/2015 Comp Metabolic Ijp443 NA 134 mEq/L 11/09/2015 Comp Metabolic Hld746 K 3.6 mEq/L 11/09/2015 Comp Metabolic Xdk878 CL 94 mEq/L 11/09/2015 Comp Metabolic Khz460 CO2 28.0 mEq/L 11/09/2015 Comp Metabolic Bnv296 ANION GAP 16 11/09/2015 Comp Metabolic Jty264 GLUCOSE 101 mg/dL 11/09/2015 Comp Metabolic Dmm082 Creat 0.9 mg/dL 11/09/2015 Comp Metabolic Jck627 eGFR 64 ml/min/1.73m2 11/09/2015 Comp Metabolic Gcy688 BUN 14 mg/dL 11/09/2015 Comp Metabolic Ntg899 B/C Ratio 15.6 Ratio 11/09/2015 Comp Metabolic Kqo511 CALCIUM 9.6 mg/dL 11/09/2015 Comp Metabolic Iyc000 ALK PHOS 66 U/L 11/09/2015 Comp Metabolic Ynj331 AST(SGOT) 20 U/L 11/09/2015 Comp Metabolic Gjo432 ALT(SGPT) 15 U/L 11/09/2015 Comp Metabolic Ejr286 BILI T 0.7 mg/dL 11/09/2015 Comp Metabolic Eom585 ALBUMIN 4.3 g/dL 11/09/2015 Comp Metabolic Zan182 TPRO 6.8 g/dL 11/09/2015 Comp Metabolic Pxg566 GLOB 2.5 g/dL 11/09/2015 Comp Metabolic Yqe434 A/G Ratio 1.7 Ratio 11/09/2015 Comp Metabolic Mrc791 Osmo 269 mOsmo 11/09/2015 Valproic Acid Ihv270 VALPROIC 26.0 ug/ml 08/11/2015 Comp Metabolic Ogy555 NA 134 mEq/L 08/11/2015 Comp Metabolic Fpr300 K 4.0 mEq/L 08/11/2015 Comp Metabolic Frq347 CL 97 mEq/L 08/11/2015 Comp Metabolic Eml557 CO2 28.0 mEq/L 08/11/2015 Comp Metabolic Aig901 ANION GAP 13 08/11/2015 Comp Metabolic Ebv415 GLUCOSE 89 mg/dL 08/11/2015 Comp Metabolic Tlt512 Creat 0.8 mg/dL 08/11/2015 Comp Metabolic Amo561 eGFR 73 ml/min/1.73m2 08/11/2015 Comp Metabolic Iyv097 BUN 13 mg/dL 08/11/2015 Comp Metabolic Oxc068 B/C Ratio 16.0 Ratio 08/11/2015 Comp Metabolic Lyn998 CALCIUM 9.4 mg/dL 08/11/2015 Comp Metabolic Exq361 ALK PHOS 53 U/L 08/11/2015 Comp Metabolic Iyi600 AST(SGOT) 18 U/L 08/11/2015 Comp Metabolic Trl033 ALT(SGPT) 12 U/L 08/11/2015 Comp Metabolic Wte586 BILI T 0.5 mg/dL 08/11/2015 Comp Metabolic Hhz431 ALBUMIN 3.8 g/dL 08/11/2015 Comp Metabolic Ryt881 TPRO 5.8 g/dL 08/11/2015 Comp Metabolic Dyz752 GLOB 2.0 g/dL 08/11/2015 Comp Metabolic Bad410 A/G Ratio 1.9 Ratio 08/11/2015 Comp Metabolic Qho417 Osmo 268 mOsmo 08/11/2015 Valproic Acid Ewz958 VALPROIC 32.0 ug/ml 05/11/2015 Comp Metabolic Tan889 NA 143 mEq/L 05/11/2015 Comp Metabolic Cxh345 K 3.9 mEq/L 05/11/2015 Comp Metabolic Dpu109 CL 107 mEq/L 05/11/2015 Comp Metabolic Odl201 CO2 27.0 mEq/L 05/11/2015 Comp Metabolic Bpy665 ANION GAP 13 05/11/2015 Comp Metabolic Pqt513 GLUCOSE 93 mg/dL 05/11/2015 Comp Metabolic Jzi757 Creat 0.8 mg/dL 05/11/2015 Comp Metabolic Ftv860 eGFR 72 ml/min/1.73m2 05/11/2015 Comp Metabolic Wkr212 BUN 14 mg/dL 05/11/2015 Comp Metabolic Ccu814 B/C Ratio 17.1 Ratio 05/11/2015 Comp Metabolic Uvq626 CALCIUM 9.5 mg/dL 05/11/2015 Comp Metabolic Rdl036 ALK PHOS 51 U/L 05/11/2015 Comp Metabolic Wgs128 AST(SGOT) 19 U/L 05/11/2015 Comp Metabolic Oyh605 ALT(SGPT) 13 U/L 05/11/2015 Comp Metabolic Uzh727 BILI T 0.6 mg/dL 05/11/2015 Comp Metabolic Wgh077 ALBUMIN 3.7 g/dL 05/11/2015 Comp Metabolic Chh920 TPRO 5.8 g/dL 05/11/2015 Comp Metabolic Llm184 GLOB 2.1 g/dL 05/11/2015 Comp Metabolic Uek137 A/G Ratio 1.8 Ratio 05/11/2015 Comp Metabolic Gfa780 Osmo 285 mOsmo 05/11/2015 Review of Systems [...] events 10/09/2018 None Full Exam - General 1995 Psychiatric cognition/memory Recent past memory: unable to [...] clear 07/02/2017 None Full Exam - General 1995 Ears/Nose/Throat [...] lips 05/21/2017 None Full Exam - General 1995 Ears/Nose/Throat lips/teeth/gingiva Overall: normal dentition 05/21/2017 None Full Exam - General 1994 Ears/Nose/Throat oral cavity/pharynx/larynx Overall: oral mucosa clear 05/21/2017 None Full Exam - General 1994 Ears/Nose/Throat oral cavity/pharynx/larynx Overall: oropharyngeal mucosa clear 05/21/2017 None Full Exam - General 1995 Ears/Nose/Throat oral cavity/pharynx/larynx Overall: hypopharynx benign 05/21/2017 [...] - General 1995 Ears/Nose/Throat oral cavity/pharynx/larynx Overall: hypopharynx benign 10/12/2016 [...] Codes Date BIOPSY SKIN LESION CPT- 4: 97597 01/14/2016 Vital Signs Date Vital 10/09/2018 Blood Pressure 1: 132/68 Code: 8480-6 BMI: 23.5 Code: 96609-0 Heart Rate 1: 80 bpm Height: 5'4" SpO2: 95% Weight: 137 lbs 07/02/2017 Blood Pressure 1: 138/82 Code: 8480-6 BMI: 28.1 Code: 59229-5 Heart Rate 1: 71 bpm Height: 5'4" SpO2: 93% Weight: 163 lbs 8 oz 05/21/2017 Blood Pressure 1: 144/88 Code: 8480-6 BMI: 28.6 Code: 40238-7 Heart Rate 1: 84 bpm Height: 5'4" SpO2: 90% Weight: 166 lbs 8 oz 04/12/2017 Blood Pressure 1: 154/82 Code: 8480-6 Heart Rate 1: 72 bpm Height: 5'4" SpO2: 93% 01/11/2017 Blood Pressure 1: 146/84 Code: 8480-6 BMI: 28.3 Code: 58589-0 Heart Rate 1: 82 bpm Height: 5'4" SpO2: 92% Weight: 165 lbs 10/12/2016 Blood Pressure 1: 134/72 Code: 8480-6 BMI: 27.8 Code: 82557-5 Heart Rate 1: 86 bpm Height: 5'4" SpO2: 93% Weight: 162 lbs 07/17/2016 Blood Pressure 1: 128/80 Code: 8480-6 BMI: 27.5 Code: 74929-3 Heart Rate 1: 86 bpm Height: 5'4" SpO2: 91% Weight: 160 lbs 04/24/2016 Blood Pressure 1: 130/82 Code: 8480-6 BMI: 26.4 Code: 45595-8 Heart Rate 1: 97 bpm Height: 5'4" SpO2: 97% Weight: 154 lbs 01/14/2016 Blood Pressure 1: 140/66 Code: 8480-6 BMI: 25.6 Code: 85248-4 Heart Rate 1: 77 bpm Height: 5'4" SpO2: 96% Weight: 149 lbs 12/20/2015 Blood Pressure 1: 136/64 Code: 8480-6 BMI: 24.9 Code: 68815-8 Heart Rate 1: 70 bpm Height: 5'4" SpO2: 74% Weight: 145 lbs 10/06/2015 Blood Pressure 1: 124/62 Code: 8480-6 BMI: 24.7 Code: 19441-4 Heart Rate 1: 72 bpm Height: 5'4" SpO2: 90% Weight: 144 lbs 07/07/2015 Blood Pressure 1: 130/78 Code: 8480-6 BMI: 23.9 Code: 39021-0 Heart Rate 1: 70 bpm Height: 5'4" SpO2: 94% Weight: 139 lbs 04/07/2015 Blood Pressure 1: 120/58 Code: 8480-6 BMI: 22.1 Code: 77869-0 Heart Rate 1: 66 bpm Height: 5'4" SpO2: 97% Weight: 129 lbs 02/03/2015 Blood Pressure 1: 134/68 Code: 8480-6 BMI: 22.3 Code: 09987-1 Heart Rate 1: 71 bpm Height: 5'4" SpO2: 95% Weight: 130 lbs 12/31/2014 Blood Pressure 1: 138/82 Code: 8480-6 BMI: 22.7 Code: 83877-3 Heart Rate 1: 74 bpm Height: 5'4" SpO2: 95% Weight: 132 lbs 12/17/2014 Blood Pressure 1: 142/88 Code: 8480-6 BMI: 22.5 Code: 30494-4 Heart Rate 1: 64 bpm Height: 5'4" [...] data Encounters Encounter Performer Location Codes Date [id number] EST. 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 PATIENT, LEVEL IV Diagnosis: Essential (primary) hypertension[ICD10: I10] Diagnosis: Other Alzheimer's disease[ICD10: G30.8] Diagnosis: Major depressive disorder, recurrent, moderate[ICD10: F33.1] Diagnosis: Generalized anxiety disorder[ICD10: F41.1] Hermila Bowen MD, [facility] CPT-4: 76356 07/02/2017 ([id number]) 79344 EST. 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 PATIENT, LEVEL IV Diagnosis: Essential (primary) hypertension[ICD10: I10] Diagnosis: Other Alzheimer's disease[ICD10: G30.8] Diagnosis: Cough[ICD10: R05] Diagnosis: Hypoxemia[ICD10: R09.02] Cherise Bowen MD, [facility] CPT-4: 21718 01/11/2017 [id number] 33624 EST. PATIENT, LEVEL III Diagnosis: Essential (primary) hypertension[ICD10: I10] Diagnosis: Other Alzheimer's disease[ICD10: G30.8] Cherise Bowen MD, [facility] CPT-4: 22906 10/12/2016 ([id number]) 36290 EST. PATIENT, LEVEL III Diagnosis: Cough[ICD10: R05] Diagnosis: Essential (primary) hypertension[ICD10: I10] Chreise Bowen MD, [facility] CPT-4: 02210 07/17/2016 ([id number]) 48244 EST. PATIENT, LEVEL III Diagnosis: Essential (primary) hypertension[ICD10: I10] Diagnosis: Other Alzheimer's disease[ICD10: G30.8] Cherise Bowen MD, [facility] CPT-4: 03533 04/24/2016 ([id number]) 87458 EST. PATIENT, LEVEL III Diagnosis: Essential (primary) hypertension[ICD10: I10] Diagnosis: Other Alzheimer's disease[ICD10: G30.8] Cherise Bowen MD, [facility] CPT-4: 81723 12/20/2015 ([id number]) 79648 EST. PATIENT, LEVEL III Diagnosis: Essential (primary) hypertension[ICD10: I10] Diagnosis: Other Alzheimer's disease[ICD10: G30.8] Hermila Bowen MD, [facility] CPT-4: 95224 10/06/2015 ([id number]) 90246 EST. PATIENT, LEVEL IV Diagnosis: Other secondary hypertension[ICD10: I15.8] Diagnosis: Other Alzheimer's disease[ICD10: G30.8] Hermila Bowen MD, [facility] CPT-4: 62196 07/07/2015 ([id number]) 70012 EST. PATIENT, LEVEL IV Diagnosis: ESSENTIAL HYPERTENSION[ICD9: 401.9] Diagnosis: EDEMA[ICD9: 782.3] Diagnosis: DEMENTIA W BEHAVIOR DIST[ICD9: 294.11] Hermila Bowen MD, [facility] CPT-4: 29912 04/07/2015 ([id number]) 78605 EST. PATIENT, LEVEL IV Diagnosis: ESSENTIAL HYPERTENSION[ICD9: 401.9] Diagnosis: DEMENTIA W BEHAVIOR DIST[ICD9: 294.11] Diagnosis: Constipation - functional[ICD9: 564.09] Hermila Bowen MD, [facility] CPT-4: 37795 02/03/2015 ([id number]) 68795 EST. PATIENT, LEVEL IV Diagnosis: ESSENTIAL HYPERTENSION[ICD9: 401.9] Diagnosis: HYPERLIPIDEMIA[ICD9: 272.4] Diagnosis: DEMENTIA W BEHAVIOR DIST[ICD9: 294.11] Diagnosis: Chronic depression[ICD9: 311] Diagnosis: Anxiety, generalized[ICD9: 300.02] [facility] CPT- 4: 23244 12/31/2014 ([id number]) OFFICE VISIT, NEW - LEVEL 4 Diagnosis: EDEMA[ICD9: 782.3] Diagnosis: HYPERLIPIDEMIA[ICD9: 272.4] Diagnosis: ESSENTIAL HYPERTENSION[ICD9: 401.9] Diagnosis: DEPRESSIVE DISORDER NEC[ICD9: 311] [facility] CPT- 4: 36920 12/17/2014 Plan of Care Planned Activity Notes Codes Status Date Visit Plan: Dementia - Pt's son, who is the current DPOA did come back to discuss Ondina after her appointment - He states that he will not be taking her back to [facility] because he feels that they are not caring for her, He states that he will get her medications to continue and he is working on getting her placed at [facility] in [place], He wanted to know about hospital admission to help assist her with placement at [facility], discussed with son that she does not have a medical reason for hospital admission - Discussed with Dr. Bowen - they are to continue all the current medications and contact the [place] [facility] for a care assessment to see about placement of [facility] in [place] - they are to notify clinic with any acute changes, questions or concerns. Chronic depakote use - will check level 10/09/2018 Appointment: [facility] ([facility] min[facility] Complex 10/09/2018 Patient Education: Patient Medication Summary Completed 10/09/2018 Care Plan: Valproic Acid (Depakote) S Pending 10/09/2018 Appointment: Hermila Bowen WPtel: [address] [place], [place] [id number] [place] (15 min) Moderate 10/10/2017 Appointment: Hermila Bowen WPtel: [address] [place], [place] [address] (15 min) Moderate 10/01/2017 Visit Plan: Hypertension [...] current medications. 07/02/2017 Appointment: Hermila Bowen WPtel: [phone] [facility] (15 min) Moderate 07/02/2017 Patient Education: Patient Medication Summary Completed 07/02/2017 Patient Education: Hypertension Completed 07/02/2017 Appointment: Hermila Bowen WPtel: [address] [facility] (15 min) Moderate 06/20/2017 Appointment: Cherise Ventura WPtel: [phone] [phone] [place] (30 min) Complex 06/19/2017 Visit Plan: [...] to closely monitor the medications for effectiveness. ICPN-ceixrfjuv-kutqqyd's oxygen level 90% on room air at rest, dropped to 87% on room air with exercise and increased to 95% on 2L nasal cannula with exercise. Will send orders for oxygen at 2L. 05/21/2017 Appointment: Cherise Ventura WPtel: [phone] [phone] [place] (30 min) Complex 05/21/2017 Patient Education: Patient Medication Summary Completed 05/21/2017 Care Plan: Valproic Acid (Depakote) S Pending 05/21/2017 Appointment: Cherise Ventura WPtel: [phone] [facility] [place] [address] (30 min) Complex 05/17/2017 Appointment: Cherise Ventura WPtel: [facility] [place] [address] (30 min) Complex 05/15/2017 Visit Plan: Hypertension [...] for effectiveness. 04/12/2017 Appointment: Cherise Ventura WPtel: [facility] [place] [address] (30 min) Complex 04/12/2017 Patient Education: Patient [...] recheck level in 1 month. Chronic cough-history scntfnp-SBDU-ysofmwowm-patient's oxygen saturation dropped to 89% in the office on room air-unable to further obtain ambulatory levels due to patient's wck-xmhstbzjafw-ttaq test overnight oxygen levels. 01/11/2017 App[facility]ment: [phone] [phone] (15 min) Moderate 01/11/2017 Patient Education: [...] treatment. 10/12/2016 [facility]ment[phone] (30 min) Complex 10/12/2016 Patient Education: Patient [...] xray today 07/17/2016 Appointment: Cherise Ventura WPtel[phone] (15 min) Moderate 07/17/2016 Patient Education: Patient [...] treatment. 04/24/2016 Appointment: Cherise Ventura WPtel: [phone] [phone] [place] (15 min) Moderate 04/24/2016 Patient Education: Patient [...] of treatment. 10/06/2015 Appointment: [facility] Bow[facility] [place] (15 min) Moderate 10/06/2015 Patient Education: Patient [...] of treatment. 07/07/2015 Appointment: Hermila Bowen WPtel: [phone] [facility] (15 min) Moderate 07/07/2015 Patient Education: [...] as needed. 04/07/2015 App[facility]ment: [facility] (15 min) Moderate 04/07/2015 Patient Education: [...] regimen. 02/03/2015 Appointment: Hermila Bowen WPtel: [phone] [facility] Follow up 02/03/2015 Patient Education: Patient Medication [...] medications - will contact and work with group home for medication adjustment for control of behaviors. 12/31/2014 Appointment: Hermila Bowen WPtel: [address] [place], [place] [address] Follow up 12/31/2014 Patient Education: Patient Medication [...] current medications. 12/17/2014 Appointment: Herm[facility] Bow[facility]Ptel[facility] [facility] Patient 12/17/2014 Patient Education: Patient [...] to closely monitor the medications for effectiveness. ITXX-hbjignrib-zscjjrp's oxygen level 90% on room air at [...] will not be taking her back to [facility] because he feels that they are not caring for her, He states that he will get her medications to continue and he is working on getting her placed at [facility] in [place], He wanted to know about hospital admission to help assist her with placement at [facility], discussed with son that she does not have a medical reason for hospital admission - Discussed with Dr. Bowen - they are to continue all the current medications and contact the [place] [facility] for a care assessment to see about placement of [facility] in [place] - they are to notify clinic with [...] recheck level in 1 month. Chronic cough-history avuktzj-FNVD-mnhflixpp-patient's oxygen saturation dropped to 89% in the office on room air-unable to further obtain ambulatory levels due to patient's yxm-auzzzeqzhqv-hegi test overnight oxygen levels. Monitor your blood [...] medications - will contact and work with group home for medication adjustment for control of behaviors. [...]
--- OUTSIDE RECORDS SUMMARY | 2019-02-22 08:34 | XMS REPORT | Continuity of Care Document ---
Author Organization Unknown Address Unknown Allergies Active Description Code Type Severity Reaction Onset Reported/Identified Relationship to Patient Clinical Status Yes No Known Drug Allergies [id number] Drug Allergy Unknown N/A 06/12/2012 Medications There is no data. 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 02/04/2016 FAUSTINO GUTIERREZ ADVERTISING INSERTER Ot 401.1 BENIGN HYPERTENSION 02/04/2016 FAUSTINO GUTIERREZ ADVERTISING INSERTER Ot 414.00 CORON ATHEROSCLER NOS TYPE VESSEL, NATIV 02/04/2016 DIAN STEWART MD Ot 305.1 TOBACCO USE DISORDER 02/04/2016 DIAN STEWART MD Ot 397.0 TRICUSPID VALVE DISEASE 02/04/2016 DIAN STEWART MD Ot 401.9 HYPERTENSION NOS 02/04/2016 DIAN STEWART MD Ot 424.0 MITRAL VALVE DISORDER 02/04/2016 DIAN STEWART MD Ot 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-ISCHEM HEART DIS 02/09/2016 EL SURESH MD Ot C44.722 SQUAMOUS CELL CARCINOMA SKIN/ RIGHT LOWE 02/09/2016 EL SURESH MD Ot E78.5 HYPERLIPIDEMIA, UNSPECIFIED 02/09/2016 EL SURESH MD Ot F17.210 NICOTINE DEPENDENCE, CIGARETTES, UNCOMPL 02/09/2016 KERWIN TRUJILLO, EL Crook Ot I10 ESSENTIAL (PRIMARY) HYPERTENSION 02/09/2016 KERWIN TRUJILLO, EL Crook Ot C44.722 SQUAMOUS CELL CARCINOMA SKIN/ RIGHT LOWE 02/09/2016 KERWIN TRUJILLO, EL Crook Ot Z01.818 ENCOUNTER FOR OTHER PREPROCEDURAL EXAMIN 02/09/2016 KERWIN TRUJILLO, EL Crook Ot Z11.2 ENCOUNTER FOR SCREENING FOR OTHER BACTER 02/11/2016 KERWIN TRUJILLO, EL Crook Ot C44.722 SQUAMOUS CELL CARCINOMA SKIN/ RIGHT LOWE 02/11/2016 KERWIN TRUJILLO, EL Crook Ot E78.5 HYPERLIPIDEMIA, UNSPECIFIED 02/11/2016 KERWIN TRUJILLO, [...] OF SKIN OF LOWER 07/17/2016 Ot V72.63 PRE-PROCEDURAL LABORATORY EXAMINATION 07/17/2016 Ot V72.81 [id number] CARDIOVASCULAR 07/17/2016 Ot V74.8 SCREEN-BACTERIAL DIS NEC 07/17/2016 FAUSTINO GUTIERREZ ADVERTISING INSERTER Ot 272.2 MIXED HYPERLIPIDEMIA 07/17/2016 FAUSTINO GUTIERREZP Ot 401.1 BENIGN HYPERTENSION 07/17/2016 FAUSTINO GUTIERREZP Ot 414.00 CORON ATHEROSCLER NOS TYPE VESSEL, NATIV 07/17/2016 DIAN STEWART MD Ot 305.1 TOBACCO USE DISORDER 07/17/2016 DIAN STEWART MD Ot 397.0 TRICUSPID VALVE DISEASE 07/17/2016 DIAN STEWART MD Ot 401.9 HYPERTENSION NOS 07/17/2016 DIAN STEWART MD Ot 424.0 MITRAL VALVE DISORDER 07/17/2016 DIAN STEWART MD Ot 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-ISCHEM HEART DIS 07/17/2016 EL SURESH MD Ot C44.722 SQUAMOUS CELL CARCINOMA SKIN/ RIGHT LOWE 07/17/2016 KERWIN TRUJILLO, EL Crook Ot Z01.818 ENCOUNTER FOR OTHER PREPROCEDURAL EXAMIN 07/17/2016 KERWIN TRUJILLO, EL Crook Ot Z11.2 ENCOUNTER FOR SCREENING FOR OTHER BACTER 07/18/2016 KEEGANBAILEY Armaan [employer] Ot R05 COUGH 08/08/2016 KEEGANJAMEBAILEY M [employer] Ot R05 COUGH 08/17/2016 BAILEY ALLISON [employer] Ot R05 COUGH 10/18/2018 AMARILYS HUNT MD Ot F03.91 UNSPECIFIED DEMENTIA WITH BEHAVIORAL DIS 10/18/2018 AMARILYS HUNT MD Ot F32.9 MAJOR DEPRESSIVE DISORDER, SINGLE EPISOD 10/18/2018 AMARILYS HUNT MD Ot F41.9 ANXIETY DISORDER, UNSPECIFIED 10/18/2018 AMARILYS HUNT MD Ot I10 ESSENTIAL (PRIMARY) HYPERTENSION 10/18/2018 AMARILYS HUNT MD Ot N39.0 URINARY TRACT INFECTION, SITE NOT SPECIF 10/18/2018 AMARILYS HUNT MD Ot Z60.8 OTHER PROBLEMS RELATED TO SOCIAL ENVIRON 10/18/2018 AMARILYS HUNT MD Ot Z66 DO NOT RESUSCITATE 10/18/2018 AMARILYS HUNT MD Ot Z79.899 OTHER MCC (CURRENT) DRUG THERAPY 10/18/2018 AMARILYS HUNT MD Ot Z87.19 PERSONAL HISTORY OF OTHER DISEASES OF TH 10/18/2018 AMARILYS HUNT MD Ot Z87.891 PERSONAL HISTORY OF NICOTINE DEPENDENCE 10/18/2018 AMARILYS HUNT MD Ot F03.91 UNSPECIFIED DEMENTIA WITH BEHAVIORAL DIS 10/18/2018 AMARILYS HUNT MD Ot F32.9 MAJOR DEPRESSIVE DISORDER, SINGLE EPISOD 10/18/2018 AMARILYS HUNT MD Ot F41.9 ANXIETY DISORDER, UNSPECIFIED 10/18/2018 AMARILYS HUNT MD Ot I10 ESSENTIAL (PRIMARY) HYPERTENSION 10/18/2018 AMARILYS HUNT MD Ot N39.0 URINARY TRACT INFECTION, SITE NOT SPECIF 10/18/2018 AMARILYS HUNT MD Ot Z60.8 OTHER PROBLEMS RELATED TO SOCIAL ENVIRON 10/18/2018 AMARILYS HUNT MD Ot Z66 DO NOT RESUSCITATE 10/18/2018 AMARILYS HUNT MD Ot Z79.899 OTHER MCC (CURRENT) DRUG THERAPY 10/18/2018 AMARILYS HUNT MD Ot Z87.19 PERSONAL HISTORY OF OTHER DISEASES OF TH 10/18/2018 AMARILYS HUNT MD Ot Z87.891 PERSONAL HISTORY OF NICOTINE DEPENDENCE 02/13/2019 AMARILYS HUNT MD Ot N39.0 URINARY TRACT INFECTION, SITE NOT SPECIF 02/14/2019 AMARILYS HUNT MD Ot R82.90 UNSPECIFIED ABNORMAL FINDINGS IN URINE Procedures There is no data. Results Test Result Range Complete urinalysis with reflex to culture - 10/10/18 17:35 Urine color determination YELLOW NRG Urine clarity determination CLEAR NRG Urine pH measurement by test strip 6 5-9 Specific gravity of urine by test strip 1.020 1.016-1.022 Urine protein assay by test strip, semi-quantitative 1+ NEGATIVE Urine glucose detection by automated test strip NEGATIVE NEGATIVE Erythrocytes detection in urine sediment by light microscopy NEGATIVE NEGATIVE Urine ketones detection by automated test strip NEGATIVE NEGATIVE Urine nitrite detection by test strip NEGATIVE NEGATIVE Urine total bilirubin detection by test strip NEGATIVE NEGATIVE Urine urobilinogen measurement by automated test strip (mass/volume) NORMAL NORMAL Urine leukocyte esterase detection by dipstick 3+ NEGATIVE Automated urine sediment erythrocyte count by microscopy (number/high power field) NONE NRG Automated urine sediment leukocyte count by microscopy (number/high power field) [HPF] NRG Bacteria detection in urine sediment by light microscopy LARGE NRG Squamous epithelial cells detection in urine sediment by light microscopy 25-50 NRG Crystals detection in urine sediment by light microscopy NONE NRG Casts detection in urine sediment by light microscopy NONE NRG Mucus detection in urine sediment by light microscopy NEGATIVE NRG Complete urinalysis with reflex to culture YES NRG Urine drug screening test - 10/10/18 17:35 Urine phencyclidine detection by screening method NEGATIVE NEGATIVE Urine benzodiazepines detection by screening method NEGATIVE NEGATIVE Urine cocaine detection NEGATIVE NEGATIVE Urine amphetamines detection by screening method NEGATIVE NEGATIVE Urine methamphetamine detection by screening method NEGATIVE NEGATIVE Urine cannabinoids detection by screening method NEGATIVE NEGATIVE Urine opiates detection by screening method NEGATIVE NEGATIVE Urine barbiturates detection NEGATIVE NEGATIVE Screening urine tricyclic antidepressants detection NEGATIVE NEGATIVE Urine methadone detection by screening method NEGATIVE NEGATIVE Urine oxycodone detection NEGATIVE NEGATIVE Urine propoxyphene detection NEGATIVE NEGATIVE Bacterial urine culture - 10/10/18 17:35 Bacterial urine culture SEE COMMEN NRG COLONY COUNT . NRG Complete blood count (CBC) with automated white blood cell (WBC) differential - 10/10/18 17:40 Blood leukocytes automated count (number/volume) 8.6 10*3/uL 4.3-11.0 Blood erythrocytes automated count (number/volume) 4.77 10*6/uL 4.35-5.85 Venous blood hemoglobin measurement (mass/volume) 14.4 g/dL 11.5-16.0 Blood hematocrit (volume fraction) 44 % 35-52 Automated erythrocyte mean corpuscular volume 93 [foz_us] 80-99 Automated erythrocyte mean corpuscular hemoglobin (mass per erythrocyte) 30 pg 25-34 Automated erythrocyte mean corpuscular hemoglobin concentration measurement (mass/volume) 33 g/dL 32-36 Automated erythrocyte distribution width ratio 14.3 % 10.0- 14.5 Automated blood platelet count (count/volume) 290 10*3/uL 130-400 Automated blood platelet mean volume measurement 9.6 [foz_us] 7.4-10.4 Automated blood neutrophils/100 leukocytes 54 % 42-75 Automated blood lymphocytes/100 leukocytes 33 % 12-44 Blood monocytes/100 leukocytes 10 % 0-12 Automated blood eosinophils/100 leukocytes 2 % 0-10 Automated blood basophils/100 leukocytes 0 % 0-10 Blood neutrophils automated count (number/volume) 4.7 10*3 1.8-7.8 Blood lymphocytes automated count (number/volume) 2.9 10*3 1.0-4.0 Blood monocytes automated count (number/volume) 0.9 10*3 0.0- 1.0 Automated eosinophil count 0.2 10*3/uL 0.0-0.3 Automated blood basophil count (count/volume) 0.0 10*3/uL 0.0-0.1 Comprehensive metabolic panel - 10/10/18 17:40 Serum or plasma sodium measurement (moles/volume) 140 mmol/L 135-145 Serum or plasma potassium measurement (moles/volume) 3.9 mmol/L 3.6-5.0 Serum or plasma chloride measurement (moles/volume) 104 mmol/L 98-107 Carbon dioxide 26 mmol/L 21-32 Serum or plasma anion gap determination (moles/volume) 10 mmol/L 5-14 Serum or plasma urea nitrogen measurement (mass/volume) 22 mg/dL 7-18 Serum or plasma creatinine measurement (mass/volume) 1.02 mg/dL 0.60-1.30 Serum or plasma urea nitrogen/creatinine mass ratio 22 NRG Serum or plasma creatinine measurement with calculation of estimated glomerular filtration rate 52 NRG Serum or plasma glucose measurement (mass/volume) 101 mg/dL 70-105 Serum or plasma calcium measurement (mass/volume) 9.8 mg/dL 8.5-10.1 Serum or plasma total bilirubin measurement (mass/volume) 0.3 mg/dL 0.1-1.0 Serum or plasma alkaline phosphatase measurement (enzymatic activity/volume) 76 U/L 40-136 Serum or plasma aspartate aminotransferase measurement (enzymatic activity/volume) 20 U/L 5-34 Serum or plasma alanine aminotransferase measurement (enzymatic activity/volume) 15 U/L 0-55 Serum or plasma protein measurement (mass/volume) 7.2 g/dL 6.4-8.2 Serum or plasma albumin measurement (mass/volume) 4.1 g/dL 3.2-4.5 CALCIUM CORRECTED 9.7 mg/dL 8.5-10.1 THYROID STIMULATING HORMONE - 10/10/18 17:40 THYROID STIMULATING HORMONE 4.75 u[iU]/mL 0.35-4.94 [id number] - 10/10/18 17:40 [id number] 21.6 ug/mL 50.0-100.0 CITALOPRAM QT SERUM OR PLASMA - 10/10/18 17:40 CITALOP 110 ng/mL NRG Trazodone level - 10/10/18 17:40 Trazodone level <0.13 L 0.50-2.50 Complete urinalysis with reflex to culture - 02/10/19 22:30 Urine color determination YELLOW NRG Urine clarity determination SLIGHTLY CLOUDY NRG Urine pH measurement by test strip 6.5 5-9 Specific gravity of urine by test strip 1.015 1.016-1.022 Urine protein assay by test strip, semi-quantitative 1+ NEGATIVE Urine glucose detection by automated test strip NEGATIVE NEGATIVE Erythrocytes detection in urine sediment by light microscopy NEGATIVE NEGATIVE Urine ketones detection by automated test strip 1+ NEGATIVE Urine nitrite detection by test strip NEGATIVE NEGATIVE Urine total bilirubin detection by test strip NEGATIVE NEGATIVE Urine urobilinogen measurement by automated test strip (mass/volume) NORMAL NORMAL Urine leukocyte esterase detection by dipstick 3+ NEGATIVE Automated urine sediment erythrocyte count by microscopy (number/high power field) RARE NRG Automated urine sediment leukocyte count by microscopy (number/high power field) [HPF] NRG Bacteria detection in urine sediment by light microscopy FEW NRG Squamous epithelial cells detection in urine sediment by light microscopy 5-10 NRG Crystals detection in urine sediment by light microscopy NONE NRG Casts detection in urine sediment by light microscopy NONE NRG Mucus detection in urine sediment by light microscopy NEGATIVE NRG Complete urinalysis with reflex to culture CULTURE PENDING NRG Bacterial urine culture - 02/10/19 22:30 Bacterial urine culture 3 OR MORE NRG COLONY COUNT >100,000/ML NRG FTX;REPORTABLE GRAM POSITIVES, SUGGESTING PROBABLE NRG FREE TEXT ENTRY 2 COLLECTION CONTAMINATION WITH SKIN NRG FREE TEXT ENTRY 3 AGGIE. NO SUSCEPTIBILITY PERFORMED. NRG Encounters ACCT No. Visit Date/Time Discharge Status Pt. Type Provider Facility Loc./Unit Complaint [id number] 02/10/2019 22:30:00 02/10/2019 23:59:59 CLS Outpatient AMARILYS HUNT MD [facility] LABNPT [id number] 10/10/2018 21:35:00 10/18/2018 13:20:00 DIS Inpatient AMARILYS HUNT MD [facility] 4TH UTI,DEMENTIA AND BEHAVIORAL DISTURBANCE [id number] 07/17/2016 11:22:00 07/17/2016 23:59:59 CLS Outpatient BAILEY ALLISON [employer] [facility] RAD COUGH [id number] 02/09/2016 08:40:00 02/09/2016 11:45:00 DIS Outpatient EL SURESH MD [facility] SCC RIGHT THIGH [id number] 02/04/2016 10:24:00 02/04/2016 23:59:59 CLS Outpatient EL SURESH MD [facility] PREOP SCC RIGHT THIGH [id number] 05/15/2014 10:26:00 05/15/2014 23:59:59 CLS Outpatient DIAN STEWART MD [facility] CARD HTN MR FAMILY HX OF CAD [id number] 07/14/2013 14:01:00 07/14/2013 23:59:59 CLS Outpatient BRENDA, FAUSTINO L ADVERTISING INSERTER [facility] LAB HLP,HTN,CAD, [id number] 06/18/2012 05:55:00 Document Registration [id number] 06/12/2012 11:51:00 Document Registration [id number] 10/20/2011 14:19:00 Document Registration [id number] 10/12/2011 10:15:00 Document Registration
--- NOTE | 2019-02-22 09:21 | Diagnostic Imaging Report ---
PROCEDURE: CT head, face, and cervical spine without contrast. TECHNIQUE: Multiple contiguous axial images were obtained through the head, neck, and facial bones without the use of intravenous contrast. Sagittal and coronal reformations through the cervical spine and facial bones were also performed. Auto Exposure Controls were utilized during the CT exam to meet ALARA standards for radiation dose reduction. INDICATION: Fall with head and facial injury. Chin and neck pain. COMPARISON: 10/10/2018 FINDINGS: CT head: The ventricles and cortical sulci are diffusely prominent, consistent with generalized parenchymal volume loss. There is extensive hypoattenuation throughout the white matter likely from chronic microvascular disease. 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 No acute intracranial hemorrhage is seen. There is no midline shift or mass effect. The calvarium appears intact. There is mild hyperostosis frontalis. CT face: The pterygoid plates are intact. The mandible is intact. The zygomatic arches are intact. The maxillary sinuses are intact, with a mucous retention cyst seen in the left maxillary sinus. The orbits appear intact. There is no post septal edema. The globes are intact. There is a minimally depressed right nasal bone fracture, which is age indeterminate. The soft tissues about the face are otherwise unremarkable. CT cervical spine: No acute fracture is seen. There is reversal of the cervical lordosis centered at C3-C4. There are advanced degenerative changes at C3-C4, C4-C5, C5-C6, and C6-C7. The vertebral body heights are preserved. No spondylolisthesis is seen in the cervical spine. There is fusion of the C7 and T1 vertebral bodies. There is mild grade 1 anterolisthesis at T1-T2 and T2-T3. No bony fragments or hyperdense fluid collections are seen in the spinal canal. The prevertebral soft tissues are unremarkable. Emphysematous changes are seen in the lung apices. There is extensive calcific atherosclerosis. IMPRESSION: 1. No acute intracranial hemorrhage or calvarium fracture. 2. Generalized parenchymal volume loss with chronic microvascular disease. 3. Suspect minimally depressed right nasal bone fracture, please correlate with point tenderness. No other facial fractures are seen. 4. Degenerative changes in the cervical spine with no acute fracture seen. Dictated by: Dictated on workstation # [id number]
--- NOTE | 2019-02-22 09:42 | ED Fall/Injury ---
General Chief Complaint: Trauma-Non Activation Stated Complaint: FALL Nursing Triage Note: PT PRESENTS TO ED PER EMS FROM [facility] FOR FALL. [facility] STAFF REPORTS PT FELL AT 0530 AND AT 0730 THIS AM. HALF-WAY STAFF DID NOT NOTICE ANY INJURY AFTER INITIAL FALL BUT PT HIT HER FACE ONT HE SECOND FALL. PT HAS HX OF DEMENTIA AND IS UNABLE TO RECALL FALLING. PT HAS APROX 1 CM LAC TO L CHIN AND REPORTS CHIN AND NECK PAIN. PT PRESENTS TO ED WITH C-COLLAR IN PLACE. Source: patient, EMS, shelter records Exam Limitations: other (dementia) History of Present Illness Date Seen by Provider: Feb 22, 2019 Time Seen by Provider: 08:30 Initial Comments This 83-year-old white female presents with paramedics after falling at the shelter. The patient suffers from dementia but normally is able to ambulate without difficulty. The patient patient sustained a contusion and abrasion and superficial laceration to her chin and lower lip when she fell against piece of furniture. Fortunately there was no loss of consciousness. The patient denies any weakness or paresthesias in the extremity, she denies other injury and Atarax. The patient is normally able to ambulate without difficulty. It is unclear why she fell today. Location Injury Occurred: [facility] Allergies and Home Medications Allergies Coded Allergies: No Known Drug Allergies (Unverified , 06/12/12) Home Medications Cholecalciferol (Vitamin D3) 1,000 Unit Capsule, 1,000 UNIT PO DAILY, (Reported) Citalopram Hydrobromide 20 Mg Tablet, 20 MG PO DAILY, (Reported) Diltiazem HCl 240 Mg Cap.er.24h, 240 MG PO DAILY, (Reported) Divalproex Sodium 125 Mg Cap, 125 MG PO TID Prescribed by: AMARILYS HUNT on 10/18/18 1050 Donepezil HCl 10 Mg Tablet, 10 MG PO DAILY, (Reported) Ipratropium/Albuterol Sulfate 3 Ml Ampul.neb, 3 ML NEB BID PRN for SHORTNESS OF BREATH, (Reported) Loratadine 10 Mg Tablet, 10 MG PO DAILY, (Reported) Mirtazapine 15 Mg Tablet, 15 MG PO HS, (Reported) Sennosides/Docusate Sodium 1 Each Tablet, 1 TAB PO BID, (Reported) Simvastatin 40 Mg Tablet, 40 MG PO HS, (Reported) Patient Home Medication List Home Medication List Reviewed: Yes Review of Systems Review of Systems Constitutional: No dizziness, No fever, No weakness Eyes: Denies Photophobia Ears, Nose, Mouth, Throat: denies ear pain, denies nose discharge, denies epistaxis; mouth pain (patient is complaining of pain over the lip area and the chin from where she struck the dresser on her way to the floor.) Respiratory: No cough, No short of breath Cardiovascular: No chest pain Gastrointestinal: No abdominal pain, No nausea, No vomiting Genitourinary: no symptoms reported : No Musculoskeletal: neck pain Skin: see HPI, change in color, other (there are abrasions and superficial lacerations to the chin and lip.) Psychiatric/Neurological: See HPI, Other (dementia) Past Gfzzzzz-Fgkgsk-Hinjfg Hx Past Med/Social Hx: Reviewed Nursing Past Med/Soc Hx Patient Social History Alcohol Use: Denies Use Recreational Drug Use: No Smoking Status: Former Smoker Former Smoker, Quit: Feb 08, 2015 2nd Hand Smoke Exposure: No Recent Foreign Travel: No Contact w/Someone Who Travel: No Recent Infectious Disease Expo: No Recent Hopitalizations: No Immunizations Up To Date Date of Pneumonia Vaccine: Feb 08, 2014 Seasonal Allergies Seasonal Allergies: No Past Medical History Surgeries: Yes (HERNIA) Respiratory: No Cardiac: Yes High Cholesterol, Hypertension Neurological: Yes Dementia Reproductive Disorders: No Sexually Transmitted Disease: No HIV/AIDS: No Genitourinary: Yes (UTI THIS ADMIT) Gastrointestinal: Yes (HX PANCREATISIS) Diverticulosis Musculoskeletal: No Endocrine: No Loss of Vision: Bilateral Hearing Impairment: Denies Cancer: No Psychosocial: Yes Anxiety, Depression Integumentary: No Blood Disorders: No Adverse Reaction/Blood Tranf: No Family Medical History Patient reports no known family medical history. Hypertension Physical Exam Vital Signs Vital Signs - First Documented 02/22/19 08:28 Temp 97.0 Pulse 84 Resp 20 B/P (MAP) 138/107 (117) Pulse Ox 94 O2 Delivery Room Air Capillary Refill : Less Than 3 Seconds Height, Weight, BMI Height: 5'4.00" Weight: 136lbs. 1.2oz. 61.775704cg; 23.4 BMI Method:Estimated General Appearance: mild distress HEENT: PERRL/EOMI Neck: other (patient is wearing a c-collar. When I removed it and palpated the posterior processes of the cervical spine and the patient complained of mild local tenderness. C-collar was reapplied.) Cardiovascular: normal peripheral pulses, regular rate, rhythm Respiratory: chest non-tender, lungs clear, normal breath sounds Gastrointestinal: normal bowel sounds, non tender Back: normal inspection; No vertebral tenderness Extremities: normal range of motion, non-tender Neurologic/Psychiatric: no motor/sensory deficits, alert, normal mood/affect Progress/Results/Core Measures Results/Orders My Orders Orders - ANN VALDEZ MD Ct Head/Face/Cervical Wo (02/22/19 08:25) Lidocaine 1% Inj 20 Ml (Xylocaine 1% Inj (02/22/19 10:16) Tetanus/Diphtheria Inj (Adult) (Tenivac (02/22/19 11:15) Dipht,Pertuss(Acell),Tet Adult (Boostrix (02/22/19 11:15) Vital Signs/I&O 02/22/19 02/22/19 08:28 08:35 Temp 97.0 97.0 Pulse 84 84 Resp 20 20 B/P (MAP) 138/107 (117) 138/107 (117) Pulse Ox 94 94 O2 Delivery Room Air Blood Pressure Mean: 117 Progress Progress Note : Time: 09:43 Progress Note The patient's CT of the head, face, and cervical spine failed to demonstrate evidence of acute fracture. There was a questionable fracture to the right side of the nose that was small and nondisplaced. I found a small through and through laceration to the left face that was approximately 1 cm in length. I attempted to discuss the findings and recommended closure with either glue or sutures with the patient patient adamantly refused wound repair. I think the patient does not have capacity. However I think the wound will heal with or without a repair on my part. I do not think that it will be an overwhelming cosmetic concern. In the event that she needs a revision secondarily we can do that down the line. As the patient's tetanus status was unclear gave the patient to . Departure Impression Primary Impression: Head injury Qualified Codes: S09.90XA - Unspecified injury of head, initial encounter Additional Impression: Facial laceration Qualified Codes: S01.81XA - Laceration without foreign body of other part of head, initial encounter Disposition: 01 HOME, SELF-CARE Condition: Improved Departure-Patient Inst. Decision time for Depature: 11:17 Referrals: AMARILYS HUNT MD (PCP/Family) Primary Care Physician Patient Instructions: Minor Head Injury (DC) Add. Discharge Instructions: Close follow-up with her doctor Sunday. Keep the abrasions and laceration clean and dry. Return if any problems or questions All discharge instructions reviewed with patient and/or family. Voiced understanding. ANN VALDEZ MD Feb 22, 2019 09:42
[2019-02-22] MEDS ORDERED: LIDOCAINE 1% INJ 20 ML 20 ML VIAL ONE (10:16)
--- NOTE | 2019-02-22 10:58 | NUR ---
dr dallas in room suturing pt at this time.
[2019-02-22] MEDS ORDERED: TETANUS & DIPHTHERIA TOX,ADULT 0.5 ML (TENIVAC) IM ONE (11:15)
[2019-02-22] MEDS ORDERED: TETANUS,DIPTH,PERTUSS P/F (BOOSTRIX) 0.5 ML VIAL IM ONE (11:15)
[2019-02-22 11:34] VITALS: BP 134/99
== END 2019-02-22 11:34 | disposition home or self-care (01) ==
LOC: EDUNIT# 08:16 → ER 08:17
DX: S09.90XA Unspecified injury of head, initial encounter (principal); S01.81XA Laceration without foreign body of other part of head, initial encounter; F03.90 Unspecified dementia, unspecified severity, without behavioral disturbance, psychotic disturbance, mood disturbance, and anxiety; I10 Essential (primary) hypertension; E78.00 Pure hypercholesterolemia, unspecified; F41.9 Anxiety disorder, unspecified; F32.9 Major depressive disorder, single episode, unspecified; Z87.19 Personal history of other diseases of the digestive system; Z87.891 Personal history of nicotine dependence; W01.190A Fall on same level from slipping, tripping and stumbling with subsequent striking against furniture, initial encounter; Y92.129 Unspecified place in nursing home as the place of occurrence of the external cause
CPT/HCPCS: 70450; 70486; 72125; 90471; 90715

== ENCOUNTER 2019-07-31 10:33 | Inpatient (IN) | payer MEDICARE ==
[~2019-07-31] VITALS: Ht 162.6 cm; Wt 73.0 kg
--- NOTE | 2019-07-31 10:44 | ED Dyspnea ---
General Stated Complaint: AMS Source of Information: EMS Exam Limitations: Other (severe dementia) History of Present Illness Date Seen by Provider: Jul 31, 2019 Time Seen by Provider: 10:38 Initial Comments 83-year-old female with severe dementia sent in from the detention. residential and EMS reports that she was ambulating this morning had low oxygen. That they set her down and her oxygen improved. That improved on leaving uses oxygen went to the 90s. They report that her initial oxygen was in the 60s and 70s. residential also suspects that the patient might possibly have a urinary tract infection. Patient herself is unable to provide any history or review of systems. Allergies and Home Medications Allergies Coded Allergies: No Known Drug Allergies (Unverified , 06/12/12) Home Medications Cholecalciferol (Vitamin D3) 1,000 Unit Capsule, 1,000 UNIT PO DAILY, (Reported) Citalopram Hydrobromide 20 Mg Tablet, 20 MG PO DAILY, (Reported) Diltiazem HCl 240 Mg Cap.er.24h, 240 MG PO DAILY, (Reported) Divalproex Sodium 125 Mg Cap, 125 MG PO TID Prescribed by: AMARILYS HUNT on 10/18/18 1050 Donepezil HCl 10 Mg Tablet, 10 MG PO DAILY, (Reported) Ipratropium/Albuterol Sulfate 3 Ml Ampul.neb, 3 ML NEB BID PRN for SHORTNESS OF BREATH, (Reported) Loratadine 10 Mg Tablet, 10 MG PO DAILY, (Reported) Mirtazapine 15 Mg Tablet, 15 MG PO HS, (Reported) Sennosides/Docusate Sodium 1 Each Tablet, 1 TAB PO BID, (Reported) Simvastatin 40 Mg Tablet, 40 MG PO HS, (Reported) Patient Home Medication List Home Medication List Reviewed: Yes Review of Systems Review of Systems Constitutional: see HPI Unable to obtain due to severe dementia Past Tjenbzb-Lkibof-Jjzkts Hx Past Med/Social Hx: Reviewed Nursing Past Med/Soc Hx Patient Social History Former Smoker, Quit: Feb 08, 2015 2nd Hand Smoke Exposure: No Recent Hopitalizations: No Immunizations Up To Date Date of Pneumonia Vaccine: Feb 08, 2014 Seasonal Allergies Seasonal Allergies: No Past Medical History Surgeries: Yes (HERNIA) Respiratory: No Cardiac: Yes High Cholesterol, Hypertension Neurological: Yes Dementia Reproductive Disorders: No Sexually Transmitted Disease: No HIV/AIDS: No Genitourinary: Yes (UTI THIS ADMIT) Gastrointestinal: Yes (HX PANCREATISIS) Diverticulosis Musculoskeletal: No Endocrine: No Loss of Vision: Bilateral Hearing Impairment: Denies Cancer: No Psychosocial: Yes Anxiety, Depression Integumentary: No Blood Disorders: No Adverse Reaction/Blood Tranf: No Family Medical History Patient reports no known family medical history. Hypertension Physical Exam Vital Signs Vital Signs - First Documented 07/31/19 07/31/19 10:40 10:55 Temp 35.9 Pulse 89 Resp 20 B/P (MAP) 133/80 (97) Pulse Ox 91 O2 Delivery Room Air O2 Flow Rate 2.00 Capillary Refill : Height, Weight, BMI Height: 5'4.00" Weight: 136lbs. 1.2oz. 61.019565pk; 23.4 BMI Method:Estimated General Appearance: No Apparent Distress HEENT: PERRL/EOMI Respiratory: Wheezing (mild bibasilar) Cardiovascular: Regular Rate, Rhythm Gastrointestinal: Non Tender, Soft Extremity: Normal Capillary Refill Neurologic/Psychiatric: Alert, No Motor/Sensory Deficits Skin: Normal Color, Warm/Dry Progress/Results/Core Measures Results/Orders Lab Results Laboratory Tests Test 07/31/19 10:40 Range/Units White Blood Count 8.4 4.3-11.0 10^3/uL Red Blood Count 3.71 L 4.35-5.85 10^6/uL Hemoglobin 10.9 L 11.5-16.0 G/DL Hematocrit 33 L 35-52 % Mean Corpuscular Volume 90 80-99 FL Mean Corpuscular Hemoglobin 29 25-34 PG Mean Corpuscular Hemoglobin Concent 33 32-36 G/DL Red Cell Distribution Width 14.6 H 10.0-14.5 % Platelet Count 315 130-400 10^3/uL Mean Platelet Volume 9.3 7.4-10.4 FL Neutrophils (%) (Auto) 71 42-75 % Lymphocytes (%) (Auto) 18 12-44 % Monocytes (%) (Auto) 10 0-12 % Eosinophils (%) (Auto) 1 0-10 % Basophils (%) (Auto) 0 0-10 % Neutrophils # (Auto) 6.0 1.8-7.8 X 10^3 Lymphocytes # (Auto) 1.5 1.0-4.0 X 10^3 Monocytes # (Auto) 0.8 0.0-1.0 X 10^3 Eosinophils # (Auto) 0.1 0.0-0.3 10^3/uL Basophils # (Auto) 0.0 0.0-0.1 10^3/uL Sodium Level 132 L 135-145 MMOL/L Potassium Level 3.9 3.6-5.0 MMOL/L Chloride Level 96 L 98-107 MMOL/L Carbon Dioxide Level 28 21-32 MMOL/L Anion Gap 8 5-14 MMOL/L Blood Urea Nitrogen 20 H 7-18 MG/DL Creatinine 0.70 0.60-1.30 MG/DL Estimat Glomerular Filtration Rate > 60 BUN/Creatinine Ratio 29 Glucose Level 116 H 70-105 MG/DL Calcium Level 9.0 8.5-10.1 MG/DL Corrected Calcium 9.1 8.5-10.1 MG/DL Total Bilirubin 0.5 0.1-1.0 MG/DL Aspartate Amino Transf (AST/SGOT) 52 H 5-34 U/L Alanine Aminotransferase (ALT/SGPT) 73 H 0-55 U/L Alkaline Phosphatase 62 40-136 U/L B-Type Natriuretic Peptide 981.3 H <100.0 PG/ML Total Protein 6.4 6.4-8.2 GM/DL Albumin 3.9 3.2-4.5 GM/DL My Orders Orders - LINARES,THERON L DO Cbc With Automated Diff (07/31/19 10:39) Comprehensive Metabolic Panel (07/31/19 10:39) BNP (07/31/19 10:39) Ekg Tracing (07/31/19 10:39) O2 (07/31/19 10:39) Ed Iv/Invasive Line Start (07/31/19 10:39) Monitor-Rhythm Ecg Trace Only (07/31/19 10:39) Albuterol/Ipra Inhalation Soln (Duoneb I (07/31/19 10:45) Svn Small Volume Nebulizer (07/31/19 10:39) Ua Culture If Indicated (07/31/19 10:46) Chest 1 View, Ap/Pa Only (07/31/19 11:18) Furosemide Injection (Lasix Injection) (07/31/19 11:45) Medications Given in ED Current Medications Medications Dose Ordered Sig/Maxx Route Start Time Stop Time Status Last Admin Dose Admin Albuterol/ Ipratropium 3 ml ONCE ONCE INH 07/31/19 10:45 07/31/19 10:46 DC 07/31/19 10:58 3 ML Furosemide 40 mg ONCE ONCE IVP 07/31/19 11:45 07/31/19 11:46 DC 07/31/19 11:48 40 MG Vital Signs/I&O 07/31/19 07/31/19 07/31/19 10:40 10:55 10:59 Temp 35.9 Pulse 89 Resp 20 B/P (MAP) 133/80 (97) Pulse Ox 91 91 91 O2 Delivery Room Air Nasal Cannula O2 Flow Rate 2.00 Departure Communication (Admissions) Time/Spoke to Admitting Phy: 11:50 Impression Primary Impression: Pulmonary edema with congestive heart failure Additional Impression: 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 Referrals: AMARILYS HUNT MD (PCP/Family) Primary Care Physician THERON LINARES DO Jul 31, 2019 10:44 POS
[2019-07-31] MEDS ORDERED: RT-ALBUTEROL/IPRATROPIUM 3 ML (DUONEB) VIAL INH ONE (10:45)
[2019-07-31 10:48] LABS: BASOPHILS % (AUTO) 0 % (0-10); EOSINOPHILS # (AUTO) 0.1 10^3/uL (0.0-0.3); EOSINOPHILS % (AUTO) 1 % (0-10); HEMATOCRIT 33 % (35-52); HEMOGLOBIN 10.9 G/DL (11.5-16.0); LYMPHOCYTES # (AUTO) 1.5 X 10^3 (1.0-4.0); LYMPHOCYTES % (AUTO) 18 % (12-44); MEAN CORPUSCULAR HEMOGLOBIN 29 PG (25-34); MEAN CORPUSCULAR HGB CONC 33 G/DL (32-36); MEAN CORPUSCULAR VOLUME 90 FL (80-99); MEAN PLATELET VOLUME 9.3 FL (7.4-10.4); MONOCYTES # (AUTO) 0.8 X 10^3 (0.0-1.0); MONOCYTES % (AUTO) 10 % (0-12); NEUTROPHILS % (AUTO) 71 % (42-75); PLATELET COUNT 315 10^3/uL (130-400); RED CELL DISTRIBUTION WIDTH 14.6 % (10.0-14.5); WHITE BLOOD COUNT 8.4 10^3/uL (4.3-11.0)
[2019-07-31 11:11] LABS: ALANINE AMINOTRANSFERASE 73 U/L (0-55); ALBUMIN 3.9 GM/DL (3.2-4.5); ALKALINE PHOSPHATASE 62 U/L (40-136); BILIRUBIN,TOTAL 0.5 MG/DL (0.1-1.0); BUN/CREATININE RATIO 29; CARBON DIOXIDE 28 MMOL/L (21-32); CHLORIDE 96 MMOL/L (98-107); GFR ESTIMATED > 60; GLUCOSE 116 MG/DL (70-105); POTASSIUM 3.9 MMOL/L (3.6-5.0); SODIUM 132 MMOL/L (135-145); TOTAL PROTEIN 6.4 GM/DL (6.4-8.2)
--- NOTE | 2019-07-31 11:36 | Diagnostic Imaging Report ---
INDICATION: Altered mental status and low oxygen saturation. TIME OF EXAM: 11:26 a.m. COMPARISON: Correlation is made with prior study from 07/17/2016. FINDINGS: The heart is enlarged. There is a metallic zipper overlying the mid upper chest. Clinical correlation is recommended to ensure this is truly on the outside of the patient versus an ingested foreign body. Congestive changes in both lungs are noted. There are interstitial infiltrates. There is some consolidation and pleural fluid in the left base. No pneumothorax is seen. IMPRESSION: 1. Findings consistent with congestive failure. 2. Zipper overlies the midline of the upper chest, as described above. Correlation to ensure this is truly on the outside of the patient is recommended. Dictated by: Dictated on workstation # [id number]
[2019-07-31] MEDS ORDERED: FUROSEMIDE 40 MG/4 ML INJ (LASIX) IVP ONE (11:45)
--- NOTE | 2019-07-31 12:00 | NUR ---
UNABLE TO OBTAIN EKG OR UNINE DUE TO PT NOT WANTING US TO TOUCH HER.
--- NOTE | 2019-07-31 12:45 | NUR ---
83 YEAR OLD ADMITTED FROM ED FROM [facility]. PT CONFUSED AND UNABLE TO APPROPRIATELY GIVE INFORMATION FOR ADMISSION QUESTIONS AND NO FAMILY AVAILABLE. UNABLE TO UNDERSTAND EDUCATION ON ADMIT, CARE PLANS, HOSPITAL ENVIRONMENT. NO FAMILY PRESENT. 4 RAILS AND BED ALARM ON.
[2019-07-31] MEDS ORDERED: CATHETER FLUSH 10 ML SYR IV PRN (13:00)
[2019-07-31] MEDS: CATHETER FLUSH 10 ML SYR IV SCH ×2 (13:01→20:04)
[2019-07-31 13:37] VITALS: BP 123/81
[2019-07-31] MEDS ORDERED: DONE5TAB30 PO (13:41)
[2019-07-31] MEDS ORDERED: LEVO25TA5 PO (13:41)
[2019-07-31] MEDS ORDERED: DIVA125C10 PO (13:41)
[2019-07-31] MEDS ORDERED: ACET325T38 PO (13:41)
--- NOTE | 2019-07-31 13:42 | NUR ---
UPDATED MED REC WITH PHYSICIAN VISIT FORM FROM [facility]IA [facility], [place].
[2019-07-31 13:43] VITALS: BP 123/81
[2019-07-31 16:09] VITALS: BP 113/62
--- NOTE | 2019-07-31 19:17 | History & Physical ---
History of Present Illness History of Present Illness Reason for visit/HPI PT IS AN 83 Y/O FEMALE WHO IS KNOWN TO ME FROM CLINIC AND PREVIOUS HOSPITALIZATIONS. SHE PRESENTED TO THE HOSPITAL FROM THE [facility] AFTER ACUTE SHORTNESS OF BREATH, WEAKNESS, FALLING EPISODES AND WORSENING CONFUSION. PT HAS ADVANCED DEMENTIA AND WAS UNABLE TO PARTICIPATE IN THE HISTORY OR REVIEW OF SYMPTOMS. INFORMATION ABOUT HER ILLNESS WAS GLEANED FROM THE CHART WELL FROM HER NURSING STAFF. Date of Admission Jul 31, 2019 at 11:57 I consulted on this patient on 07/31/19 19:12 Attending Physician Amarilys Bowen MD Admitting Physician Amarilys Bowen MD Consult Allergies and Home Medications Allergies Coded Allergies: No Known Drug Allergies (Unverified , 07/31/19) Home Medications Acetaminophen 325 Mg Tablet, 650 MG PO Q6H PRN for PAIN-MILD (1-4), (Reported) TAKES 2 (325MG) TABLETS Cholecalciferol (Vitamin D3) 1,000 Unit Capsule, 1,000 UNIT PO DAILY, (Reported) Citalopram Hydrobromide 20 Mg Tablet, 20 MG PO DAILY, (Reported) Diltiazem HCl 240 Mg Cap.er.24h, 240 MG PO DAILY, (Reported) HOLD FOR SBP<100 AND/OR DBP<60 AND/OR PULSE =/<60 Divalproex Sodium 125 Mg Cap.sprink, 125 MG PO TID, (Reported) Donepezil HCl 5 Mg Tablet, 5 MG PO HS, (Reported) Levothyroxine Sodium 25 Mcg Tablet, 25 MCG PO DAILY, (Reported) Loratadine 10 Mg Tablet, 10 MG PO DAILY, (Reported) Mirtazapine 15 Mg Tablet, 15 MG PO HS, (Reported) Sennosides/Docusate Sodium 1 Each Tablet, 1 TAB PO BID, (Reported) Patient Home Medication List Home Medication List Reviewed: Yes Past Aodhdbl-Cichtz-Qzwsez Hx Past Med/Social Hx: Reviewed Nursing Past Med/Soc Hx Patient Social History Marrital Status: Living Status: LIVES AT [facility] - HAS GUARDIAN - NOT HER CHILDREN Employed/Student: retired Alcohol Use: Denies Use Recreational Drug Use: No (CONFUSED) Smoking Status: Unknown if Ever Smoked Former Smoker, Quit: Feb 08, 2015 2nd Hand Smoke Exposure: No Physical Abuse Screen: No (CONFUSED) Sexual Abuse: No (CONFUSED) Recent Foreign Travel: No ([place] PATIENT/CONFUSED) Contact w/other who traveled: No Recent Hopitalizations: No Recent Infectious Disease Expo: No Immunizations Up To Date Date of Pneumonia Vaccine: Feb 08, 2014 Date of Influenza Vaccine: Jun 05, 2019 Seasonal Allergies Seasonal Allergies: No Past Medical History Cardiac: High Cholesterol, Hypertension Neurological: Dementia Reproductive: No Sexually Transmitted Disease: No HIV/AIDS: No Gastrointestinal: Diverticulosis Loss of Vision: Bilateral Hearing Impairment: Denies Psychosocial: Anxiety, Depression History of Blood Disorders: No Adverse Reaction to Blood Boland: No Family History Reviewed Nursing Family Hx Patient reports no known family medical history. Hypertension Physical Exam Vital Signs Vital Signs - First Documented 07/31/19 07/31/19 10:40 10:55 Temp 35.9 Pulse 89 Resp 20 B/P (MAP) 133/80 (97) Pulse Ox 91 O2 Delivery Room Air O2 Flow Rate 2.00 Capillary Refill : Less Than 3 Seconds Height, Weight, BMI Height: 5'4.00" Weight: 136lbs. 1.2oz. 61.425891td; 27.91 BMI Method:Estimated Assessment/Plan Assessment and Plan ACUTE CONGESTIVE HEART FAILURE PULMONARY EDEMA ANEMIA Admission Diagnosis Admission Status: Inpatient Order (span 2 midnights) Reason for Inpatient Admission: INPATIENT ADMISSION EXPECTED FOR AT LEAST 72 HOURS FOR PULMONARY EDEMA DUE TO CONGESTIVE HEART FAILURE Clinical Quality Measures DVT/VTE Risk/Contraindication: Risk Factor Score Per Nursin RFS Level Per Nursing on Admit: 4+=Very High AMARILYS BOWEN MD Jul 31, 2019 19:17 POS
[2019-07-31] MEDS ORDERED: ACETAMINOPHEN 325 MG TABLET PO PRN (19:30)
[2019-07-31] MEDS: DIVALPROX SPRINKLE 125 MG (DEPAKOTE) CAP PO SCH (20:03)
[2019-07-31] MEDS: SENNA W/DOCUSATE (SENOKOT S) TABLET PO SCH (20:03)
[2019-07-31 20:13] VITALS: BP 117/61
[2019-07-31] MEDS ORDERED: DONEPEZIL 5 MG (ARICEPT) TAB PO SCH (21:00)
[2019-07-31] MEDS ORDERED: NON-FORMULARY MEDICATION 1 EA EA (Sennosides/Docusate Sodium (Senna S Tablet) 1 TAB) PO SCH (21:00)
[2019-07-31] MEDS ORDERED: NON-FORMULARY MEDICATION 1 EA EA (Mirtazapine 15 MG) PO SCH (21:00)
[2019-07-31] MEDS ORDERED: MIRTAZAPINE 15 MG (REMERON) TAB PO SCH (21:00)
[2019-07-31 23:00] VITALS: BP 124/72
[2019-08-01 04:35] VITALS: BP 125/76
[2019-08-01 05:43] LABS: MEAN PLATELET VOLUME 9.2 FL (7.4-10.4); RED CELL DISTRIBUTION WIDTH 14.9 % (10.0-14.5); WHITE BLOOD COUNT 9.1 10^3/uL (4.3-11.0)
[2019-08-01] MEDS: CATHETER FLUSH 10 ML SYR IV SCH (05:49)
[2019-08-01 06:05] LABS: ALANINE AMINOTRANSFERASE 67 U/L (0-55); ALBUMIN 3.3 GM/DL (3.2-4.5); ALKALINE PHOSPHATASE 52 U/L (40-136); BILIRUBIN,TOTAL 0.5 MG/DL (0.1-1.0); BUN/CREATININE RATIO 20; CALCIUM 8.4 MG/DL (8.5-10.1); CARBON DIOXIDE 26 MMOL/L (21-32); CHLORIDE 98 MMOL/L (98-107); CREATININE SERUM 0.69 MG/DL (0.60-1.30); GFR ESTIMATED > 60; GLUCOSE 99 MG/DL (70-105); MAGNESIUM 1.9 MG/DL (1.6-2.4); POTASSIUM 4.4 MMOL/L (3.6-5.0); SODIUM 133 MMOL/L (135-145); TOTAL PROTEIN 5.9 GM/DL (6.4-8.2)
[2019-08-01] MEDS ORDERED: LEVOTHYROXINE 25 MCG (LEVOTHROID) TAB PO SCH (06:30)
[2019-08-01] MEDS ORDERED: FUROSEMIDE 40 MG/4 ML INJ (LASIX) IV SCH (07:00)
[2019-08-01 08:00] VITALS: BP 126/66
[2019-08-01] MEDS ORDERED: NON-FORMULARY MEDICATION 1 EA EA (Diltiazem HCl (Diltiazem 24Hr Cd) 240 MG) PO SCH (09:00)
[2019-08-01] MEDS ORDERED: LORATADINE (CLARITIN) 10 MG TAB PO SCH (09:00)
[2019-08-01] MEDS ORDERED: DILTIAZEM 240 MG (CARDIZEM CD) CAP PO SCH (09:00)
[2019-08-01] MEDS ORDERED: FURO20TA4 PO (09:20)
--- NOTE | 2019-08-01 09:22 | Discharge Inst-Complex ---
PDI Reconcile Patient Problems Problems Reviewed?: Yes Med Rec & Follow Up Appt. New Medications: Furosemide (Furosemide) 20 Mg Tablet 20 MG PO UD, #45 TAB 1 PILL BID X 1 WK THEN DAILY THEREAFTER Continued Medications: Acetaminophen (Tylenol) 325 Mg Tablet 650 MG PO Q6H PRN for PAIN-MILD (1-4), TAB TAKES 2 (325MG) TABLETS Cholecalciferol (Vitamin D3) (Vitamin D3) 1,000 Unit Capsule 1000 UNIT PO DAILY, CAP Citalopram Hydrobromide (Celexa) 20 Mg Tablet 20 MG PO DAILY, TAB Diltiazem HCl (Diltiazem 24Hr Cd) 240 Mg Cap.er.24h 240 MG PO DAILY, CAP HOLD FOR SBP<100 AND/OR DBP<60 AND/OR PULSE =/<60 Divalproex Sodium (Divalproex Sodium) 125 Mg Cap.sprink 125 MG PO TID, CAP Donepezil HCl (Donepezil HCl) 5 Mg Tablet 5 MG PO HS, TAB Levothyroxine Sodium (Levothyroxine Sodium) 25 Mcg Tablet 25 MCG PO DAILY, TAB Loratadine (Loratadine) 10 Mg Tablet 10 MG PO DAILY, TAB Mirtazapine (Mirtazapine) 15 Mg Tablet 15 MG PO HS, TAB Sennosides/Docusate Sodium (Senna S Tablet) 1 Each Tablet 1 TAB PO BID, TAB Patient Instructions: 1 [facility] Activity, Diet and PDI Resume Normal Activity: Yes Discharge Diet: Regular Diet Drink 6-8 Glasses of Fluid/Day: Yes Return to The Hospital For: CALL HOSPICE PRIOR TO SENDING PT TO HOSPITAL Symptoms to Reoprt to : Fever Over 101 Degrees F, Shortness of Breath Comment: [facility] PT IS DNR/DNI ONCE HER PAPERWORK GETS CLEARED BY HER GUARDIAN For Problems or Questions: Contact Your Physician, Go to Emergency Room AMARILYS HUNT MD Aug 01, 2019 09:21 POS
--- NOTE | 2019-08-01 09:23 | Discharge Summary ---
Diagnosis/Chief Complaint Date of Admission Jul 31, 2019 at 11:57 Date of Discharge Discharge Date: Aug 01, 2019 Discharge Time: 1000 Reason Hospital Visit PT IS AN 83 Y/O FEMALE WHO IS KNOWN TO ME FROM CLINIC AND PREVIOUS HOSPITALIZATIONS. SHE PRESENTED TO THE HOSPITAL FROM THE [facility] AFTER ACUTE SHORTNESS OF BREATH, WEAKNESS, FALLING EPISODES AND WORSENING CONFUSION. PT HAS ADVANCED DEMENTIA AND WAS UNABLE TO PARTICIPATE IN THE HISTORY OR REVIEW OF SYMPTOMS. INFORMATION ABOUT HER ILLNESS WAS GLEANED FROM THE CHART WELL FROM HER NURSING STAFF. Discharge Summary Discharge Physical Examination Allergies: Coded Allergies: No Known Drug Allergies (Unverified , 07/31/19) Vitals & I&Os Vital Signs Date Time Temp Pulse Resp B/P (MAP) Pulse Ox O2 Delivery O2 Flow Rate FiO2 08/01/19 08:00 36.6 70 18 126/66 (86) 90 Room Air 07/31/19 16:31 2.00 Hospital Course Pending Labs Laboratory Tests 08/01/19 05:00: B-Type Natriuretic Peptide 715.0 08/01/19 05:30: White Blood Count 9.1, Red Blood Count 3.40, Hemoglobin 10.0, Hematocrit 30, Mean Corpuscular Volume 89, Mean Corpuscular Hemoglobin 29, Mean Corpuscular Hemoglobin Concent 33, Red Cell Distribution Width 14.9, Platelet Count 322, Mean Platelet Volume 9.2, Sodium Level 133, Potassium Level 4.4, Chloride Level 98, Carbon Dioxide Level 26, Anion Gap 9, Blood Urea Nitrogen 14, Creatinine 0.69, Estimat Glomerular Filtration Rate > 60, BUN/Creatinine Ratio 20, Glucose Level 99, Calcium Level 8.4, Corrected Calcium 9.0, Magnesium Level 1.9, Total Bilirubin 0.5, Aspartate Amino Transf (AST/SGOT) 54, Alanine Aminotransferase (ALT/SGPT) 67, Alkaline Phosphatase 52, Total Protein 5.9, Albumin 3.3 Discharge Instructions to patient/family Please see electronic discharge instructions given to patient. Discharge Medications Reviewed and agree with Discharge Medication list on patient's Discharge Instruction sheet Clinical Quality Measures DVT/VTE Risk/Contraindication: Risk Factor Score Per Nursin RFS Level Per Nursing on Admit: 4+=Very High AMARILYS HUNT MD Aug 01, 2019 09:23 POS
[2019-08-01] MEDS ORDERED: FUROSEMIDE 40 MG (LASIX) TAB PO NR (09:30)
[2019-08-01] MEDS: SENNA W/DOCUSATE (SENOKOT S) TABLET PO SCH (10:21)
[2019-08-01] MEDS: DIVALPROX SPRINKLE 125 MG (DEPAKOTE) CAP PO SCH ×2 (10:21→13:00)
[2019-08-01 12:00] VITALS: BP 124/62
--- NOTE | 2019-08-01 12:19 | NUR ---
DISCHARGE PLANNING: Patient is discharged today back to her previous residence at [facility]. Family has elected to sign her up with hospice services and have chosen [facility] as a family member works for them. Clinical information and discharge orders have been sent to hospice as well as [facility]. Awaiting transport time. Have requested a change of clothes and w/c.
--- NOTE | 2019-08-01 13:36 | NUR ---
"RD ASSESSMENT PMHx: hypercholesterolemia; HTN; dementia; diverticulosis PT INTERACTION: Pt was awake and pleasant during nutrition assessment. Note pt has advanced dementia and AMS, per chart review. Pt states current appetite is pretty good. Note pt avg PO intake of <25% x1d, per chart review. Pt states no recent issues with chewing/swallowing food. Pt states no recent issues with n/v/c/d at this time. Note no BM has been recorded and pt currently on bowel regimen of senna BID, per chart review. Note recent wt gain of 25# x5mon, per chart review. ABNORMAL NUTRITION-RELATED LAB VALUES: Na 133 (L); Ca 8.4 (L); Pro 5.9 (L); AST 54 (H); ALT 67 (H) Est. kcal needs: 1450-31858 kcal | 20-25 kcal/kg Est. Pro needs: 58-73 g Pro | 0.8-1.0 g Pro/kg PES STATEMENT: Inadequate oral intake (NI-2.1) related to AMS as evidenced by pt interview. INTERVENTION: Continue with current diet order of Regular diet. Continue with current supplementation order of Ensure Enlive (vary) to meals TID to increase kcal intake. Provides 350 kcal and 13 g Pro per serving. Pt would benefit from meal assistance and encouragement to eat during meal times d/t AMS. Will continue to follow and reassess as pt needs and status change. MONITOR/EVALUATE: PO Intake; Plan of Care; Hydration Status; Weight Status; Lab Values Haley Martinez, MS, RD, LD"
--- NOTE | 2019-08-01 13:44 | NUR ---
DC'D PER WC TO [facility]. REPORT TO ERNESTINE NAIDU.
--- NOTE | 2019-08-04 10:29 | Physician Query Clarification ---
PQ-CHF Specificity Admission Date: Jul 31, 2019 at 11:57 Discharge Date: Aug 01, 2019 at 13:45 The medical record reflects the following clinical scenario: History/Risk Factors: HTN, dementia Clinical Findings: BNP 981, pulmonary edema Treatment: IV lasix Question: Can you further specify the acuity &/or type of CHF per the clinical indicators above? Please document a response in the Progress Notes or Discharge Summary. 1. Acuity: Acute, Chronic or Acute on Chronic 2. Type: Systolic, Diastolic or Systolic & Diastolic 3. Unspecified: CHF cannot be further specified regarding type or acuity 4. Other, with explanation of clinical findings 5. Clinically undetermined, no explanation for clinical findings PHYSICIAN RESPONSE Acuity: CHF cannot be further specified Type: CHF cannot be further specified Please remember a lack of response to the above will prompt a phone page by CDI/Coding staff. In responding to this query, please exercise your independent professional judgment. The purpose of this communication is to more accurately reflect the complexity of your patients condition. The fact that a question is asked does not imply that any particular answer is desired or expected. Thank you for your timely response to this clarification. Requestors name: Flori THIS PHYSICIAN QUERY FORM IS A PERMANENT PART OF THE MEDICAL RECORD DOMINGA HANSEN Aug 04, 2019 10:29 AMARILYS INTERIANO MD Aug 06, 2019 13:28 POS
== END 2019-08-01 13:45 | DRG 293 ==
LOC: EDUNIT# 10:33 → ER 10:34 → 4TH 11:57
PROVIDERS: ADMIT Family Medicine; ATTEND Family Medicine
DX: I11.0 Hypertensive heart disease with heart failure (principal); I50.9 Heart failure, unspecified; D64.9 Anemia, unspecified; F03.90 Unspecified dementia, unspecified severity, without behavioral disturbance, psychotic disturbance, mood disturbance, and anxiety; E78.00 Pure hypercholesterolemia, unspecified; K57.90 Diverticulosis of intestine, part unspecified, without perforation or abscess without bleeding; F41.9 Anxiety disorder, unspecified; F32.9 Major depressive disorder, single episode, unspecified; Z87.891 Personal history of nicotine dependence; Z87.19 Personal history of other diseases of the digestive system; Z91.81 History of falling
CPT/HCPCS: 36415; 71045; 80053; 83735; 83880; 85025; 85027; 94640; 94760; 96374